=== PATIENT | male | born 1950 | race Caucasian/White ===

== ENCOUNTER → 2017-10-18 14:40 | Outpatient (CLI) | payer MEDICARE, OTHER, SELFPAY ==
[2017-10-18 16:07] LABS: Absolute Lymphocyte Count 1.64 X10^3/ul (0.83-4.51); Absolute Neutrophil Count 6.1 X10^3/uL (2.0-7.7); Basophil# 0.03 X10^3/uL; Basophil% 0.4 % (0-1); Eosinophil# 0.11 X10^3/uL; Eosinophils% 1.3 % (0-5); Hematocrit 44.8 % (40-54); Hemoglobin 15.4 g/dl (13.0-16.5); Lymphocyte # 1.64 X10^3/ul (4.0); Lymphocyte % 19.3 % (19-41); Mean Corp Hgb Conc 34.4 g/gl (32-36); Mean Corpuscular Hgb 28.5 pg (27.0-32.0); Mean Platelet Vol. 10.7 fl (6.2-12.0); Monocyte# 0.63 X10^3/uL; Monocyte% 7.4 % (0-10); Neutrophil # 6.07 X10^3/uL (2.7-7.7); Neutrophil % 71.2 % (47-70); Platelet Count 292 K/mm3 (150-450); RBC Distribution Width CV 13.3 % (11.6-14.6); White Blood Count 8.5 K/mm3 (4.4-11.0)
[2017-10-18 16:23] LABS: POSITIVE COUNT NO; POSITIVE DIFFERENTIAL NO; POSITIVE MORPHOLOGY NO
[2017-10-18 16:28] LABS: Anion Gap 6 (5-15); BUN 12 mg/dL (7-18); BUN/Creat Ratio 14.1 RATIO (10-20); Chloride 102 mmol/L (98-107); Creatinine, Serum 0.85 mg/dL (0.70-1.30); EST Glomerular Filtration Rate 95 mL/min (>60); Est Glom Filt Rate - Afr Amer 115 mL/min (>60); Glucose 86 mg/dL (74-106); Potassium 3.7 mmol/L (3.5-5.1); Sodium Level 139 mmol/L (136-145); Thyroid Stim Hormone (TSH) 0.86 uIU/mL (0.358-3.74)
== END ==
PROVIDERS: Family Provider Family Medicine; PCP Family Medicine; Visit Provider Family Medicine
DX: I10 Essential (primary) hypertension (principal); R55 Syncope and collapse
CPT/HCPCS: 36415; 80048; 84443; 85025

== ENCOUNTER → 2018-06-10 09:46 | Outpatient (CLI) | payer MEDICARE, OTHER, SELFPAY ==
--- NOTE | 2018-06-10 12:11 | PFT ---
INTRODUCTION: The patient is a 68-year-old male that presents for pulmonary function testing secondary to a diagnosis of asthma. Respiratory therapy reports good patient effort. Bronchodilators were used during testing. INTERPRETATION: Forced expiration spirometry demonstrates no evidence of a large airways obstructive ventilatory defect. There was no significant response to aerosolized bronchodilators, based on strict ATS criteria. Spirograms are of good quality and plateau normally. Body plethysmography was performed and reveals a decreased TLC to 5.3 L, 78% of predicted, indicative of a mild restrictive ventilatory defect. The remainder of the lung volumes are symmetrically reduced. Diffusing capacity by single breath CO is within normal limits at 98% of predicted. When compared to previous pulmonary function studies dated May 2017, there has been a 13% improvement in the patient's FEV1. IMPRESSION: These pulmonary function studies demonstrate the presence of an isolated mild restrictive ventilatory impairment.
== END ==
PROVIDERS: Family Provider Family Medicine; PCP Family Medicine; Referring Provider Internal Medicine Critical Care Medicine; Visit Provider Internal Medicine Critical Care Medicine
DX: J45.40 Moderate persistent asthma, uncomplicated (principal)
CPT/HCPCS: 94060; 94726; 94729

== ENCOUNTER → 2018-10-20 09:54 | Outpatient (CLI) | payer MEDICARE, OTHER, SELFPAY ==
[2018-10-20 12:30] LABS: Absolute Neutrophil Count 3.9 X10^3/uL (2.0-7.7); Basophil# 0.03 X10^3/uL; Basophil% 0.5 % (0-1); Eosinophil# 0.16 X10^3/uL; Eosinophils% 2.5 % (0-5); Hematocrit 46.2 % (40-54); Hemoglobin 14.8 g/dl (13.0-16.5); Lymphocyte % 25.4 % (19-41); Mean Corpuscular Hgb 28.4 pg (27.0-32.0); Mean Corpuscular Volume 88.5 fL (80-94); Mean Platelet Vol. 10.5 fl (6.2-12.0); Monocyte# 0.58 X10^3/uL; Monocyte% 9.2 % (0-10); Neutrophil % 62.1 % (47-70); POSITIVE COUNT NO; POSITIVE DIFFERENTIAL NO; POSITIVE MORPHOLOGY NO; Platelet Count 273 K/mm3 (150-450); RBC Distribution Width CV 13.5 % (11.6-14.6); RBC Distribution Width SD 43.5 fl (35.1-43.9); Red Blood Count 5.22 M/mm3 (4.6-6.2); White Blood Count 6.3 K/mm3 (4.4-11.0)
[2018-10-20 13:14] LABS: ALB/GLOB Ratio 1.2 RATIO (0.9-2.4); AST(SGOT) 17 U/L (15-37); Alanine Aminotransfer ALT/SGPT 27 U/L (16-61); Albumin, Serum 3.9 g/dL (3.2-5.0); Alkaline Phosphatase 75 U/L (45-117); Anion Gap 5 (5-15); BUN 14 mg/dL (7-18); BUN/Creat Ratio 16.6 RATIO (10-20); Calcium,Total 8.8 mg/dL (8.5-10.1); Chloride 105 mmol/L (98-107); Cholesterol 164 mg/dL (200); Creatinine, Serum 0.84 mg/dL (0.70-1.30); EST Glomerular Filtration Rate 96 mL/min (>60); Est Glom Filt Rate - Afr Amer 116 mL/min (>60); Globulin 3.3 g/dL (2.2-4.2); Glucose 96 mg/dL (74-106); High Density Lipoprotein 39 mg/dL; Potassium 3.8 mmol/L (3.5-5.1); Protein, Total 7.2 g/dL (6.4-8.2); Sodium Level 138 mmol/L (136-145); Thyroid Stim Hormone (TSH) 1.32 uIU/mL (0.358-3.74); Triglycerides 161 mg/dL; Very Low Density Lipoprotein 32 mg/dL (5-40)
== END ==
PROVIDERS: Family Provider Family Medicine; PCP Family Medicine; Visit Provider Internal Medicine Cardiovascular Disease
DX: I10 Essential (primary) hypertension (principal); R06.09 Other forms of dyspnea; R07.9 Chest pain, unspecified; Z68.35 Body mass index [BMI] 35.0-35.9, adult
CPT/HCPCS: 36415; 80053; 80061; 84443; 85025

== ENCOUNTER → 2019-11-13 10:31 | Outpatient (CLI) | payer MEDICARE, OTHER, SELFPAY ==
[2019-06-08 13:17] VITALS: BMI 32.0
[2019-11-13 12:20] LABS: Absolute Lymphocyte Count 1.08 X10^3/uL (0.83-4.51); Absolute Neutrophil Count 4.1 X10^3/uL (2.0-7.7); Basophil# 0.04 X10^3/uL; Basophil% 0.7 % (0-1); Eosinophil# 0.22 X10^3/uL; Eosinophils% 3.6 % (0-5); Hematocrit 43.3 % (40-54); Hemoglobin 14.2 g/dL (13.0-16.5); Lymphocyte # 1.08 X10^3/ul (4.0); Lymphocyte % 17.9 % (19-41); Mean Corp Hgb Conc 32.8 g/dL (32-36); Mean Corpuscular Hgb 28.6 pg (27.0-32.0); Mean Corpuscular Volume 87.1 fL (80-94); Mean Platelet Vol. 11.2 fl (6.2-12.0); Monocyte# 0.58 X10^3/uL; Monocyte% 9.6 % (0-10); NRBC Flagged by Analyzer 0 % (0-5); Neutrophil % 67.7 % (47-70); Platelet Count 233 K/mm3 (150-450); RBC Distribution Width CV 13.4 % (11.6-14.6); RBC Distribution Width SD 42.3 fl (35.1-43.9); Red Blood Count 4.97 M/mm3 (4.6-6.2); White Blood Count 6.1 K/mm3 (4.4-11.0)
[2019-11-13 12:41] LABS: ALB/GLOB Ratio 1.3 RATIO (0.9-2.4); AST(SGOT) 13 U/L (15-37); Alanine Aminotransfer ALT/SGPT 23 U/L (16-61); Albumin, Serum 3.9 g/dL (3.2-5.0); Alkaline Phosphatase 85 U/L (45-117); Anion Gap 6 (5-15); BUN 14 mg/dL (7-18); BUN/Creat Ratio 16.9 RATIO (10-20); Bilirubin, Direct 0.13 mg/dL (0.00-0.30); Calcium,Total 9.3 mg/dL (8.5-10.1); Chloride 108 mmol/L (98-107); Cholesterol 146 mg/dL (200); Creatinine, Serum 0.83 mg/dL (0.70-1.30); EST Glomerular Filtration Rate 98 mL/min (>60); Est Glom Filt Rate - Afr Amer 119 mL/min (>60); Globulin 2.9 g/dL (2.2-4.2); Glucose 105 mg/dL (74-106); High Density Lipoprotein 47 mg/dL; Potassium 4.3 mmol/L (3.5-5.1); Protein, Total 6.8 g/dL (6.4-8.2); Sodium Level 142 mmol/L (136-145); Thyroid Stim Hormone (TSH) 1.37 uIU/mL (0.358-3.74); Triglycerides 98 mg/dL; Very Low Density Lipoprotein 20 mg/dL (5-40)
== END ==
PROVIDERS: PCP Family Medicine; Visit Provider Internal Medicine Cardiovascular Disease
DX: I10 Essential (primary) hypertension (principal); R60.9 Edema, unspecified; R06.00 Dyspnea, unspecified
CPT/HCPCS: 36415; 80053; 80061; 82248; 84443; 85025

== ENCOUNTER → 2020-09-05 14:26 | Outpatient (CLI) | payer MEDICARE, OTHER, SELFPAY ==
[2020-06-13 15:07] VITALS: BMI 33.5
--- NOTE | 2020-09-05 14:35 | RAD_ITS ---
STUDY: X-RAY CHEST REASON FOR EXAM: Male, 70 years old. left basilar crackles possible pneumonia. TECHNIQUE: PA and lateral views of the chest. COMPARISON: 12/25/2016 FINDINGS: There is hyperinflation of the lungs consistent with chronic obstructive lung disease (COPD). Elevated right hemidiaphragm which is unchanged. Normal size heart. Normal mediastinum and harini. Normal visualized pulmonary arteries. Normal visualized aortic arch and descending thoracic aorta. Normal visualized thoracic spine. Normal visualized ribs, clavicles, and shoulders. There is no demonstrated abnormality of the visualized soft tissue structures of the upper abdomen. RAD/Chest PA and Lateral IMPRESSION: Emphysema without pneumonia or atelectasis. Electronically Signed: Kobi Brock MD at 16:52 EST Tel , Service support ,
== END ==
PROVIDERS: PCP Family Medicine; Referring Provider Family Medicine; Visit Provider Family Medicine
DX: R91.8 Other nonspecific abnormal finding of lung field (principal); R05 Cough
CPT/HCPCS: 71046

== ENCOUNTER → 2020-11-30 09:18 | Outpatient (CLI) | payer MEDICARE, OTHER, SELFPAY ==
[2020-11-10 10:33] VITALS: BMI 33.5
[2020-11-30 10:05] LABS: Absolute Lymphocyte Count 1.64 X10^3/uL (0.83-4.51); Basophil# 0.04 X10^3/uL; Basophil% 0.6 % (0-1); Eosinophil# 0.21 X10^3/uL; Eosinophils% 3.3 % (0-5); Hemoglobin 14.5 g/dL (13.0-16.5); Lymphocyte # 1.64 X10^3/ul (4.0); Lymphocyte % 25.6 % (19-41); Mean Corpuscular Hgb 28.7 pg (27.0-32.0); Mean Corpuscular Volume 87.1 fL (80-94); Monocyte# 0.51 X10^3/uL; NRBC Flagged by Analyzer 0 % (0-5); Neutrophil # 3.98 X10^3/uL (2.7-7.7); Platelet Count 226 K/mm3 (150-450); RBC Distribution Width CV 13.1 % (11.6-14.6); RBC Distribution Width SD 41.4 fl (35.1-43.9); Red Blood Count 5.05 M/mm3 (4.6-6.2); White Blood Count 6.4 K/mm3 (4.4-11.0)
[2020-11-30 10:41] LABS: AST(SGOT) 12 U/L (15-37); Alanine Aminotransfer ALT/SGPT 23 U/L (16-61); Albumin, Serum 3.7 g/dL (3.2-5.0); Alkaline Phosphatase 96 U/L (45-117); Anion Gap 6 (5-15); BUN 14 mg/dL (7-18); BUN/Creat Ratio 16.9 RATIO (10-20); Bilirubin, Direct 0.09 mg/dL (0.00-0.30); Chloride 107 mmol/L (98-107); Cholesterol 141 mg/dL (200); Creatinine, Serum 0.83 mg/dL (0.70-1.30); EST Glomerular Filtration Rate 97 mL/min (>60); Est Glom Filt Rate - Afr Amer 118 mL/min (>60); Globulin 3.3 g/dL (2.2-4.2); Glucose 102 mg/dL (74-106); High Density Lipoprotein 47 mg/dL; Potassium 3.9 mmol/L (3.5-5.1); Sodium Level 140 mmol/L (136-145); Thyroid Stim Hormone (TSH) 1.32 uIU/mL (0.358-3.74); Triglycerides 101 mg/dL; Very Low Density Lipoprotein 20 mg/dL (5-40)
== END ==
PROVIDERS: Nurse Practitioner Family; PCP Family Medicine; Visit Provider Family Medicine
DX: I10 Essential (primary) hypertension (principal); R60.9 Edema, unspecified
CPT/HCPCS: 36415; 80048; 80061; 80076; 84443; 85025

== ENCOUNTER → 2020-12-14 15:47 | Outpatient (CLI) | payer MEDICARE, OTHER, SELFPAY ==
[2020-12-14 14:49] VITALS: BMI 33.5
[2020-12-14 17:42] LABS: BNP,B-Type NATRIURETIC PEPTIDE 102.3 pg/mL (0-100)
[2020-12-14 17:43] LABS: Anion Gap 6 (5-15); BUN 16 mg/dL (7-18); BUN/Creat Ratio 20.5 RATIO (10-20); Calcium,Total 8.9 mg/dL (8.5-10.1); Chloride 105 mmol/L (98-107); Creatinine, Serum 0.78 mg/dL (0.70-1.30); EST Glomerular Filtration Rate 104 mL/min (>60); Est Glom Filt Rate - Afr Amer 126 mL/min (>60); Glucose 94 mg/dL (74-106); Potassium 3.9 mmol/L (3.5-5.1); Sodium Level 140 mmol/L (136-145)
== END ==
PROVIDERS: PCP Family Medicine; Referring Provider Nurse Practitioner Family; Visit Provider Nurse Practitioner Family
DX: R06.00 Dyspnea, unspecified (principal); R60.9 Edema, unspecified
CPT/HCPCS: 36415; 80048; 83880

== ENCOUNTER → 2020-12-29 12:40 | Outpatient (CLI) | payer MEDICARE, OTHER, SELFPAY ==
[2020-12-14 14:49] VITALS: BMI 33.5
--- NOTE | 2020-12-29 12:41 | ECHOCS_ITS ---
Reason For Study: SOB Procedure This was a 2D Doppler, Color Flow transthoracic echocardiogram. The study was technically difficult. Exam performed in department. Left Ventricle Normal LV size. Left ventricular systolic function is normal. The estimated ejection fraction is 55 %. Normal diastology for age. No regional wall motion abnormalities noted. Right Ventricle Normal RV size. Normal systolic function. Atria The left atrium is mildly enlarged. Normal right atrium. Mitral Valve Normal mitral valve. Mild (1+) eccentric mitral valve insufficiency. Tricuspid Valve Normal tricuspid valve. Mild tricuspid valve insufficiency. Pulmonary artery systolic pressure is 35 mmHg. Aortic Valve Trisinus/trileaflet aortic valve. Mild focal aortic valve thickening. Mild (1+) eccentric aortic valve insufficiency. Pulmonic Valve The pulmonic valve is not well visualized. Great Vessels Normal aortic root. The pulmonary artery is normal size. Normal inferior vena cava. Pericardium/Pleural No pericardial effusion. Medication 22 gauge I.V. with prn adaptor inserted into right arm. Diluted definity 2.5ml given slow IV push to enhance endocardial definition. MMode/2D Measurements & Calculations LVIDd: 5.4 cm IVSd: 1.0 cm LVOT diam: 2.4 cm LVIDs: 3.8 cm LVPWd: 1.1 cm RVDd: 3.5 cm FS: 29.1 % LVOT area: 4.5 cm2 Ao root diam: 3.1 cm LAV(MOD-bp): 84.8 ml LA A4 area: 25.2 cm2 LAV(MOD-bp) Indexed: 38.0 ml/m2 LAV(MOD-sp2): 73.1 ml LAV(MOD-sp4): 81.7 ml LA dimension(2D): 4.4 cm RA A4 area: 15.9 cm2 Doppler Measurements & Calculations MV E max campbell: 78.7 cm/sec Lat Peak E' Campbell: 9.2 cm/sec Med Peak E' Campbell: 5.8 cm/sec MV A max campbell: 48.9 cm/sec E/E' lat: 8.5 E/E' med: 13.7 MV E/A: 1.6 Ao V2 max: 190.0 cm/sec LV V1 max: 124.8 cm/sec SV(LVOT): 131.6 ml Ao max P.5 mmHg LV V1 max P.2 mmHg Ao V2 mean: 135.5 cm/sec LV V1 mean P.6 mmHg Ao mean P.2 mmHg LV V1 mean: 89.8 cm/sec Ao V2 VTI: 41.2 cm LV V1 VTI: 29.3 cm GAURAV(I,D): 3.2 cm2 GAURAV(V,D): 3.0 cm2 PA V2 max: 102.9 cm/sec TR max campbell: 280.9 cm/sec TR max P.6 mmHg ECHO/Echo Complete W/ Contrast Interpretation Summary Normal LV size. Left ventricular systolic function is normal. The estimated ejection fraction is 55 %. Mild (1+) eccentric mitral valve insufficiency. Normal diastology for age. The left atrium is mildly enlarged. Ordering Physician: Mohit Telles/Ashwin Langley Referring Physician: Luke Obrien Performed By: Mary Quiñones RDCS
== END ==
PROVIDERS: PCP Family Medicine; Referring Provider Nurse Practitioner Family; Visit Provider Nurse Practitioner Family
DX: R06.02 Shortness of breath (principal); I34.0 Nonrheumatic mitral (valve) insufficiency
CPT/HCPCS: 93225; 93226; 93306; Q9957; A4216; C8929

== ENCOUNTER → 2021-04-25 12:39 | Outpatient (CLI) | payer MEDICARE, OTHER, SELFPAY | PROVIDERS: PCP Family Medicine; Visit Provider Family Medicine | DX: Z20.828 Contact with and (suspected) exposure to other viral communicable diseases (principal) | CPT/HCPCS: 87635; U0005; U0003 ==

== ENCOUNTER 2021-08-31 13:26 | Outpatient (CLI) | payer MEDICARE, OTHER, SELFPAY | END 2021-08-31 23:59 | disposition short-term general hospital (02) | PROVIDERS: PCP Family Medicine; Visit Provider Family Medicine | DX: U07.1 COVID-19 (principal) | CPT/HCPCS: 87635; U0003; U0005 ==

== ENCOUNTER 2021-10-16 06:57 | Outpatient (CLI) | payer MEDICARE, OTHER, SELFPAY ==
--- NOTE | 2021-10-16 17:08 | STRESSREP_ITS ---
Stress Test Report Exercise myocardial perfusion stress test. 71-year-old man with a history of chest pain and dyspnea on exertion. Medications aspirin, albuterol, amlodipine, carvedilol, vitamin. Stress protocol: Resting EKG demonstrates normal sinus rhythm with a rate of 65 bpm premature ventricular complexes are noted resting blood pressure is 132/90 mmHg. The patient exercised according to regular Quang protocol for total duration of 3 minutes. The maximum heart rate was 129 bpm which was 86% of max impact at heart rate the maximum workload was 4.6 metabolic equivalents. At rest there were no ST or T wave changes noted to suggest ischemia and at peak exercise no ST changes were noted to suggest ischemia. Frequent premature ventricular complexes were noted at peak exercise and during recovery. The peak blood pressure was 174/84. Myocardial perfusion protocol. 14.7 mCi of technetium 99m sestamibi was injected at rest. Patient exercised a ccording to regular Quang protocol for 3 minutes and at peak exercise 44.0 mCi of technetium 99m sestamibi was injected stress images were obtained stress and rest images were reconstructed and compared in the short axis vertical long and horizontal long axis. Gated images were also obtained. Perfusion SPECT analysis: Review of the stress images demonstrate normal uptake of tracer noted in all a reas of the myocardium the resting images smooth demonstrate normal uptake of tracer noted in all areas of the myocardium. No areas of reversibility are noted suggest ischemia no previous infarct is noted. Gated SPECT analysis: The gated ejection fraction is 49%. Conclusion: Normal pharmacologic myocardial perfusion stress test at a low workload. The low workload may affect sensitivity for detection of ischemia. Moderate to marked functional impairment.
== END 2021-10-16 23:59 | disposition home or self-care (01) ==
PROVIDERS: PCP Family Medicine; Referring Provider Nurse Practitioner Gerontology; Visit Provider Nurse Practitioner Gerontology
DX: R07.89 Other chest pain (principal)
CPT/HCPCS: 78452; 93017; A9500; A4216

== ENCOUNTER 2021-10-21 08:40 | Outpatient (CLI) | payer MEDICARE, OTHER, SELFPAY ==
[2021-10-21 09:31] LABS: Absolute Lymphocyte Count 1.47 X10^3/uL (0.83-4.51); Absolute Neutrophil Count 4.1 X10^3/uL (2.0-7.7); Basophil# 0.04 X10^3/uL; Basophil% 0.6 % (0-1); Eosinophil# 0.18 X10^3/uL; Eosinophils% 2.8 % (0-5); Hematocrit 44.2 % (40-54); Hemoglobin 14.7 g/dL (13.0-16.5); Lymphocyte # 1.47 X10^3/ul (0.83-4.51); Mean Corp Hgb Conc 33.3 g/dL (32-36); Mean Corpuscular Hgb 28.9 pg (27.0-32.0); Mean Corpuscular Volume 86.8 fL (80-94); Mean Platelet Vol. 10.7 fl (6.2-12.0); Monocyte% 9.4 % (0-10); NRBC Flagged by Analyzer 0 % (0-5); Neutrophil # 4.09 X10^3/uL (2.7-7.7); Neutrophil % 63.9 % (47-70); Platelet Count 213 K/mm3 (150-450); RBC Distribution Width CV 13.2 % (11.6-14.6); RBC Distribution Width SD 41.6 fl (35.1-43.9); Red Blood Count 5.09 M/mm3 (4.6-6.2); White Blood Count 6.4 K/mm3 (4.4-11.0)
--- NOTE | 2021-10-21 09:40 | RAD_ITS ---
STUDY: X-RAY CHEST REASON FOR EXAM: Male, 71 years old. Cardiac Catheterization TECHNIQUE: PA and lateral views of the chest. COMPARISON: September 05, 2020 chest x-ray FINDINGS: There is elevation of the right hemidiaphragm. There is no demonstrated pleural abnormality. There is mild cardiac enlargement. Normal mediastinum and harini. Normal visualized pulmonary arteries. Normal visualized aortic arch and descending thoracic aorta. Normal visualized thoracic spine. Normal visualized ribs, clavicles, and shoulders. There is no demonstrated abnormality of the visualized soft tissue structures of the upper abdomen. RAD/Chest PA and Lateral IMPRESSION: No demonstrated acute cardiopulmonary process. Electronically Signed: Jackelyn Cummins MD at 14:36 EST Reading Location ID and State: [facility] / [place] Tel , Service support ,
[2021-10-21 09:53] LABS: Anion Gap 4 (5-15); BUN 14 mg/dL (7-18); Calcium,Total 8.7 mg/dL (8.5-10.1); Chloride 106 mmol/L (98-107); Creatinine, Serum 0.87 mg/dL (0.70-1.30); EST Glomerular Filtration Rate 91 mL/min (>60); Est Glom Filt Rate - Afr Amer 111 mL/min (>60); Glucose 104 mg/dL (74-106); Potassium 4.3 mmol/L (3.5-5.1); Sodium Level 140 mmol/L (136-145)
[2021-10-21 10:09] LABS: International Normalized Ratio 1.1; Partial Thromboplast Time 28.2 Seconds (24.1-36.2); Prothrombin Time (Protime)PT. 13.9 SECONDS (11.7-14.9)
[2021-10-21 10:14] LABS: AST(SGOT) 16 U/L (15-37); Alanine Aminotransfer ALT/SGPT 26 U/L (16-61); Albumin, Serum 3.7 g/dL (3.2-5.0); Alkaline Phosphatase 82 U/L (45-117); Bilirubin, Direct 0.15 mg/dL (0.00-0.30); Cholesterol 133 mg/dL (200); Globulin 3.2 g/dL (2.2-4.2); High Density Lipoprotein 43 mg/dL; Protein, Total 6.9 g/dL (6.4-8.2); Triglycerides 91 mg/dL; Very Low Density Lipoprotein 18 mg/dL (5-40)
== END 2021-10-21 23:59 | disposition home or self-care (01) ==
LOC: LAB 08:41
PROVIDERS: Nurse Practitioner Family; PCP Family Medicine; Referring Provider Nurse Practitioner Gerontology; Visit Provider Nurse Practitioner Gerontology
DX: R07.89 Other chest pain (principal); E78.00 Pure hypercholesterolemia, unspecified; I10 Essential (primary) hypertension
CPT/HCPCS: 36415; 71046; 80048; 80061; 80076; 85025; 85610; 85730

== ENCOUNTER 2021-10-24 06:17 | Day surgery (SDC) | payer MEDICARE, OTHER, SELFPAY ==
[2021-10-23 08:47] VITALS: BMI 34.4
--- NOTE | 2021-10-23 10:35 | HP.PCM_ITS ---
History and Physical Date of Admission: 10/24/21 History of Present Illness This is a 71-year-old male presents the [facility] today for a left heart catheterization. He has a history of hypertension. He has occasional palpitations, occasional dyspnea on exertion and bilateral lower extremity edema all of which are chronic. He denies any palpitations. He does have SOB, chest heaviness, pressure with exertion. He denies orthopnea, and PND. He does wear a CPAP at night. He does not have bleeding issues; no blood in urine, stool or nosebleeds. He denies any decrease in energy level, myalgias, or claudication. He does state he has an occasional bilateral lower extremity edema. He does wear compression stockings- He states this improves with elevation. He denies sudden weight gain. He denies dizziness, lightheadedness, syncopal or near syncopal episodes, and headaches. On account of chest heaviness, he underwent stress test on 10/08/2021 that was negative for ischemia at a low workload with moderate to marked functional impairment. On account of such results, he will proceed with heart catheterization. 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 Accompanied by: None Is patient in pain?: No Allergies acetaminophen [From Excedrin Tension Headache] Adverse Reaction (Verified 09/18/21 14:08) Vomiting caffeine [From Excedrin Tension Headache] Adverse Reaction (Verified 09/18/21 14:08) Vomiting Medications See EMR [facility] Medical History Abnormal electrocardiogram Abnormal pulmonary function test Asthma, moderate persistent Chest pain, unspecified Daytime somnolence Dizziness and giddiness UMANA (dyspnea on exertion) HTN (hypertension) Malaise and fatigue Moderate persistent allergic asthma THEA (obstructive sleep apnea) Rheumatoid arthritis Snoring Syncope and collapse Surgical History H/O skin graft History of bilateral cataract extraction History of left heart catheterization (12/31/16) Family History Mother CAD (coronary artery disease) CVA (cerebral vascular accident) Social History Smoking Status: Former smoker quit date: 08/19/84 pack-years: 29 second hand exposure: No alcohol intake: never substance use type: does not use ROS Const Const: Negative for fatigue, weakness, fever(s), headache(s), chills, frequent falls, weight gain or weight loss Eyes Eyes: Negative for blind spots, loss of peripheral vision, transient loss of vision, blurry vision, change in vision, double vision, floaters or tunnel vision ENT ENT: Negative for headache(s), dizziness, Nosebleed/epistaxis, balance problems or neck pain Cardio Chest Pain: Yes Frequency: other (occasional) Character: other (pressure or heaviness) Onset: exercise Location: mid sternal Exacerbation: exercise Relieving: rest Palpitations: No Edema: Bilateral (Occasional-wears compression stockings-improves with elevation) and None Muscle aches with walking: None Resp Respiratory: Positive for SOB with activity; Negative for SOB at rest or SOB orthopnea\SOB lying down GI GI: Negative nausea, vomiting, heartburn, bloating, vomiting blood/hematemesis, bright, red blood in stools or black,tarry stools Musc Musc: Negative for muscle aches/ myalgia, muscle weakness, joint pain or balance problems Neuro Neuro: Negative for dizziness, lightheadedness, near syncope, syncope, orthos tatic symptoms, frequent falls, headache(s), weakness, blurry vision or double vision Hunter Hematologic/Lymphatic: Negative for easy bleeding or easy bruising Endo Endo: Negative for fatigue Cardiology Exam Const Appearance: cooperative and no acute distress Orientation: alert and oriented x3 Head Head: normal to inspection Ears: hearing grossly normal bilaterally Nose: external nose normal Face and Sinus: face symmetric Eyes General: appearance normal, both eyes and all related structures Eyelids: eyelids normal Conjunctivae: conjunctivae normal Pupils: PERRL and pupil size EOM: EOM intact bilaterally Neck Neck: normal visual inspection Carotids: Negative bruit Chest Chest inspection: normal inspection of the chest and normal respiratory effort Auscultation: Bilateral: Clear to Auscultation Cardio Palpation: normal PMI Rate: regular rate Rhythm: regular rhythm Heart sounds: S1 normal and S2 normal; Negative rub, gallop or murmur GI GI: normal to inspection and soft; Negative no hepatosplenomegaly Neuro General: patient alert, patient oriented x3 and CN's II-XI intact bilaterally Skin Skin: no rashes or lesions noted Extremities Pulses: Normal: Right Posterior Tibial Pulse, Left Posterior Tibial Pulse, Right Radial Pulse and Left Radial Pulse Lower Extremity Edema: None: Bilateral Psych Psychological: normal affect Supplemental Info Supplemental Information Echocardiogram 12/29/2020: Interpretation Summary Normal LV size. Left ventricular systolic function is normal. The estimated ejection fraction is 55 %. Mild (1+) eccentric mitral valve insufficiency. Normal diastology for age. The left atrium is mildly enlarged. Transthoracic Echocardiogram from 07/24/2016: Interpretation Summary The study was technically difficult. Contrast injection was performed. Left ventricular systolic function is normal. The estimate ejection fraction is 65%. The left atrium is mildly enlarged. Trivial mitral valve insufficiency. Mild tricuspid valve insufficiency. Mild focal aortic valve calcification. Trivial aortic valve insufficiency. Trivial pulmonic valve insufficiency. Right ventricular systolic pressure estimated 34 mmHg. Heart catheterization from 12/31/2016: CONCLUSIONS Normal LV size, wall motion, and systolic function Normal coronary arteries RECOMMENDATIONS 1. ASA indefinitely 2. Discontinue Plavix 3. Continue CPAP 4. PFTs to evaluate for COPD DOMINANCE: Codominant LEFT HEART ASSESSMENT Left ventricular ejection fraction: By LV gram 65% Normal LV wall motion Normal left ventricular systolic function LEFT MAIN: Angiographically normal LEFT ANTERIOR DESCENDING ARTERY: Angiographically normal CIRCUMFLEX ARTERY: Angiographically normal RIGHT CORONARY ARTERY: Angiographically normal Stress test from 10/16/2021: Conclusion: Normal pharmacologic myocardial perfusion stress test at a low workload. The low workload may affect sensitivity for detection of ischemia. Moderate to marked functional impairment. Labs: LDL Cholesterol 74 mg/dL (0-130) HDL Cholesterol 47 mg/dL (40-) Triglycerides 101 mg/dL (-199) VLDL Cholesterol 20 mg/dL (5-40) Diagnostics: Electrocardiogram Echocardiogram Chest X-Ray Pulmonary: Pulmonary Function Test Assessment and Plan Assessment and Plan (1) PVC (premature ventricular contraction): Status: Chronic Plan - Darleen Mitchell NP, [facility]: Patient has a history of premature ventricular contractions. He will continue with his current medical therapy. He will continue to monitor for any concerning symptoms. (2) HTN (hypertension): Status: Chronic Qualifiers: Hypertension type: unspecified Qualified Code(s): I10 - Essential (primary) hypertension Plan - Darleen Mitchell NP, [facility]: Patient has a history of hypertension. His blood pressure is well controlled at this time. He will continue his current medical therapy, along with monitoring his blood pressures at home. He will notify our office of any persistent high or low blood pressure readings. (3) Chest pressure: Status: Acute Orders: Orders: Nuclear Stress Test - T[facility] Today Lynnette - Darleen Mitchell [facility], [facility]: Patient has complaints of chest pressure, chest heaviness and shortness of breath with exertion. His stress test on 10/16/2021 was negative for ischemia, but completed at a low workload and showed moderate to marked functional impairment. On account of stress test result and symptoms, he will proceed with heart catheterization. Based on results, further recommendation be made. (4) Dyspnea on exertion: Status: Acute Plan - Darleen Mitchell [facility], [facility]: Patient has complaints of dyspnea on exertion along with chest heaviness and chest pressure. This will be further assessed with heart catheterization.
--- NOTE | 2021-10-24 08:27 | CL.D_ITS ---
Patient Name: PORTIA BAUER Study Date: 10/24/2021 Performing: Ashwin Langley MD Ht: 70.07 inches 178 cm : 1950 Wt: 240.3 lbs 109 kg Age: 71 Gender: male BSA: 2.26 PROCEDURE(S) PERFORMED [id number])LHC/COR/LV CLINICAL PROFILE AND INDICATIONS Indications: Suspected CAD Heart Failure: None Stress/Imaging Stress/Image Study Performed: No CAD Presentations: Unstable angina. CONCLUSIONS Normal coronary arteries Normal LV size, wall motion,and systolic function RECOMMENDATIONS Medical therapy DESCRIPTION OF PROCEDURE The patient arrived to the procedure lab. The risks and benefits of the procedure as well as a full d escription of our services here and current unavailability of surgical backup were fully explained to the patient and/or their significant other prior to the catheterization. The Timeout was completed, verifying the correct patient and procedure. The patient's procedural site was prepped and draped in the usual fashion. Local anesthetic was given subcutaneously to right radial region with Lidocaine 2% . Using a modified Seldinger technique, arterial access was obtained via the right radial artery, a 6 Fr sheath was inserted. Left Coronary Artery selective angiography was performed in multiple views u sing a 5 Fr. 4.0 Fieldale catheter. Right Coronary Artery selective angiography was then performed in mu ltiple views using a 5 Fr. 4.0 Fieldale catheter. Left Ventriculography was performed in MORALES projection using a 5 Fr. Pigtail catheter. LV to AO pullback pressures were then recorded.The arterial sheath was pulled and a TR Band was applied for hemostasis CORONARY ANGIOGRAPHY DOMINANCE: Right Dominant LEFT HEART ASSESSMENT Left Ventricular Ejection Fraction: by LV Gram 60 % Normal LV wall motion Normal Left Ventricular systolic function Normal Left Ventricular systolic function LEFT MAIN: Angiographically normal LEFT ANTERIOR DESCENDING ARTERY: Angiographically normal CIRCUMFLEX ARTERY: Angiographically normal RIGHT CORONARY ARTERY: Angiographically normal COMPLICATIONS No Complications PROCEDURE MEDICATIONS Fentanyl 50 mcg IV Versed 1 mg IV Oxygen: 2 L/min via nasal cannula Heparin given IA 10/24/2021 08:03:57 Verapamil 2.5mg, Ntg 100mcgs, 3000 units of Heparin given IA 10/24/2021 08:03:57 SUMMARY OF HEMODYNAMIC DATA Time AIR REST ECG 06:57:38 ECG 07:36:31 Art 170/71 (103) 07:50:42 Art 187/88 (121) 07:51:25 AO 146/95 (119) SA 08:06:07 LV 142/16, 27 08:11:45 LV 142/16, 26 08:11:51 LV 146/23, 29 08:12:20 LV 145/23, 35 08:12:26 LVp 152/87, 96 08:12:31 AOp 148/90 (119) 08:12:36 Signed By Ashwin Langley MD On 10/24/2021 08:26:14 Ashwin Langley MD
== END 2021-10-24 23:59 | disposition home or self-care (01) ==
LOC: CLSP 06:18
PROVIDERS: PCP Family Medicine; Referring Provider Internal Medicine Cardiovascular Disease; Visit Provider Internal Medicine Cardiovascular Disease
DX: I49.3 Ventricular premature depolarization (principal); M06.9 Rheumatoid arthritis, unspecified; I20.0 Unstable angina; R06.02 Shortness of breath; I10 Essential (primary) hypertension; Z87.891 Personal history of nicotine dependence; R00.2 Palpitations; R06.00 Dyspnea, unspecified; R60.0 Localized edema; G47.33 Obstructive sleep apnea (adult) (pediatric); Z82.49 Family history of ischemic heart disease and other diseases of the circulatory system
CPT/HCPCS: 93458; 99152; 99153; J7040; Q9967; C1769; C1894

== ENCOUNTER → 2022-12-14 | Outpatient (CLI) | payer MEDICARE, OTHER, SELFPAY ==
--- NOTE | 2022-12-14 07:19 | MRI_ITS ---
INDICATION: HEARING LOSS RIGHT EAR -- ATTN IACS EXAMINATION: MRI - MR Attn IACs and/or Temporal Bones WO/W Contrast TECHNIQUE: Multiplanar and multisequence MR images of the brain were obtained with gadolinium. IV Contrast Dosage and Agent: None. COMPARISON: None. FINDINGS: BRAIN PARENCHYMA: No MRI evidence of hemorrhage. No evidence of acute infarct. No intracranial mass or mass effect. There is preservation of the riggs/white matter interface. Normal sella turcica, pituitary gland, infundibular stalk, optic chiasm and hypothalamus. The internal auditory canals are patent. Posterior fossa structures are unremarkable. CSF SPACES: Appropriate for age. No hydrocephalus. Basal cisterns are patent. VASCULAR SYSTEM: Normal flow voids in the major intracranial circulation. CALVARIUM, SKULL BASE, PARANASAL SINUSES AND MASTOID AIR CELLS: [Cell disease left greater than right. ORBITS: Both globes, extraocular muscles, optic nerves and retrobulbar fat appear unremarkable. 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 Electronically Signed: Jose Lopez MD, KARRIE at 17:42 EDT ,
[2022-12-14 08:10] LABS: CREATININE FINGERSTICK 1.1 mg/dL (0.70-1.30); EGFR FINGERSTICK > 60.0000 mL/min (>60)
== END | disposition home or self-care (01) ==
LOC: MRI 07:08
PROVIDERS: PCP Family Medicine; Referring Provider Family Medicine; Visit Provider Family Medicine
DX: H90.41 Sensorineural hearing loss, unilateral, right ear, with unrestricted hearing on the contralateral side (principal); G52.9 Cranial nerve disorder, unspecified
CPT/HCPCS: 70553; A9575

== ENCOUNTER → 2023-03-27 | Outpatient (CLI) | payer MEDICARE, SELFPAY ==
--- NOTE | 2023-03-27 10:15 | RAD_ITS ---
INDICATION: PRODUCTIVE COUGH X 2 WEEKS/CHEST PAIN EXAMINATION/TECHNIQUE: X-RAY - XR Chest 2 Views COMPARISON: 10/21/2021 FINDINGS: LINES/DEVICES: None. LUNGS: No consolidation. Reticular opacities in the lower lungs unchanged likely scarring. No pneumothorax. MEDIASTINUM: Unremarkable. CARDIAC SILHOUETTE: Mild enlarged. Stable size BONES AND SOFT TISSUES: No acute abnormalities. RAD/Chest PA and Lateral IMPRESSION: No evidence of active intrathoracic disease. Stable cardiomegaly. Consider radiographic follow-up or CT chest if symptoms persist. Electronically Signed: Laverne Smith MD at 0:45 EDT ,
== END | disposition home or self-care (01) ==
LOC: MTRAD 10:11
PROVIDERS: PCP Nurse Practitioner Family; Referring Provider Nurse Practitioner Family; Visit Provider Nurse Practitioner Family
DX: R05.8 Other specified cough (principal); R07.9 Chest pain, unspecified
CPT/HCPCS: 71046

== ENCOUNTER → 2023-04-10 | Outpatient (CLI) | payer MEDICARE, SELFPAY ==
--- NOTE | 2023-04-10 11:10 | RAD_ITS ---
STUDY: X-RAY CHEST REASON FOR EXAM: Male, 72 years old. Cough. TECHNIQUE: Frontal and lateral views of the chest. COMPARISON: March 27, 2023. FINDINGS: Stable cardiomegaly, aortic tortuosity, mild hyperinflation and interstitial prominence, most marked in the bases, unchanged. Thoracic osteopenia with mild spondylosis unchanged. No abnormality of the visualized soft tissue structures of the upper abdomen. RAD/Chest PA and Lateral IMPRESSION: Stable chest with no acute or active cardiopulmonary disease. See discussion above. Electronically Signed: Nakul Ragland MD at 12:28 EDT ,
[2023-04-10 12:10] LABS: Absolute Neutrophil Count 4.5 X10^3/uL (2.0-7.7); Basophil# 0.04 X10^3/uL; Basophil% 0.6 % (0-1); Eosinophil# 0.19 X10^3/uL; Eosinophils% 2.9 % (0-5); Hematocrit 45.3 % (40-54); Hemoglobin 14.9 g/dL (13.0-16.5); Lymphocyte % 21.1 % (19-41); Mean Corp Hgb Conc 32.9 g/dL (32-36); Mean Corpuscular Volume 88.3 fL (80-94); Mean Platelet Vol. 11.4 fl (6.2-12.0); Monocyte# 0.51 X10^3/uL; Monocyte% 7.7 % (0-10); NRBC Flagged by Analyzer 0 % (0-5); Neutrophil # 4.45 X10^3/uL (2.7-7.7); Neutrophil % 67.1 % (47-70); Platelet Count 223 K/mm3 (150-450); RBC Distribution Width CV 13.3 % (11.6-14.6); Red Blood Count 5.13 M/mm3 (4.6-6.2); White Blood Count 6.6 K/mm3 (4.4-11.0)
[2023-04-10 12:30] LABS: ALB/GLOB Ratio 1.2 RATIO (0.9-2.4); AST(SGOT) 13 U/L (15-37); Alanine Aminotransfer ALT/SGPT 25 U/L (16-61); Albumin, Serum 3.7 g/dL (3.2-5.0); Alkaline Phosphatase 86 U/L (45-117); Anion Gap 5 (5-15); BUN 11 mg/dL (7-18); BUN/Creat Ratio 13.9 RATIO (10-20); Calcium,Total 8.9 mg/dL (8.5-10.1); Chloride 108 mmol/L (98-107); Cholesterol 137 mg/dL (200); Creatinine, Serum 0.79 mg/dL (0.70-1.30); EST Glomerular Filtration Rate 102 mL/min (>60); Est Glom Filt Rate - Afr Amer 123 mL/min (>60); Globulin 3.2 g/dL (2.2-4.2); Glucose 99 mg/dL (74-106); High Density Lipoprotein 44 mg/dL; PSA,Total - Annual Screen 0.48 ng/mL (0.00-4.00); Potassium 3.8 mmol/L (3.5-5.1); Protein, Total 6.9 g/dL (6.4-8.2); Sodium Level 142 mmol/L (136-145); Triglycerides 145 mg/dL; Very Low Density Lipoprotein 29 mg/dL (5-40)
== END | disposition home or self-care (01) ==
PROVIDERS: PCP Nurse Practitioner Family; Referring Provider Nurse Practitioner Family; Visit Provider Nurse Practitioner Family
DX: I10 Essential (primary) hypertension (principal); E78.5 Hyperlipidemia, unspecified; R35.81 Nocturnal polyuria; Z12.5 Encounter for screening for malignant neoplasm of prostate; R05.9 Cough, unspecified
CPT/HCPCS: 36415; 71046; 80053; 80061; 84153; 85025; G0103

== ENCOUNTER → 2023-10-11 | Outpatient (CLI) | payer MEDICARE, SELFPAY ==
--- NOTE | 2023-10-11 10:38 | VDLE_ITS ---
Reason For Study: Bilateral leg pain and swelling RIGHT LEFT GSV is normal. GSV is normal. CFV is compressible, spontaneous, phasic, CFV is compressible, spontaneous, phasic, competent and demonstrates normal competent, and demonstrates normal augmentation. augmentation. FV is compressible, spontaneous, phasic, FV is compressible, spontaneous, phasic, competent and demonstrates normal competent and demonstrates normal augmentation. augmentation. POP V is compressible, spontaneous, phasic, POP V is compressible, spontaneous, phasic, competent and demonstrates normal competent and demonstrates normal augmentation. augmentation. T/P Trunk is compressible. T/P Trunk is compressible. PTV is compressible. PTV is compressible. RT PerV is compressible. LT PerV is compressible. Procedure This is a venous duplex using B-mode, color flow and spectral Doppler. Exam performed in department. A preliminary report was called and/or faxed to Dr. Schuler. VL/Venous Duplex US - Chirag Extrem Interpretation Summary Deep veins of the lower extremities are bilaterally patent and compressible seg mentally. There is no evidence of deep vein thrombosis on either side. Valvular competence appears in tact within the proximal deep venous systems bilaterally. The great saphenous veins appear bila terally patent and compressible segmentally. Ordering Physician: Papa Schuler Referring Physician: Peri Coyle Performed By: Brigette Benites RVT
--- OUTSIDE RECORDS SUMMARY | 2023-10-11 10:55 | XMS RPT_ITS | CCD ---
Author Name Unknown Address [address] [place] [address] Organization [facility] Care Team Providers Care Cashier Wrapper Name Role Phone Gilma WATSON, Joyce Forte Unavailable Unavailable Funes LABORATORY CHEMIST, Rachel Marci Unavailable Unavaila ble Funes LABORATORY CHEMIST, Rachel Marci Unavailable Unavaila ble Allergies Allergy Classification Reported Allergen(s) Allergy Type Date of Onset Reaction(s) Facility (3 sources) acetaminophen / aspirin / caffeine Drug Allergy 10-30-2016 nausea [facility] Work Phone: (6 sources) aspirin; Translations: [ASPIRIN] Drug Allergy 10-26-2016 Vomiting [facility] Work Phone: (3 sources) EXCEDRIN MIGRAINE drug allergy 10-30-2016 nausea [facility] Work Phone: Medications Completed/Discontinued Medications Medication Drug Class(es) Dates Sig (Normalized) Sig (Original) amLODIPine 5 mg / benazepril hydrochloride 20 mg oral capsule (3 sources) Dihydropyridine Calcium Channel Kurt, Angiotensin Converting Enzyme Inhibitor Start: 10-27-19 17 take 1 tablet by mouth once daily, then take 5-20 tablets by mouth AMLODIPINE BESY-BENAZEPRIL HCL 5-20 MG CAPS One tablet by mouth daily AMLODIPINE BESY-BENAZEPRIL HCL [id number] Jena Brown RN aspirin 81 mg oral tablet (3 sources) Nonsteroidal Anti-inflammatory Drug Start: 12-26-19 17 take 1 tablet by mouth once daily ASPIRIN EC LOW DOSE 81 MG TBEC One tablet by mouth daily ASPIRIN [id number] Len Saeed MD 100 actuat beclomethasone dipropionate 0.04 mg/actuat metered dose inhaler (2 sources) Corticosteroid Start: 06-14-20 17 QVAR 40 MCG/ACT AERS 2 puffs twice daily BECLOMETHASONE DIPROPIONATE [id number] Na Padilla CNP carvedilol 3.125 mg oral tablet (3 sources) alpha-Adrenergic Kurt, beta-Adrenergic Kurt Start: 12-26-19 17 take 1 tablet by mouth twice daily COREG 3.125 MG TABS One tablet by mouth twice daily CARVEDILOL [id number] Len Saeed MD clopidogrel 75 mg oral tablet (6 sources) P2Y12 Platelet Inhibitor Start: 12-26-19 17 End: 03-05-20 17 take 1 tablet by mouth once daily PLAVIX 75 MG TABS One tablet by mouth daily CLOPIDOGREL BISULFATE [id number] Rachel Funes LPN fexofenadine hydrochloride 180 mg oral tablet (6 sources) Histamine-1 Receptor Antagonist Start: 10-27-19 17 End: 10-31-19 17 take 1 tablet by mouth every twelve hours FABIAN 180 MG TABS One tablet by mouth twice daily FEXOFENADINE HCL Jena Brown RN 30 actuat fluticasone furoate 0.1 mg/actuat dry powder inhaler (5 sources) Corticosteroid Start: 06-10-20 17 End: 06-14-20 17 ARNUITY ELLIPTA 100 MCG/ACT AEPB One puff daily FLUTICASONE FUROATE [id number] Rachel Funes LPN hydroCHLOROthiazide 12.5 mg oral tablet (3 sources) Thiazide Diuretic Start: 10-27-19 17 take 1 tablet by mouth once daily HYDROCHLOROTHIAZIDE 12.5 MG TABS One tablet by mouth daily HYDROCHLOROTHIAZIDE [id number] Jena Brown RN meloxicam 15 mg oral tablet (3 sources) Nonsteroidal Anti-inflammatory Drug Start: 10-27-19 17 take 1 tablet by mouth once daily MOBIC 15 MG TABS One tablet by mouth daily MELOXICAM [id number] Jena Brown RN MULTIPLE VITAMIN (6 sources) Start: 10-27-19 17 take 1 tablet by mouth every twenty-four hours MULTIVITAMINS TABS One tablet by mouth daily MULTIPLE VITAMIN Jena Brown RN Problems Active Problems Problem Classification Problem Date Documented Da te Episodic/Chronic Asthma (3 sources) Moderate persistent asthma; Translations: [Moderate persistent asthma, uncomplicated] Onset: 06-10-2017 06-10-2017 Chronic Essential hypertension (3 sources) Hypertensive disorder; Translations: [Essential (primary) hypertension] Onset: 10-26-2016 10-26-2016 Chronic Unclassified (6 sources) Obstructive sleep apnea of adult; Translations: [Body mass index (BMI) 35.0-35.9, adult] Onset: 10-30-2016 03-05-2017 Chronic Past or Other Problems Problem Classification Problem Date Documented Date Episodic/Chronic Coma, stupor, brain damage (3 sources) Daytime somnolence; Translations: [Somnolence] Onset: 10-30-2016 10-31-2016 Episodic Conditions associated with dizziness or vertigo (3 sources) Dizziness and giddiness; Translations: [Dizziness and giddiness] Onset: 10-30-2016 10-30-2016 Episodic Malaise and fatigue (3 sources) Malaise and fatigue; Translations: [Other fatigue] Onset: 10-30-2016 10-30-2016 Episodic Nonspecific chest pain (3 sources) Chest pain; Translations: [Chest pain, unspecified] Onset: 10-30-2016 10-30-2016 Episodic Other lower respiratory disease (6 sources) Dyspnea on exertion; Translations: [Snoring] Onset: 10-30-2016 10-30-2016 Episodic Syncope (3 sources) Syncope and collapse; Translations: [Syncope and collapse] Onset: 10-26-2016 10-26-2016 Episodic Unclassified (6 sources) Electrocardiogram abnormal; Translations: [Lung function testing abnormal] Onset: 10-30-2016 10-30-2016 Episodic Results Test Name Value Interpretation Reference Range Facil ity Vital Signs Date Time Vital Sign Value Performing Clinician Faci lity 06-10-2017 07:11-0400 BMI (Body Mass Index) 33.72 kg/m2 Rachel Funes LPN [facility] Work Phone: 06-10-2017 07:11-0400 Body Temperature 98.9 [degF] Rachel Funes LPN [facility] Work Phone: 06-10-2017 07:11-0400 BP Diastolic 80 mm[Hg] Rachel Funes LABORATORY CHEMIST [facility] Work Phone: 06-10-2017 07:11-0400 BP Systolic 144 mm[Hg] Rachel Funes LABORATORY CHEMIST [facility] Work Phone: 06-10-2017 07:11-0400 Height 177.8 cm Rachel Funes LABORATORY CHEMIST [facility] Work Phone: 06-10-2017 07:11-0400 Pulse (Heart Rate) 79 /min Rachel Funes LABORATORY CHEMIST [facility] Work Phone: 06-10-2017 07:11-0400 Respiratory Rate 18 /min Rachel Funes LABORATORY CHEMIST [facility] Phone: 06-10-2017 07:11-0400 Weight 106.6 kg Rachel Funes LABORATORY CHEMIST [facility] Phone: Procedures Date Procedure Procedure Detail Performing Clinician Start: 06-10-2017 End: 06-11-2017 Demo&/eval of pt utiliz aersl gen/neb/inhlr/ip Quang Evelyn Thornton Work Phone: Start: 01-23-2017 End: 01-24-2017 Referral to respiratory physician Len Saeed MD Work Phone: Start: 12-25-2016 End: 12-25-2016 *BMP Len Saeed MD Work Phone: Start: 12-25-2016 End: 12-25-2016 *CBC with Differential Len Saeed MD Work Phone: Start: 12-25-2016 End: 12-25-2016 aPTT in Platelet poor plasma by Coagulation assay Len Saeed MD Work Phone: Start: 12-25-2016 End: 12-26-2016 Chest x-ray Len Saeed MD Work Phone: Start: 12-25-2016 End: 12-25-2016 BRANDIE Saeed MD Work Phone: Start: 12-25-2016 End: 12-25-2016 Ecg routine ecg w/least 12 lds w/i&r Len Saeed MD Work Phone: Start: 12-25-2016 End: 12-25-2016 Follow Up Appt 6 months Len Seaed MD Work Phone: Start: 12-25-2016 End: 12-25-2016 INR in Platelet poor plasma by Coagulation assay Len Saeed MD Work Phone: Start: 12-25-2016 End: 01-15-2017 Left Heart Cath Len Saeed MD Work Phone: Start: 12-25-2016 End: 01-15-2017 Pulmonary Function Test - complete Len Saeed MD Work Phone: Start: 10-30-2016 End: 11-01-2016 *Hepatic Function Panel Len Saeed MD Work Phone: Start: 10-30-2016 End: 11-22-2016 Complete sleep workup (PSG,CPAP as indicated) & Follow up Len Saeed MD Work Phone: Start: 10-30-2016 End: 12-20-2016 BRANDIE Saeed MD Work Phone: Start: 10-30-2016 End: 12-20-2016 Ecg routine ecg w/least 12 lds w/i&r Len Saeed MD Work Phone: Start: 10-30-2016 End: 12-20-2016 Follow Up Appt 1 month Len Saeed MD Work Phone: Start: 10-30-2016 End: 11-01-2016 Lipid 1996 panel - Serum or Plasma Len Saeed MD Work Phone: Start: 10-30-2016 End: 11-22-2016 Stress Echocardiogram - Dobutamine Len Saeed MD Work Phone: Start: 10-30-2016 End: 11-01-2016 Thyrotropin [Units/volume] in Serum or Plasma Len Saeed MD Work Phone: Start: 10-30-2016 End: 11-01-2016 Thyroxine (T4) [Mass/volume] in Serum or Plasma Len Saeed MD Work Phone: Start: 10-30-2016 End: 12-20-2016 Xtrnl mobile cv telemetry w/i&report 30 days Len Saeed MD Work Phone: Plan of Treatment Date Care Activity Detail Author Start: 11-01-2017 End: 11-02-2016 *Hepatic Function Panel *Hepatic Function Panel [facility] Phone: Start: 11-01-2017 End: 11-02-2016 Lipid panel [AGGREGATE] *Lipid Profile CC PCP [facility] Phone: Start: 09-09-2017 End: 09-09-2017 Appointment Appointment [facility] Phone: Start: 06-27-2017 End: 06-27-2017 Appointment Appointment [facility] Phone: Start: 06-10-2017 End: 06-10-2017 [facility] Phone: Start: 06-10-2017 End: 06-10-2017 Follow Up Appt 3 months Follow Up Appt 3 months [facility] Phone: Start: 05-19-2017 End: 03-05-2017 Pulmonary Function Test - complete Pulmonary Function Test - complete [facility] Phone: Start: 03-05-2017 End: 03-05-2017 Follow Up Appt 3 months Follow Up Appt 3 months [facility] Phone: Start: 01-23-2017 End: 03-25-2017 Pulmonary Referral Pulmonary Referral Peyman Wolfe DO, [facility], [address], [address], [place], [address] [facility] Phone: Start: 12-25-2016 End: 12-25-2016 *BMP *BMP [facility] Phone: Start: 12-25-2016 End: 12-25-2016 *CBC with Differential *CBC with Differential [facility] Phone: Start: 12-25-2016 End: 12-25-2016 aPTT *PTT-Partial Thromboplastin Time [facility] Phone: Start: 12-25-2016 End: 12-26-2016 Chest x-ray X-Ray, Chest, PA & Lateral [facility] Phone: Start: 12-25-2016 End: 12-25-2016 UMANGN DJN [facility] Phone: Start: 12-25-2016 End: 12-25-2016 Ecg routine ecg w/least 12 lds w/i&r EKG (In office) [facility] Phone: Start: 12-25-2016 End: 12-25-2016 Follow Up Appt 6 months Follow Up Appt 6 months [facility] Phone: Start: 12-25-2016 End: 12-25-2016 INR Coag RelTime (PPP) *PT/INR [facility] Phone: Start: 12-25-2016 End: 12-25-2016 Left Heart Cath Left Heart Cath [facility] Phone: Start: 12-25-2016 End: 12-25-2016 Pulmonary Function Test - complete Pulmonary Function Test - complete [facility] Phone: Start: 10-30-2016 End: 11-01-2016 *Hepatic Function Panel *Hepatic Function Panel [facility] Phone: Start: 10-30-2016 End: 10-30-2016 Complete sleep workup (PSG,CPAP as indicated) & Follow up Complete sleep workup (PSG,CPAP as indicated) & Follow up [facility] Phone: Start: 10-30-2016 End: 12-20-2016 BRANDIE DIEGO [facility] Phone: Start: 10-30-2016 End: 12-20-2016 Ecg routine ecg w/least 12 lds w/i&r EKG (In office) [facility] Phone: Start: 10-30-2016 End: 12-20-2016 Follow Up Appt 1 month Follow Up Appt 1 month [facility] Phone: Start: 10-30-2016 End: 11-01-2016 Lipid panel [AGGREGATE] *Lipid Profile CC PCP [facility] Phone: Start: 10-30-2016 End: 10-30-2016 Stress Echocardiogram - Dobutamine Stress Echocardiogram - Dobutamine [facility] Phone: Start: 10-30-2016 End: 11-01-2016 Thyroid stimulating hormone (TSH) *TSH [facility] Phone: Start: 10-30-2016 End: 11-01-2016 Thyroxine (T4) *T4 (Total) [facility] Phone: Start: 10-30-2016 End: 10-30-2016 Xtrnl mobile cv telemetry w/i&report 30 days 30 Day Holter Monitor [facility] Phone: Patient Education LOW%[email or web address]%[email or web address] [facility] Phone: Additional Source Comments FOR RECORDS PERTAINING TO PATIENTS WHO ARE OR HAVE BEEN ENROLLED IN A CHEMICAL DEPENDENCY/SUBSTANCEABUSE PROGRAM, SOME INFORMATION MAY BE OMITTED. This clinical summary was aggregated from multiple sources. Caution should be exercised in using it in the provision of clinical care. This summary normalizes information from multiple sources, and as a consequence, information in this document may materially change the coding, format and clinical context of patient data. In addition, data may be omitted in some cases. CLINICAL DECISIONS SHOULD BE BASED ON THE PRIMARY CLINICAL RECORDS. [email or web address] provides no warranty or guarantee of the accuracy or completeness of information in this document.
== END | disposition home or self-care (01) ==
LOC: CVS 10:34
PROVIDERS: PCP Nurse Practitioner Family; Referring Provider Podiatrist; Visit Provider Podiatrist
DX: M79.661 Pain in right lower leg (principal); M79.89 Other specified soft tissue disorders
CPT/HCPCS: 93970

== ENCOUNTER 2024-10-20 13:13 | Inpatient (IN) | payer MEDICARE, SELFPAY ==
[2024-10-20] VITALS (14 sets, daily range): BP systolic 113–145; BP diastolic 69–101; PULSE 62–97; RESP 18–31; TEMP 36.9–37.8; O2SAT 90–100; BMI 35.2; BMI 33.2
--- NOTE | 2024-10-20 14:01 | EKG12_ITS ---
Test Reason : CP Blood Pressure : */* mmHG Vent. Rate : 78 BPM Atrial Rate : 78 BPM P-R Int : 176 ms QRS Dur : 78 ms QT Int : 388 ms P-R-T Axes : 65 -27 27 degrees QTcB Int : 442 ms Normal sinus rhythm Minimal voltage criteria for LVH, may be normal variant ( R in aVL ) Nonspecific ST-T wave changes Abnormal ECG Confirmed by Rell Thomas ([id number]), research editor NIKOALS ASCENCIO ([id number]) on 10/22/2024 6:54:24 AM Referred By: BB/ALEX Confirmed By: Rell Thomas
--- NOTE | 2024-10-20 14:02 | EX.ED.DYSGE1 ---
HPI History of Present Illness Chief Complaint: Chest Pain Detail of Chief Complaint: Spasming subxiphoid discomfort and shortness of breath Informant: patient and spouse/S.O. Onset/Context/Timing Onset: Today Context: Sudden Onset Timing: Intermittent Quality: Intermittent spasming like pain xiphoid region Current Severity: Moderate Maximum Severity: Moderate Worsened by: Nothing Relieved by: Nothing Associated Symptoms Associated Symptoms: Patient was unaware that he had a fever. He does endorse brown-colored spu Narrative Narrative: Patient is 74-year-old male. He has history of hypertension, COPD and allergies who presents because of spasming like discomfort fever. Patient's pulse ox was 90% on room air at rest. Patient does endorse rhinorrhea and congestion. He does have history of allergies. This is different. He does endorse brown-colored sputum. He also has dyspnea on exertion. He has chronic swelling of his legs for years. He is scheduled for peripheral arterial studies. He has slept in a chair for some time. He is not on oxygen at home. [facility] Medical History Adult BMI 33.0-33.9 kg/sq m Essential hypertension Chest pressure PVC (premature ventricular contraction) Dyspnea on exertion Asthma Moderate persistent allergic asthma THEA (obstructive sleep apnea) Rheumatoid arthritis Syncope and collapse Dizziness and giddiness UMANA (dyspnea on exertion) Snoring Daytime somnolence Abnormal pulmonary function test Asthma, moderate persistent Home Medications ?Medication ?Instructions ?Recorded ?Last Taken ?Type aspirin 81 mg tablet,delayed 81 mg PO DAILY@0800 12/28/16 10/24/21 History release betamethasone dipropionate 0.05 % 1 applic topical DAILY PRN skin 09/25/22 Unknown History topical cream irritation horse chestnut 300 mg capsule 300 mg PO DAILY 09/25/22 Unknown History khuzepme-dq-dkyam 300 mcg-K 60 1 tab PO DAILY 09/25/22 Unknown History mcg-lycop 600 mcg-lutein 300 mcg tablet (Centrum Silver Ultra Men's) sodium chloride 0.65 % nasal spray 2 spray intranasal Q4H PRN dry 05/09/23 Unknown History aerosol (Flora Saline) nasal passages metoprolol succinate 50 mg 50 mg PO DAILY #90 tabs 10/28/23 Unknown Rx tablet,extended release 24 hr albuterol sulfate 90 mcg/actuation 2 puff inhalation Q4H PRN 11/11/23 Unknown Rx aerosol inhaler (Ventolin HFA) shortness of breath or wheezing #18 grams azelastine 0.05 % eye drops See Rx Instructions ophthalmic 11/11/23 Unknown History (eye) .COMPLEX fluticasone furoate 200 1 inh inhalation QDAY #30 ea 11/11/23 Unknown Rx mcg/actuation blister powder for inhalation (Arnuity Ellipta) amlodipine 5 mg-benazepril 20 mg 1 cap PO DAILY #90 caps 12/17/23 Unknown Rx capsule Allergy/AdvReac Type Severity Reaction Status Date / Time No Known Allergies Allergy Verified 10/20/24 13:28 Family History Mother CAD (coronary artery disease) CVA (cerebral vascular accident) Surgical History History of bilateral cataract extraction H/O skin graft History of left heart catheterization (10/24/21) Social History Smoking Status: Former smoker quit date: 08/19/84 pack-years: 29 second hand exposure: No alcohol intake: never substance use type: does not use caffeine: Yes Type: coffee Number of servings: 2 ROS ROS ED Constitutional Constitutional ED: Reports chills and sweats; Denies fever(s), subjective or weight loss Eyes Eyes: Denies blurry vision, change in vision or diplopia ENT ENT ED: Reports rhinorrhea and sore throat; Denies ear pain Cardiovascular Cardiovascular: Reports chest pain; Denies orthopnea, palpitations, paroxysmal nocturnal dyspnea or racing heartbeat Respiratory/Chest Respiratory/Chest: Reports cough, dyspnea, dyspnea on exertion and sputum; Denies orthopnea or paroxysmal nocturnal dyspnea Gastrointestinal Gastrointestinal: Reports nausea; Denies abdominal pain, constipation, diarrhea, melena or vomiting Genitourinary Genitourinary ED: Denies dysuria, hematuria or urinary frequency Musculoskeletal Musculoskeletal: Denies arthralgias, back pain or myalgias Integumentary Denies abscess, Abrasions or rash Neurologic Neurologic: Reports weakness; Denies headache(s) or paresthesias Endocrine Endocrinology: Denies cold intolerance or heat intolerance Hematologic/Lymphatic Hematologic/Lymphatic: Reports systems reviewed and no addt'l complaints, except as documented Allergic/Immunologic Allergic/Immunologic ED: Denies mouth swelling or tongue swelling EXAM Physical Exam Const Vital Signs: 10/20/24 13:15 10/20/24 13:23 10/20/24 14:14 Temperature 100.0 F H Temperature Source Oral Pulse Rate 78 84 85 Respiratory Rate 24 H 31 H 22 H Respiratory Effort Respiratory Pattern Blood Pressure 117/72 129/70 H Blood Pressure Mean 87 89 Pulse Ox 90 91 99 Oxygen Delivery Method Room Air Room Air Oxygen Flow Rate (L/min) 10/20/24 14:24 10/20/24 14:24 10/20/24 15:00 Temperature Temperature Source Pulse Rate 86 94 Respiratory Rate 20 H 29 H Respiratory Effort Short of Breath Respiratory Pattern Normal Blood Pressure 141/101 H Blood Pressure Mean 114 Pulse Ox 94 Oxygen Delivery Method Nasal Cannula Oxygen Flow Rate (L/min) 2 10/20/24 16:00 10/20/24 16:40 Temperature 98.8 F Temperature Source Pulse Rate 91 94 Respiratory Rate 19 H 24 H Respiratory Effort Respiratory Pattern Blood Pressure 131/74 H 113/82 H Blood Pressure Mean 93 92 Pulse Ox 100 95 Oxygen Delivery Method Nasal Cannula Oxygen Flow Rate (L/min) 2 Positive well nourished and well developed Constitutional Narrative: BMI 35.2. Patient was unaware that he had an elevated temperature. He appears in respiratory distress General Appearance ED: well developed and diaphoretic; Negative for cyanotic or pallor HEENT Reports moist mucous membranes HEENT Narrative: Ears normal. Nares patent. Posterior pharynx is normal. Uvula midline. No deviation tongue or protrusion. Eyes PERRL and EOMs intact bilaterally General Eye ED: Negative for pale conjunctiva or scleral icterus Neck no lymphadenopathy, supple and no JVD Chest Wall inspection of chest normal and palpation of chest normal Resp normal respiratory effort and No clear to auscultation bilaterally Auscultation: rales bilateral lower and wheezes expiratory wheezes, scattered wheezes and throughout Cardio regular rate, regular rhythm, S1 normal heart sound, S2 normal heart sound and no murmurs GI normal to inspection, nondistended, normoactive bowel sounds, non-tender, non-distended and no masses; Negative for hepatosplenomegaly Palpation: soft Back/Spine no CVA tenderness Extremity normal to inspection Extremity Narrative: Venous stasis dermatitis, chronic per . General Extremety ED: Yes edema; Negative for tenderness General Extremity: edema Neuro CN's II-XII intact bilaterally Sensorium / Orientation: alert Psych mental status grossly normal Skin no rashes or lesions noted, no wounds and skin turgor normal General Skin Exam: Negative for jaundice or pallor MDM MDM MDM Narrative Medical decision making narrative: Patient had a cardiac echo October 2021 which revealed an ejection fraction of 60%. Normal LV wall motion. Normal left ventricular systolic function. Normal left ventricular systolic function. He also had a cardiac cath which revealed a normal left main, normal left anterior descending artery, normal circumflex and normal right coronary artery. In my opinion patient's discomfort is noncardiac. Because of his age troponin level was ordered. I am concerned patient has pneumonia clinically and the fact that he is tachypneic febrile and has respiratory symptoms. He was treated with albuterol. Rapid antigen for COVID, influenza and RSV was ordered. Appropriate blood work to assess for endorgan dysfunction. Lab Data Attestation: I reviewed the patient's lab results. Lab results narrative: White count of 17,000 with shift. There is no evidence of endorgan dysfunction. Blood sugar slightly elevated 136 with normal CO2 anion gap. Lactate is normal. BUN to creatinine ratio elevated 23-1. CO2 and anion gap are normal. Glucose slightly elevated 136. Liver enzymes are normal. Lactate is normal. Labs: Laboratory Results - last 24 hr 10/20/24 14:20 WBC 17.5 H RBC 5.12 Hgb 14.7 Hct 44.0 MCV 85.9 MCH 28.7 MCHC 33.4 RDW Std Deviation 42.4 RDW Coeff of Shonna 13.5 Plt Count 230 MPV 11.2 Immature Gran % (Auto) 0.300 Neut % (Auto) 90.0 H Lymph % (Auto) 4.0 L Whitley % (Auto) 5.3 Eos % (Auto) 0.1 Baso % (Auto) 0.3 Absolute Neuts (auto) 15.7 H Absolute Lymphs (auto) 0.70 L Nucleated RBC % 0 Sodium 142 Potassium 4.1 Chloride 108 Carbon Dioxide 21.6 Anion Gap 13 BUN 18 Creatinine 0.78 Estim Creat Clear Calc 101.20 Est GFR (MDRD) Non-Af 94 BUN/Creatinine Ratio 22.8 H Glucose 136 H Lactic Acid 1.6 Calcium 9.1 Total Bilirubin 0.42 AST 24 ALT 20 Alkaline Phosphatase 94 Troponin T High Sens 17 Total Protein 6.9 Albumin 4.1 Globulin 2.8 Albumin/Globulin Ratio 1.5 Radiography Chest X-Ray - ED: 2 View and Read by ED Physician (Chest x-rays independent reviewed interpreted by me as a retrocardiac infiltrate based on the lateral view. There is some fluffiness may represent interstitial pneumonia. Since he has a fever with wheezing and no increased orthopnea or pedal edema.) Diagnostic Testing: Clinical Impression(s) from Imaging Studies Chest X-Ray 10/20/24 15:40 IMPRESSION: Cardiomegaly and CHF. Reading Location: [facility] The radiology interpretation was reviewed. I believe patient has an infiltrate. Since that he is reading no CHF a BMP was obtained. Patient does not have history of CHF. Will treat for pneumonia since his rapid COVID, RSV and influenza are all negative EKG Initial EKG: Attestation: I personally reviewed and interpreted this EKG as follows: Interpretation: Sinus Rhythm (Interpreted by Dr. Kumar at 1320 as a normal sinus rhythm rate of 78. There is evidence of LVH. There is artifact. UT interval is 176 ms. Cures duration 78 ms. QT duration 388 ms. Dulac is normal.) Follow-up EKG: Attestation: I personally reviewed and interpreted this EKG as follows: Interpretation: Sinus Rhythm (Interpreted by me at 1506 as normal sinus rhythm rate of 96. There is evidence of LVH. The UT interval is 178 ms. QRS duration 84 ms. QT duration 356 ms. Dulac is normal. This was obtained because of worsening pain.) Management Discussion w/another healthcare provider: Hospitalist (Spoke with Dr. Wheeler. Because of the radiology read he will get an echo since there is consideration that there may be a cardiac component as well as an infectious component he was a full admit to the PCU.) Discharge Plan Dx/Rx/DC Orders Clinical Impression: Left lower lobe pneumonia, Hypoxia, THEA (obstructive sleep apnea), Leukocytosis, Bronchospasm, acute Disposition Disposition: Acute Care Hospital [facility]
[2024-10-20] MEDS: Ipratropium/Albuterol Sulfate 3 ML AMPUL.NEB INHALATION (14:22)
[2024-10-20] MEDS: Albuterol 2.5 MG/3 ML VIAL.NEB. INHALATION ×3 (14:22)
[2024-10-20 14:43] LABS: Absolute Neutrophil Count 15.7 X10^3/uL (2.0-7.7); Basophil# 0.05 X10^3/uL; Basophil% 0.3 % (0-1); Eosinophil# 0.01 X10^3/uL; Eosinophils% 0.1 % (0-5); Hemoglobin 14.7 g/dL (13.0-16.5); Mean Corp Hgb Conc 33.4 g/dL (32-36); Mean Corpuscular Hgb 28.7 pg (27.0-32.0); Mean Corpuscular Volume 85.9 fL (80-94); Mean Platelet Vol. 11.2 fl (6.2-12.0); Monocyte# 0.93 X10^3/uL; Monocyte% 5.3 % (0-10); NRBC Flagged by Analyzer 0 % (0-5); Neutrophil # 15.74 X10^3/uL (2.7-7.7); Platelet Count 230 K/mm3 (150-450); RBC Distribution Width CV 13.5 % (11.6-14.6); RBC Distribution Width SD 42.4 fl (35.1-43.9); Red Blood Count 5.12 M/mm3 (4.6-6.2); White Blood Count 17.5 K/mm3 (4.4-11.0)
[2024-10-20 15:21] LABS: ALB/GLOB Ratio 1.5 RATIO (0.9-2.4); AST(SGOT) 24 U/L (<=37); Alanine Aminotransfer ALT/SGPT 20 U/L (<=46); Albumin, Serum 4.1 g/dL (3.4-4.8); Alkaline Phosphatase 94 U/L (40-129); Anion Gap 13 (5-15); BUN 18 mg/dL (4-19); BUN/Creat Ratio 22.8 RATIO (10-20); Calcium,Total 9.1 mg/dL (7.6-11.0); Carbon Dioxide 21.6 mmol/L (21.0-32.0); Chloride 108 mmol/L (98-108); Creatinine, Serum 0.78 mg/dL (0.70-1.20); EST Glomerular Filtration Rate 94 (>60); Globulin 2.8 g/dL (2.2-4.2); Glucose 136 mg/dL (70-99); Potassium 4.1 mmol/L (3.3-5.1); Protein, Total 6.9 g/dL (5.9-8.4); Sodium Level 142 mmol/L (133-145); Total Bilirubin 0.42 mg/dL (0.00-1.30)
[2024-10-20 15:22] LABS: Lactic Acid 1.6 mmol/L (0.0-2.0)
--- NOTE | 2024-10-20 15:30 | EKG12_ITS ---
Test Reason : REPEAT Blood Pressure : */* mmHG Vent. Rate : 96 BPM Atrial Rate : 96 BPM P-R Int : 178 ms QRS Dur : 84 ms QT Int : 356 ms P-R-T Axes : 95 -29 56 degrees QTcB Int : 449 ms Normal sinus rhythm Minimal voltage criteria for LVH, may be normal variant ( R in aVL ) Nonspecific ST-T wave changes Abnormal ECG Confirmed by Rell Thomas ([id number]), desk editor NIKOLAS ASCENCIO ([id number]) on 10/22/2024 6:54:43 AM Referred By: Confirmed By: Rell Thomas
--- NOTE | 2024-10-20 15:40 | RAD_ITS ---
PROCEDURE: CHEST PA AND LATERAL REASON FOR EXAM: Chest pain since this morning. TECHNIQUE: Frontal and lateral views of the chest. COMPARISON: Comparison is made with prior study April 10, 2023. FINDINGS: EKG electrodes are seen. Cardiomegaly. Atherosclerotic calcification of the aortic arch. Mild degree of CHF. Atelectasis at the lung bases. Stable elevation of the right hemidiaphragm. RAD/Chest PA and Lateral IMPRESSION: Cardiomegaly and CHF. Reading Location: [facility]
[2024-10-20 16:12] LABS: Troponin T High Sensitivity 17 ng/L (<=22)
[2024-10-20] MEDS: Ceftriaxone 2 GM in 0.9% Normal Saline (50mL MB+) 50 ML IV (16:46)
[2024-10-20] MEDS: Azithromycin 500 MG in 0.9% Normal Saline (250mL Bag) 250 ML 255 MG IV (16:54)
--- NOTE | 2024-10-20 17:04 | PCM.HP.STD ---
HPI - General General Date of Admission: 10/20/24 Date of Service: 10/20/24 Chief Complaint: Worsening shortness of breath with URI symptoms HPI Narrative PORTIA BAUER, is a 74 M who presented to [facility] ED on 10/20/2024 with worsening shortness of breath with URI symptoms. Patient developed URI symptoms over the past few days but had significant worsening shortness of breath this morning. In the ED he was found to be hypoxic to 90% on room air. Does not wear any oxygen at baseline. Chest x-ray showed cardiomegaly with vascular congestion, no obvious pneumonia noted. COVID/flu/RSV negative. WBC count elevated at 17,000 and procalcitonin slightly elevated at 0.46. Low-grade fever to 100.0F. Given concern for community-acquired pneumonia with possible new onset CHF, hospitalist was contacted for admission. I saw the patient at bedside in the ED, significant other was present. Patient was sitting at the edge of the bed and did have mild increased work of breathing noted at rest. Had been given a dose of IV Lasix before I saw him and was started to have good urine output with this. Stated that his breathing felt about the same now as it did earlier this morning with only mild improvement with supplemental oxygen. He did have a cough with some sputum production. He denied any current fevers or chills. Denied any chest pain. Did report lower extremity swelling but noted this was chronic for him. No other acute concerns at this time. [facility] Medical History Adult BMI 33.0-33.9 kg/sq m Essential hypertension Chest pressure PVC (premature ventricular contraction) Dyspnea on exertion Asthma Moderate persistent allergic asthma THEA (obstructive sleep apnea) Rheumatoid arthritis Syncope and collapse Dizziness and giddiness UMANA (dyspnea on exertion) Snoring Daytime somnolence Abnormal pulmonary function test Asthma, moderate persistent Home Medications ?Medication ?Instructions ?Recorded ?Last Taken ?Type aspirin 81 mg tablet,delayed 81 mg PO DAILY@0800 12/28/16 10/24/21 History release betamethasone dipropionate 0.05 % 1 applic topical DAILY PRN skin 09/25/22 Unknown History topical cream irritation horse chestnut 300 mg capsule 300 mg PO DAILY 09/25/22 Unknown History [id number] 300 mcg-K 60 1 tab PO DAILY 09/25/22 Unknown History mcg-lycop 600 mcg-lutein 300 mcg tablet (Centrum Silver Ultra Men's) sodium chloride 0.65 % nasal spray 2 spray intranasal Q4H PRN dry 05/09/23 Unknown History aerosol ([place] Saline) nasal passages metoprolol succinate 50 mg 50 mg PO DAILY #90 tabs 10/28/23 Unknown Rx tablet,extended release 24 hr albuterol sulfate 90 mcg/actuation 2 puff inhalation Q4H PRN 11/11/23 Unknown Rx aerosol inhaler (Ventolin HFA) shortness of breath or wheezing #18 grams azelastine 0.05 % eye drops See Rx Instructions ophthalmic 11/11/23 Unknown History (eye) .COMPLEX fluticasone furoate 200 1 inh inhalation QDAY #30 ea 11/11/23 Unknown Rx mcg/actuation blister powder for inhalation (Arnuity Ellipta) amlodipine 5 mg-benazepril 20 mg 1 cap PO DAILY #90 caps 12/17/23 Unknown Rx capsule Allergy/AdvReac Type Severity Reaction Status Date / Time No Known Allergies Allergy Verified 10/20/24 13:28 Family History Mother CAD (coronary artery disease) CVA (cerebral vascular accident) Surgical History History of bilateral cataract extraction H/O skin graft History of left heart catheterization (10/24/21) Social History Smoking Status: Former smoker quit date: 08/19/84 pack-years: 29 second hand exposure: No alcohol intake: never substance use type: does not use caffeine: Yes Type: coffee Number of servings: 2 ROS Constitutional Constitutional: Reports fatigue; Denies chills, fever(s) or weakness Eyes Eyes: Denies change in vision Cardiovascular Cardiovascular: Reports dyspnea on exertion and edema; Denies chest pain Respiratory/Chest Respiratory/Chest: Reports cough, dyspnea, productive cough and shortness of breath with exertion; Denies shortness of breath at rest or wheezing Gastrointestinal Gastrointestinal: Denies abdominal pain Musculoskeletal Musculoskeletal: Denies arthralgias or myalgias Vital Signs Vital Signs Vital Signs: 10/20/24 13:15 10/20/24 13:23 10/20/24 14:14 Temperature 100.0 F H Temperature Source Oral Pulse Rate 78 84 85 Respiratory Rate 24 H 31 H 22 H Respiratory Effort Respiratory Pattern Blood Pressure 117/72 129/70 H Blood Pressure Mean 87 89 Pulse Ox 90 91 99 Oxygen Delivery Method Room Air Room Air Oxygen Flow Rate (L/min) 10/20/24 14:24 10/20/24 14:24 10/20/24 15:00 Temperature Temperature Source Pulse Rate 86 94 Respiratory Rate 20 H 29 H Respiratory Effort Short of Breath Respiratory Pattern Normal Blood Pressure 141/101 H Blood Pressure Mean 114 Pulse Ox 94 Oxygen Delivery Method Nasal Cannula Oxygen Flow Rate (L/min) 2 10/20/24 16:00 10/20/24 16:40 Temperature 98.8 F Temperature Source Pulse Rate 91 94 Respiratory Rate 19 H 24 H Respiratory Effort Respiratory Pattern Blood Pressure 131/74 H 113/82 H Blood Pressure Mean 93 92 Pulse Ox 100 95 Oxygen Delivery Method Nasal Cannula Oxygen Flow Rate (L/min) 2 Weight Weight: 111.3 kg Body Mass Index (BMI) 35.2 Physical Exam Const alert, oriented x3 and no apparent distress Constitutional Narrative: Elderly male, class I obesity, mildly fatigued appearing, sitting at the edge of the bed with mild increased work of breathing noted on 2 L nasal cannula, otherwise sitting comfortably and conversing normally. General Appearance: cooperative and comfortable HEENT normocephalic, head/scalp atraumatic, hearing grossly normal bilaterally, nasal mucous membranes and turbinates normal and moist oral mucous membranes Eyes PERRL, EOMs intact bilaterally and conjunctivae normal Neck full ROM Chest inspection of chest normal Resp Resp Narrative: Mild increased work of breathing noted on 2 L nasal cannula. Decreased breath sounds in bilateral lung bases noted with mild crackles noted in mid lung zones bilaterally. No wheezing noted. Cardio regular rate, regular rhythm, no murmurs and peripheral pulses 2+ throughout GI normal to inspection, nondistended, normoactive bowel sounds, soft to palpation, non-tender and non-distended Back/Spine normal ROM Extremity full ROM Extremity Narrative: +2-3 lower extremity pitting edema noted. Skin no rashes or lesions noted Neuro moves all extremities and no focal motor deficits Speech: speech normal Motor Exam: strength 5/5 throughout Psych mental status grossly normal Results Lab / Micro Data 10/20/24 14:20 10/20/24 14:20 Labs: Laboratory Results - last 24 hr 10/20/24 14:20: WBC 17.5 H, RBC 5.12, Hgb 14.7, Hct 44.0, MCV 85.9, MCH 28.7, MCHC 33.4, RDW Std Deviation 42.4, RDW Coeff of Shonna 13.5, Plt Count 230, MPV 11.2, Immature Gran % (Auto) 0.300, Neut % (Auto) 90.0 H, Lymph % (Auto) 4.0 L, [place] % (Auto) 5.3, Eos % (Auto) 0.1, Baso % (Auto) 0.3, Absolute Neuts (auto) 15.7 H, Absolute Lymphs (auto) 0.70 L, Nucleated RBC % 0, Sodium 142, Potassium 4.1, Chloride 108, Carbon Dioxide 21.6, Anion Gap 13, BUN 18, Creatinine 0.78, Estim Creat Clear Calc 101.20, Est GFR (MDRD) Non-Af 94, BUN/Creatinine Ratio 22.8 H, Glucose 136 H, Lactic Acid 1.6, Calcium 9.1, Total Bilirubin 0.42, AST 24, ALT 20, Alkaline Phosphatase 94, Troponin T High Sens 17, Total Protein 6.9, Albumin 4.1, Globulin 2.8, Albumin/Globulin Ratio 1.5 Micro: Microbiology 10/20/24 14:20 Mucosa - Nose SARS-CoV-2, Influenza & RSV (PCR) - Final Imaging Radiology Impression Chest X-Ray 10/20/24 15:40 IMPRESSION: Cardiomegaly and CHF. Reading Location: [id number] Assessment & Plan Assessment/Plan (1) Hypoxia: (2) CAP (community acquired pneumonia): PLAN: Plan Patient is a 74-year-old male who presented [facility] ED on 10/20/2024 with worsening shortness of breath with URI symptoms. 1. Acute hypoxia secondary to suspected community-acquired pneumonia with concern for new onset CHF, history of asthma ? Admit under inpatient status to PCU. Chest x-ray showed cardiomegaly with suspected vascular congestion concerning for CHF. However, WBC count elevated at 17 and low-grade fever more consistent with infection. Procalcitonin mildly elevated at 0.46. COVID/flu/RSV negative. Full respiratory PCR panel sent. Sputum culture ordered. Echo ordered. Given 1 dose of IV Lasix in the ED. Will hold on further diuresis until echocardiogram has been completed. Will treat with IV azithromycin and ceftriaxone for now. Will also treat with scheduled DuoNebs for now. Wean supplemental oxygen as able. 2. Hypertension ? Normotensive to mildly hypertensive in the ED. Continue home amlodipine, benazepril and Toprol. 3. Class I obesity with THEA ? BMI 33 on admit. Complicates hospital course, care and prognosis. Continue home CPAP at night. DVT prophylaxis: Lovenox CODE STATUS: Full code, verified Expected disposition: Home, TBD Total clinical time spent by myself addressing the patient's medical issues, reviewing all the data, and collaborating with patient's care team: 55 minutes. Charges/Coding Visit Charges Inpatient E&M: 59130 Init Hosp L2
[2024-10-20 17:15] LABS: Pro- Brain NATRIURETIC PEPTIDE 844 pg/mL (<=900)
[2024-10-20] MEDS: Furosemide 40 MG/4 ML Vial IV (17:29)
[2024-10-20 17:49] LABS: TROPONIN VARIANCE 2 HR 0; Troponin T High Sens 2 HR 17 ng/L (<=22)
[2024-10-20 19:27] LABS: Procalcitonin 0.46 ng/mL (<=0.10)
[2024-10-20 21:16] LABS: TROPONIN VARIANCE 4 HR 3; Troponin T High Sens 4 HR 15 ng/L (<=22)
--- NOTE | 2024-10-20 22:12 | ECHOCS_ITS ---
Reason For Study Reason For Study: CHF Procedure This was a 2D Doppler, Color Flow transthoracic echocardiogram. The study was technically difficult. Exam performed portable in patient room. Left Ventricle Normal LV size. Mild concentric left ventricular hypertrophy. Borderline LV global systolic dysfunction. Estimated LVEF 45 to 50%. Stage I diastolic dysfunction. Right Ventricle Normal right ventricle. Atria The left atrium is severely enlarged. Normal right atrium. Mitral Valve Trivial mitral valve insufficiency. Tricuspid Valve Mild tricuspid valve insufficiency. Right ventricular systolic pressure estimated to be 47 mmHg. Aortic Valve Moderate diffuse aortic valve calcification. Mild aortic valve stenosis. Mean peak gradient 19 mmHg. Mild aortic valve regurgitation. Pulmonic Valve The pulmonic valve is not well visualized. Great Vessels The aortic root is not well visualized. Pericardium/Pleural No pericardial effusion. Medication Diluted definity 2ml given slow IV push to enhance endocardial definition. MMode/2D Measurements & Calculations LVIDd: 5.2 cm IVSd: 1.2 cm LVOT diam: 2.0 cm LVIDs: 3.8 cm LVPWd: 1.1 cm RVDd: 3.7 cm FS: 27.5 % LVOT area: 3.2 cm2 Ao root diam: 3.2 cm LAV(MOD-bp): 59.8 ml LA A4 area: 19.8 cm2 LA dimension: 4.8 cm LAV(MOD-bp) Indexed: 26.9 ml/m2 LAV(MOD-sp2): 64.8 ml LAV(MOD-sp4): 51.4 ml LA dimension(2D): 4.4 cm TAPSE: 2.1 cm RA A4 area: 17.7 cm2 Time Measurements MV dec time: 0.22 sec Doppler Measurements & Calculations MV E max campbell: 79.2 cm/sec Lat Peak E' Campbell: 11.2 cm/sec Med Peak E' Campbell: 8.9 cm/sec MV A max campbell: 41.9 cm/sec E/E' lat: 7.1 E/E' med: 8.9 MV E/A: 1.9 Ao V2 max: 281.7 cm/sec AI max campbell: 391.1 cm/sec LV V1 max: 129.4 cm/sec Ao max P.8 mmHg AI max P.2 mmHg LV V1 max P.7 mmHg Ao V2 mean: 208.9 cm/sec AI dec slope: 278.7 cm/sec2 LV V1 mean P.7 mmHg Ao mean P.1 mmHg AI P1/2t: 411.1 msec LV V1 mean: 89.7 cm/sec Ao V2 VTI: 62.2 cm LV V1 VTI: 28.6 cm AV (velocity ratio): 0.46 GAURAV(I,D): 1.5 cm2 GAURAV(V,D): 1.5 cm2 SV(LVOT): 91.3 ml PA V2 max: 102.6 cm/sec TR max campbell: 282.5 cm/sec TR max P.9 mmHg ECHO/Echo Complete W/ Contrast Interpretation Summary Mild concentric left ventricular hypertrophy. Borderline LV global systolic dysfunction. Estimated LVEF 45 to 50%. Stage I di astolic dysfunction. The left atrium is severely enlarged. Mild tricuspid valve insufficiency. Right ventricular systolic pressure estimated to be 47 mmHg. Mild aortic valve stenosis. Mean peak gradient 19 mmHg. Mild aortic valve regur gitation. The study was technically difficult. Ordering Physician: Ramón Wheeler Referring Physician: MICHAEL MEDINA Performed By: Virgen Monsivais RDCS
[2024-10-21] VITALS (21 sets, daily range): BP systolic 113–137; BP diastolic 59–82; PULSE 69–109; RESP 18–27; TEMP 36.6–36.9; O2SAT 93–97; BMI 33.2
[2024-10-21 04:54] LABS: Hematocrit 40.9 % (40-54); Hemoglobin 13.6 g/dL (13.0-16.5); Mean Corp Hgb Conc 33.3 g/dL (32-36); Mean Corpuscular Hgb 28.2 pg (27.0-32.0); Mean Corpuscular Volume 84.9 fL (80-94); Mean Platelet Vol. 10.9 fl (6.2-12.0); Platelet Count 225 K/mm3 (150-450); RBC Distribution Width CV 13.7 % (11.6-14.6); RBC Distribution Width SD 42.6 fl (35.1-43.9); Red Blood Count 4.82 M/mm3 (4.6-6.2); White Blood Count 18.1 K/mm3 (4.4-11.0)
[2024-10-21 05:21] LABS: Anion Gap 12 (5-15); BUN 19 mg/dL (4-19); BUN/Creat Ratio 23.4 RATIO (10-20); Calcium,Total 9.1 mg/dL (7.6-11.0); Carbon Dioxide 23.5 mmol/L (21.0-32.0); Chloride 103 mmol/L (98-108); Creatinine, Serum 0.82 mg/dL (0.70-1.20); EST Glomerular Filtration Rate 92 (>60); Estimated Creatinine Clearance 95.88 ml/min (50-250); Glucose 153 mg/dL (70-99); Potassium 3.9 mmol/L (3.3-5.1); Sodium Level 139 mmol/L (133-145)
[2024-10-21] MEDS: Ipratropium/Albuterol Sulfate 3 ML AMPUL.NEB INHALATION ×3 (07:28→20:15)
[2024-10-21] MEDS: Metoprolol(XL)Succ 50 MG Tablet PO (08:12)
[2024-10-21] MEDS: Enoxaparin 40 MG/0.4 ML Syringe SC (08:13)
[2024-10-21] MEDS: amLODIPine 5 MG Tablet PO (08:13)
[2024-10-21] MEDS: Lisinopril 20 MG Tablet PO (08:13)
[2024-10-21] MEDS: Aspirin 81 MG TAB.CHEW PO (08:13)
--- NOTE | 2024-10-21 09:39 | PCM.PN.HOSP ---
Reason for Visit Reason for Visit: Diagnoses Pneumonia, unspecified organism (10/20/24) Hypoxemia (10/20/24) Objective Data Objective Data Vital Signs: Vital Signs Temp Pulse Resp BP Pulse Ox O2 Del Method O2 Flow Rate 98.1 F 75 24 H 113/59 L 95 Nasal Cannula 2 10/21/24 07:50 10/21/24 08:12 10/21/24 07:50 10/21/24 07:50 10/21/24 07:50 10/21/24 07:50 10/21/24 07:50 Oxygen Flow Rate (L/min) 2 Oxygen Delivery Method Nasal Cannula Weight: 104.922 kg Body Mass Index (BMI) 33.2 Intake & Output: Intake and Output for Last 24 Hours 10/19/24 10/20/24 10/21/24 23:59 23:59 23:59 Intake Total 305 / 305 Output Total 500 / 500 Balance 305 / 305 -500 / -500 Lab / Micro Data 10/21/24 04:28 10/21/24 04:28 Labs: Laboratory Results - last 24 hr 10/20/24 11:28: Procalcitonin 0.46 H 10/20/24 14:20: WBC 17.5 H, RBC 5.12, Hgb 14.7, Hct 44.0, MCV 85.9, MCH 28.7, MCHC 33.4, RDW Std Deviation 42.4, RDW Coeff of Shonna 13.5, Plt Count 230, MPV 11.2, Immature Gran % (Auto) 0.300, Neut % (Auto) 90.0 H, Lymph % (Auto) 4.0 L, [place] % (Auto) 5.3, Eos % (Auto) 0.1, Baso % (Auto) 0.3, Absolute Neuts (auto) 15.7 H, Absolute Lymphs (auto) 0.70 L, Nucleated RBC % 0, Sodium 142, Potassium 4.1, Chloride 108, Carbon Dioxide 21.6, Anion Gap 13, BUN 18, Creatinine 0.78, Estim Creat Clear Calc 101.20, Est GFR (MDRD) Non-Af 94, BUN/Creatinine Ratio 22.8 H, Glucose 136 H, Lactic Acid 1.6, Calcium 9.1, Total Bilirubin 0.42, AST 24, ALT 20, Alkaline Phosphatase 94, Troponin T High Sens 17, NT pro BNP II 844, Total Protein 6.9, Albumin 4.1, Globulin 2.8, Albumin/Globulin Ratio 1.5 10/20/24 16:37: Troponin T Hi Sens 2 Hr 17, Troponin T Hi Sens 2Hr Delta 0 10/20/24 18:42: Troponin T Hi Sens 4Hr Cancelled 10/20/24 18:42: Troponin T Hi Sens 4Hr 15, Troponin T Hi Sens 4Hr Delta Cancelled 10/20/24 18:42: Troponin T Hi Sens 4Hr Delta 3 10/21/24 04:28: WBC 18.1 H, RBC 4.82, Hgb 13.6, Hct 40.9, MCV 84.9, MCH 28.2, MCHC 33.3, RDW Std Deviation 42.6, RDW Coeff of Shonna 13.7, Plt Count 225, MPV 10.9, Sodium 139, Potassium 3.9, Chloride 103, Carbon Dioxide 23.5, Anion Gap 12, BUN 19, Creatinine 0.82, Estim Creat Clear Calc 95.88, Est GFR (MDRD) Non-Af 92, BUN/Creatinine Ratio 23.4 H, Glucose 153 H, Calcium 9.1 Micro: Microbiology 10/21/24 00:15 Mucosa - Nasopharyngeal Respiratory Panel (PCR) - Preliminary 10/20/24 14:20 Mucosa - Nose SARS-CoV-2, Influenza & RSV (PCR) - Final Radiography Diagnostic Testing: Radiology Impression Chest X-Ray 10/20/24 15:40 IMPRESSION: Cardiomegaly and CHF. Reading Location: [facility] Physical Exam Narrative GENERAL: cooperative HEENT: Atraumatic; normocephalic EYES; Anicteric, Normal Conjunctiva NECK; supple, normal thyroid, RESPIRATORY: Diminished to auscultation CARDIOVASCULAR: Regular S1 S2, GI: soft, normoactive bowel sounds, : No Renal angle tenderness; EXTREMITIES: No edema, no clubbing, MUSCULOSKELETAL: no muscle wasting NEURO: Awake; no lateralizing signs. SKIN: No Rash PSYCH; Flat affect Assessment & Plan Assessment/Plan (1) Hypoxia: (2) CAP (community acquired pneumonia): PLAN: Plan Patient is a 74-year-old gentleman who presented with worsening shortness of breath and upper respiratory tract symptomsPatient was also found to have low-grade fever and assessment of suspected viral pneumonia and congestive heart failure made admitted to regular nursing floor for further management 1. Acute hypoxia ? Secondary to combination of suspected viral pneumonia CHF and asthma. Patient placed on supplemental oxygen requisition sent for COVID flu and RSV all of which have remained negative to date. 2. Acute on chronic congestive heart failure with preserved ejection fraction ? Echo from 12/29/2020 demonstrated EF of 55%. Patient admitted to monitored bed, managed with strict input and output, daily weight, fluid restriction, low-sodium diet as well as diuretic therapy with furosemide. Repeat echo ordered for subsequent eval 3. Suspected viral pneumonia ? With superimposed bacterial pneumonia given patient leukocytosis patient was started on ceftriaxone as well as azithromycin 4. Hypertension ? Blood pressure controlled, home medications continued with dose adjustment as needed 5. Class I obesity with BMI of 33.2 ? Complicating care weight loss advised 6.DVT prophylaxis ? On enoxaparin Time spent in the patient's overall evaluation,decision-making process, review of diagnostic data, adjustment of management, discussion with other providers, nursing nursing and ancillary staff involved in patient's care documentation, 50 Minutes Charges/Coding Visit Charges Inpatient E&M: 27209 Subs Hosp L3
[2024-10-21] MEDS: 0.9% Saline Lock 10 ML Syringe IV ×3 (10:09→17:50)
[2024-10-21] MEDS: 0.9% Normal Saline (100mL Bag) 100 ML IV (10:10)
[2024-10-21] MEDS: Ceftriaxone 1 GM/50 ML BAG IV (10:10)
[2024-10-21] MEDS: Furosemide 20 MG/2 ML VIAL IV ×2 (10:10→17:50)
[2024-10-21] MEDS: Azithromycin 500 MG in 0.9% Normal Saline (250mL Bag) 250 ML 255 MG IV (10:54)
--- NOTE | 2024-10-21 13:36 | CT_ITS ---
PROCEDURE: CTA CHEST WITH CONTRAST REASON FOR EXAM: ACUTE DYSPNEA. TECHNIQUE: Contiguous axial scans of 1.25 mm slice thicknesses. Sagittal and coronal reconstruction images were obtained. One or more dose reduction techniques were used (e.g., automated exposure control, adjustment of mA and/or kv according to patient size, use of iterative reconstruction technique). . IV CONTRAST: Isovue 370. 92 mL. COMPARISON: Chest radiograph dated 10/20/2024. FINDINGS: Lungs and Airways: Mild airspace consolidation and bronchial thickening in the bilateral lower lobes. A 0.7 cm non-calcified spiculated micronodule in the right apex, axial image 191. Pleura: Mild dependent pleural thickening. Heart: Mild cardiac enlargement. Pericardium: No thickening. Coronary arteries: Unremarkable Thoracic Aorta: No thoracic aortic aneurysm or dissection. Pulmonary Vessels: No large central filling defects. Contrast timing was optimized for evaluation of the aorta. Mediastinum: No mediastinal hilar or axillary lymphadenopathy. Thyroid: Unremarkable. Upper Abdomen: Visualized portions of the upper abdominal viscera are unremarkable. Bones: Bone windows are unremarkable. CT/CTA Chest W/WO Contrast IMPRESSION: 1. Mild airspace consolidation and bronchial thickening in the bilateral lower lobes consistent with inflammation. 2. A 0.7 cm non-calcified micronodule in the right apex. Consider six-month f ollow-up study for surveillance. 3. No evidence of pulmonary embolism. 4. Cardiac enlargement. Reading Location: [place] [id number]
[2024-10-21] MEDS: Furosemide 100 MG/10 ML Vial 60 MG IV (14:14)
--- NOTE | 2024-10-21 14:45 | CASEMGMT ---
RN CM ATHLETIC EVENTS SCORER CM?to room for initial transition planning/care coordination assessment. Pt is out of room. Significant other, Tayler, in room. RN EMMANUEL?introduced self and role at [facility]. Care providers, pharmacy, and demographics verified/updated at this time. Strata:?2 PCP: AVERY Coyle Specialists: Dr Schuler-ortho, Na Padilla, [employer]AR[employer] PSYCHOLOGIST-pulm, Dr Langley-cardiology Preferred Pharmacy: [facility] Otherwise, goes to [facility] Insurance:[email or web address] [facility] Prescription Benefit: yes Living Will/HPOA: Tayler does not think pt has done HCPOA LNOK: Son, Sam Cheng. Brother, Fernando Rios. Pt's significant other of 15/16 yrs, Tayler (not legally ) Living Arrangements: Lives w/Tayler in mobile home w/5 steps to enter, w/railing. Pt does okay w/the stairs. Pt is indep w/ADL's and manages his own medications. Pt and Tayler go grocery shopping together and share home mgnt tasks. Pt works part-time @ [employer]. Transportation:?Pt and Tayler both drive. DME: Pt has the following DME: CPAP, BP machine. Pt does not have home O2 and does not have a walker. Pt has been using walker while @ [facility] and Tayler states he may need one @ dc, she is not sure. She states to f/u with pt re: what DME co he wants, should he need home O2 or a walker. Pt does not have a pulse ox. RN EMMANUEL recommended they purchase one. HHC/SNF: Tayler states no hx of either in past 15/16 yrs since they have been together, but she is not sure about prior to that. PT/OT evals pending. Tayler denies having any questions/concerns at this time. CM to f/u with pt when he is available for any dc needs/concerns. PLAN: Home. PT/OT evals pending. Follow for any recommendations. Follow for possible walker or O2. Arley DOMINGUEZ RN, CM
[2024-10-21 15:08] LABS: Allen Test Positive; Base Excess 2 mmol/L (-2 to +2); Bicarbonate 26.7 mmol/L (22-26); Blood Gas Specimen Type ART; Mode Not entered; O2 Delivery Device Cannula; PO2 58 mmHG (75-100); SITE R Radial; SO2 90 % (95-99); Total Carbon Dioxide 28 mmol/L; pCO2 41.4 mmHg (35-45); pH 7.42 (7.35-7.45)
--- NOTE | 2024-10-21 15:38 | NURSING ---
nursing supervisor inspection department Janet updated on pt status
--- NOTE | 2024-10-21 15:40 | NURSING ---
nursing supervisor roller shop Janet Sutherland updated
--- NOTE | 2024-10-21 16:06 | NURSING ---
spoke with Janet WATSON on new order for transfer.
--- NOTE | 2024-10-21 17:37 | NURSING ---
cortext nursing blast furnace supervisor to check on insight for transfer as pt still has transfer order for PCU
[2024-10-22] VITALS (12 sets, daily range): BP systolic 117–135; BP diastolic 61–77; PULSE 69–93; RESP 16–24; TEMP 36.4–36.6; O2SAT 91–98; BMI 32.8
[2024-10-22 06:27] LABS: Absolute Lymphocyte Count 1.66 X10^3/uL (0.83-4.51); Absolute Neutrophil Count 11.6 X10^3/uL (2.0-7.7); Basophil# 0.05 X10^3/uL; Basophil% 0.3 % (0-1); Eosinophil# 0.14 X10^3/uL; Hematocrit 42.2 % (40-54); Hemoglobin 14.1 g/dL (13.0-16.5); Lymphocyte # 1.66 X10^3/ul (0.83-4.51); Lymphocyte % 11.3 % (19-41); Mean Corp Hgb Conc 33.4 g/dL (32-36); Mean Corpuscular Hgb 28.7 pg (27.0-32.0); Mean Corpuscular Volume 85.8 fL (80-94); Mean Platelet Vol. 10.6 fl (6.2-12.0); Monocyte# 1.16 X10^3/uL; Monocyte% 7.9 % (0-10); NRBC Flagged by Analyzer 0 % (0-5); Neutrophil # 11.58 X10^3/uL (2.7-7.7); Platelet Count 238 K/mm3 (150-450); RBC Distribution Width CV 14.3 % (11.6-14.6); RBC Distribution Width SD 45.1 fl (35.1-43.9); Red Blood Count 4.92 M/mm3 (4.6-6.2); White Blood Count 14.7 K/mm3 (4.4-11.0)
[2024-10-22] MEDS: Ipratropium/Albuterol Sulfate 3 ML AMPUL.NEB INHALATION ×4 (07:17→19:49)
[2024-10-22 07:46] LABS: Anion Gap 15 (5-15); BUN 23 mg/dL (4-19); BUN/Creat Ratio 23.6 RATIO (10-20); Calcium,Total 9.2 mg/dL (7.6-11.0); Carbon Dioxide 23.3 mmol/L (21.0-32.0); Chloride 103 mmol/L (98-108); Creatinine, Serum 0.96 mg/dL (0.70-1.20); EST Glomerular Filtration Rate 83 (>60); Estimated Creatinine Clearance 81.55 ml/min (50-250); Glucose 105 mg/dL (70-99); Magnesium 2.3 mg/dL (1.5-2.2); Potassium 3.6 mmol/L (3.3-5.1); Pro- Brain NATRIURETIC PEPTIDE 2045 pg/mL (<=900); Sodium Level 141 mmol/L (133-145)
[2024-10-22 08:35] LABS: Phosphorus 4.3 mg/dL (2.7-4.5)
--- NOTE | 2024-10-22 08:54 | PN.HOSP_ITS ---
Reason for Visit Reason for Visit: Diagnoses Pneumonia, unspecified organism (10/20/24) Hypoxemia (10/20/24) Subjective Subjective Went into respiratory distress was later found to be in A-fib with variable rate. Patient A-fib is new onset. Subsequent evaluation with CTA was ordered results are as below Objective Data Objective Data Vital Signs: Vital Signs Temp Pulse Resp BP Pulse Ox O2 Del Method O2 Flow Rate 98 F 79 20 H 121/62 H 98 Nasal Cannula 3 10/22/24 06:12 10/22/24 07:18 10/22/24 07:18 10/22/24 06:12 10/22/24 07:18 10/22/24 08:51 10/22/24 08:51 Oxygen Flow Rate (L/min) 3 Oxygen Delivery Method Nasal Cannula Weight: 104 kg Body Mass Index (BMI) 32.8 Intake & Output: Intake and Output for Last 24 Hours 10/20/24 10/21/24 10/22/24 23:59 23:59 23:59 Intake Total 305 / 305 317.83 / 317.83 Output Total 800 / 1475 1025 / 1025 Balance 305 / 305 -482.17 / -1157.17 -1025 / -1025 Lab / Micro Data 10/22/24 06:12 10/22/24 06:12 Labs: Laboratory Results - last 24 hr 10/22/24 06:12: WBC 14.7 H, RBC 4.92, Hgb 14.1, Hct 42.2, MCV 85.8, MCH 28.7, MCHC 33.4, RDW Std Deviation 45.1 H, RDW Coeff of Shonna 14.3, Plt Count 238, MPV 10.6, Immature Gran % (Auto) 0.500, Neut % (Auto) 79.0 H, Lymph % (Auto) 11.3 L, Baxter % (Auto) 7.9, Eos % (Auto) 1.0, Baso % (Auto) 0.3, Absolute Neuts (auto) 11.6 H, Absolute Lymphs (auto) 1.66, Nucleated RBC % 0, Sodium 141, Potassium 3.6, Chloride 103, Carbon Dioxide 23.3, Anion Gap 15, BUN 23 H, Creatinine 0.96, Estim Creat Clear Calc 81.55, Est GFR (MDRD) Non-Af 83, BUN/Creatinine Ratio 23.6 H, Glucose 105 H, Calcium 9.2, Phosphorus 4.3, Magnesium 2.3 H, NT pro BNP II 2044 H Micro: Microbiology 10/21/24 00:15 Mucosa - Nasopharyngeal Respiratory Panel (PCR) - Final 10/20/24 14:20 Mucosa - Nose SARS-CoV-2, Influenza & RSV (PCR) - Final ABG Data ABG results: ABG 10/21/24 15:04 Specimen Type ART Sample Site R Radial pH 7.42 Bicarbonate Actual 26.7 H Total CO2 28 Base Excess 2 O2 Saturation 90 L O2 % 2.0 ABG pCO2 41.4 ABG pO2 58 L Riccardo Test Positive O2 Delivery Device Cannula Vent Mode Not entered Radiography Diagnostic Testing: Radiology Impression Echocardiogram 10/20/24 22:12 Interpretation Summary Mild concentric left ventricular hypertrophy. Borderline LV global systolic dysfunction. Estimated LVEF 45 to 50%. Stage I diastolic dysfunction. The left atrium is severely enlarged. Mild tricuspid valve insufficiency. Right ventricular systolic pressure estimated to be 47 mmHg. Mild aortic valve stenosis. Mean peak gradient 19 mmHg. Mild aortic valve regurgitation. The study was technically difficult. Ordering Physician: Ramón Wheeler Referring Physician: MICHAEL MEDINA Performed By: Virgen Monsivais RDCS Chest CTA 10/21/24 13:36 IMPRESSION: 1. Mild airspace consolidation and bronchial thickening in the bilateral lower lobes consistent with inflammation. 2. A 0.7 cm non-calcified micronodule in the right apex. Consider six-month follow-up study for surveillance. 3. No evidence of pulmonary embolism. 4. Cardiac enlargement. Reading Location: [place] [id number] Physical Exam Narrative GENERAL: cooperative but dyspneic at rest HEENT: Atraumatic; normocephalic EYES; Anicteric, Normal Conjunctiva NECK; supple, normal thyroid, RESPIRATORY: Diminished to auscultation CARDIOVASCULAR: Regular S1 S2, GI: soft, normoactive bowel sounds, : No Renal angle tenderness; EXTREMITIES: edema, no clubbing, MUSCULOSKELETAL: no muscle wasting NEURO: Awake; no lateralizing signs. SKIN: No Rash PSYCH; Flat affect Assessment & Plan Assessment/Plan (1) Hypoxia: (2) CAP (community acquired pneumonia): PLAN: Plan Patient is a 74-year-old gentleman who presented with worsening shortness of breath and upper respiratory tract symptomsPatient was also found to have low- grade fever and assessment of suspected viral pneumonia and congestive heart failure made admitted to regular nursing floor for further management 1. Acute hypoxic respiratory failure (developed following hospitalization) ? Secondary to combination of suspected viral pneumonia CHF and asthma. Patient placed on supplemental oxygen requisition sent for COVID flu and RSV all of which have remained negative to date. 10/22/2024; patient went into acute respiratory distress the day prior. Patient was found to be tachypneic with respiratory rates in the 28 using accessory muscles in breathing. Subsequently ordered ABG as well as CT of the chest which was negative for PE however did show Mild airspace consolidation and bronchial thickening in the bilateral lower lobes consistent with inflammation.. Patient remains on antibiotic therapy as well as diuretic therapy and remains in the negative fluid balance of 1 L over the past 24 hours 2. Acute on chronic congestive heart failure with preserved ejection fraction ? Echo from 12/29/2020 demonstrated EF of 55%. Patient admitted to monitored bed, managed with strict input and output, daily weight, fluid restriction, low- sodium diet as well as diuretic therapy with furosemide. Repeat echo ordered for subsequent eval 10/22/2024; repeat echo demonstrated Mild concentric left ventricular hypertrophy. Borderline LV global systolic dysfunction. Estimated LVEF 45 to 50%. Stage I diastolic dysfunction. The left atrium is severely enlarged. Mild tricuspid valve insufficiency. Right ventricular systolic pressure estimated to be 47 mmHg. Mild aortic valve stenosis. Mean peak gradient 19 mmHg. Mild aortic valve regurgitation. The study was technically difficult. Patient remains on diuretic therapy 3. Suspected viral pneumonia ? With superimposed bacterial pneumonia given patient leukocytosis patient was started on ceftriaxone as well as azithromycin 4. Hypertension ? Blood pressure controlled, home medications continued with dose adjustment as needed 5. Class I obesity with BMI of 33.2 ? Complicating care weight loss advised 6. A 0.7 cm non-calcified micronodule in the right apex. Patient informed of the result and the need to follow-up with primary care physician for repeat imaging studies in 6-month 7.transient A-fib ? Patient had brief episodes of A-fib with variable rate. Currently back in sinus rhythm we will continue with continuous telemetry monitoring 8. DVT prophylaxis ? On enoxaparin Time spent in the patient's overall evaluation,decision-making process, review of diagnostic data, adjustment of management, discussion with other providers, nursing nursing and ancillary staff involved in patient's care documentation, 52 Minutes Charges/Coding Visit Charges Inpatient E&M: 61599 [facility] Hosp L3
[2024-10-22] MEDS: Furosemide 40 MG/4 ML Vial IV ×3 (10:13→22:01)
[2024-10-22] MEDS: Aspirin 81 MG TAB.CHEW PO (10:13)
[2024-10-22] MEDS: Lisinopril 20 MG Tablet PO (10:14)
[2024-10-22] MEDS: amLODIPine 5 MG Tablet PO (10:14)
[2024-10-22] MEDS: Enoxaparin 40 MG/0.4 ML Syringe SC (10:14)
[2024-10-22] MEDS: Metoprolol(XL)Succ 50 MG Tablet PO (10:14)
[2024-10-22] MEDS: Azithromycin 500 MG in 0.9% Normal Saline (250mL Bag) 250 ML 255 MG IV (10:15)
[2024-10-22] MEDS: Ceftriaxone 1 GM/50 ML BAG IV (10:16)
[2024-10-22] MEDS: 0.9% Saline Lock 10 ML Syringe IV ×3 (10:19→22:01)
[2024-10-23] VITALS (15 sets, daily range): BP systolic 90–126; BP diastolic 59–77; PULSE 70–118; RESP 16–20; TEMP 36.6–36.8; O2SAT 92–96; BMI 31.6
[2024-10-23 06:19] LABS: Absolute Lymphocyte Count 1.39 X10^3/uL (0.83-4.51); Absolute Neutrophil Count 6.3 X10^3/uL (2.0-7.7); Basophil# 0.05 X10^3/uL; Basophil% 0.6 % (0-1); Eosinophils% 5.6 % (0-5); Hematocrit 43.7 % (40-54); Hemoglobin 14.6 g/dL (13.0-16.5); Lymphocyte # 1.39 X10^3/ul (0.83-4.51); Lymphocyte % 15.6 % (19-41); Mean Corp Hgb Conc 33.4 g/dL (32-36); Mean Corpuscular Hgb 28.3 pg (27.0-32.0); Mean Corpuscular Volume 84.7 fL (80-94); Mean Platelet Vol. 10.6 fl (6.2-12.0); Monocyte# 0.61 X10^3/uL; Monocyte% 6.9 % (0-10); NRBC Flagged by Analyzer 0 % (0-5); Neutrophil # 6.29 X10^3/uL (2.7-7.7); Neutrophil % 70.7 % (47-70); Platelet Count 247 K/mm3 (150-450); RBC Distribution Width CV 13.9 % (11.6-14.6); Red Blood Count 5.16 M/mm3 (4.6-6.2); White Blood Count 8.9 K/mm3 (4.4-11.0)
[2024-10-23] MEDS: 0.9% Saline Lock 10 ML Syringe IV ×2 (06:47→09:53)
[2024-10-23] MEDS: Furosemide 40 MG/4 ML Vial IV ×3 (06:47→20:43)
[2024-10-23 07:18] LABS: Anion Gap 14 (5-15); BUN 20 mg/dL (4-19); BUN/Creat Ratio 22.4 RATIO (10-20); Calcium,Total 9.2 mg/dL (7.6-11.0); Carbon Dioxide 25.9 mmol/L (21.0-32.0); Chloride 100 mmol/L (98-108); EST Glomerular Filtration Rate 90 (>60); Estimated Creatinine Clearance 85.45 ml/min (50-250); Glucose 109 mg/dL (70-99); Potassium 3.6 mmol/L (3.3-5.1); Sodium Level 139 mmol/L (133-145)
--- NOTE | 2024-10-23 08:16 | PN.HOSP_ITS ---
Reason for Visit Reason for Visit: Diagnoses Pneumonia, unspecified organism (10/20/24) Hypoxemia (10/20/24) Subjective Subjective Patient seen has been weaned off oxygen plan is to increase activity with possible discharge in a.m. Objective Data Objective Data Vital Signs: Vital Signs Temp Pulse Resp BP Pulse Ox O2 Del Method O2 Flow Rate 98.3 F 88 20 H 111/59 L 93 Room Air 3 10/23/24 08:14 10/23/24 08:14 10/23/24 08:14 10/23/24 08:14 10/23/24 08:14 10/23/24 08:14 10/22/24 10:14 Oxygen Flow Rate (L/min) 3 Oxygen Delivery Method Room Air Weight: 100.244 kg Body Mass Index (BMI) 31.6 Intake & Output: Intake and Output for Last 24 Hours 10/21/24 10/22/24 10/23/24 23:59 23:59 23:59 Intake Total 317.83 / 317.83 1325 / 1325 Output Total 800 / 1475 3150 / 3650 900 / 900 Balance -482.17 / -1157.17 -1825 / -2325 -900 / -900 Lab / Micro Data 10/23/24 06:10 10/23/24 06:10 Labs: Laboratory Results - last 24 hr 10/22/24 06:12: Phosphorus 4.3 10/23/24 06:10: WBC 8.9, RBC 5.16, Hgb 14.6, Hct 43.7, MCV 84.7, MCH 28.3, MCHC 33.4, RDW Std Deviation 43.0, RDW Coeff of Shonna 13.9, Plt Count 247, MPV 10.6, Immature Gran % (Auto) 0.600, Neut % (Auto) 70.7 H, Lymph % (Auto) 15.6 L, Bandera % (Auto) 6.9, Eos % (Auto) 5.6 H, Baso % (Auto) 0.6, Absolute Neuts (auto) 6.3, Absolute Lymphs (auto) 1.39, Nucleated RBC % 0, Sodium 139, Potassium 3.6, Chloride 100, Carbon Dioxide 25.9, Anion Gap 14, BUN 20 H, Creatinine 0.90, Estim Creat Clear Calc 85.45, Est GFR (MDRD) Non-Af 90, BUN/Creatinine Ratio 22.4 H, Glucose 109 H, Calcium 9.2 Micro: Microbiology 10/21/24 00:15 Mucosa - Nasopharyngeal Respiratory Panel (PCR) - Final 10/20/24 14:20 Mucosa - Nose SARS-CoV-2, Influenza & RSV (PCR) - Final Physical Exam Narrative GENERAL: cooperative but dyspneic at rest HEENT: Atraumatic; normocephalic EYES; Anicteric, Normal Conjunctiva NECK; supple, normal thyroid, RESPIRATORY: Diminished to auscultation CARDIOVASCULAR: Regular S1 S2, GI: soft, normoactive bowel sounds, : No Renal angle tenderness; EXTREMITIES: edema, no clubbing, MUSCULOSKELETAL: no muscle wasting NEURO: Awake; no lateralizing signs. SKIN: No Rash PSYCH; Flat affect Assessment & Plan Assessment/Plan (1) Hypoxia: (2) CAP (community acquired pneumonia): PLAN: Plan Patient is a 74-year-old gentleman who presented with worsening shortness of breath and upper respiratory tract symptomsPatient was also found to have low- grade fever and assessment of suspected viral pneumonia and congestive heart failure made admitted to regular nursing floor for further management 1. Acute hypoxic respiratory failure (developed following hospitalization) ? Secondary to combination of suspected viral pneumonia CHF and asthma. Patient placed on supplemental oxygen requisition sent for COVID flu and RSV all of which have remained negative to date. 10/22/2024; patient went into acute respiratory distress the day prior. Patient was found to be tachypneic with respiratory rates in the 28 using accessory muscles in breathing. Subsequently ordered ABG as well as CT of the chest which was negative for PE however did show Mild airspace consolidation and bronchial thickening in the bilateral lower lobes consistent with inflammation.. Patient remains on antibiotic therapy as well as diuretic therapy and remains in the negative fluid balance of 1 L over the past 24 hours ? 10/23/2024 patient has been weaned off oxygen plan is to continue with pulmonary toileting 2. Acute on chronic congestive heart failure with preserved ejection fraction ? Echo from 12/29/2020 demonstrated EF of 55%. Patient admitted to monitored bed, managed with strict input and output, daily weight, fluid restriction, low- sodium diet as well as diuretic therapy with furosemide. Repeat echo ordered for subsequent eval 10/22/2024; repeat echo demonstrated Mild concentric left ventricular hypertrophy. Borderline LV global systolic dysfunction. Estimated LVEF 45 to 50%. Stage I diastolic dysfunction. The left atrium is severely enlarged. Mild tricuspid valve insufficiency. Right ventricular systolic pressure estimated to be 47 mmHg. Mild aortic valve stenosis. Mean peak gradient 19 mmHg. Mild aortic valve regurgitation. The study was technically difficult. Patient remains on diuretic therapy ? 10/23/2024; patient continues to respond to diuretic therapy in negative fluid balance of 1.7 L over the past 24 hours 3. Suspected viral pneumonia ? With superimposed bacterial pneumonia given patient leukocytosis patient was started on ceftriaxone as well as azithromycin 4. Hypertension ? Blood pressure controlled, home medications continued with dose adjustment as needed 5. Class I obesity with BMI of 33.2 ? Complicating care weight loss advised 6. A 0.7 cm non-calcified micronodule in the right apex. Patient informed of the result and the need to follow-up with primary care physician for repeat imaging studies in 6-month 7. Transient A-fib ? Patient had brief episodes of A-fib with variable rate. Currently back in sinus rhythm we will continue with continuous telemetry monitoring 8. DVT prophylaxis ? On enoxaparin 9. Physical deconditioning ? Requested for PT OT eval and director of social work to assist with discharge planning Time spent in the patient's overall evaluation,decision-making process, review of diagnostic data, adjustment of management, discussion with other providers, nursing nursing and ancillary staff involved in patient's care documentation, 36 minutes Charges/Coding Visit Charges Inpatient E&M: 50916 Subs Hosp L2
[2024-10-23] MEDS: Enoxaparin 40 MG/0.4 ML Syringe SC (08:17)
[2024-10-23] MEDS: Aspirin 81 MG TAB.CHEW PO (08:17)
[2024-10-23] MEDS: Metoprolol(XL)Succ 50 MG Tablet PO ×2 (08:17→09:46)
[2024-10-23] MEDS: amLODIPine 5 MG Tablet PO (08:18)
[2024-10-23] MEDS: Lisinopril 20 MG Tablet PO (08:18)
[2024-10-23] MEDS: Acetaminophen 325 MG Tablet 650 MG PO ×2 (09:46→20:39)
[2024-10-23] MEDS: Ceftriaxone 1 GM/50 ML BAG IV (09:52)
[2024-10-23] MEDS: Azithromycin 500 MG in 0.9% Normal Saline (250mL Bag) 250 ML 255 MG IV (10:33)
[2024-10-23] MEDS: Ipratropium/Albuterol Sulfate 3 ML AMPUL.NEB INHALATION ×3 (10:40→20:22)
[2024-10-23] MEDS: APIXABAN 5 MG TABLET PO (22:05)
[2024-10-24 02:00] VITALS: BP 110/75; PULSE 78; RESP 18; TEMP 36.2; O2SAT 99
[2024-10-24] MEDS: Acetaminophen 325 MG Tablet 650 MG PO (03:53)
[2024-10-24] MEDS: Furosemide 40 MG/4 ML Vial IV (05:50)
[2024-10-24 06:46] LABS: Absolute Lymphocyte Count 1.53 X10^3/uL (0.83-4.51); Absolute Neutrophil Count 5.3 X10^3/uL (2.0-7.7); Basophil# 0.06 X10^3/uL; Basophil% 0.8 % (0-1); Eosinophil# 0.44 X10^3/uL; Eosinophils% 5.5 % (0-5); Hematocrit 45.1 % (40-54); Lymphocyte # 1.53 X10^3/ul (0.83-4.51); Lymphocyte % 19.2 % (19-41); Mean Corp Hgb Conc 33.3 g/dL (32-36); Mean Corpuscular Hgb 28.3 pg (27.0-32.0); Mean Corpuscular Volume 85.1 fL (80-94); Mean Platelet Vol. 10.7 fl (6.2-12.0); Monocyte# 0.62 X10^3/uL; Monocyte% 7.8 % (0-10); NRBC Flagged by Analyzer 0 % (0-5); Neutrophil # 5.28 X10^3/uL (2.7-7.7); Neutrophil % 66.3 % (47-70); Platelet Count 276 K/mm3 (150-450); RBC Distribution Width CV 13.8 % (11.6-14.6); RBC Distribution Width SD 42.7 fl (35.1-43.9)
[2024-10-24 07:12] LABS: Anion Gap 14 (5-15); BUN 30 mg/dL (4-19); BUN/Creat Ratio 28.4 RATIO (10-20); Calcium,Total 9.2 mg/dL (7.6-11.0); Carbon Dioxide 25.8 mmol/L (21.0-32.0); Chloride 100 mmol/L (98-108); Creatinine, Serum 1.06 mg/dL (0.70-1.20); EST Glomerular Filtration Rate 74 (>60); Estimated Creatinine Clearance 72.55 ml/min (50-250); Glucose 107 mg/dL (70-99); Potassium 3.4 mmol/L (3.3-5.1); Sodium Level 140 mmol/L (133-145)
[2024-10-24 07:15] VITALS: PULSE 85; RESP 18
[2024-10-24] MEDS: Ipratropium/Albuterol Sulfate 3 ML AMPUL.NEB INHALATION ×2 (07:18→11:21)
--- NOTE | 2024-10-24 07:42 | PCM.PN.HOSP ---
Reason for Visit Reason for Visit: Diagnoses Pneumonia, unspecified organism (10/20/24) Hypoxemia (10/20/24) Subjective Subjective Patient went back into A-fib patient was subsequently started on systemic anticoagulation with apixaban. Currently on beta-blockers for rate control Objective Data Objective Data Vital Signs: Vital Signs Temp Pulse Resp BP Pulse Ox O2 Del Method O2 Flow Rate 97.2 F L 78 18 110/75 99 Room Air 3 10/24/24 02:00 10/24/24 02:00 10/24/24 02:00 10/24/24 02:00 10/24/24 02:00 10/24/24 02:00 10/22/24 10:14 Oxygen Flow Rate (L/min) 3 Oxygen Delivery Method Room Air Weight: 100.244 kg Body Mass Index (BMI) 31.6 Intake & Output: Intake and Output for Last 24 Hours 10/22/24 10/23/24 10/24/24 23:59 23:59 23:59 Intake Total 1325 / 1325 305 / 505 200 / 200 Output Total 3150 / 3650 1850 / 1850 250 / 250 Balance -1825 / -2325 -1545 / -1345 -50 / -50 Lab / Micro Data 10/24/24 05:49 10/24/24 05:49 Labs: Laboratory Results - last 24 hr 10/24/24 05:49: WBC 8.0, RBC 5.30, Hgb 15.0, Hct 45.1, MCV 85.1, MCH 28.3, MCHC 33.3, RDW Std Deviation 42.7, RDW Coeff of Shonna 13.8, Plt Count 276, MPV 10.7, Immature Gran % (Auto) 0.400, Neut % (Auto) 66.3, Lymph % (Auto) 19.2, Boyd % (Auto) 7.8, Eos % (Auto) 5.5 H, Baso % (Auto) 0.8, Absolute Neuts (auto) 5.3, Absolute Lymphs (auto) 1.53, Nucleated RBC % 0, Sodium 140, Potassium 3.4, Chloride 100, Carbon Dioxide 25.8, Anion Gap 14, BUN 30 H, Creatinine 1.06, Estim Creat Clear Calc 72.55, Est GFR (MDRD) Non-Af 74, BUN/Creatinine Ratio 28.4 H, Glucose 107 H, Calcium 9.2 Micro: Microbiology 10/21/24 00:15 Mucosa - Nasopharyngeal Respiratory Panel (PCR) - Final 10/20/24 14:20 Mucosa - Nose SARS-CoV-2, Influenza & RSV (PCR) - Final Physical Exam Narrative GENERAL: cooperative but dyspneic at rest HEENT: Atraumatic; normocephalic EYES; Anicteric, Normal Conjunctiva NECK; supple, normal thyroid, RESPIRATORY: Diminished to auscultation CARDIOVASCULAR: Regular S1 S2, GI: soft, normoactive bowel sounds, : No Renal angle tenderness; EXTREMITIES: edema, no clubbing, MUSCULOSKELETAL: no muscle wasting NEURO: Awake; no lateralizing signs. SKIN: No Rash PSYCH; Flat affect Assessment & Plan Assessment/Plan (1) Hypoxia: (2) CAP (community acquired pneumonia): PLAN: Plan Patient is a 74-year-old gentleman who presented with worsening shortness of breath and upper respiratory tract symptomsPatient was also found to have low-grade fever and assessment of suspected viral pneumonia and congestive heart failure made admitted to regular nursing floor for further management 1. Acute hypoxic respiratory failure (developed following hospitalization) ? Secondary to combination of suspected viral pneumonia CHF and asthma. Patient placed on supplemental oxygen requisition sent for COVID flu and RSV all of which have remained negative to date. 10/22/2024; patient went into acute respiratory distress the day prior. Patient was found to be tachypneic with respiratory rates in the 28 using accessory muscles in breathing. Subsequently ordered ABG as well as CT of the chest which was negative for PE however did show Mild airspace consolidation and bronchial thickening in the bilateral lower lobes consistent with inflammation.. Patient remains on antibiotic therapy as well as diuretic therapy and remains in the negative fluid balance of 1 L over the past 24 hours ? 10/23/2024 patient has been weaned off oxygen plan is to continue with pulmonary toileting 2. Acute on chronic congestive heart failure with preserved ejection fraction ? Echo from 12/29/2020 demonstrated EF of 55%. Patient admitted to monitored bed, managed with strict input and output, daily weight, fluid restriction, low-sodium diet as well as diuretic therapy with furosemide. Repeat echo ordered for subsequent eval 10/22/2024; repeat echo demonstrated Mild concentric left ventricular hypertrophy. Borderline LV global systolic dysfunction. Estimated LVEF 45 to 50%. Stage I diastolic dysfunction. The left atrium is severely enlarged. Mild tricuspid valve insufficiency. Right ventricular systolic pressure estimated to be 47 mmHg. Mild aortic valve stenosis. Mean peak gradient 19 mmHg. Mild aortic valve regurgitation. The study was technically difficult. Patient remains on diuretic therapy ? 10/23/2024; patient continues to respond to diuretic therapy in negative fluid balance of 1.7 L over the past 24 hours 3. Suspected viral pneumonia ? With superimposed bacterial pneumonia given patient leukocytosis patient was started on ceftriaxone as well as azithromycin 4. Hypertension ? Blood pressure controlled, home medications continued with dose adjustment as needed 5. Class I obesity with BMI of 33.2 ? Complicating care weight loss advised 6. A 0.7 cm non-calcified micronodule in the right apex. Patient informed of the result and the need to follow-up with primary care physician for repeat imaging studies in 6-month 7. Paroxysmal atrial fibrillation ? Patient had brief episodes of A-fib with variable rate. Currently back in sinus rhythm we will continue with continuous telemetry monitoring ? 10/24/2024Patient went back into A-fib patient was subsequently started on systemic anticoagulation with apixaban. Currently on beta-blockers for rate control 8. DVT prophylaxis ? On enoxaparin 9. Physical deconditioning ? Requested for PT OT eval and bilingual social worker to assist with discharge planning Time spent in the patient's overall evaluation,decision-making process, review of diagnostic data, adjustment of management, discussion with other providers, nursing nursing and ancillary staff involved in patient's care documentation, 36 minutes
[2024-10-24 08:00] VITALS: BP 110/76; PULSE 82; RESP 18; TEMP 36.5; O2SAT 93
--- NOTE | 2024-10-24 09:11 | PCM.DC.SUM ---
Providers Date of Admission: 10/20/24 Date of Discharge: 10/24/24 Primary Care Physician: RAKAN Ackerman Reason For Visit: HYPOXIA FROM [facility] Diagnosis Discharge Diagnosis (1) Hypoxia: Status: Acute Code(s): R09.02 - Hypoxemia (2) CAP (community acquired pneumonia): Status: Acute Code(s): J18.9 - Pneumonia, unspecified organism Plan Patient is a 74-year-old gentleman who presented with worsening shortness of breath and upper respiratory tract symptomsPatient was also found to have low-grade fever and assessment of suspected viral pneumonia and congestive heart failure made admitted to regular nursing floor for further management 1. Acute hypoxic respiratory failure (developed following hospitalization) ? Secondary to combination of suspected viral pneumonia CHF and asthma. Patient placed on supplemental oxygen requisition sent for COVID flu and RSV all of which have remained negative to date. 10/22/2024; patient went into acute respiratory distress the day prior. Patient was found to be tachypneic with respiratory rates in the 28 using accessory muscles in breathing. Subsequently ordered ABG as well as CT of the chest which was negative for PE however did show Mild airspace consolidation and bronchial thickening in the bilateral lower lobes consistent with inflammation.. Patient remains on antibiotic therapy as well as diuretic therapy and remains in the negative fluid balance of 1 L over the past 24 hours ? 10/23/2024 patient has been weaned off oxygen plan is to continue with pulmonary toileting 2. Acute on chronic congestive heart failure with preserved ejection fraction ? Echo from 12/29/2020 demonstrated EF of 55%. Patient admitted to monitored bed, managed with strict input and output, daily weight, fluid restriction, low-sodium diet as well as diuretic therapy with furosemide. Repeat echo ordered for subsequent eval 10/22/2024; repeat echo demonstrated Mild concentric left ventricular hypertrophy. Borderline LV global systolic dysfunction. Estimated LVEF 45 to 50%. Stage I diastolic dysfunction. The left atrium is severely enlarged. Mild tricuspid valve insufficiency. Right ventricular systolic pressure estimated to be 47 mmHg. Mild aortic valve stenosis. Mean peak gradient 19 mmHg. Mild aortic valve regurgitation. The study was technically difficult. Patient remains on diuretic therapy ? 10/23/2024; patient continues to respond to diuretic therapy in negative fluid balance of 1.7 L over the past 24 hours 3. Suspected viral pneumonia ? With superimposed bacterial pneumonia given patient leukocytosis patient was started on ceftriaxone as well as azithromycin 4. Hypertension ? Blood pressure controlled, home medications continued with dose adjustment as needed 5. Class I obesity with BMI of 33.2 ? Complicating care weight loss advised 6. A 0.7 cm non-calcified micronodule in the right apex. Patient informed of the result and the need to follow-up with primary care physician for repeat imaging studies in 6-month 7. Paroxysmal atrial fibrillation ? Patient had brief episodes of A-fib with variable rate. Currently back in sinus rhythm we will continue with continuous telemetry monitoring ? 10/24/2024Patient went back into A-fib patient was subsequently started on systemic anticoagulation with apixaban. Currently on beta-blockers for rate control 8. DVT prophylaxis ? On enoxaparin 9. Physical deconditioning ? Requested for PT OT eval and geriatric social work professor to assist with discharge planning Time spent in the patient's overall evaluation,decision-making process, review of diagnostic data, adjustment of management, discussion with other providers, nursing nursing and ancillary staff involved in patient's care documentation, 36 minutes Medications at Discharge Home Medications aspirin 81 mg tablet,delayed release 81 mg PO DAILY@0800 12/28/16 betamethasone dipropionate 0.05 % topical cream 1 applic topical DAILY PRN skin irritation 09/25/22 horse chestnut 300 mg capsule 300 mg PO DAILY 09/25/22 [id number] 300 mcg-K 60 mcg-lycop 600 mcg-lutein 300 mcg tablet (Centrum Silver Ultra Men's) 1 tab PO DAILY 09/25/22 sodium chloride 0.65 % nasal spray aerosol ([place] Saline) 2 spray intranasal Q4H PRN dry nasal passages 05/09/23 albuterol sulfate 90 mcg/actuation aerosol inhaler (Ventolin HFA) 2 puff inhalation Q4H PRN shortness of breath or wheezing #18 grams 11/11/23 azelastine 0.05 % eye drops See Rx Instructions ophthalmic (eye) .COMPLEX 11/11/23 fluticasone furoate 200 mcg/actuation blister powder for inhalation (Arnuity Ellipta) 1 inh inhalation QDAY #30 ea 11/11/23 apixaban 5 mg tablet (Eliquis) 5 mg PO BID 90 days #180 tabs 10/24/24 cefdinir 300 mg capsule 300 mg PO BID #10 caps 10/24/24 diltiazem HCl 120 mg capsule,extended release 24 hr (Cartia XT) 120 mg PO BID 90 days #180 caps 10/24/24 furosemide 40 mg tablet (Lasix) 40 mg PO DAILY #60 tabs 10/24/24 guaifenesin 1,200 mg tablet, extended release 12 hr (Mucus Relief ER) 1,200 mg PO BID #20 tabs 10/24/24 metoprolol succinate 50 mg tablet,extended release 24 hr 50 mg PO DAILY #90 tabs 10/24/24 Physical Exam Narrative GENERAL: cooperative HEENT: Atraumatic; normocephalic EYES; Anicteric, Normal Conjunctiva NECK; supple, normal thyroid, RESPIRATORY: Diminished to auscultation CARDIOVASCULAR: Regular S1 S2, GI: soft, normoactive bowel sounds, : No Renal angle tenderness; EXTREMITIES: edema, no clubbing, MUSCULOSKELETAL: no muscle wasting NEURO: Awake; no lateralizing signs. SKIN: No Rash PSYCH; Flat affect Weight / BMI Weight Weight: 100.244 kg Body Mass Index (BMI) 31.6 ABG / Lab / Microbiology Data 10/24/24 05:49 10/24/24 05:49 Laboratory: Laboratory Results - last 24 hr 10/24/24 05:49: WBC 8.0, RBC 5.30, Hgb 15.0, Hct 45.1, MCV 85.1, MCH 28.3, MCHC 33.3, RDW Std Deviation 42.7, RDW Coeff of Shonna 13.8, Plt Count 276, MPV 10.7, Immature Gran % (Auto) 0.400, Neut % (Auto) 66.3, Lymph % (Auto) 19.2, Gibson % (Auto) 7.8, Eos % (Auto) 5.5 H, Baso % (Auto) 0.8, Absolute Neuts (auto) 5.3, Absolute Lymphs (auto) 1.53, Nucleated RBC % 0, Sodium 140, Potassium 3.4, Chloride 100, Carbon Dioxide 25.8, Anion Gap 14, BUN 30 H, Creatinine 1.06, Estim Creat Clear Calc 72.55, Est GFR (MDRD) Non-Af 74, BUN/Creatinine Ratio 28.4 H, Glucose 107 H, Calcium 9.2 Microbiology: Microbiology 10/21/24 00:15 Mucosa - Nasopharyngeal Respiratory Panel (PCR) - Final 10/20/24 14:20 Mucosa - Nose SARS-CoV-2, Influenza & RSV (PCR) - Final D/C Instructions Discharge Diet: 2000 mg Sodium Diet Discharge Activity: Return to Normal Activity Call your doctor if you observe: Fever of 101 or Higher, Shortness of breath, Fainting spells and Chest pain DC O2, CPAP, BIPAP Needs Home O2 Discharge instructions: No Meaningful Use Info Meaningful Use Meaningful Use Diagnoses (Choose all that apply): CHF CHF NOELLE/ARB ordered at discharge?: No Reason NOELLE/ARB not ordered?: Not indicated Documented LVEF (%): 55 Ischemic Stroke Statin Dosing Therapy Reference: STATIN DOSE THERAPY REFERENCE: * Patients > 75 years receive moderate or high dose statin therapy. * Patients 75 years or YOUNGER should receive HIGH intensity statin dose unless contraindicated. You will be required to document reason for non-treatment if statin daily dose does not meet guidelines. HIGH DOSE STATIN THERAPY DAILY Atorvastatin > than or = to 40 mg Rosuvastatin > than or = to 20 mg Amlodipine + Atorvastatin > than or = to 2.5/40 mg Ezetimibe + Simvastatin 10/80 mg Simvastatin 80mg Discharge Plan Admission Admit Date/Time: 10/20/24 17:14 Attending Provider: Agustin Mcarthur Primary Care Provider: Peri Coyle Consulting Providers: Ramón Wheeler Discharge Orders/Prescriptions Prescriptions: New Eliquis 5 mg Tablet 5 mg PO BID 90 Days Qty: 180 0RF diltiazem HCl [Cartia XT] 120 mg capsule,extended release 24hr 120 mg PO BID 90 Days Qty: 180 0RF cefdinir 300 mg capsule 300 mg PO BID Qty: 10 0RF furosemide [Lasix] 40 mg tablet 40 mg PO DAILY Qty: 60 0RF guaifenesin [Mucus Relief ER] 1,200 mg tablet extended release 12hr 1,200 mg PO BID Qty: 20 0RF Continued horse chestnut 300 mg capsule 300 mg PO DAILY betamethasone dipropionate 0.05 % cream 1 applic topical DAILY PRN (Reason: skin irritation) Centrum Silver Ultra Men's 300-600-300 mcg tablet 1 tab PO DAILY [place] Saline 0.65 % aerosol,spray 2 spray intranasal Q4H PRN (Reason: dry nasal passages) azelastine 0.05 % drops See Rx Instructions ophthalmic (eye) .COMPLEX Rx Instructions: 2 drops 1 eye BID (rotating) into the eye(s); Arnuity Ellipta 200 mcg/actuation blister with device 1 inh inhalation QDAY Qty: 30 6RF Rx Instructions: administer at approximately the same time(s) each day albuterol sulfate [Ventolin HFA] 90 mcg/actuation HFA aerosol inhaler 2 puff inhalation Q4H PRN (Reason: shortness of breath or wheezing) Qty: 18 6RF aspirin 81 MG tablet 81 mg PO DAILY@0800 metoprolol succinate 50 mg tablet extended release 24 hr 50 mg PO DAILY Qty: 90 3RF Discontinued amlodipine-benazepril 5-20 mg capsule 1 cap PO DAILY Qty: 90 3RF Referrals / Follow Up: Peri Coyle WAITER/[employer] [Primary Care Provider] - Within 1 Week Disposition Disposition (needs filled in before D/C Order can be placed): Home, Self Care Charges/Coding Visit Charges Inpatient E&M: 23902 Disch Hosp >30min
[2024-10-24] MEDS: Aspirin 81 MG TAB.CHEW PO (09:18)
[2024-10-24] MEDS: Ceftriaxone 1 GM/50 ML BAG IV (09:28)
[2024-10-24] MEDS: 0.9% Saline Lock 10 ML Syringe IV (09:32)
[2024-10-24 09:36] VITALS: PULSE 60
[2024-10-24] MEDS: amLODIPine 5 MG Tablet PO (09:36)
[2024-10-24] MEDS: Metoprolol(XL)Succ 50 MG Tablet PO (09:36)
[2024-10-24] MEDS: APIXABAN 5 MG TABLET PO (09:36)
[2024-10-24] MEDS: Lisinopril 20 MG Tablet PO (09:37)
[2024-10-24] MEDS: Azithromycin 500 MG in 0.9% Normal Saline (250mL Bag) 250 ML 255 MG IV (10:35)
[2024-10-24 11:21] VITALS: PULSE 86; RESP 18
[2024-10-24 12:40] VITALS: BP 106/60; PULSE 94; RESP 17; TEMP 37; O2SAT 96
== END 2024-10-24 13:02 | disposition home or self-care (01) | DRG 193 ==
LOC: ED 16:50 → MS2 19:14
PROVIDERS: Admitting Provider Hospitalist; Emergency Provider Emergency Medicine; PCP Nurse Practitioner Family; Visit Provider Internal Medicine
DX: J15.9 Unspecified bacterial pneumonia (principal); J96.01 Acute respiratory failure with hypoxia; I50.33 Acute on chronic diastolic (congestive) heart failure; I11.0 Hypertensive heart disease with heart failure; I08.2 Rheumatic disorders of both aortic and tricuspid valves; E66.811 Obesity, class 1; I48.0 Paroxysmal atrial fibrillation; J12.9 Viral pneumonia, unspecified; G47.33 Obstructive sleep apnea (adult) (pediatric); Z68.35 Body mass index [BMI] 35.0-35.9, adult; Z79.51 Long term (current) use of inhaled steroids; Z82.3 Family history of stroke; Z87.891 Personal history of nicotine dependence; R91.1 Solitary pulmonary nodule
CPT/HCPCS: 36415; 36600; 71046; 71275; 80048; 80053; 82803; 83605; 83735; 83880; 84100; 84145; 84484; 85025; 85027; 87070; 87205; 87631; 87633; 93005; 93306; 94640; 94668; 94762; 97110; 97162; 97802; 99252; 99285; Q9957; A4216; C8929; G0463; J0696; J1940

== ENCOUNTER → 2024-10-28 | Outpatient (CLI) | payer MEDICARE, SELFPAY ==
--- NOTE | 2024-10-28 10:58 | VDLE_ITS ---
Reason For Study Reason For Study: PVD RIGHT LEFT CFV is compressible, spontaneous, phasic, competent CFV is compressible, spontaneous, phasic, competent, and demonstrates normal augmentation. and demonstrates normal augmentation. FV is compressible, spontaneous, phasic, competent FV is compressible, spontaneous, phasic, competent and demonstrates normal augmentation. and demonstrates normal augmentation. POP V is compressible, spontaneous, phasic, competent POP V is compressible, spontaneous, phasic, competent and demonstrates normal augmentation. and demonstrates normal augmentation. T/P Trunk is compressible. T/P Trunk is compressible. PTV is compressible. PTV is compressible. RT PerV is compressible. LT PerV is compressible. SFJ is competent and measures 0.86 cm. SFJ is competent and measures 0.88 cm. GSV proximal thigh measures 0.40 x 0.40 cm. GSV proximal thigh measures 0.40 x 0.38 cm. GSV above knee is competent. GSV above knee is competent. GSV at knee measures 0.31 x 0.32 cm. GSV at knee measures 0.39 x 0.35 cm. GSV below knee is INCOMPETENT for greater than 0.5 GSV below knee is INCOMPETENT for greater than 0.5 seconds. seconds. ASV mid calf is INCOMPETENT for greater than 0.5 INCOMPETENT j2ee consultant noted 21 cm above medial seconds and measures 0.20 x 0.21 cm. malleolus. INCOMPETENT j2ee consultant noted 12 cm above medial SSV mid calf is INCOMPETENT for greater than 0.5 malleolus. seconds and measures 0.19 x 0.19 cm. SSV mid calf is INCOMPETENT for greater than 0.5 seconds and measures 0.20 x 0.20 cm. Procedure This is a venous duplex using B-mode, color flow and spectral Doppler. Exam performed in department. Patient was scanned in reverse Trendelenburg position during reflux assessment. VL/Venous Duplex US - Chirag Extrem Interpretation Summary Deep veins of the bilateral lower extremities are patent and compressible segme ntally. There is no evidence of bilateral lower extremity deep vein thrombosis. The bilateral great saphenous veins appea r patent and compressible segmentally. Positive for reflux in the right great saphenous vein below the knee, accessory saphenous vein in the calf, small saphenous vein. Positive for reflux in the left great saphenous vein below the knee, calf perfo rator, and small saphenous vein Ordering Physician: Papa Schuler Referring Physician: Peri Coyle Performed By: Brigette Benites RVT
== END | disposition home or self-care (01) ==
PROVIDERS: PCP Nurse Practitioner Family; Referring Provider Podiatrist; Visit Provider Podiatrist
DX: I87.2 Venous insufficiency (chronic) (peripheral) (principal); M79.661 Pain in right lower leg; M79.662 Pain in left lower leg
CPT/HCPCS: 93970

== ENCOUNTER → 2024-11-23 | Outpatient (CLI) | payer MEDICARE, SELFPAY ==
[2024-11-23 13:15] LABS: Anion Gap 13 (5-15); BUN 13 mg/dL (4-19); Calcium,Total 9.7 mg/dL (7.6-11.0); Carbon Dioxide 27.7 mmol/L (21.0-32.0); Chloride 103 mmol/L (98-108); Creatinine, Serum 0.91 mg/dL (0.70-1.20); EST Glomerular Filtration Rate 89 (>60); Glucose 106 mg/dL (70-99); Potassium 3.6 mmol/L (3.3-5.1); Pro- Brain NATRIURETIC PEPTIDE 389 pg/mL (<=900); Sodium Level 143 mmol/L (133-145)
== END | disposition home or self-care (01) ==
LOC: LAB 11:59
PROVIDERS: PCP Nurse Practitioner Family; Referring Provider Nurse Practitioner Gerontology; Visit Provider Nurse Practitioner Gerontology
DX: I51.9 Heart disease, unspecified (principal); R06.09 Other forms of dyspnea
CPT/HCPCS: 36415; 80048; 83880

== ENCOUNTER → 2024-12-08 | Outpatient (CLI) | payer MEDICARE, SELFPAY | END | disposition home or self-care (01) | PROVIDERS: PCP Nurse Practitioner Family; Referring Provider Nurse Practitioner Family; Visit Provider Nurse Practitioner Family | DX: J45.20 Mild intermittent asthma, uncomplicated (principal) | CPT/HCPCS: 94060; 94726; 94729 ==

== ENCOUNTER → 2024-12-15 | Outpatient (CLI) | payer MEDICARE, SELFPAY ==
--- NOTE | 2024-12-16 08:26 | STRESSREP ---
Stress Test Report Exercise myocardial perfusion stress test. 74-year-old male with a history of chest pain Stress protocol: Resting EKG demonstrates normal sinus rhythm with a rate of 57 bpm resting blood pressure is 142/88 mmHg. The patient exercised according to the regular Quang protocol for a total duration of 3 minutes attaining a maximum heart rate of 157 bpm which was 107% of maximum predicted heart rate; the maximum workload was 4.6 metabolic equivalents. At rest there were no ST or T wave changes noted to suggest ischemia and at peak exercise upsloping ST changes only were noted which did not meet the criteria for ischemia. No clinical angina was noted the test was terminated due to the target heart rate being achieved/fatigue. The peak blood pressure was 184/90 mmHg. Rate-pressure product was 21,300. Myocardial perfusion protocol. 14.3 mCi of technetium 99m sestamibi was injected at rest. The patient exercised according to regular Quang protocol for total duration of 3 minutes and at peak exercise 44.6 mCi of technetium 99m sestamibi was injected stress images were obtained stress and rest images were reconstructed in comparing the short axis vertical long and horizontal long axis. Gated images were also obtained. Perfusion SPECT analysis: Review of the stress images demonstrate normal uptake of tracer noted in all areas of the myocardium. The resting images similarly demonstrate normal uptake of tracer noted in all areas of the myocardium. No areas of reversibility are noted to suggest ischemia no previous infarct was noted. Gated SPECT analysis: The gated ejection fraction is 70%. Conclusion: Normal exercise myocardial perfusion stress test at a low workload Preserved ejection fraction.
== END | disposition home or self-care (01) ==
PROVIDERS: PCP Nurse Practitioner Family; Referring Provider Nurse Practitioner Gerontology; Visit Provider Nurse Practitioner Gerontology
DX: I47.20 Ventricular tachycardia, unspecified (principal); I51.89 Other ill-defined heart diseases
CPT/HCPCS: 78452; 93017; A9500; A4216

== ENCOUNTER → 2025-01-07 | Outpatient (CLI) | payer MEDICARE, SELFPAY | END | disposition home or self-care (01) | LOC: SL 08:48 | PROVIDERS: PCP Nurse Practitioner Family; Referring Provider Nurse Practitioner Family; Visit Provider Nurse Practitioner Family | DX: G47.33 Obstructive sleep apnea (adult) (pediatric) (principal) | CPT/HCPCS: 94762 ==

== ENCOUNTER → 2025-02-09 | Outpatient (CLI) | payer MEDICARE, SELFPAY ==
[2025-02-09 12:52] VITALS: PULSE 101; PULSE 103; PULSE 104; PULSE 106; PULSE 74; PULSE 75; PULSE 91; PULSE 93; O2SAT 90; O2SAT 91; O2SAT 93; O2SAT 94; O2SAT 97
--- NOTE | 2025-02-11 10:09 | PCM.PSN.6M ---
PSN 6 Minute Walk Test 6 Minute Walk Test 6 Minute Walk Test: 6 Minute Walk Test PSN:6-Minute Walk Test Start: 02/09/25 12:52 Freq: Status: Active Protocol: [id number] Document 02/09/25 12:52 JR (Rec: 02/09/25 12:54 JR [id number]) 6 Minute Walk Test Date Performed 02/09/25 Time Performed 12:00 Height 5 ft 10 in Weight: 232 lb Weight in Pounds 232.[address]: REFENER Assistive device None used: Pre-test Oxygen Delivery Room Air Method Pulse Ox (%) 94 Pulse Rate (60-100 74 beats/min) Dyspnea Dl Scale ( 0 0-10) Exertion Dl Scale 6 (6-20) 1st minute Oxygen Delivery Room Air Method Pulse Ox (%) 97 Pulse Rate (60-100 91 beats/min) 2nd minute Oxygen Delivery Room Air Method Pulse Ox (%) 94 Pulse Rate (60-100 93 beats/min) 3rd minute Oxygen Delivery Room Air Method Pulse Ox (%) 93 Pulse Rate (60-100 101 H beats/min) 4th minute Oxygen Delivery Room Air Method Pulse Ox (%) 91 Pulse Rate (60-100 103 H beats/min) 5th minute Oxygen Delivery Room Air Method Pulse Ox (%) 90 Pulse Rate (60-100 104 H beats/min) 6th minute Oxygen Delivery Room Air Method Pulse Ox (%) 90 Pulse Rate (60-100 106 H beats/min) Dyspnea Dl Scale ( 2 0-10) Exertion Dl Scale 13 (6-20) Post-test Oxygen Delivery Room Air Method Pulse Ox (%) 97 Pulse Rate (60-100 75 beats/min) Full Laps Walked 16 Partial Lap, Number 15 of Tiles Walked Total Distance 959 Walked (ft) Interpretation Interpretation: The patient ambulated 959 feet over the course of 6 minutes beginning on room air without assistive devices. Pretesting oxygen saturation was noted to be 94% on room air. With ambulation, the nata oxygen saturation was 90%. There was no significant exertional oxygen desaturation. Recommendations Recommendations: There is no indication for the use of supplemental oxygen at this time.
== END | disposition home or self-care (01) ==
LOC: PSN 11:58
PROVIDERS: PCP Nurse Practitioner Family; Referring Provider Nurse Practitioner Family; Visit Provider Nurse Practitioner Family
DX: J98.4 Other disorders of lung (principal)
CPT/HCPCS: 94618

== ENCOUNTER → 2025-03-31 | Outpatient (CLI) | payer MEDICARE, SELFPAY ==
--- OUTSIDE RECORDS SUMMARY | 2025-03-31 19:01 | XMS RPT_ITS | CCD ---
Author Organization [facility] CliniSyil Care Team Providers Care Psychological Anthropologist Name Role Phone Gilma WATSON, Joyce Forte Unavailable Unavailable Funes CRYSTAL INSPECTOR, Rachel Covarrubias Unavailable Unavaila ble Funes CRYSTAL INSPECTOR, Rachel Marci Unavailable Unavaila ble Leonides FINANCIAL SERVICES OFFICER-C, [place] Primary Care Provider Dr. Cali Alvarado MD Emergency Provider Liam ORELLANA, Dr. Melgar Admit Provider Liam ORELLANA, Dr. Melgar Other Provider Dr. Agustin Mcarthur MD Attending Provider Unavailjimmy Mcarthur MD, Dr. Velez Other Provider Unavailable Josiah WOO, Dr. Sharma Attending Provider Leonides FINANCIAL SERVICES OFFICER-C, Michael Primary Care Provider Dr. Cali Alvarado MD Emergency Provider Liam ORELLANA, Dr. Melgar Admit Provider Dr. Ramón Wheeler DO Other Provider Dr. Agustin Mcarthur MD Attending Provider Unavailjimmy Mcarthur MD, Dr. Velez Other Provider Unavailable Josiah WOO, Dr. Sharma Attending Provider Dr. Zachary Rahman MD Referring Provider Dr. Papa Schuler DPM Attending Provider Dr. Papa Schuler DPM Referring Provider Dr. John Fermin MD Attending Provider [phone] Leonides FINANCIAL SERVICES OFFICER-C, Michael Referring Provider Marshall VARELA-CReyna Attending Provider Stephen FINANCIAL SERVICES OFFICER-C, Darleen Attending Provider Stephen FINANCIAL SERVICES OFFICER-C, Darleen Referring Provider Marshall VARELA-C, Reyna Otero Referring Provider Stephen FINANCIAL SERVICES OFFICER-C, Darleen Other Provider [phone] Shivam WOO, Dr. Christopher Attending Provider Shivam WOO, Dr. Christopher Attending Provider Marshall FINANCIAL SERVICES OFFICER-C, Reyna Otero Other Provider Dr. Peyman Wolfe DO Attending Provider [phone] Leonides FINANCIAL SERVICES OFFICER-C, Michael Primary Care Provider [phone] Ramón Wheeler Unavailable Ramón Wheeler Attending Unavailable Leonides, Michael Primary Care Unavailable Ramón Wheeler Admitting Unavailable Agustin Mcarthur Attending Unavailable Agustin Mcarthur Consulting Unavailable Leonides, Michael Primary Care Unavailable Darleen Mitchell NP Attending Unavailable Darleen Mitchell NP Referring Unavailable Leonides, Michael Primary Care Unavailable Papa Schuler Attending Unavailable Papa Schuler Referring Unavailable Ramón Wheeler Unavailable Leonides, Michael Primary Care Unavailable Ramón Wheeler Admitting Unavailable Agustin Mcarthur Attending Unavailable Leonides, Michael Primary Care Unavailable Reyna Olivares Referring Unavailable Reyna Olivares Attending Unavailable Leonides, Michael Primary Care Unavailable Darleen Mitchell NP Referring Unavailable Darleen Mitchell NP Attending Unavailable Leonides, Michael Primary Care Unavailable Reyna Olivares Attending Unavailable Reyna Olivares Referring Unavailable Leonides, Michael Primary Care Unavailable John Fermin Attending Unavailable Papa Schuler Referring Unavailable Leonides, Michael Primary Care Unavailable JosiahZachary estrada Attending Unavailable Josiah, Zachary Referring Unavailable Leonides, Michael Primary Care Unavailable Darleen Mitchell NP Attending Unavailable Leonides, Michael Primary Care Unavailable Ashwin Langley Attending Unavailable Darleen Mitchell NP Referring Unavailable Leonides, Michael Primary Care Unavailable Zachary Rahman Attending Unavailable Peyman Wolfe Attending Unavailable Leonides, Michael Primary Care Unavailable Reyna Olivares Referring Unavailable Reyna Olivares Consulting Unavailable Peyman Wolfe Attending Unavailable Leonides, Michael Referring Unavailable Leonides, Michael Primary Care Unavailable Stephen VARELA, Darleen Attending Unavailable Leonides, Micheal Referring Unavailable Leonides, Michael Primary Care Unavailable Reyna Olivares Attending Unavailable Leonides, Michael Referring Unavailable Leonides, Michael Primary Care Unavailable Reyna Olivares Attending Unavailable Leonides, Michael Referring Unavailable Leonides, Michael Primary Care Unavailable Stephen VARELA, Darleen Attending Unavailable Leonides, Michael Primary Care Unavailable Reyna Olivares Referring Unavailable Reyna Olivares Attending Unavailable Leonides, Michael Primary Care Unavailable tSephen VARELA, Darleen Attending Unavailable Darleen Mitchell NP Referring Unavailable Leonides, Michael Primary Care Unavailable Ashwin Langley Attending Unavailable Darleen Mitchell NP Referring Unavailable Darleen Mitchell NP Consulting Unavailable Allergies Allergy Classification Reported Allergen(s) Allergy Type Date of Onset Reaction(s) Facility (3 sources) acetaminophen / aspirin / caffeine Drug Allergy 10-30-2016 nausea Pulmonary Medicine [facility] Work Phone: (6 sources) aspirin; Translations: [ASPIRIN] Drug Allergy 10-26-2016 Vomiting Pulmonary Medicine [facility] Work Phone: (3 sources) EXCEDRIN MIGRAINE drug allergy 10-30-2016 nausea Pulmonary Medicine [facility] Work Phone: (2 sources) Acetaminophen Drug Allergy 09-25-2022 [facility] (2 sources) Caffeine Drug Allergy 09-25-2022 [facility] Medications Current Medications Medication Drug Class(es) Dates Sig (Normalized) Sig (Original) [id number] 200 actuat albuterol 0.09 mg/actuat metered dose inhaler (20 sources) beta2-Adrenergic Agonist Start: 11-11-2023 Albuterol Sulfate (Ventolin Hfa) 90 mcg/actuation HFA aerosol inhaler Active 2 NMA INHALATION Q4H as needed for shortness of breath or wheezing 03 02November 11, 2023 12:00am Start: 05-27-2019 End: 09-25-2022 Albuterol Sulfate (Ventolin Hfa) 90 mcg/actuation HFA aerosol inhaler Discontinued 2 NMA INHALATION Q4H as needed for shortness of breath or wheezing 03 02June 09, 2020 4:16pm September 25, 2022 2:44pm Start: 05-27-2019 End: 09-25-2022 take 1 puff(s) by inhalation every four hours Albuterol Sulfate (Ventolin Hfa) 90 mcg/actuation HFA aerosol inhaler Discontinued 2 PUFF INHALATION Q4H June 09, 2020 3:16pm September 25, 2022 1:44pm apixaban 5 mg oral tablet (12 sources) Factor Xa Inhibitor Start: 10-24-2024 End: 11-23-2024 take 1 tablet by mouth twice daily Apixaban (Eliquis) 5 mg tablet Active 5 mg PO TWICE A DAY 180 November 23, 2024 11:22am aspirin 81 mg delayed release oral tablet (12 sources) Nonsteroidal Anti-inflammatory Drug Start: 12-28-2016 take 1 tablet by mouth once daily Aspirin 81 MG tablet Active 81 mg PO DAILY@0800 December 28, 2016 12:00am Start: 12-25-2016 take 1 tablet by rogelio th once daily ASPIRIN EC LOW DOSE 81 MG TBEC One tablet by mouth daily ASPIRIN [id number] Len Saeed MD azelastine hydrochloride 0.5 mg/ml ophthalmic solution (7 sources) Histamine-1 Receptor Antagonist Start: 11-11-2023 Azelastine 0.05 % drops Active 0 OPHTHALMIC .COMPLEX November 11, 2023 12:00am 2 drops 1 eye BID (rotating) into the eye(s); betamethasone 0.5 mg/ml topical cream (9 sources) Corticosteroid Start: 09-25-2022 Betamethasone Dipropionate 0.05 % cream Active 1 NMA TOPICAL DAILY as needed for skin irritation September 25, 2022 1:00am 24 hr dilTIAZem hydrochloride 120 mg extended release oral capsule (12 sources) Calcium Channel Kurt Start: 10-24-2024 End: 11-23-2024 take 1 capsule by mouth twice daily, then take 1 capsule by mouth every twenty-four hours Diltiazem Hcl (Cartia Xt) 120 mg capsule,extended release 24hr Active 120 mg PO TWICE A DAY 180 November 23, 2024 11:23am Fluticasone Furoate (20 sources) Corticosteroid Start: 11-10-2024 take 200 ug by inhalation once daily Fluticasone Furoate (Arnuity Ellipta) 200 mcg/actuation blister with device Active 1 NMA INHALATION daily 3 November 10, 2024 10:18am administer at approximately the same time(s) each day Start: 11-10-2024 take 200 ug by inhal ation once daily Fluticasone Furoate (Arnuity Ellipta) 200 mcg/actuation blister with device Active 1 NMA INHALATION daily November 10, 2024 10:18am administer at approximately the same time(s) each day Start: 11-11-2023 End: 11-10-2024 take 200 ug by inhalation once daily Fluticasone Furoate (Arnuity Ellipta) 200 mcg/actuation blister with device Discontinued 1 NMA INHALATION daily 15 02November 11, 2023 12:00am November 10, 2024 10:19am administer at approximately the same time(s) each day Start: 11-11-2023 End: 11-10-2024 take 200 ug by inhalation once daily Fluticasone Furoate (Arnuity Ellipta) 200 mcg/actuation blister with device Discontinued 1 NMA INHALATION daily November 11, 2023 12:00am November 10, 2024 10:19am administer at approximately the same time(s) each day Start: 11-11-2023 take 200 ug by inhal ation once daily Fluticasone Furoate (Arnuity Ellipta) 200 mcg/actuation blister with device Active 1 NMA INHALATION daily November 11, 2023 12:00am administer at approximately the same time(s) each day Start: 11-11-2023 take 200 ug by inhal ation once daily Fluticasone Furoate (Arnuity Ellipta) 200 mcg/actuation blister with device Active 1 NMA INHALATION daily November 10, 2023 11:00pm administer at approximately the same time(s) each day Start: 05-16-2021 End: 10-14-2023 Fluticasone Propionate (Flov ent Hfa) 220 mcg/actuation HFA aerosol inhaler Discontinued 2 NMA INHALATION TWICE A DAY 07 24June 13, 2022 9:16am October 14, 2023 3:21pm administer with spacer Start: 05-16-2021 End: 10-14-2023 take 1 puff(s) by inhalation twice daily Fluticasone Propionate (Flovent Hfa) 220 mcg/actuation HFA aerosol inhaler Discontinued 2 PUFF INHALATION TWICE A DAY 12 October 26th, 2022 8:16am October 14, 2023 2:21pm administer with spacer Start: 09-02-2017 End: 12-10-2017 take 100 ug by inhalation every twenty-four hours Fluticasone Furoate (Arnuity Ellipta) 100 mcg/actuation blister with device Discontinued 1 NMA INHALATION Q24H September 02, 2017 1:00am December 10, 2017 1:21pm Start: 06-10-2017 End: 06-14-2017 ARNUITY ELLIPTA 100 MCG/ACT AEPB One puff daily FLUTICASONE FUROATE [id number] Rachel Funes LPN furosemide 40 mg oral tablet (13 sources) Loop Diuretic Start: 10-24-2024 End: 02-17-2025 take 1 tablet by mouth once daily Furosemide 40 mg tablet Active 40 mg PO DAILY 90 0 February 17, 2025 10:22am 12 hr guaiFENesin 1200 mg extended release oral tablet (12 sources) Start: 10-24-2024 End: 11-10-2024 take 1 tablet by mouth twice daily, then take 1 tablet by mouth every twelve hours Guaifenesin (Mucinex) 1,200 mg tablet extended release 12hr Active 1200 mg PO TWICE A DAY 60 3 November 10, 2024 12:00am Asthma Mild intermittent asthma, uncomplicated horse chestnut seed 300 mg oral capsule (19 sources) Start: 02-22-2025 take 1 capsule by mouth twice daily Horse [place] 300 mg capsule Active 300 mg PO TWICE A DAY February 22, 2025 11:36am Start: 12-14-2020 End: 09-25-2022 Horse [place] 300 mg capsul e Discontinued mg PO December 14, 2020 12:00am September 25, 2022 2:45pm Start: 12-14-2020 End: 02-22-2025 take 1 capsule by mouth once daily Horse [place] 300 mg capsule Discontinued 300 mg PO DAILY September 25, 2022 2:42pm February 22, 2025 11:37am Start: 12-14-2020 End: 09-25-2022 [place] Discontinued MG PO December 13, 2020 11:00pm September 25, 2022 1:45pm Od-Eum-Rruaj-U7-Rdcvszi-Yvvs in (Centrum Silver Ultra Men's) 300-600-300 mcg tablet (9 sources) Start: 09-25-2022 Gi-Gtb-Nxnor-B0-Nbjgiwu-Mjeb in (Centrum Silver Ultra Men's) 300-600-300 mcg tablet Active 1 {tbl} PO DAILY September 25, 2022 1:00am Start: 09-25-2022 Kb-Jgt-Bsgpi-K 3-Fkejddw-Ocwhxa (Centrum Silver Ultra Men's) 300-600-300 mcg tablet Active 1 {tbl} PO DAILY September 25, 2022 12:00am Start: 09-25-2022 take 300-600 tablets by mouth once daily Qv-Cgo-Xenjs-S6-Arxafht-Qupvmw (Centrum Silver Ultra Men's) 300-600-300 mcg tablet Active 1 TABLET PO DAILY September 25, 2022 12:00am Start: 09-25-2022 take 300-600 tablets by mouth once daily Ss-Xkv-Wxqwn-N8-Zfdnkge-Opyxaj (Centrum Silver Ultra Men's) 300-600-300 mcg tablet Active 1 TABLET PO DAILY September 25, 2022 1:00am sodium chloride 0.111 meq/ml nasal spray (8 sources) Start: 05-09-2023 Sodium Chlorid e ([place] Saline) 0.65 % aerosol,spray Active 2 NMA INTRANASAL Q4H as needed for dry nasal passages May 09, 2023 12:00am Start: 05-09-2023 Sodium Chlorid e ([place] Saline) 0.65 % aerosol,spray Active 2 SPRAY INTRANASAL Q4H May 08, 2023 11:00pm Completed/Discontinued Medications Medication Drug Class(es) Dates Sig (Normalized) Sig (Original) amLODIPine 5 mg / benazepril hydrochloride 20 mg oral capsule (20 sources) Dihydropyridine Calcium Channel Kurt, Angiotensin Converting Enzyme Inhibitor Start: 08-02-2015 End: 10-24-2024 Amlodipine-Benaze pril 5-20 mg capsule Discontinued 1 NMA PO DAILY December 17, 2023 11:51am October 24, 2024 10:13am Start: 08-02-2015 End: 12-23-2022 take 1 capsule by mouth once daily Amlodipine-Benazepril Discontinued 1 CAP PO DAILY December 25, 2021 11:32am December 23, 2022 7:09am 100 actuat beclomethasone dipropionate 0.04 mg/actuat metered dose inhaler (2 sources) Corticosteroid Start: 06-14-2017 QVAR 40 MCG/ACT AERS 2 puffs twice daily BECLOMETHASONE DIPROPIONATE [id number] Na Padilla CNP Budesonide (9 sources) Corticosteroid Start: 09-11-2017 End: 12-10-2017 take 180 ug by inhalation twice daily Budesonide (Pulmicort Flexhaler) 180 mcg/actuation aerosol powdr breath activated Discontinued 2 NMA INHALATION TWICE A DAY 1 September 11, 2017 1:00am December 10, 2017 1:21pm Start: 09-11-2017 End: 12-10-2017 take 180 ug by inhalation twice daily Budesonide (Pulmicort Flexhaler) 180 mcg/actuation aerosol powdr breath activated Discontinued 2 NMA INHALATION TWICE A DAY September 11, 2017 1:00am December 10, 2017 1:21pm Start: 09-11-2017 End: 12-10-2017 take 180 ug by inhalation twice daily Budesonide (Pulmicort Flexhaler) 180 mcg/actuation aerosol powdr breath activated Discontinued 2 NMA INHALATION TWICE A DAY September 11, 2017 12:00am December 10, 2017 12:21pm Start: 09-11-2017 End: 12-10-2017 take 180 ug by inhalation twice daily Budesonide (Pulmicort Flexhaler) 180 mcg/actuation aerosol powdr breath activated Discontinued 2 INH INHALATION TWICE A DAY September 11, 2017 12:00am December 10, 2017 12:21pm Start: 09-11-2017 End: 12-10-2017 take 180 ug by inhalation twice daily Budesonide (Pulmicort Flexhaler) 180 mcg/actuation aerosol powdr breath activated Discontinued 2 INH INHALATION TWICE A DAY September 11, 2017 1:00am December 10, 2017 1:21pm calcium ascorbate 500 mg oral tablet (9 sources) Start: 05-16-2021 End: 09-25-2022 take 1 tablet by mouth once daily Ascorbate Calcium (Vitamin C) 500 mg tablet Discontinued 500 mg PO DAILY May 16, 2021 12:00am September 25, 2022 2:44pm carvedilol 3.125 mg oral tablet (20 sources) alpha-Adrenergic Kurt, beta-Adrenergic Kurt Start: 12-25-2016 End: 10-24-2021 take 1 tablet by mouth twice daily Carvedilol 3.125 mg tablet Discontinued 3.125 mg PO TWICE A DAY 180 December 28, 2020 12:50pm October 24, 2021 9:27am cefdinir 300 mg oral capsule (7 sources) Cephalosporin Antibacterial Start: 10-24-2024 End: 11-10-2024 take 1 capsule by mouth twice daily Cefdinir 300 mg capsule Discontinued 300 mg PO TWICE A DAY 10 October 24, 2024 1:00am November 10, 2024 9:47am cholecalciferol 0.025 mg oral tablet (9 sources) Vitamin D Start: 05-16-2021 End: 09-25-2022 take 1 tablet by mouth once daily Cholecalciferol (Vitamin D3) 25 mcg (1,000 unit) tablet Discontinued 25 ug PO DAILY May 16, 2021 12:00am September 25, 2022 2:44pm clopidogrel 75 mg oral tablet (15 sources) P2Y12 Platelet Inhibitor Start: 12-25-2016 End: 09-02-2017 take 1 tablet by mouth once daily Clopidogrel 75 MG tablet Discontinued 75 mg PO DAILY December 28, 2016 12:00am September 02, 2017 11:36am fexofenadine hydrochloride 180 mg oral tablet (6 sources) Histamine-1 Receptor Antagonist Start: 10-26-2016 End: 10-30-2016 take 1 tablet by mouth every twelve hours FABIAN 180 MG TABS One tablet by mouth twice daily FEXOFENADINE HCL Jena Brown RN 60 actuat fluticasone propionate 0.113 mg/actuat / salmeterol xinafoate 0.014 mg/actuat dry powder inhaler (9 sources) Corticosteroid, beta2-Adrenergic Agonist Start: 09-11-2017 End: 12-10-2017 Fluticasone Propion-Salmeterol (Airduo Respiclick) 113-14 mcg/actuation aerosol powdr breath activated Discontinued 1 NMA INHALATION TWICE A DAY 1 September 11, 2017 1:00am December 10, 2017 1:21pm Start: 09-11-2017 End: 12-10-2017 take 1 puff(s) by inhalation twice daily Fluticasone Propion-Salmeterol (Airduo Respiclick) 113-14 mcg/actuation aerosol powdr breath activated Discontinued 1 PUFF INHALATION TWICE A DAY 1 September 11, 2017 12:00am December 10, 2017 12:21pm Fluticasone Propionate (Flov ent Hfa) 220 mcg/actuation HFA aerosol inhaler (8 sources) Start: 10-14-2023 End: 11-11-2023 Fluticasone Propionate (Flov ent Hfa) 220 mcg/actuation HFA aerosol inhaler Discontinued 2 NMA INHALATION TWICE A DAY 12 October 14, 2023 3:21pm November 11, 2023 10:39am administer with spacer Start: 10-14-2023 End: 11-11-2023 Fluticasone Propionate (Flov ent Hfa) 220 mcg/actuation HFA aerosol inhaler Discontinued 2 NMA INHALATION TWICE A DAY October 14, 2023 3:21pm November 11, 2023 10:39am administer with spacer Start: 10-14-2023 End: 11-11-2023 Fluticasone Propionate (Flov ent Hfa) 220 mcg/actuation HFA aerosol inhaler Discontinued 2 NMA INHALATION TWICE A DAY October 14, 2023 2:21pm November 11, 2023 9:39am administer with spacer Start: 10-14-2023 take 1 puff(s) by in halation twice daily Fluticasone Propionate (Flovent Hfa) 220 mcg/actuation HFA aerosol inhaler Active 2 PUFF INHALATION TWICE A DAY October 14, 2023 2:21pm administer with spacer hydroCHLOROthiazide 25 mg oral tablet (20 sources) Thiazide Diuretic Start: 12-28-2016 End: 05-27-2019 Hydrochlorothiazide 25 mg tablet Discontinued 12.5 mg PO DAILY December 30, 2017 3:29pm May 27, 2019 1:58pm Start: 12-28-2016 End: 05-27-2019 take 12.5 mg by mouth once daily Hydrochlorothiazide Discontinued 12.5 MG PO DAILY December 30, 2017 2:29pm May 27, 2019 12:58pm Start: 10-26-2016 take 1 tablet by once daily HYDROCHLOROTHIAZIDE 12.5 MG TABS One tablet by mouth daily HYDROCHLOROTHIAZIDE [id number] Jena Brown RN meloxicam 15 mg oral tablet (12 sources) Nonsteroidal Anti-inflammatory Drug Start: 08-02-2015 End: 12-10-2017 take 1 tablet by mouth once daily Meloxicam 15 MG tablet Discontinued 15 mg PO DAILY August 02, 2015 1:00am December 10, 2017 1:21pm 24 hr metoprolol succinate 50 mg extended release oral tablet (20 sources) beta-Adrenergic Kurt Start: 10-24-2021 End: 10-24-2024 take 1 tablet by mouth once daily Metoprolol Succinate 50 mg tablet extended release 24 hr Discontinued 50 mg PO DAILY 90 3 October 28, 2023 8:50am October 24, 2024 10:14am 120 actuat mometasone furoate 0.2 mg/actuat metered dose inhaler (9 sources) Corticosteroid Start: 09-11-2017 End: 12-10-2017 Mometasone (Asmanex Hfa) 200 mcg/actuation HFA aerosol inhaler Discontinued 2 NMA INHALATION Q12H 13 September 11, 2017 1:00am December 10, 2017 1:21pm Start: 09-11-2017 End: 12-10-2017 take 1 puff(s) by inhalation every twelve hours Mometasone (Asmanex Hfa) 200 mcg/actuation HFA aerosol inhaler Discontinued 2 PUFF INHALATION Q12H September 11, 2017 12:00am December 10, 2017 12:21pm MULTIPLE VITAMIN (6 sources) Start: 10-26-2016 take 1 tablet by rogelio th every twenty-four hours MULTIVITAMINS TABS One tablet by mouth daily MULTIPLE VITAMIN Jena Brown RN Start: 10-26-2016 End: 10-30-2016 take 1 tablet by mouth every twenty-four hours MULTIVITAMINS TABS One tablet by mouth daily MULTIPLE VITAMIN Len Saeed MD [place] 8-Hzw-Neh-Fish Oil (Fi sh Oil) 60-90-500 mg capsule (9 sources) Start: 05-16-2021 End: 09-25-2022 Tyner 6-Zrp-Kil-Fish Oil (Fi sh Oil) 60-90-500 mg capsule Discontinued 1 NMA PO DAILY May 16, 2021 12:00am September 25, 2022 2:44pm Start: 05-16-2021 End: 09-25-2022 [place]ner 6-Bob-Tvw-Fish Oil (Fi sh Oil) 60-90-500 mg capsule Discontinued 1 NMA PO DAILY May 15, 2021 11:00pm September 25, 2022 1:44pm Start: 05-16-2021 End: 09-25-2022 take 1 capsule by mouth once daily [place]ner 1-Kjm-Mkc-Fish Oil (Fish Oil) 60-90-500 mg capsule Discontinued 1 CAP PO DAILY May 15, 2021 11:00pm September 25, 2022 1:44pm Start: 05-16-2021 End: 09-25-2022 take 1 capsule by mouth once daily Tyner 0-Vqy-Hls-Fish Oil (Fish Oil) 60-90-500 mg capsule Discontinued 1 CAP PO DAILY May 16, 2021 12:00am September 25, 2022 2:44pm Problems Active Problems Problem Classification Problem Date Documented Da te Episodic/Chronic Asthma (20 sources) Moderate persistent asthma; Translations: [Moderate persistent asthma, uncomplicated] Onset: 06-10-2017 06-10-2017 Chronic Cardiac dysrhythmias (20 sources) Multiple premature ventricular complexes; Translations: [Ventricular premature depolarization] Onset: 12-29-2024 09-20-2022 Chronic Diseases of white blood cells (7 sources) Leukocytosis; Translations: [Elevated white blood cell count, unspecified] 10-20-2024 Chronic Essential hypertension (19 sources) Hypertensive disorder; Translations: [Essential hypertension] Onset: 10-26-2016 10-26-2016 Chronic Other and ill-defined heart disease (11 sources) Depression of left ventricular systolic function; Translations: [Heart disease, unspecified] 11-23-2024 Chronic Other and ill-defined heart disease (4 sources) Left ventricular systolic dysfunction; Translations: [Other ill-defined heart diseases] 12-03-2024 Chronic Other and ill-defined heart disease (1 source) Other ill-defined heart diseases; Translations: [Other ill-defined heart diseases] Onset: 01-04-2025 Chronic Other and ill-defined heart disease (1 source) Heart disease, unspecified; Translations: [Heart disease, unspecified] Onset: 12-29-2024 Chronic Other lower respiratory disease (20 sources) Dyspnea on exertion; Translations: [Snoring] Onset: 10-30-2016 10-30-2016 Episodic Other lower respiratory disease (13 sources) Hypoxia; Translations: [Hypoxemia] 10-20-2024 Episodic Other lower respiratory disease (14 sources) Solitary nodule of lung; Translations: [Solitary pulmonary nodule] 11-10-2024 Episodic Comment on above: 7 mm right apex nonc alcified nodule on CTA from 10/21/2024 Other lower respiratory disease (8 sources) Restrictive lung disease; Translations: [Other disorders of lung] 12-23-2024 Episodic Other lower respiratory disease (2 sources) Other disorders of lung; Translations: [Other disorders of lung] Onset: 03-01-2025 Episodic Other lower respiratory disease (1 source) Other forms of dyspnea; Translations: [Other forms of dyspnea] Onset: 12-29-2024 Episodic Other nutritional; endocrine; and metabolic disorders (9 sources) Body mass index 30+ - obesity; Translations: [Body mass index (BMI) 33.0-33.9, adult] 09-20-2022 Chronic Other upper respiratory disease (7 sources) Acute bronchospasm; Translations: [Acute bronchospasm] 10-20-2024 Episodic Residual codes; unclassified (20 sources) Obstructive sleep apnea syndrome; Translations: [Obstructive sleep apnea (adult) (pediatric)] 02-12-2022 Chronic Comment on above: BiPAP 17/13 with res idual AHI of 1.1 BiPAP 17/13 Residual codes; unclassified (1 source) Obstructive sleep apnea (adult) (pediatric); Translations: [Obstructive sleep apnea (adult) (pediatric)] Onset: 01-14-2025 Chronic Unclassified (6 sources) Obstructive sleep apnea of adult; Translations: [Body mass index (BMI) 35.0-35.9, adult] Onset: 10-30-2016 03-05-2017 Chronic Unclassified (2 sources) Ventricular tachycardia, unspecified; Translations: [Ventricular tachycardia, unspecified] Onset: 01-04-2025 Past or Other Problems Problem Classification Problem Date Documented Date Episodic/Chronic Coma, stupor, brain damage (3 sources) Daytime somnolence; Translations: [Somnolence] Onset: 10-30-2016 10-31-2016 Episodic Conditions associated with dizziness or vertigo (3 sources) Dizziness and giddiness; Translations: [Dizziness and giddiness] Onset: 10-30-2016 10-30-2016 Episodic Malaise and fatigue (3 sources) Malaise and fatigue; Translations: [Other fatigue] Onset: 10-30-2016 10-30-2016 Episodic Nonspecific chest pain (13 sources) Chest pain; Translations: [Chest discomfort] Onset: 10-30-2016 10-30-2016 Episodic Other diseases of veins and lymphatics (1 source) Venous insufficiency (chronic) (peripheral); Translations: [Venous insufficiency (chronic) (peripheral)] Onset: 11-06-2024 Episodic Other lower respiratory disease (1 source) Solitary pulmonary nodule; Translations: [Solitary pulmonary nodule] Onset: 11-10-2024 Episodic Other lower respiratory disease (1 source) Hypoxemia; Translations: [Hypoxemia] Onset: 10-24-2024 Episodic Pneumonia (except that caused by tuberculosis or sexually transmitted disease) (20 sources) Community acquired pneumonia; Translations: [Pneumonia, unspecified organism] Onset: 10-24-2024 10-21-2024 Episodic Syncope (3 sources) Syncope and collapse; Translations: [Syncope and collapse] Onset: 10-26-2016 10-26-2016 Episodic Unclassified (6 sources) Electrocardiogram abnormal; Translations: [Lung function testing abnormal] Onset: 10-30-2016 10-30-2016 Episodic Results Test Name Value Interpretation Reference Range Facility Cardiology Visit Reporton Cardiology Visit Report [facility] [address] [place] [address] OFFICE VISIT Date of Service: 02/22/25 MR#: [id number] Acct: [id number] Name: PORTIA BAUER Rep #: [id number] : 1950 Provider: RAKAN whitfield Age/Sex: 74/M Location: [facility] Status: Signed HPI HPI History of Present Illness Details: This is a 74-year-old male who presents to the office today for a cardiovascular outpatient follow- up. He has a history of hypertension. He underwent a stress test in September 2021 which was normal but the low workload was affecting sensitivity for detection of ischemia. He subsequently underwent cardiac catheterization which demonstrated normal coronary arteries, normal left ventricular size and function. Patient presented to the emergency room on 10/20/2024 with complaints of chest pain, and shortness of breath. During his ER exam, he was noted to have a pulse ox of 90%, rhinorrhea and congestion. He was also coughing up brown-colored sputum. His chest x-ray demonstrated mild degree of CHF. Patient was admitted for pneumonia, and CHF. He underwent an echocardiogram on 10/20/2024 which demonstrated mild concentric left ventricular hypertrophy with an estimated LV ejection fraction of 45 to 50%, and stage I diastolic dysfunction. His left atrium is severely enlarged, and mild aortic valve stenosis was noted on his echocardiogram. During his hospitalization, he did have episodes of atrial fibrillation, and self converted. He was discharged on Eliquis and diltiazem. From a cardiac standpoint, the patient is doing well. He does acknowledge occasional palpitations with exertion. He denies any chest pain, pressure or heaviness. He denies SOB, Orthopnea, and PND. He does not have bleeding issues; no blood in urine, stool, or nosebleeds. He denies any decrease in energy level, myalgias, or claudication. He does not have edema, or sudden weight gain. He does wear compression stockings. He denies lightheadedness, dizziness, syncopal or near syncopal episodes, and headaches. Intake Vital Signs 11/23/24 07:53 02/09/25 12:52 02/22/25 11:19 Height 5 ft 10 in 5 ft 10 in 5 ft 10 in Weight: 234 lb BMI 33.5 BP 137/70 H Blood Pressure Location Rt brachial Position Sitting Respiration 18 Pulse 66 Pulse Source Monitor Intake Visit Reasons: 3 M FU Automotive Paint Technician Required: No Accompanied by: Self Is patient in pain?: No Allergies No Known Allergies Allergy (Verified 02/22/25 11:27) Medications ???Medication ???Instructions ???Recorded ???Confirmed ???Type aspirin 81 mg tablet,delayed 81 mg PO DAILY@0800 12/28/1602/22 History release betamethasone dipropionate 0.05 % 1 applic topical DAILY PRN skin 0 09/25/22 02/22/25 History topical cream irritation lhejtkew-ty-qkdul 300 mcg-K 60 1 tab PO DAILY 09/25/22 02/22/25 H istory mcg-lycop 600 mcg-lutein 300 mcg tablet (Centrum Silver Ultra Men's) sodium chloride 0.65 % nasal spray 2 spray intranasal Q4H PRN dry 0 05/09/23 02/22/25 History aerosol (Winchester Saline) nasal passages albuterol sulfate 90 mcg/actuation 2 puff inhalation Q4H PRN 02/22/25 Rx aerosol inhaler (Ventolin HFA) shortness of breath or wheezing #18 grams azelastine 0.05 % eye drops See Rx Instructions ophthalmic 02/22/25 History (eye) .COMPLEX metoprolol succinate 50 mg 50 mg PO DAILY #90 tabs 10/24/24 0 02/22/25 Rx tablet,extended release 24 hr fluticasone furoate 200 1 inh inhalation QDAY #3 ea 02/22/25 Rx mcg/actuation blister powder for inhalation (Arnuity Ellipta) guaifenesin 1,200 mg tablet, 1,200 mg PO BID #60 tabs 11/10/24 02/22/25 Rx extended release 12 hr (Mucinex) apixaban 5 mg tablet (Eliquis) 5 mg PO BID #180 tabs 11/23/2403/12 Rx diltiazem HCl 120 mg 120 mg PO BID #180 caps 11/23/24 0 02/22/25 Rx capsule,extended release 24 hr (Cartia XT) furosemide 40 mg tablet 40 mg PO DAILY #90 TABLETS 5 02/22/25 Rx horse chestnut 300 mg capsule 300 mg PO BID 02/22/25 02/22/25 Hi story Have you fallen in the past year?: No PFSH Medical History (Reviewed 02/22/25 @ 11:36 by Darleen Mitchell FINANCIAL SERVICES OFFICER, FINANCIAL SERVICES OFFICER-C) Pneumonia Afib Adult BMI 33.0-33.9 kg/sq m Essential hypertension Chest pressure PVC (premature ventricular contraction) Dyspnea on exertion Asthma Moderate persistent allergic asthma THEA (obstructive sleep apnea) Rheumatoid arthritis Syncope and collapse Dizziness and giddiness UMANA (dyspnea on exertion) Snoring Daytime somnolence Abnormal pulmonary function test Asthma, moderate persistent Surgical History (Reviewed 02/22/25 @ 11:36 by Darleen Mitchell FINANCIAL SERVICES OFFICER, FINANCIAL SERVICES OFFICER-C) History of bilateral cataract extraction H/O skin graft History of left heart catheterization (10/24/21) (more content not included)... Normal [facility] 6 Minute Walk Teston 025 6 Minute Walk Test y [facility] Pulmonary Services/Neurology [address] [place] [address] MR#: [id number] Acct: [id number] Name: PORTIA BAUER Rep #: [id number] : 1950 74 From: Peyman Wolfe DO Referring Dr: Reyna Olivares FINANCIAL SERVICES OFFICER-C Status: REG CLI Location: PSN Date: Sex: M C PSN 6 Minute Walk Test 6 Minute Walk Test 6 Minute Walk Test: 6 Minute Walk Test PSN:6-Minute Walk Test Start: 02/09/25 12:52 Freq: Status: Active Protocol: [id number] Document 02/09/25 12:52 JR (Rec: 02/09/25 12:54 JR [id number]) 6 Minute Walk Test Date Performed 02/09/25 Time Performed 12:00 Height 5 ft 10 in Weight: 232 lb Weight in Pounds 232.[address]: ESAU Assistive device None used: Pre-test Oxygen Delivery Room Air Method Pulse Ox (%) 94 Pulse Rate (60-100 74 beats/min) Dyspnea Dl Scale ( 0 0-10) Exertion Dl Scale 6 (6-20) 1st minute Oxygen Delivery Room Air Method Pulse Ox (%) 97 Pulse Rate (60-100 91 beats/min) 2nd minute Oxygen Delivery Room Air Method Pulse Ox (%) 94 Pulse Rate (60-100 93 beats/min) 3rd minute Oxygen Delivery Room Air Method Pulse Ox (%) 93 Pulse Rate (60-100 101 H beats/min) 4th minute Oxygen Delivery Room Air Method Pulse Ox (%) 91 Pulse Rate (60-100 103 H beats/min) 5th minute Oxygen Delivery Room Air Method Pulse Ox (%) 90 Pulse Rate (60-100 104 H beats/min) 6th minute Oxygen Delivery Room Air Method Pulse Ox (%) 90 Pulse Rate (60-100 106 H beats/min) Dyspnea Dl Scale ( 2 0-10) Exertion Dl Scale 13 (6-20) Post-test Oxygen Delivery Room Air Method Pulse Ox (%) 97 Pulse Rate (60-100 75 beats/min) Full Laps Walked 16 Partial Lap, Number 15 of Tiles Walked Total Distance 959 Walked (ft) Interpretation Interpretation: The patient ambulated 959 feet over the course of 6 minutes beginning on room air without assistive devices. Pretesting oxygen saturation was noted to be 94% on room air. With ambulation, the nata oxygen saturation was 90%. There was no significant exertional oxygen desaturation. Recommendations Recommendations: There is no indication for the use of supplemental oxygen at this time. 02/11/25 1009 Date Peyman Wolfe DO CC: Date Dictated: 02/11/25 1009 Date Transcribed: 02/11/25 100 [employer] Salesperson: Dr. Peyman Wolfe DO Signed Normal [facility] Pulmonary Visit Reporton Pulmonary Visit Report [facility] Pulmonary Medicine of [address] [place] [address] OFFICE VISIT Date of Service: 12/23/24 MR#: [id number] Acct: [id number] Name: PORTIA BAUER Rep #: [id number] : 1950 Provider: Reyna Olivares NP Age/Sex: 74/M Location: [facility] Status: Signed Assessment and Plan Assessment and Plan (1) Restrictive airway disease: Status: Acute Plan: The PFT when compared to the study from 2018 does show progression from mild restrictive disease to now moderate restrictive disease. This could be due to the airspace consolidation that was identified on CT imaging from previous illness versus left ventricular systolic dysfunction. The CTA showed a persistent right hemidiaphragm elevation that had been present in previous imaging dating back to 2017 which could be contributing to some restriction on the PFT. But etiology is unclear as to why there has been progression of restriction. I have recommended repeating PFT in March, in the meantime obtaining a 6-minute walk test, and then follow up after CT imaging and PFT. (2) Asthma: Status: Chronic Qualifiers: Asthma complication type: uncomplicated Asthma persistence: persistent Asthma severity: mild Qualified Code(s): J45.30 - Mild persistent asthma, uncomplicated Plan: Asthma is stable today. No signs of exacerbation of asthma today.??? No change in maintenance medications, continue with use of Arnuity. Use albuterol on an as-needed basis. Contact the office with any signs of new or worsening symptoms.??? (3) THEA (obstructive sleep apnea): Status: Chronic Comment: BiPAP Plan: Stable. THEA is controlled with current settings. He is using and benefiting from Pap therapy. Continue on BiPAP at current settings. I have recommended a nocturnal oximetry to be obtained at this time due to his cardiovascular disease. Continue to encourage weight loss through increasing exercise regimen-this was discussed today with the patient. Contact the office for any new or worsening symptoms in the meantime. (4) Solitary pulmonary nodule: Status: Acute Comment: 7 mm right apex noncalcified nodule on CTA from 10/21/2024 Plan: Repeat CT chest without contrast to follow the nodule in 6 months as recommended, previously ordered. Follow-up after imaging. Orders: Orders Simple Pulmonary Exercise Test 01/21/25 J98.4 - Other disorders of lung PFT Complete - DLCO, Spirometry b/a bronchodilators, lung volumes 03/31/25 J98.4 - Other disorders of lung OutPt Pulse Ox/Cont Overnight Today G47.33 - Obstructive sleep apnea (adult) (pediatric) Plan Details Follow Up: April 2025 (LMR) HPI HPI Comments Details: Patient is a 74-year-old male who presents to the office today for follow-up of his asthma and obstructive sleep apnea. He is ambulatory and currently on room air. If you recall, he had been hospitalized for community-acquired pneumonia from October 20 through October 24, 2024. He did develop acute hypoxic respiratory failure secondary to viral pneumonia CHF and asthma. He tested negative for COVID, flu, RSV. He did undergo a CT of his chest which was negative for PE but showed mild airspace consolidation and bronchial thickening in the bilateral lower lobes consistent with inflammation on October 21, 2024. A 7 mm nodule was identified that was noncalcified in the right lung apex. He also underwent a echocardiogram which showed estimated left ventricular ejection fraction at 45 to 50%, stage I diastolic dysfunction, right ventricular systolic pressure was estimated to be 47 mmHg. He was suspected to have viral pneumonia with superimposed bacterial pneumonia and was prescribed ceftriaxone as well as azithromycin. He was sent home with a pulmonary toilet regimen. He has not had recent respiratory illness since last follow-up that has required antibiotics or oral prednisone. Lasix has been weaned to once daily. Today he denies chest pain chest tightness and shortness of breath. He denies wheezing and cough. He denies fever, chills, body aches. He has been compliant with use of Arnuity. He reports rinsing his mouth out after each use. He denies any medication side effects such as sore throat or thrush. He has not needed to use an albuterol rescue inhaler. He is on Mucinex. He denies any morning headaches and dry mouth. He feels rested upon awakening. He does nap on occasion without the machine. He is using a fullface style mask. He is not struggling with the air pressure. The patient indicates that this is an improvement from when he was first diagnosed and treated with PAP therapy. He is a former smoker, he quit 30 years, he started in his teen years. Smoked at the most a few cigarettes a day. Documentation reviewed with patient today includes: PFT from December 08, 2024 shows moderate restrictive ventilat (more content not included)... Normal [facility] Cardiovascular stress test r eportOrdered By: Ashwin Langley on 12-16-2024 Study report [facility] Cardiovascular Services [address] [place] [address] MR#: [id number] Acct: [id number] Name: PORTIA BAUER Rep #: [id number] : 1950 74 From: Ashwin Langley MD Primary Care: Michael Medina NP-Dannie Status: REG CLI Referring Dr: Darleen Mitchell NP FINANCIAL SERVICES OFFICER-C Sex: M C Stress Test Report Exercise myocardial perfusion stress test. 74-year-old male with a history of chest pain Stress protocol: Resting EKG demonstrates normal sinus rhythm with a rate of 57 bpm resting bloodpressure is 142/88 mmHg. The patient exercised according to the regular Quang protocol for a total duration of 3 minutes attaining a maximum heart rate of 157bpm which was 107% of maximum predicted heart rate; the maximum workload was 4.6metabolic equivalents. At rest there were no ST or T wave changes noted to suggest ischemia and at peak exercise upsloping ST changes only were noted whichdid not meet the criteria for ischemia. No clinical angina was noted the test was terminated due to the target heart rate being achieved/fatigue. The peak blood pressure was 184/90 mmHg. Rate-pressure product was 21,300. Myocardial perfusion protocol. 14.3 mCi of technetium 99m sestamibi was injected at rest. The patient exercised according to regular Quang protocol for total duration of 3 minutes and at peak exercise 44.6 mCi of technetium 99m sestamibi was injected stress images were obtained stress and rest images were reconstructed in comparing the short axis vertical long and horizontal long axis. Gated images were also obtained. Perfusion SPECT analysis: Review of the stress images demonstrate normal uptake of tracer noted in all areas of the myocardium. The resting images similarly demonstrate normal uptakeof tracer noted in all areas of the myocardium. No areas of reversibility are noted to suggest ischemia no previous infarct was noted. Gated SPECT analysis: The gated ejection fraction is 70%. Conclusion: Normal exercise myocardial perfusion stress test at a low workload Preserved ejection fraction. 12/16/24827 Date _ Ashwin Langley MD CC: RAKAN Mitchell; RAKAN Medina ~ Date Dictated: 12/16/24825 Date Transcribed: 12/16/24825 [employer] Salesperson: [place] Signed [facility] Work Phone: Stress Reporton 12-16-2024 Stress Report [facility] Cardiovascular Services [address] [place] [address] MR#: [id number] Acct: [id number] Name: PORTIA BAUER Rep #: [id number] : 1950 74 From: Ashwni Langley MD Primary Care: RAKAN Ackerman Status: R EG CLI Referring Dr: Darleen Mitchell NP Sex: M C Stress Test Report Exercise myocardial perfusion stress test. 74-year-old male with a history of chest pain Stress protocol: Resting EKG demonstrates normal sinus rhythm with a rate of 57 bpm resting blood pressure is 142/88 mmHg. The patient exercised according to the regular Quang protocol for a total duration of 3 minutes attaining a maximum heart rate of 157 bpm which was 107% of maximum predicted heart rate; the maximum workload was 4.6 metabolic equivalents. At rest there were no ST or T wave changes noted to suggest ischemia and at peak exercise upsloping ST changes only were noted which did not meet the criteria for ischemia. No clinical angina was noted the test was terminated due to the target heart rate being achieved/fatigue. The peak blood pressure was 184/90 mmHg. Rate-pressure product was 21,300. Myocardial perfusion protocol. 14.3 mCi of technetium 99m sestamibi was injected at rest. The patient exercised according to regular Quang protocol for total duration of 3 minutes and at peak exercise 44.6 mCi of technetium 99m sestamibi was injected stress images were obtained stress and rest images were reconstructed in comparing the short axis vertical long and horizontal long axis. Gated images were also obtained. Perfusion SPECT analysis: Review of the stress images demonstrate normal uptake of tracer noted in all areas of the myocardium. The resting images similarly demonstrate normal uptake of tracer noted in all areas of the myocardium. No areas of reversibility are noted to suggest ischemia no previous infarct was noted. Gated SPECT analysis: The gated ejection fraction is 70%. Conclusion: Normal exercise myocardial perfusion stress test at a low workload Preserved ejection fraction. 12/16/24827 Date Ashwin Langley MD CC: RAKAN Mitchell; RAKAN Medina Date Dictated: 12/16/24825 Date Transcribed: 12/16/24825 [employer] Salesperson: [place] Signed Normal [facility] Anion gap in Serum or Plasma Ordered By: Darleen Mitchell on 11-23-2024 Anion gap [Moles/Vol] 13 mmol/L 12-31 [facility] BUN/creatinine ratioOrdered By: Darleen Mitchell on 11-23-2024 Urea nitrogen/Creatinine [Mass ratio] 14.0 mg/mg 06-07 [facility] Basic Metabolic Profile (BMP )on 11-23-2024 BUN/CRE 14.0 RATIO Normal 06-07 [facility] Comment on above: Performed By: #### L 500.9206, L503.7505 #### [facility] Laboratory [address] [place], [address] GAP 13 Normal 5-15 [facility] Comment on above: Performed By: #### L 500.2500, L5.7505 #### [facility] Laboratory [address] [place], [address] Carbon dioxide, total [Moles /volume] in Central venous bloodOrdered By: Darleen Mitchell on 11-23-2024 CO2 [Moles/Vol] 27.7 mmol/L Normal 21.0-32.0 [facility] Comment on above: Performed By: #### L 500.2500, L57505 #### [facility] Laboratory [address] [place], [address] Cardiology Visit Reporton Cardiology Visit Report [facility] [address] [place], [place] [address] OFFICE VISIT Date of Service: 11/23/24 MR#: [id number] Acct: [id number] Name: PORTIA BAUER Rep #: [id number] : 1950 Provider: RAKAN whitfield Age/Sex: 74/M Location: [facility] Status: Signed HPI HPI History of Present Illness Details: This is a 74-year-old male who presents to the office today for a cardiovascular outpatient follow- up. Patient was last seen in our office September 2022. He has a history of hypertension. He underwent a stress test in September 2021 which was normal but the low workload was affecting sensitivity for detection of ischemia. He subsequently underwent cardiac catheterization which demonstrated normal coronary arteries, normal left ventricular size and function. Patient presented to the emergency room on 10/20/2024 with complaints of chest pain, and shortness of breath. During his ER exam, he was noted to have a pulse ox of 90%, rhinorrhea and congestion. He was also coughing up brown-colored sputum. His chest x-ray demonstrated mild degree of CHF. Patient was admitted for pneumonia, and CHF. He underwent an echocardiogram on 10/20/2024 which demonstrated mild concentric left ventricular hypertrophy with an estimated LV ejection fraction of 45 to 50%, and stage I diastolic dysfunction. His left atrium is severely enlarged, and mild aortic valve stenosis was noted on his echocardiogram. During his hospitalization, he did have episodes of atrial fibrillation, and self converted. He was discharged on Eliquis and diltiazem. From a cardiac standpoint, the patient is doing well. He does acknowledge occasional palpitations with exertion. He denies any chest pain, pressure or heaviness. He does acknowledge SOB with exertion-he states this is nothing new or worsening. He denies Orthopnea, and PND. He does not have bleeding issues; no blood in urine, stool, or nosebleeds. He denies any decrease in energy level, myalgias, or claudication. He does acknowledge bilateral lower extremity edema. He does sudden weight gain. He denies lightheadedness, dizziness, syncopal or near syncopal episodes, and headaches. Intake Vital Signs 10/21/24 12:47 11/23/24 07:53 Height 5 ft 10 in 5 ft 10 in Weight: 231 lb BMI 33.1 BP 127/86 H Blood Pressure Location Lt brachial Position Sitting Respiration 18 Pulse 82 Pulse Source Monitor Pulse Oximetry (%) 95 Intake Visit Reasons: S/P [facility] 10/24 Automotive Paint Technician Required: No Is patient in pain?: No Allergies No Known Allergies Allergy (Verified 11/23/24 11:07) Medications ???Medication ???Instructions ???Recorded ???Confirmed ???Type aspirin 81 mg tablet,delayed 81 mg PO DAILY@0800 12/28/1611/23 History release betamethasone dipropionate 0.05 % 1 applic topical DAILY PRN skin 0 09/25/22 11/23/24 History topical cream irritation horse chestnut 300 mg capsule 300 mg PO DAILY 09/25/22 11/23/24 History pgbwgjbl-te-kckfj 300 mcg-K 60 1 tab PO DAILY 09/25/22 11/23/24 H istory mcg-lycop 600 mcg-lutein 300 mcg tablet (Centrum Silver Ultra Men's) sodium chloride 0.65 % nasal spray 2 spray intranasal Q4H PRN dry 0 05/09/23 11/23/24 History aerosol (Winchester Saline) nasal passages albuterol sulfate 90 mcg/actuation 2 puff inhalation Q4H PRN 03/25/ 24 04/07/25 Rx aerosol inhaler (Ventolin HFA) shortness of breath or wheezing #18 grams azelastine 0.05 % eye drops See Rx Instructions ophthalmic 11/23/24 History (eye) .COMPLEX metoprolol succinate 50 mg 50 mg PO DAILY #90 tabs 10/24/24 0 11/23/24 Rx tablet,extended release 24 hr fluticasone furoate 200 1 inh inhalation QDAY #3 ea 11/23/24 Rx mcg/actuation blister powder for inhalation (Arnuity Ellipta) guaifenesin 1,200 mg tablet, 1,200 mg PO BID #60 tabs 11/10/24 11/23/24 Rx extended release 12 hr (Mucinex) apixaban 5 mg tablet (Eliquis) 5 mg PO BID #180 tabs 11/23/2403/12 Rx diltiazem HCl 120 mg 120 mg PO BID #180 caps 11/23/24 0 11/23/24 Rx capsule,extended release 24 hr (Cartia XT) furosemide 40 mg tablet (Lasix) 40 mg PO DAILY #90 tabs 11/23/24 0 11/23/24 Rx Ejection fraction %: 55 Have you fallen in the past year?: No PFSH Medical History (Updated 11/23/24 @ 12:51 by Darleen Mitchell FINANCIAL SERVICES OFFICER, FINANCIAL SERVICES OFFICER-C) Pneumonia Afib Adult BMI 33.0-33.9 kg/sq m Essential hypertension Chest pressure PVC (premature ventricular contraction) Dyspnea on exertion Asthma Moderate persistent allergic asthma THEA (obstructive sleep apnea) Rheumatoid arthritis Syncope and collapse Dizziness and giddiness UMANA (dyspnea on exertion) Snoring Daytime somnolence Abnormal pulmonary function test Asthma, moderate persistent Surgical History ... Normal [facility] Chloride assayOrdered By: Bobo Mitchell on 11-23-2024 Chloride [Moles/Vol] 103 mmol/L Normal 98-108 [facility] Comment on above: Performed By: #### L 500.2500, L503.7505 #### [facility] Laboratory [facility] [place], [address] GFR/1.73 sq M.predicted kwan g non-blacks MDRD (S/P/Bld) [Vol rate/Area]Ordered By: Darleen Mitchell on 11-23-2024 Estimated GFR (MDRD) Non-Af Amer 89 >60 [facility] [facility] Comment on above: mL/min/1.73m2 CKD-EP I Creatinine Equation (2020) Glomerular filtration rate ( GFR) estimation/1.73 sq m using serum, plasma, or whole bOrdered By: Darleen Mitchell on 11-23-2024 GFR/1.73 sq M.predicted among non-blacks MDRD (S/P/Bld) [Vol rate/Area] 89 mL/min/{1.73_m2} Normal >60 [facility] Comment on above: mL/min/1.73m2 CKD-EP I Creatinine Equation (2020) Result Comment: mL/m in/1.73m2 CKD-EPI Creatinine Equation (2020) Performed By: #### L 500.2500, L503.7505 #### [facility] [address] [place], [place], [id number] Natriuretic peptide.B prohor chrissie N-Terminal [Mass/volume] in Serum or PlasmaOrdered By: Darleen Mitchell on 11-23-2024 Natriuretic peptide B (Bld) [Mass/Vol] 389 pg/mL Normal <=900 [facility] Comment on above: Heart Failure Unlike ly: < 300 pg/mLHeart Failure Likely< 50 Years: > 450 pg/mL50-75 Years: > 900 pg/mL>75 Years: > 1800 pg/mL Result Comment: Hear t Failure Unlikely: < 300 pg/mL Heart Failure Likely < 50 Years: > 450 pg/mL 50-75 Years: > 900 pg/mL >75 Years: > 1800 pg/mL Performed By: #### L 500.2500, L503.7505 #### [facility] [address] [place], [place], [id number] Natriuretic peptide.B prohormone N-Terminal [Mass/Vol] 389 pg/mL <900 [facility] Comment on above: Heart Failure Unlike ly: < 300 pg/mLHeart Failure Likely< 50 Years: > 450 pg/mL50-75 Years: > 900 pg/mL>75 Years: > 1800 pg/mL Potassium measurement (mass/ volume)Ordered By: Darleen Mitchell on 11-23-2024 Potassium [Moles/Vol] 3.6 mmol/L Normal 3.3-5.1 [facility] Comment on above: Performed By: #### L 500.2500, L503.7505 #### [facility] [address] [place], [address] Potassium (Unsp spec) [Mass/Vol] 3.6 mmol/L 3.3-5.1 [facility] Serum creatinine measurement (mass/volume)Ordered By: Darleen Mitchell on 11-23-2024 Creatinine [Mass/Vol] 0.91 mg/dL Normal 0.70-1.20 [facility] Comment on above: Performed By: #### L 500.2500, L503.7505 #### [facility] [address] [place], [address] Serum glucose measurement (m ass/volume)Ordered By: Darleen Mitchell on 11-23-2024 Glucose [Mass/Vol] 106 mg/dL High 70-99 [facility] Comment on above: Performed By: #### L 500.2500, L503.7505 #### [facility] [address] [place], [address] Serum or plasma calcium thuy urement (mass/volume)Ordered By: Darleen Mitchell on 11-23-2024 Calcium [Mass/Vol] 9.7 mg/dL Normal 7.6-11.0 [facility] Comment on above: Performed By: #### L 500.2500, L503.7505 #### [facility] [address] [place], [address] Serum or plasma urea nitroge n measurement (mass/volume)Ordered By: Darleen Mitchell on 11-23-2024 Urea nitrogen [Mass/Vol] 13 mg/dL Normal 4-19 [facility] Comment on above: Performed By: #### L 500.2500, L503.7505 #### [facility] [address] [place], [address] Sodium levelOrdered By: Dana Mitchell on 11-23-2024 Sodium [Moles/Vol] 143 mmol/L Normal 133-145 [facility] Comment on above: Performed By: #### L 500.2500, L503.9286 #### [facility] [address] [place], [place], [address] Pulmonary Visit Reporton Pulmonary Visit Report [facility] [place] [address] [place] [address] OFFICE VISIT Date of Service: 11/10/24 MR#: [id number] Acct: [id number] Name: PORTIA BAUER Rep #: [id number] : 1950 Provider: Reyna Olivares NP Age/Sex: 74/M Location: [facility] Status: Signed Assessment and Plan Assessment and Plan (1) Asthma: Status: Chronic Qualifiers: Asthma complication type: uncomplicated Asthma persistence: persistent Asthma severity: mild Qualified Code(s): J45.30 - Mild persistent asthma, uncomplicated Plan: Due to recent hospitalization I have recommended that the PFT be repeated at this time. The patient did not require supplemental oxygen upon discharge so I will not repeat a 6-minute walk test at this time. If he does have a reduced gas transfer on PFT then I will consider a 6-minute walk test at that time. I have also refilled his ICS inhaler and have asked him to continue with compliant use of therapy. I have recommended that he continue with a pulmonary toilet regimen including PEP therapy and incentive spirometry. I have also asked him to continue with use of Mucinex. (2) THEA (obstructive sleep apnea): Status: Chronic Comment: BiPAP Plan: Stable. THEA is controlled with current settings. I recommend that he continue with his current set up and will reassess on follow-up. If ESS continues to be elevated, further workup may be needed. He is using and benefiting from Pap therapy. No indication for titration study at this time. Continue to encourage weight loss. Contact the office for any new or worsening symptoms in the meantime. (3) Solitary pulmonary nodule: Status: Acute Comment: 7 mm right apex noncalcified nodule on CTA from 10/21/2024 Plan: Repeat CT chest without contrast to follow the nodule in 6 months as recommended, ordered accordingly. The patient has normal vital signs today and is symptomatically improved so I will not plan for chest xray at this time as I do believe that the pneumonia is now resolved. Patient verbalizes understanding. Orders: Orders Chest without Contrast 6 Months R91.1 - Solitary pulmonary nodule PFT Complete - DLCO, Spirometry b/a bronchodilators, lung volumes Today J45.20 - Mild intermittent asthma, uncomplicated Medications: New guaifenesin ER (Mucinex) 1,200 mg PO BID 60 tabs 3RF J45.20 - Mild intermittent asthma, uncomplicated Refilled fluticasone furoate 200 mcg/actuation (Arnuity Ellipta) administer at approximately the same time(s) each day 1 inh inhalation QDAY 3 ea 3RF Plan The CTA showed a persistent right hemidiaphragm elevation that had been present in previous imaging. Plan Details Follow Up: 6-8 weeks (LMR) HPI HPI Comments Details: Patient is a 74-year-old male who presents to the office today for follow-up of his asthma and obstructive sleep apnea. He is ambulatory and currently on room air. He has been hospitalized for community-acquired pneumonia from October 20 through October 24, 2024. He did develop acute hypoxic respiratory failure secondary to viral pneumonia CHF and asthma. He tested negative for COVID, flu, RSV. He did undergo a CT of his chest which was negative for PE but showed mild airspace consolidation and bronchial thickening in the bilateral lower lobes consistent with inflammation on October 21, 2024. A 7 mm nodule was identified that was noncalcified in the right lung apex. He also underwent a echocardiogram which showed estimated left ventricular ejection fraction at 45 to 50%, stage I diastolic dysfunction, right ventricular systolic pressure was estimated to be 47 mmHg. He was suspected to have viral pneumonia with superimposed bacterial pneumonia and was prescribed ceftriaxone as well as azithromycin. He was sent home with a pulmonary toilet regimen. He indicates that he has run out of Mucinex. He feels that he has returned to base line now. He reports a little wheeze, cough that is producing light-colored sputum. He denies chest pain and chest tightness. He does have shortness of breath on exertion or walking fast. He denies fever, chills, body aches. He has been compliant with use of Arnuity. He reports rinsing his mouth out after each use. He denies any medication side effects such as sore throat or thrush. He has not needed to use an albuterol rescue inhaler. He denies any morning headaches and dry mouth. He is not requiring naps. He naps on occasion without the machine. He is using a fullface style mask and reports that his machine will run out of water at night and he will have to refill it once. He is not struggling with the air pressure. ESS is 16. The patient indicates that this is an improvement from when he was first diagnosed and treated with PAP therapy. He is a former smoker, he quit 30 years, he started in his teen years. Smoked at the (more content not included)... Normal [facility] Venous Duplex US - Chirag [facility] 10-28-2024 Venous Duplex US - Chirag Extrem [facility] [address] [place] [address] Venous Duplex US - Chirag Extrem 10/28/24 1100 MR#: [id number] Acct: [id number] Name: PORTIA BAUER Rep #: [id number] : 1950 74 From: John Fermin MD Attending Dr: Dr. Papa Schuler DPM Status: REG CLI Ordering Dr: Papa Schuler DPM Date: 10/28/24 Location: [facility] Sex: M C Admitted: Reason For Study Reason For Study: PVD RIGHT LEFT CFV is compressible, spontaneous, phasic, competent CFV is compressible, spontaneous, phasic, competent, and demonstrates normal augmentation. and demonstrates normal augmentation. FV is compressible, spontaneous, phasic, competent FV is compressible, spontaneous, phasic, competent and demonstrates normal augmentation. and demonstrates normal augmentation. POP V is compressible, spontaneous, phasic, competent POP V is compressible, spontaneous, phasic, competent and demonstrates normal augmentation. and demonstrates normal augmentation. T/P Trunk is compressible. T/P Trunk is compressible. PTV is compressible. PTV is compressible. RT PerV is compressible. LT PerV is compressible. SFJ is competent and measures 0.86 cm. SFJ is competent and measures 0.88 cm. GSV proximal thigh measures 0.40 x 0.40 cm. GSV proximal thigh measures 0.40 x 0.38 cm. GSV above knee is competent. GSV above knee is competent. GSV at knee measures 0.31 x 0.32 cm. GSV at knee measures 0.39 x 0.35 cm. GSV below knee is INCOMPETENT for greater than 0.5 GSV below knee is INCOMPETENT for greater than 0.5 seconds. seconds. ASV mid calf is INCOMPETENT for greater than 0.5 INCOMPETENT pipe maker noted 21 cm above medial seconds and measures 0.20 x 0.21 cm. malleolus. INCOMPETENT pipe maker noted 12 cm above medial SSV mid calf is INCOMPETENT for greater than 0.5 malleolus. seconds and measures 0.19 x 0.19 cm. SSV mid calf is INCOMPETENT for greater than 0.5 seconds and measures 0.20 x 0.20 cm. Procedure This is a venous duplex using B-mode, color flow and spectral Doppler. Exam performed in department. Patient was scanned in reverse Trendelenburg position during reflux assessment. VL/Venous Duplex US - Chirag Extrem Interpretation Summary Deep veins of the bilateral lower extremities are patent and compressible segmentally. There is no evidence of bilateral lower extremity deep vein thrombosis. The bilateral great saphenous veins appear patent and compressible segmentally. Positive for reflux in the right great saphenous vein below the knee, accessory saphenous vein in the calf, small saphenous vein. Positive for reflux in the left great saphenous vein below the knee, calf pipe maker, and small saphenous vein __ Ordering Physician: Papa Schuler Referring Physician: Michael Medina Performed By: Brigette Benites RVT 03/12/1545 John Fermin MD CC: DPM Dr. Papa Schuler; FINANCIAL SERVICES OFFICER-C Michael Leonides Date Dictated: 10/28/24 1100 Date Transcribed: 10/28/241545 [employer] Salesperson: Signed Normal [facility] Venous duplex ultrasound rep ortOrdered By: John Fermin on 10-28-2024 US Vein [facility] [address] [place] [address] Venous Duplex US - Chirag Extrem 10/28/24 1100 MR#: [id number] Acct: [id number] Name: PORTIA BAUER Rep #:[id number] : 1950 74 From: John Ayala Attending Dr: Dr. Papa Schuler, DPM Status: REG CLI Ordering Dr: Papa Schuler DPM Date: 10/28/24 Location: [facility] Sex: M C Admitted: Reason For Study Reason For Study: PVD RIGHT LEFT CFV is compressible, spontaneous, phasic, competent CFV is compressible, spontaneous, phasic, competent, and demonstrates normal augmentation. and demonstrates normal augmentation. FV is compressible, spontaneous, phasic, competent FV is compressible, spontaneous, phasic, competent and demonstrates normal augmentation. and demonstrates normal augmentation. POP V is compressible, spontaneous, phasic, competent POP V is compressible, spontaneous, phasic, competent and demonstrates normal augmentation. and demonstrates normal augmentation. T/P Trunk is compressible. T/P Trunk is compressible. PTV is compressible. PTV is compressible. RT PerV is compressible. LT PerV is compressible. SFJ is competent and measures 0.86 cm. SFJ is competent and measures 0.88 cm. GSV proximal thigh measures 0.40 x 0.40 cm. GSV proximal thigh measures 0.40 x 0.38 cm. GSV above knee is competent. GSV above kneeis competent. GSV at knee measures 0.31 x 0.32 cm. GSV at knee measures 0.39 x 0.35 cm. GSV below knee is INCOMPETENT for greater than 0.5 GSV below kneeis INCOMPETENT for greater than 0.5 seconds. seconds. ASV mid calf is INCOMPETENT for greater than 0.5 INCOMPETENT pipe maker noted 21 cm above medial seconds and measures 0.20 x 0.21 cm. malleolus. INCOMPETENT pipe maker noted 12 cm above medial SSV mid calf is INCOMPETENT for greater than 0.5 malleolus. seconds and measures 0.19 x 0.19 cm. SSV mid calf is INCOMPETENT for greater than 0.5 seconds and measures 0.20 x 0.20 cm. Procedure This is a venous duplex using B-mode, color flow and spectral Doppler. Exam performed in department. Patient was scanned in reverse Trendelenburg position during reflux assessment. VL/Venous Duplex US - Chirag Extrem Interpretation Summary Deep veins of the bilateral lower extremities are patent and compressible segmentally. There is no evidence of bilateral lower extremity deep vein thrombosis. The bilateral great saphenous veins appearpatent and compressible segmentally. Positive for reflux in the right great saphenous vein below the knee, accessory saphenous vein in the calf, small saphenous vein. Positive for reflux in the left great saphenous vein below the knee, calf pipe maker, and small saphenous vein __ Ordering Physician: Papa Schuler Referring Physician: Michael Medina Performed By: Brigette Benites RVT 10/28/24 1546 Date _ John Fermin MD CC: DPBranden Schuler; FINANCIAL SERVICES OFFICER-C Michael Medina ~ Date Dictated: 10/28/24 1100 Date Transcribed: 10/28/24 154 [employer] Salesperson: Signed [facility] Work Phone: Respiratory Cultureon 2024 RESPC List Antibiotics Last 48 Hours? rocephin, zithromax Mixed normal respiratory madan. No Streptococcus pneumoniae, beta-hemolytic Streptococcus or Staphylococcus aureus isolated. Normal [facility] Comment on above: Performed By: #### L 500.2500, L503.8454 #### [facility] [address] [place], [address] Absolute lymphocyte countOrd ered By: Agustin Mcarthur on 10-24-2024 Lymphocytes Auto (Unsp spec) [#/Vol] 1.53 10*3/uL 0.83-4.51 [facility] Absolute neutrophil countOrd ered By: Agustin Mcarthur on 10-24-2024 Neutrophils (Bld) [#/Vol] 5.3 10*3/uL 2.0-7.7 [facility] Anion gap in Serum or Plasma Ordered By: Agustin Mcarthur on 10-24-2024 Anion gap [Moles/Vol] 14 mmol/L 5-15 [facility] Automated lymphocyte count a s percentage of total leukocytesOrdered By: Agustin Mcarthur on 10-24-2024 Lymphocytes/100 WBC Auto (Unsp spec) 19.2 % 19-41 [facility] BUN/creatinine ratioOrdered By: Agustin Mcarthur on 10-24-2024 Urea nitrogen/Creatinine [Mass ratio] 28.4 mg/mg High 10-20 [facility] Basic Metabolic Profile (BMP )on 10-24-2024 BUN/CRE 28.4 RATIO High [facility]20 [facility] Comment on above: Performed By: #### L 500.2500, L503.4517 #### [facility] [address] [place], [address] Calcium [Mass/Vol] 9.2 mg/dL Normal 7.6-11.0 [facility] Comment on above: Performed By: #### L 500.2500, L503.7505 #### [facility] [address] [place], [address] Chloride [Moles/Vol] 100 mmol/L Normal 98-108 [facility] Comment on above: Performed By: #### L 500.2500, L503.7505 #### [facility] [address] [place], [address] CO2 [Moles/Vol] 25.8 mmol/L Normal 21.0-32.0 [facility] Comment on above: Performed By: #### L 500.2500, L503.7505 #### [facility] [address] [place], [address] Creatinine [Mass/Vol] 1.06 mg/dL Normal 0.70-1.20 [facility] Comment on above: Performed By: #### L 500.2500, L503.7505 #### [facility] [address] [place], [address] ECRCL 72.55 ml/min Normal 50-250 [facility] Comment on above: Performed By: #### L 500.2500, L503.7505 #### [facility] [address] [place], [address] GAP 14 Normal 5-15 [facility] Comment on above: Performed By: #### L 500.2500, L503.7505 #### [facility] [address] [place], [address] GFR/1.73 sq M.predicted among non-blacks MDRD (S/P/Bld) [Vol rate/Area] 74 mL/min/{1.73_m2} Normal >60 [facility] Comment on above: Result Comment: mL/m in/1.73m2 CKD-EPI Creatinine Equation (2020) Performed By: #### L 500.2500, L503.7505 #### [facility] [address] [place], [address] Glucose [Mass/Vol] 107 mg/dL High 70-99 [facility] Comment on above: Performed By: #### L 500.2500, L503.7505 #### [facility] [address] [place], [address] Potassium [Moles/Vol] 3.4 mmol/L Normal 3.3-5.1 [facility] Comment on above: Performed By: #### L 500.2500, L503.7505 #### [facility] [address] [place], [address] Sodium [Moles/Vol] 140 mmol/L Normal 133-145 [facility] Comment on above: Performed By: #### L 500.2500, L503.7505 #### [facility] [address] [place], [address] Urea nitrogen [Mass/Vol] 30 mg/dL High 4-19 [facility] Comment on above: Performed By: #### L 500.2500, L503.7505 #### [facility] [address] [place], [address] Basophil percentageOrdered B y: Agustin Mcarthur on 10-24-2024 Basophils/100 WBC (Bld) 0.8 % 0-1 [facility] CBC W/Diff, Automatedon -0 Absolute Lymph 1.53 X10 3/uL Normal 0.83-4.51 [facility] Comment on above: Performed By: #### L 500.2500, L503.7505 #### [facility] [address] [place], [address] Absolute Neut 5.3 X10 3/uL Normal 2.0-7.7 [facility] Comment on above: Performed By: #### L 500.2500, L503.7505 #### [facility] [address] [place], [address] Basophils/100 WBC (Bld) 0.8 % Normal 0-1 [facility] Comment on above: Performed By: #### L 500.2500, L503.7505 #### [facility] [address] [place], [address] Eosinophils/100 WBC (Bld) 5.5 % High 0-5 [facility] Comment on above: Performed By: #### L 500.2500, L503.7505 #### [facility] [address] [place], [address] Erythrocyte distribution width (RBC) [Ratio] 13.8 % Normal 11.6-14.6 [facility] Comment on above: Performed By: #### L 500.2500, L5.7505 #### [facility] [address] [place], [address] Hematocrit (Bld) [Volume fraction] 45.1 % Normal 40-54 [facility] Comment on above: Performed By: #### L 500.2500, L5.7505 #### [facility] [address] [place], [address] Hemoglobin (Bld) [Mass/Vol] 15.0 g/dL Normal 13.0-16.5 [facility] Comment on above: Performed By: #### L 500.2500, L5.7505 #### [facility] [address] [place], [address] IG% 0.400 Normal 0.0-0.9 [facility] Comment on above: Result Comment: IG% - Immature Granulocytes (promyelocytes, myelocytes and metamyelocytes) > 1% indicates that a LEFT SHIFT is Present. Performed By: #### L 500.2500, L503.7505 #### [facility] [address] [place], [address] Lymphocytes/100 WBC (Bld) 19.2 % Normal 19-41 [facility] Comment on above: Performed By: #### L 500.2500, L5.7505 #### [facility] [address] [place], [address] MCH (RBC) [Entitic mass] 28.3 pg Normal 27.0-32.0 [facility] Comment on above: Performed By: #### L 500.2500, L503.7505 #### [facility] [address] [place], [address] MCHC (RBC) [Mass/Vol] 33.3 g/dL Normal 32-36 [facility] Comment on above: Performed By: #### L 500.2500, L503.7505 #### [facility] [address] [place], [address] MCV (RBC) [Entitic vol] 85.1 fL Normal 80-94 [facility] Comment on above: Performed By: #### L 500.2500, L503.7505 #### [facility] [address] [place], [address] Monocytes/100 WBC (Bld) 7.8 % Normal 0-10 [facility] Comment on above: Performed By: #### L 500.2500, L503.7505 #### [facility] [address] [place], [address] Neutrophils/100 WBC (Bld) 66.3 % Normal 47-70 [facility] Comment on above: Performed By: #### L 500.2500, L503.7505 #### [facility] [address] [place], [address] Nucleated RBC (Bld) [#/Vol] 0 10*3/uL Normal 0-5 [facility] Comment on above: Performed By: #### L 500.2500, L503.7505 #### [facility] [address] [place], [address] Platelet mean volume (Bld) [Entitic vol] 10.7 fL Normal 6.2-12.0 [facility] Comment on above: Performed By: #### L 500.2500, L503.7505 #### [facility] [address] [place], [address] Platelets (Bld) [#/Vol] 276 10*3/uL Normal 150-450 [facility] Comment on above: Performed By: #### L 500.2500, L503.7505 #### [facility] [address] [place], [address] RBC (Bld) [#/Vol] 5.30 10*6/uL Normal 4.6-6.2 [facility] Comment on above: Performed By: #### L 500.2500, L503.7505 #### [facility] [address] [place], [address] RDW SD 42.7 fl Normal 35.1-43.9 [facility] Comment on above: Performed By: #### L 500.2500, L503.7505 #### [facility] [address] [place], [address] WBC (Bld) [#/Vol] 8.0 10*3/uL Normal 4.4-11.0 [facility] [place] Comment on above: Performed By: #### L 500.2500, L503.7505 #### [facility] [address] [place], [address] Carbon dioxide, total [Moles /volume] in Central venous bloodOrdered By: Agustin Mcarthur on 10-24-2024 CO2 [Moles/Vol] 25.8 mmol/L 21.0-32.0 [facility] Chloride assayOrdered By: Fadi Mcarthur on 10-24-2024 Chloride [Moles/Vol] 100 mmol/L 98-108 [facility] Eosinophil percentageOrdered By: Agustin Mcarthur on 10-24-2024 Eosinophils/100 WBC (Bld) 5.5 % High 0-5 [facility] Erythrocyte distribution wid th ratioOrdered By: Agustin Mcarthur on 10-24-2024 Erythrocyte distribution width (RBC) [Ratio] 13.8 % 11.6-14.6 [facility] Erythrocyte distribution wid th standard deviationOrdered By: Agustin Mcarthur on 10-24-2024 Erythrocyte distribution width (RBC) [Entitic vol] 42.7 fL 35.1-43.9 [facility] Erythrocyte distribution width (RBC) [Ratio] 42.7 fl 35.1-43.9 [facility] Estimation of creatinine janette aranceOrdered By: Agustin Mcarthur on 10-24-2024 Estimated Creatinine Clearance Calc 72.55 ml/min 50-250 [facility] GFR/1.73 sq M.predicted kwan g non-blacks MDRD (S/P/Bld) [Vol rate/Area]Ordered By: Agustin Mcarthur on 10-24-2024 Estimated GFR (MDRD) Non-Af Amer 74 >60 [facility] Comment on above: mL/min/1.73m2 CKD-EP I Creatinine Equation (2020) Glomerular filtration rate ( GFR) estimation/1.73 sq m using serum, plasma, or whole bOrdered By: Agustin Mcarthur on 10-24-2024 GFR/1.73 sq M.predicted among non-blacks MDRD (S/P/Bld) [Vol rate/Area] 74 mL/min/{1.73_m2} >60 [facility] Comment on above: mL/min/1.73m2 CKD-EP I Creatinine Equation (2020) Gram Stainon 10-24-2024 GS List Antibiotics Last 48 Hours? rocephin, zithromax Acceptable Specimen? Yes (<25 Epithelial cells per/lpf) Gram Stain 2+ Epithelial cells 2+ Gram positive cocci Rare White Blood Cells Specimen is mostly saliva and as such may not represent an accurate assesment of the patients' pulmonary/respirato ry condition. Normal [facility] Comment on above: Performed By: #### L 500.5245, L503.7505 #### [facility] [address] [place], [address] Gram stainOrdered By: Paola Velázquez on 10-24-2024 Microscopic observation Gram stain Nom (Unsp spec) [facility] Hematocrit Auto (Bld) [Volum e fraction]Ordered By: Agustin Mcarthur on 10-24-2024 Hematocrit (Bld) [Volume fraction] 45.1 % 40-54 [facility] Hemoglobin measurementOrdere d By: Agustin Mcarthur on 10-24-2024 Hemoglobin (Bld) [Mass/Vol] 15.0 g/dL 13.0-16.5 [facility] Immature granulocytes/100 WB C Auto (Bld)Ordered By: Agustin Mcarthur on 10-24-2024 Immature granulocytes/100 WBC (Bld) 0.400 % 0.0-0.9 [facility] Comment on above: IG% - Immature Granu locytes (promyelocytes, myelocytes and metamyelocytes) > 1% indicates that a LEFT SHIFT is Present. Lymphocytes Auto (Unsp spec) [#/Vol]Ordered By: Agustin Mcarthur on 10-24-2024 Lymphocytes (Bld) [#/Vol] 1.53 10*3/uL 0.83-4.51 [facility] Lymphocytes/100 WBC Auto (Un sp spec)Ordered By: Agustin Mcarthur on 10-24-2024 Lymphocytes/100 WBC (Bld) 19.2 % 19-41 [facility] MCV (mean corpuscular volume ) determinationOrdered By: Agustin Mcarthur on 10-24-2024 MCV (RBC) [Entitic vol] 85.1 fL 80-94 [facility] Mean corpuscular hemoglobin (MCH) determinationOrdered By: Agustin Mcarthur on 10-24-2024 MCH (RBC) [Entitic mass] 28.3 pg 27.0-32.0 [facility] Mean corpuscular hemoglobin concentration (MCHC) determinationOrdered By: Agustin Mcarthur on 10-24-2024 MCHC (RBC) [Mass/Vol] 33.3 g/dL 32-36 [facility] Mean platelet volume determi nationOrdered By: Agustin Mcarthur on 10-24-2024 Platelet mean volume (Bld) [Entitic vol] 10.7 fL 6.2-12.0 [facility] Microbial respiratory cultur eOrdered By: Ramón Wheeler on 10-24-2024 Microorganism identified Cx Nom (Unsp spec) or Staphylococcus aureus isolated. [facility] Microorganism identified Cx Nom (Unsp spec)Ordered By: Ramón Wheeler on 10-24-2024 Respiratory Culture or Staphylococcus aureus isolated. [facility] Monocyte percentageOrdered B y: Agustin Mcarthur on 10-24-2024 Monocytes/100 WBC (Bld) 7.8 % 0-10 [facility] Neutrophil percentageOrdered By: Agustin Mcarthur on 10-24-2024 Neutrophils/100 WBC (Bld) 66.3 % 47-70 [facility] Nucleated red blood cell per centageOrdered By: Agustin Mcarthur on 10-24-2024 Nucleated RBC/100 WBC (Bld) [Ratio] 0 % 0-5 [facility] Platelet countOrdered By: Fadi Mcarthur on 10-24-2024 Platelets (Bld) [#/Vol] 276 10*3/uL 150-450 [facility] Potassium (Unsp spec) [Mass/ Vol]Ordered By: Agustin Mcarthur on 10-24-2024 Potassium [Moles/Vol] 3.4 mmol/L 3.3-5.1 [facility] Potassium measurement (mass/ volume)Ordered By: Agustin Mcarthur on 10-24-2024 Potassium (Unsp spec) [Mass/Vol] 3.4 mmol/L 3.3-5.1 [facility] RBC Auto (Bld) [#/Vol]Ordere d By: Agustin Mcarthur on 10-24-2024 RBC (Bld) [#/Vol] 5.30 10*6/uL 4.6-6.2 [facility] Serum creatinine measurement (mass/volume)Ordered By: Agustin Mcarthur on 10-24-2024 Creatinine [Mass/Vol] 1.06 mg/dL 0.70-1.20 [facility] Serum glucose measurement (m ass/volume)Ordered By: Agustin Mcarthur on 10-24-2024 Glucose [Mass/Vol] 107 mg/dL High 70-99 [facility] [place] Serum or plasma calcium thuy urement (mass/volume)Ordered By: Agustin Mcarthur on 10-24-2024 Calcium [Mass/Vol] 9.2 mg/dL 7.6-11.0 [facility] [place] Serum or plasma urea nitroge n measurement (mass/volume)Ordered By: Agustin Mcarthur on 10-24-2024 Urea nitrogen [Mass/Vol] 30 mg/dL High 4-19 [facility] Sodium levelOrdered By: Toby Mcarthur on 10-24-2024 Sodium [Moles/Vol] 140 mmol/L 133-145 [facility] [place] White blood cell (WBC) count Ordered By: Agustin Mcarthur on 10-24-2024 WBC (Bld) [#/Vol] 8.0 10*3/uL 4.4-11.0 [facility] [place] Basic Metabolic Profile (BMP )on 10-23-2024 BUN/CRE 22.4 RATIO High 10-20 [facility] Comment on above: Performed By: #### L 500.2500, L100.0100 #### [facility] [address] [place], [address] Calcium [Mass/Vol] 9.2 mg/dL Normal 7.6-11.0 [facility] [place] Comment on above: Performed By: #### L 500.2500, L100.0100 #### [facility] [address] [place], [address] Chloride [Moles/Vol] 100 mmol/L Normal 98-108 [facility] Comment on above: Performed By: #### L 500.2500, L100.0100 #### [facility] [address] [place], [address] CO2 [Moles/Vol] 25.9 mmol/L Normal 21.0-32.0 [facility] Comment on above: Performed By: #### L 500.2500, L100.0100 #### [facility] [address] [place], [address] Creatinine [Mass/Vol] 0.90 mg/dL Normal 0.70-1.20 [facility] Comment on above: Performed By: #### L 500.2500, L100.0100 #### [facility] [address] [place], [address] ECRCL 85.45 ml/min Normal 50-250 [facility] Comment on above: Performed By: #### L 500.2500, L100.0100 #### [facility] [address] [place], [address] GAP 14 Normal 5-15 [facility] Comment on above: Performed By: #### L 500.2500, L100.0100 #### [facility] [address] [place], [address] GFR/1.73 sq M.predicted among non-blacks MDRD (S/P/Bld) [Vol rate/Area] 90 mL/min/{1.73_m2} Normal >60 [facility] Comment on above: Result Comment: mL/m in/1.73m2 CKD-EPI Creatinine Equation (2020) Performed By: #### L 500.2500, L100.0100 #### [facility] [address] [place], [address] Glucose [Mass/Vol] 109 mg/dL High 70-99 [facility] [place] Comment on above: Performed By: #### L 500.2500, L100.0100 #### [facility] [address] [place], [address] Potassium [Moles/Vol] 3.6 mmol/L Normal 3.3-5.1 [facility] Comment on above: Performed By: #### L 500.2500, L100.0100 #### [facility] [address] [place], [address] Sodium [Moles/Vol] 139 mmol/L Normal 133-145 [facility] [place] Comment on above: Performed By: #### L 500.2500, L100.0100 #### [facility] [address] [place], [address] Urea nitrogen [Mass/Vol] 20 mg/dL High 4-19 [facility] Comment on above: Performed By: #### L 500.2500, L100.0100 #### [facility] [address] [place], [address] CBC W/Diff, Automatedon 03-0 -2024 Absolute Lymph 1.39 X10 3/uL Normal 0.83-4.51 [facility] Comment on above: Performed By: #### L 500.2500, L100.0100 #### [facility] [address] [place], [address] Absolute Neut 6.3 X10 3/uL Normal 2.0-7.7 [facility] Comment on above: Performed By: #### L 500.2500, L100.0100 #### [facility] [address] [place], [address] Basophils/100 WBC (Bld) 0.6 % Normal 0-1 [facility] Comment on above: Performed By: #### L 500.2500, L100.0100 #### [facility] [address] [place], [address] Eosinophils/100 WBC (Bld) 5.6 % High 0-5 [facility] Comment on above: Performed By: #### L 500.2500, L100.0100 #### [facility] [address] [place], [address] Erythrocyte distribution width (RBC) [Ratio] 13.9 % Normal 11.6-14.6 [facility] Comment on above: Performed By: #### L 500.2500, L100.0100 #### [facility] [address] [place], [address] Hematocrit (Bld) [Volume fraction] 43.7 % Normal 40-54 [facility] Comment on above: Performed By: #### L 500.2500, L100.0100 #### [facility] [address] [place], [address] Hemoglobin (Bld) [Mass/Vol] 14.6 g/dL Normal 13.0-16.5 [facility] Comment on above: Performed By: #### L 500.2500, L100.0100 #### [facility] [address] [place], [address] IG% 0.600 Normal 0.0-0.9 [facility] Comment on above: Result Comment: IG% - Immature Granulocytes (promyelocytes, myelocytes and metamyelocytes) > 1% indicates that a LEFT SHIFT is Present. Performed By: #### L 500.2500, L100.0100 #### [facility] [address] [place], [address] Lymphocytes/100 WBC (Bld) 15.6 % Low 19-41 [facility] Comment on above: Performed By: #### L 500.2500, L100.0100 #### [facility] [address] [place], [address] MCH (RBC) [Entitic mass] 28.3 pg Normal 27.0-32.0 [facility] Comment on above: Performed By: #### L 500.2500, L100.0100 #### [facility] [address] [place], [address] MCHC (RBC) [Mass/Vol] 33.4 g/dL Normal 32-36 [facility] Comment on above: Performed By: #### L 500.2500, L100.0100 #### [facility] [address] [place], [address] MCV (RBC) [Entitic vol] 84.7 fL Normal 80-94 [facility] Comment on above: Performed By: #### L 500.2500, L100.0100 #### [facility] [address] [place], [address] Monocytes/100 WBC (Bld) 6.9 % Normal 0-10 [facility] Comment on above: Performed By: #### L 500.2500, L100.0100 #### [facility] [address] [place], [address] Neutrophils/100 WBC (Bld) 70.7 % High 47-70 [facility] Comment on above: Performed By: #### L 500.2500, L100.0100 #### [facility] [address] [place], [address] Nucleated RBC (Bld) [#/Vol] 0 10*3/uL Normal 0-5 [facility] Comment on above: Performed By: #### L 500.2500, L100.0100 #### [facility] [address] [place], [address] Platelet mean volume (Bld) [Entitic vol] 10.6 fL Normal 6.2-12.0 [facility] Comment on above: Performed By: #### L 500.2500, L100.0100 #### [facility] [address] [place], [address] Platelets (Bld) [#/Vol] 247 10*3/uL Normal 150-450 [facility] Comment on above: Performed By: #### L 500.2500, L100.0100 #### [facility] [address] [place], [address] RBC (Bld) [#/Vol] 5.16 10*6/uL Normal 4.6-6.2 [facility] Comment on above: Performed By: #### L 500.2500, L100.0100 #### [facility] [address] [place], [address] RDW SD 43.0 fl Normal 35.1-43.9 [facility] Comment on above: Performed By: #### L 500.2500, L100.0100 #### [facility] [address] [place], [address] WBC (Bld) [#/Vol] 8.9 10*3/uL Normal 4.4-11.0 [facility] [place] Comment on above: Performed By: #### L 500.2500, L100.0100 #### [facility] [address] [place], [address] Basic Metabolic Profile (BMP )on 10-22-2024 BUN/CRE 23.6 RATIO High 10-20 [facility] Comment on above: Performed By: #### L 501.5200, L500.2500, L503.7505 #### [facility] [address] [place], [address] Calcium [Mass/Vol] 9.2 mg/dL Normal 7.6-11.0 [facility] Comment on above: Performed By: #### L 501.5200, L500.2500, L503.7505 #### [facility] [address] [place], [address] Chloride [Moles/Vol] 103 mmol/L Normal 98-108 [facility] Comment on above: Performed By: #### L 501.5200, L500.2500, L503.7505 #### [facility] [address] [place], [address] CO2 [Moles/Vol] 23.3 mmol/L Normal 21.0-32.0 [facility] Comment on above: Performed By: #### L 501.5200, L500.2500, L503.7505 #### [facility] [address] [place], [address] Creatinine [Mass/Vol] 0.96 mg/dL Normal 0.70-1.20 [facility] Comment on above: Performed By: #### L 501.5200, L500.2500, L503.7505 #### [facility] [address] [place], [address] ECRCL 81.55 ml/min Normal 50-250 [facility] Comment on above: Performed By: #### L 501.5200, L500.2500, L503.7505 #### [facility] [address] [place], [address] GAP 15 Normal 5-15 [facility] Comment on above: Performed By: #### L 501.5200, L500.2500, L503.7505 #### [facility] [address] [place], [address] GFR/1.73 sq M.predicted among non-blacks MDRD (S/P/Bld) [Vol rate/Area] 83 mL/min/{1.73_m2} Normal >60 [facility] Comment on above: Result Comment: mL/m in/1.73m2 CKD-EPI Creatinine Equation (2020) Performed By: #### L 501.5200, L500.2500, L503.7505 #### [facility] [address] [place], [address] Glucose [Mass/Vol] 105 mg/dL High 70-99 [facility] Comment on above: Performed By: #### L 501.5200, L500.2500, L503.7505 #### [facility] [address] [place], [address] Potassium [Moles/Vol] 3.6 mmol/L Normal 3.3-5.1 [facility] Comment on above: Performed By: #### L 501.5200, L500.2500, L503.7505 #### [facility] [address] [place], [address] Sodium [Moles/Vol] 141 mmol/L Normal 133-145 [facility] Comment on above: Performed By: #### L 501.5200, L500.2500, L503.7505 #### [facility] [address] [place], [address] Urea nitrogen [Mass/Vol] 23 mg/dL High 4-19 [facility] Comment on above: Performed By: #### L 501.5200, L500.2500, L503.7505 #### [facility] [address] [place], [address] CBC W/Diff, Automatedon 03-0 6-2025 Absolute Lymph 1.66 X10 3/uL Normal 0.83-4.51 [facility] Comment on above: Performed By: #### L 100.0100, L501.2300 #### [facility] [address] [place], [address] Absolute Neut 11.6 X10 3/uL High 2.0-7.7 [facility] Comment on above: Performed By: #### L 100.0100, L501.2300 #### [facility] [address] [place], [address] Basophils/100 WBC (Bld) 0.3 % Normal 0-1 [facility] Comment on above: Performed By: #### L 100.0100, L501.2300 #### [facility] [address] [place], [address] Eosinophils/100 WBC (Bld) 1.0 % Normal 0-5 [facility] Comment on above: Performed By: #### L 100.0100, L501.2300 #### [facility] [address] [place], [address] Erythrocyte distribution width (RBC) [Ratio] 14.3 % Normal 11.6-14.6 [facility] Comment on above: Performed By: #### L 100.0100, L501.2300 #### [facility] [address] [place], [address] Hematocrit (Bld) [Volume fraction] 42.2 % Normal 40-54 [facility] Comment on above: Performed By: #### L 100.0100, L501.2300 #### [facility] [address] [place], [address] Hemoglobin (Bld) [Mass/Vol] 14.1 g/dL Normal 13.0-16.5 [facility] Comment on above: Performed By: #### L 100.0100, L501.2300 #### [facility] [address] [place], [address] IG% 0.500 Normal 0.0-0.9 [facility] Comment on above: Result Comment: IG% - Immature Granulocytes (promyelocytes, myelocytes and metamyelocytes) > 1% indicates that a LEFT SHIFT is Present. Performed By: #### L 100.0100, L501.2300 #### [facility] [address] [place], [address] Lymphocytes/100 WBC (Bld) 11.3 % Low 19-41 [facility] Comment on above: Performed By: #### L 100.0100, L501.2300 #### [facility] [address] [place], [address] MCH (RBC) [Entitic mass] 28.7 pg Normal 27.0-32.0 [facility] Comment on above: Performed By: #### L 100.0100, L501.2300 #### [facility] [address] [place], [address] MCHC (RBC) [Mass/Vol] 33.4 g/dL Normal 32-36 [facility] Comment on above: Performed By: #### L 100.0100, L501.2300 #### [facility] [address] [place], [address] MCV (RBC) [Entitic vol] 85.8 fL Normal 80-94 [facility] Comment on above: Performed By: #### L 100.0100, L501.2300 #### [facility] [address] [place], [address] Monocytes/100 WBC (Bld) 7.9 % Normal 0-10 [facility] Comment on above: Performed By: #### L 100.0100, L501.2300 #### [facility] [address] [place], [address] Neutrophils/100 WBC (Bld) 79.0 % High 47-70 [facility] Comment on above: Performed By: #### L 100.0100, L501.2300 #### [facility] [address] [place], [address] Nucleated RBC (Bld) [#/Vol] 0 10*3/uL Normal 0-5 [facility] Comment on above: Performed By: #### L 100.0100, L501.2300 #### [facility] [address] [place], [address] Platelet mean volume (Bld) [Entitic vol] 10.6 fL Normal 6.2-12.0 [facility] Comment on above: Performed By: #### L 100.0100, L501.2300 #### [facility] [address] [place], [address] Platelets (Bld) [#/Vol] 238 10*3/uL Normal 150-450 [facility] Comment on above: Performed By: #### L 100.0100, L501.2300 #### [facility] [address] [place], [address] RBC (Bld) [#/Vol] 4.92 10*6/uL Normal 4.6-6.2 [facility] Comment on above: Performed By: #### L 100.0100, L501.2300 #### [facility] [address] [place], [address] RDW SD 45.1 fl High 35.1-43.9 [facility] Comment on above: Performed By: #### L 100.0100, L501.2300 #### [facility] [address] [place], [address] WBC (Bld) [#/Vol] 14.7 10*3/uL High 4.4-11.0 [facility] Comment on above: Performed By: #### L 100.0100, L501.2300 #### [facility] [address] [place], [address] Electrocardiogram reportOrde red By: Rell Thomas on 10-22-2024 EKG study [facility] [address] [place] [address] 12 Lead EKG 10/20/24 1317 MR#: [id number] Acct: [id number] Name: PORTIA BAUER Rep #:[id number] : 1950 74 From: Rell herrera MD Attending Dr: Dr. Agustin Mcarthur MD Status: ADM IN Ordering Dr: Cali Alvarado MD Date: 10/20 Location: [facility] [place] Sex: M C Admitted: 10/20/24 Test Reason : CP Blood Pressure : */* mmHG Vent. Rate : 78 BPM Atrial Rate : 78 BPM P-R Int : 176 ms QRS Dur : 78 ms QT Int : 388 ms P-R-T Axes : 65 -27 27 degrees QTcB Int : 442 ms Normal sinus rhythm Minimal voltage criteria for LVH, may be normal variant ( R in aVL ) Nonspecific ST-T wave changes Abnormal ECG Confirmed by Rell Thomas ([id number]), editor producer NIKOLAS ASCENCIO ([id number]) on 10/22/2024 6:54:24 AM Referred By: ALEX/ALEX Confirmed By: Rell Thomas 10/22/24 0654 Date _ Rell Thomas MD CC: FINANCIAL SERVICES OFFICER-Dannie Medina; Dr. Agustin Mcarthur MD; Dr. Cali Alvarado MD ~ Signed [facility] Other Phone: EKG study [facility] Cardiovascular Services [address] [place] [address] 12 Lead EKG 10/20/24 1504 MR#: [id number] Acct: [id number] Name: PORTIA BAUER Rep #:[id number] : 1950 74 From: Rell herrera MD Attending Dr: Dr. Agustin Mcarthur MD Status: ADM IN Ordering Dr: Cali Alvarado MD Date: 10/20 Location: [facility] [place] Sex: M C Admitted: 10/20/24 Test Reason : REPEAT Blood Pressure : */* mmHG Vent. Rate : 96 BPM Atrial Rate : 96 BPM P-R Int : 178 ms QRS Dur : 84 ms QT Int : 356 ms P-R-T Axes : 95 -29 56 degrees QTcB Int : 449 ms Normal sinus rhythm Minimal voltage criteria for LVH, may be normal variant ( R in aVL ) Nonspecific ST-T wave changes Abnormal ECG Confirmed by Rell Thomas ([id number]), editor producer NIKOLAS ASCENCIO ([id number]) on 10/22/2024 6:54:43 AM Referred By: Confirmed By: Rell Thomas 10/22/24 0654 Date _ Rell Thomas MD CC: FINANCIAL SERVICES OFFICER-C Michael Medina; Dr. Agustin Mcarthur MD; Dr. Cali Alvarado MD ~ Signed [facility] Other Phone: [phone] 10-22-2024 Natriuretic peptide B (Bld) [Mass/Vol] 2045 pg/mL High <=900 [facility] Comment on above: Result Comment: Hear t Failure Unlikely: < 300 pg/mL Heart Failure Likely < 50 Years: > 450 pg/mL 50-75 Years: > 900 pg/mL >75 Years: > 1800 pg/mL Performed By: #### L 501.5200, L500.2500, L579.6985 #### [facility] Laboratory [address] [place], [place], [id number] Laboratory - Chemistry and C hemistry - challengeOrdered By: gAustin Mcarthur on 10-22-2024 Natriuretic peptide B (Bld) [Mass/Vol] 2045 pg/mL High <900 [facility] Comment on above: Heart Failure Unlike ly: < 300 pg/mLHeart Failure Likely< 50 Years: > 450 pg/mL50-75 Years: > 900 pg/mL>75 Years: > 1800 pg/mL Magnesiumon 10-22-2024 Magnesium [Mass/Vol] 2.3 mg/dL High 1.5-2.2 [facility] Comment on above: Performed By: #### L 501.5200, L500.2500, L503.7505 #### [facility] Laboratory [address] [place], [place], [id number] Magnesium (Unsp spec) [Mass/ Vol]Ordered By: Agustin Mcarthur on 10-22-2024 Magnesium [Mass/Vol] 2.3 mg/dL High 1.5-2.2 [facility] Magnesium measurement (mass/ volume)Ordered By: Agustin Mcarthur on 10-22-2024 Magnesium (Unsp spec) [Mass/Vol] 2.3 mg/dL High 1.5-2.2 [facility] Phosphoruson 10-22-2024 Phosphate [Mass/Vol] 4.3 mg/dL Normal 2.7-4.5 [facility] Comment on above: Performed By: #### L 499.0043 #### [facility] Laboratory [address] [place], [place], [id number] Serum phosphorus measurement Ordered By: Agustin Mcarthur on 10-22-2024 Phosphorus Level 4.3 mg/dL 2.7-4.5 [facility] Arterial patency Wrist arter y --pre arterial punctureOrdered By: Agustin Mcarthur on 10-21-2024 Noah Test Positive [facility] Assessment of wrist artery p atency prior to arterial punctureOrdered By: Agustin Mcarthur on 10-21-2024 Arterial patency Wrist artery --pre arterial puncture Positive [facility] Base excess Calc (BldV) [Mol es/Vol]Ordered By: Agustin Mcarthur on 10-21-2024 Blood Gas Base Excess 2 mmol/L -2-2 [facility] Basic Metabolic Profile (BMP )on 10-21-2024 BUN/CRE 23.4 RATIO High 10-20 [facility] Comment on above: Performed By: #### L 500.2500, L503.7505 #### [facility] Laboratory [address] [place], [address] Calcium [Mass/Vol] 9.1 mg/dL Normal 7.6-11.0 [facility] Comment on above: Performed By: #### L 500.2500, L503.7505 #### [facility] Laboratory [address] [place], [address] Chloride [Moles/Vol] 103 mmol/L Normal 98-108 [facility] Comment on above: Performed By: #### L 500.2500, L503.7505 #### [facility] Laboratory [address] [place], [address] CO2 [Moles/Vol] 23.5 mmol/L Normal 21.0-32.0 [facility] Comment on above: Performed By: #### L 500.2500, L503.7505 #### [facility] Laboratory [address] [place], [address] Creatinine [Mass/Vol] 0.82 mg/dL Normal 0.70-1.20 [facility] Comment on above: Performed By: #### L 500.2500, L503.7505 #### [facility] Laboratory [address] [place], [address] ECRCL 95.88 ml/min Normal 50-250 [facility] Comment on above: Performed By: #### L 500.2500, L503.7505 #### [facility] Laboratory [address] [place], [address] GAP 12 Normal 5-15 [facility] Comment on above: Performed By: #### L 500.2500, L503.7505 #### [facility] Laboratory [address] [place], [address] GFR/1.73 sq M.predicted among non-blacks MDRD (S/P/Bld) [Vol rate/Area] 92 mL/min/{1.73_m2} Normal >60 [facility] Comment on above: Result Comment: mL/m in/1.73m2 CKD-EPI Creatinine Equation (2020) Performed By: #### L 500.2500, L503.7505 #### [facility] Laboratory [address] [place], [address] Glucose [Mass/Vol] 153 mg/dL High 70-99 [facility] Comment on above: Performed By: #### L 500.2500, L503.7505 #### [facility] Laboratory [address] [place], [address] Potassium [Moles/Vol] 3.9 mmol/L Normal 3.3-5.1 [facility] Comment on above: Performed By: #### L 500.2500, L503.7505 #### [facility] Laboratory [address] [place], [address] Sodium [Moles/Vol] 139 mmol/L Normal 133-145 [facility] Comment on above: Performed By: #### L 500.2500, L503.7505 #### [facility] Laboratory [address] [place], [address] Urea nitrogen [Mass/Vol] 19 mg/dL Normal 4-19 [facility] Comment on above: Performed By: #### L 500.2500, L503.7505 #### [facility] Laboratory [address] [place], [address] Blood Gases by [facility] 025 NOAH TEST Positive Normal [facility] Comment on above: Performed By: #### L 9000.0800 #### [facility] Laboratory [address] [place], [address] Base excess Calc (Bld) [Moles/Vol] 2 mmol/L Normal -2 to +2 [facility] Comment on above: Performed By: #### L 0.0800 #### [facility] Laboratory [address] [place], [address] Blood Gas Type ART Normal [facility] Comment on above: Performed By: #### L 8999.08 #### [facility] Laboratory [address] [place], [address] CO2 [Moles/Vol] 28 mmol/L Normal [facility] Comment on above: Performed By: #### L 0.08 #### [facility] Laboratory [address] [place], [address] FI02 2.0 Normal [facility] Comment on above: Performed By: #### L 8999.08 #### [facility] Laboratory [address] [place], [address] HCO3 (Bld) [Moles/Vol] 26.7 mmol/L High 22-26 [facility] Comment on above: Performed By: #### L 8999.0800 #### [facility] Laboratory [address] [place], [address] Mode Not entered Normal [facility] Comment on above: Performed By: #### L 0.0800 #### [facility] Laboratory [address] [place], [address] O2 Delivery Dev Cannula Normal [facility] Comment on above: Performed By: #### L 8999.0800 #### [facility] Laboratory [address] [place], [address] pCO2 41.4 mmHg Normal 35-45 [facility] Comment on above: Performed By: #### L 0.0800 #### [facility] Laboratory [address] [place], [address] pH (Bld) 7.42 [pH] Normal 7.35-7.45 [facility] Comment on above: Performed By: #### L 9000.0800 #### [facility] Laboratory [address] [place], [address] PO2 58 mmHG Low 75-100 [facility] Comment on above: Performed By: #### L 9000.0800 #### [facility] Laboratory [address] [place], [address] SITE R Radial Normal [facility] Comment on above: Performed By: #### L 9000.0800 #### [facility] Laboratory [address] [place], [address] SO2 90 Low 95-99 [facility] Comment on above: Performed By: #### L 9000.0800 #### [facility] Laboratory [address] [place], [address] Blood base excess determinat ionOrdered By: Agustin Mcarthur on 10-21-2024 Base excess Calc (BldV) [Moles/Vol] 2 mmol/L -2-2 [facility] Blood bicarbonate measuremen tOrdered By: Agustin Mcarthur on 10-21-2024 Blood Gas Bicarbonate Actual 26.7 mmol/L High [facility] HCO3 (Bld) [Moles/Vol] 26.7 mmol/L High - [facility] CBC-Complete Blood Cnt No Di ffon 10-21-2024 Erythrocyte distribution width (RBC) [Ratio] 13.7 % Normal 11.6-14.6 [facility] Comment on above: Performed By: #### L 500.2500, L503.7505 #### [facility] Laboratory [address] [place], [address] Hematocrit (Bld) [Volume fraction] 40.9 % Normal 40-54 [facility] Comment on above: Performed By: #### L 500.2500, L503.7505 #### [facility] Laboratory [address] [place], [address] Hemoglobin (Bld) [Mass/Vol] 13.6 g/dL Normal 13.0-16.5 [facility] Comment on above: Performed By: #### L 500.2500, L503.7505 #### [facility] Laboratory [address] [place], [address] MCH (RBC) [Entitic mass] 28.2 pg Normal 27.0-32.0 [facility] Comment on above: Performed By: #### L 500.2500, L503.7505 #### [facility] Laboratory [address] [place], [address] MCHC (RBC) [Mass/Vol] 33.3 g/dL Normal 32-36 [facility] Comment on above: Performed By: #### L 500.2500, L503.7505 #### [facility] Laboratory [address] [place], [address] MCV (RBC) [Entitic vol] 84.9 fL Normal 80-94 [facility] Comment on above: Performed By: #### L 500.2500, L503.7505 #### [facility] Laboratory [address] [place], [address] Platelet mean volume (Bld) [Entitic vol] 10.9 fL Normal 6.2-12.0 [facility] Comment on above: Performed By: #### L 500.2500, L503.7505 #### [facility] Laboratory [address] [place], [address] Platelets (Bld) [#/Vol] 225 10*3/uL Normal 150-450 [facility] Comment on above: Performed By: #### L 500.2500, L503.7505 #### [facility] Laboratory [address] [place], [address] RBC (Bld) [#/Vol] 4.82 10*6/uL Normal 4.6-6.2 [facility] Comment on above: Performed By: #### L 500.2500, L503.7505 #### [facility] Laboratory [address] [place], [address] RDW SD 42.6 fl Normal 35.1-43.9 [facility] Comment on above: Performed By: #### L 500.2500, L503.7505 #### [facility] Laboratory [address] [place], [address] WBC (Bld) [#/Vol] 18.1 10*3/uL High 4.4-11.0 [facility] Comment on above: Performed By: #### L 500.2500, L503.7505 #### [facility] Laboratory [address] [place], [address] CTA Chest W/WO Contraston CTA Chest W/WO Contrast [facility] Imaging Services [address] [place] [address] CTA Chest W/WO Contrast MR#: [id number] Acct: [id number] Name: PORTIA BAUER Rep #: [id number] : 1950 M 74 From: John Calderon MD PCP: RAKAN Ackerman Status: DIS IN Study: CTA Chest W/WO Contrast Date of Exam: 10/21/24 Exam# [id number] Ordering Dr: Agustin Mcarthur MD ADDENDUM by Dr. John Calderon MD on 12/14/24 at 1218 TECHNIQUE: Three (3)-dimensional coronal and sagittal post processing imaging was also performed. Reading Location: [place] 12/14/24 1219 Date cc: FINANCIAL SERVICES OFFICER-C Michael Medina; Dr. Agustin Mcarthur MD * Signed PROCEDURE: CTA CHEST WITH CONTRAST REASON FOR EXAM: ACUTE DYSPNEA. TECHNIQUE: Contiguous axial scans of 1.25 mm slice thicknesses. Sagittal and coronal reconstruction images were obtained. One or more dose reduction techniques were used (e.g., automated exposure control, adjustment of mA and/or kv according to patient size, use of iterative reconstruction technique). . IV CONTRAST: Isovue 370. 92 mL. COMPARISON: Chest radiograph dated 10/20/2024. FINDINGS: Lungs and Airways: Mild airspace consolidation and bronchial thickening in the bilateral lower lobes. A 0.7 cm non-calcified spiculated micronodule in the right apex, axial image 191. Pleura: Mild dependent pleural thickening. Heart: Mild cardiac enlargement. Pericardium: No thickening. Coronary arteries: Unremarkable Thoracic Aorta: No thoracic aortic aneurysm or dissection. Pulmonary Vessels: No large central filling defects. Contrast timing was optimized for evaluation of the aorta. Mediastinum: No mediastinal hilar or axillary lymphadenopathy. Thyroid: Unremarkable. Upper Abdomen: Visualized portions of the upper abdominal viscera are unremarkable. Bones: Bone windows are unremarkable. CT/CTA Chest W/WO Contrast IMPRESSION: 1. Mild airspace consolidation and bronchial thickening in the bilateral lower lobes consistent with inflammation. 2. A 0.7 cm non-calcified micronodule in the right apex. Consider six-month follow-up study for surveillance. 3. No evidence of pulmonary embolism. 4. Cardiac enlargement. Reading Location: [place] [address] CC: RAKAN Medina; Dr. Agustin Mcarthur MD [employer] Salesperson: Signed Normal [facility] Determination of fraction of inspired oxygenOrdered By: Agustin Mcarthur on 10-21-2024 Blood Gas Oxygen Percent 2.0 [facility] Echocardiogram study reportO rdered By: Zachary Rahman on 10-21-2024 Study report [facility] Cardiovascular Services [address] [place] [address] Echo Complete W/ Contrast 10/21/24 1151 MR#: [id number] Acct: [id number] Name: JUANCARLOSPORTIA Rep #:[id number] : 1950 74 From: Zachary Rahman MD Attending Dr: Dr. Agustin Mcarthur MD Status: ADM IN Ordering Dr: Ramón Wheeler te: 10/20/24 Location: [facility]2 Sex: M C Admitted: 10/20/24 Reason For Study Reason For Study: CHF Procedure This was a 2D Doppler, Color Flow transthoracic echocardiogram. The study was technically difficult. Exam performed portable in patient room. Left Ventricle Normal LV size. Mild concentric left ventricular hypertrophy. Borderline LV global systolic dysfunction. Estimated LVEF 45 to 50%. Stage I diastolic dysfunction. Right Ventricle Normal right ventricle. Atria The left atrium is severely enlarged. Normal right atrium. Mitral Valve Trivial mitral valve insufficiency. Tricuspid Valve Mild tricuspid valve insufficiency. Right ventricular systolic pressure estimated to be 47 mmHg. Aortic Valve Moderate diffuse aortic valve calcification. Mild aortic valve stenosis. Mean peak gradient 19 mmHg. Mild aortic valve regurgitation. Pulmonic Valve The pulmonic valve is not well visualized. Great Vessels The aortic root is not well visualized. Pericardium/Pleural No pericardial effusion. Medication Diluted definity 2ml given slow IV push to enhance endocardial definition. MMode/2D Measurements & Calculations LVIDd: 5.2 cm IVSd: 1.2 cm LVOT diam: 2.0 cm LVIDs: 3.8 cm LVPWd: 1.1 cm RVDd: 3.7 cm FS: 27.5 % LVOT area: 3.2 cm2 ____ Ao root diam: 3.2 cm LAV(MOD-bp): 59.8 ml LA A4 area: 19.8 cm2 LA dimension: 4.8 cm LAV(MOD-bp) Indexed: 26.9 ml/m2 LAV(MOD-sp2): 64.8 ml LAV(MOD-sp4): 51.4 ml ____ LA dimension(2D): 4.4 cm TAPSE: 2.1 cm RA A4 area: 17.7 cm2 Time Measurements MV dec time: 0.22 sec Doppler Measurements & Calculations MV E max tracey: 79.2 cm/sec Lat Peak E' Tracey: 11.2 cm/sec Med Peak E' Tracey: 8.9 cm/sec MV A max tracey: 41.9 cm/sec E/E' lat: 7.1 E/E' med: 8.9 MV E/A: 1.9 ____ Ao V2 max: 281.7 cm/sec AI max tracey: 391.1 cm/sec LV V1 max: 129.4 cm/sec Ao max P.8 mmHg AI max P.2 mmHg LV V1 max P.7 mmHg Ao V2 mean: 208.9 cm/sec AI dec slope: 278.7 cm/sec2 LV V1 mean P.7 mmHg Ao mean P.1 mmHg AI P1/2t: 411.1 msec LV V1 mean: 89.7 cm/sec Ao V2 VTI: 62.2 cm LV V1 VTI: 28.6 cm AV (velocity ratio): 0.46 GAURAV(I,D): 1.5 cm2 GAURAV(V,D): 1.5 cm2 __ SV(LVOT): 91.3 ml PA V2 max: 102.6 cm/sec TR max tracey: 282.5 cm/sec TR max P.9 mmHg ECHO/Echo Complete W/ Contrast Interpretation Summary Mild concentric left ventricular hypertrophy. Borderline LV global systolic dysfunction. Estimated LVEF 45 to 50%. Stage I diastolic dysfunction. The left atrium is severely enlarged. Mild tricuspid valve insufficiency. Right ventricular systolic pressure estimated to be 47 mmHg. Mild aortic valve stenosis. Mean peak gradient 19 mmHg. Mild aortic valve regurgitation. The study was technically difficult. __ Ordering Physician: Ramón Wheeler Referring Physician: MICHAEL MEDINA Performed By: Virgen Monsivais RDCS 10/21/24 1422 Date _ Zachary Rahman MD CC: FINANCIAL SERVICES OFFICER-C Michael Medina; Dr. Ramón Wheeler, DO; Dr. Agustin Mcarthur MD ~ Date Dictated: 10/21/24 1151 Date Transcribed: 10/21/24 142 [employer] Salesperson: Signed [facility] Work Phone: Measurement, pHOrdered By: Jamie Mcarthur on 10-21-2024 pH (Unsp spec) 7.42 [pH] 7.35-7.45 [facility] No Panel InformationOrdered By: Agustin Mcarthur on 10-21-2024 Blood Gas Sample Site R Radial [facility] Blood Gas Specimen Type ART [facility] Blood Gas Vent Mode Not entered [facility] Oxygen Delivery Device Cannula [facility] Oxygen saturation measuremen tOrdered By: Agustin Mcarthur on 10-21-2024 Blood Gas Oxygen Saturation 90 % Low 95-99 [facility] Partial pressure of carbon d ioxide measurementOrdered By: Agustin Mcarthur on 10-21-2024 Arterial Blood Partial Pressure CO2 41.4 mmHg 35-45 [facility] Partial pressure of oxygen m easurementOrdered By: Agustin Mcarthur on 10-21-2024 Arterial Blood Partial Pressure O2 58 mmHG Low 75-100 [facility] RESPIRATORY PANEL MOLECULARo n 10-21-2024 RP PANEL ADENOVIRUS Not Detected INFLUENZA A Not Detected INFLUENZA A (SUBTYPE H1) Not Detected INFLUENZA A (SUBTYPE H3) Not Detected INFLUENZA B Not Detected HUMAN METAPHNEUMO Not Detected PARAINFLUENZA 1 Not Detected PARAINFLUENZA 2 Not Detected PARAINFLUENZA 3 Not Detected PARAINFLUENZA 4 Not Detected RHINOVIRUS Not Detected RSV A Not Detected RSV B Not Detected Normal [facility] Comment on above: Performed By: #### L 500.7883, L503.7505 #### [facility] Laboratory [address] [place], [place], [id number] Respiratory pathogens DNA an d RNA panel ROSSANA+probe (Resp)Ordered By: Ramón Wheeler on 10-21-2024 Respiratory Panel (PCR) [facility] Total carbon dioxide measure mentOrdered By: Agustin Mcarthur on 10-21-2024 Blood Gas Total CO2 28 mmol/L [facility] CO2 [Moles/Vol] 28 mmol/L [facility] pH (Unsp spec)Ordered By: Fadi Mcarthur on 10-21-2024 Blood Gas pH 7.42 7.35-7.45 [facility] 12 Lead EKGon 10-20-2024 12 Lead EKG [facility] Cardiovascular Services [address] [place] [address] 12 Lead EKG 10/20/24 1504 MR#: [id number] Acct: [id number] Name: PORTIA BAUER Rep #: [id number] : 1950 74 From: Rell Thomas MD Attending Dr: Dr. Agustin Mcarthur MD Status: ADM IN Ordering Dr: Cali Alvarado MD Date: 10/20/24 Location: [facility]2 Sex: M C Admitted: 10/20/24 Test Reason : REPEAT Blood Pressure : */* mmHG Vent. Rate : 96 BPM Atrial Rate : 96 BPM P-R Int : 178 ms QRS Dur : 84 ms QT Int : 356 ms P-R-T Axes : 95 -29 56 degrees QTcB Int : 449 ms Normal sinus rhythm Minimal voltage criteria for LVH, may be normal variant ( R in aVL ) Nonspecific ST-T wave changes Abnormal ECG Confirmed by Rell Thomas ([id number]), editor producer NIKOLAS ASCENCIO ([id number]) on 10/22/2024 6:54:43 AM Referred By: Confirmed By: Rell Thomas 10/22/24 0654 Date Rell Thomas MD CC: FINANCIAL SERVICES OFFICER-C Michael Medina; Dr. Agustin Mcarthur MD; Dr. Cali Alvarado MD Signed Normal [facility] 12 Lead EKG [facility] Cardiovascular Services [address] [place] [address] 12 Lead EKG 10/20/24 1317 MR#: [id number] Acct: [id number] Name: PORTIA BAUER Rep #: [id number] : 1950 74 From: Rell Thomas MD Attending Dr: Dr. Agustin Mcarthur MD Status: ADM IN Ordering Dr: Cali Alvarado MD Date: 10/20/24 Location: [facility] [place] Sex: M C Admitted: 10/20/24 Test Reason : CP Blood Pressure : */* mmHG Vent. Rate : 78 BPM Atrial Rate : 78 BPM P-R Int : 176 ms QRS Dur : 78 ms QT Int : 388 ms P-R-T Axes : 65 -27 27 degrees QTcB Int : 442 ms Normal sinus rhythm Minimal voltage criteria for LVH, may be normal variant ( R in aVL ) Nonspecific ST-T wave changes Abnormal ECG Confirmed by Rell Thomas ([id number]), editor producer NIKOLAS ASCENCIO ([id number]) on 10/22/2024 6:54:24 AM Referred By: BB/ALEX Confirmed By: Rell Thomas 10/22/24 0654 Date Rell Thomas MD CC: RAKAN Medina; Dr. Agustin Mcarthur MD; Dr. Cali Alvarado MD Signed Normal [facility] Bilirubin, totalOrdered By: Cali Alvarado on 10-20-2024 Bilirubin [Mass/Vol] 0.42 mg/dL 0.00-1.30 [facility] CBC W/Diff, Automatedon Absolute Lymph 0.70 X10 3/uL Low 0.83-4.51 [facility] Comment on above: Performed By: #### L 499.0043 #### [facility] Laboratory [address] [place], [address] Absolute Neut 15.7 X10 3/uL High 2.0-7.7 [facility] Comment on above: Performed By: #### L 499.0043 #### [facility] Laboratory [address] [place], [address] Basophils/100 WBC (Bld) 0.3 % Normal 0-1 [facility] Comment on above: Performed By: #### L 499.0043 #### [facility] Laboratory [address] [place], [address] Eosinophils/100 WBC (Bld) 0.1 % Normal 0-5 [facility] Comment on above: Performed By: #### L 499.0043 #### [facility] Laboratory [address] [place], [address] Erythrocyte distribution width (RBC) [Ratio] 13.5 % Normal 11.6-14.6 [facility] Comment on above: Performed By: #### L 499.0043 #### [facility] [address] [place], [address] Hematocrit (Bld) [Volume fraction] 44.0 % Normal 40-54 [facility] Comment on above: Performed By: #### L 499.0043 #### [facility] [address] [place], [address] Hemoglobin (Bld) [Mass/Vol] 14.7 g/dL Normal 13.0-16.5 [facility] Comment on above: Performed By: #### L 499.0043 #### [facility] [address] [place], [address] IG% 0.300 Normal 0.0-0.9 [facility] Comment on above: Result Comment: IG% - Immature Granulocytes (promyelocytes, myelocytes and metamyelocytes) > 1% indicates that a LEFT SHIFT is Present. Performed By: #### L 499.0043 #### [facility] [address] [place], [address] Lymphocytes/100 WBC (Bld) 4.0 % Low 19-41 [facility] Comment on above: Performed By: #### L [id number] #### [facility] [address] [place], [address] MCH (RBC) [Entitic mass] 28.7 pg Normal 27.0-32.0 [facility] Comment on above: Performed By: #### L [id number] #### [facility] [address] [place], [address] MCHC (RBC) [Mass/Vol] 33.4 g/dL Normal 32-36 [facility] Comment on above: Performed By: #### L [id number] #### [facility] [address] [place], [address] MCV (RBC) [Entitic vol] 85.9 fL Normal 80-94 [facility] Comment on above: Performed By: #### L [id number] #### [facility] [address] [place], [address] Monocytes/100 WBC (Bld) 5.3 % Normal 0-10 [facility] Comment on above: Performed By: #### L [id number] #### [facility] [address] [place], [address] Neutrophils/100 WBC (Bld) 90.0 % High 47-70 [facility] Comment on above: Performed By: #### L 499.0043 #### [facility] [address] [place], [address] Nucleated RBC (Bld) [#/Vol] 0 10*3/uL Normal 0-5 [facility] Comment on above: Performed By: #### L 499.0043 #### [facility] [address] [place], [address] Platelet mean volume (Bld) [Entitic vol] 11.2 fL Normal 6.2-12.0 [facility] Comment on above: Performed By: #### L 499.0043 #### [facility] [address] [place], [address] Platelets (Bld) [#/Vol] 230 10*3/uL Normal 150-450 [facility] Comment on above: Performed By: #### L 499.0043 #### [facility] [address] [place], [address] RBC (Bld) [#/Vol] 5.12 10*6/uL Normal 4.6-6.2 [facility] Comment on above: Performed By: #### L 499.0043 #### [facility] [address] [place], [address] RDW SD 42.4 fl Normal 35.1-43.9 [facility] Comment on above: Performed By: #### L [id number] #### [facility] [address] [place], [address] WBC (Bld) [#/Vol] 17.5 10*3/uL High 4.4-11.0 [facility] Comment on above: Performed By: #### L 499.0043 #### [facility] [address] [place], [place], [id number] Chest PA and Lateralon 10-20 Chest PA and Lateral [facility] Imaging Services [address] [place], [place] [address] Chest PA and Lateral MR#: [id number] Acct: [id number] Name: PORTIA BAUER Rep #: [id number] : 1950 M 74 From: Juan galdamez MD PCP: RAKAN Ackerman Status: [facility] ER Study: Chest PA and Lateral Date of Exam: 10/20/24 Exam# [id number] Ordering Dr: Cali Alvarado MD PROCEDURE: CHEST PA AND LATERAL REASON FOR EXAM: Chest pain since this morning. TECHNIQUE: Frontal and lateral views of the chest. COMPARISON: Comparison is made with prior study April 10, 2023. FINDINGS: EKG electrodes are seen. Cardiomegaly. Atherosclerotic calcification of the aortic arch. Mild degree of CHF. Atelectasis at the lung bases. Stable elevation of the right hemidiaphragm. RAD/Chest PA and Lateral IMPRESSION: Cardiomegaly and CHF. Reading Location: [id number] CC: FINANCIAL SERVICES OFFICER-C Michael Medina; Dr. Cali Alvarado MD [employer] Salesperson: Signed Normal [facility] Comprehensive Metabolic Prof ilon 10-20-2024 Albumin [Mass/Vol] 4.1 g/dL Normal 3.4-4.8 [facility] Comment on above: Performed By: #### L 499.0043 #### [facility] [address] [place], [place], [id number] Albumin/Globulin [Mass ratio] 1.5 {ratio} Normal 0.9-2.4 [facility] Comment on above: Performed By: #### L 499.0043 #### [facility] [address] [place], [address] ALK PHOS 94 U/L Normal 40-129 [facility] Comment on above: Performed By: #### L 499.0043 #### [facility] [address] [place], [address] ALT [Catalytic activity/Vol] 20 U/L Normal <=46 [facility] Comment on above: Performed By: #### L 499.0043 #### [facility] [address] [place], [address] AST [Catalytic activity/Vol] 24 U/L Normal <=37 [facility] Comment on above: Performed By: #### L 499.0043 #### [facility] [address] [place], [address] Bilirubin [Mass/Vol] 0.42 mg/dL Normal 0.00-1.30 [facility] Comment on above: Performed By: #### L 499.0043 #### [facility] [address] [place], [address] BUN/CRE 22.8 RATIO High 10-20 [facility] Comment on above: Performed By: #### L 499.0043 #### [facility] [address] [place], [address] Calcium [Mass/Vol] 9.1 mg/dL Normal 7.6-11.0 [facility] Comment on above: Performed By: #### L [id number] #### [facility] [address] [place], [address] Chloride [Moles/Vol] 108 mmol/L Normal 98-108 [facility] Comment on above: Performed By: #### L 499.0043 #### [facility] [address] [place], [address] CO2 [Moles/Vol] 21.6 mmol/L Normal 21.0-32.0 [facility] Comment on above: Performed By: #### L [id number] #### [facility] [address] [place], [address] Creatinine [Mass/Vol] 0.78 mg/dL Normal 0.70-1.20 [facility] Comment on above: Performed By: #### L 499.0043 #### [facility] [address] [place], [address] ECRCL 101.20 ml/min Normal 50-250 [facility] Comment on above: Performed By: #### L 499.0043 #### [facility] [address] [place], [address] GAP 13 Normal 5-15 [facility] Comment on above: Performed By: #### L 499.0043 #### [facility] [address] [place], [address] GFR/1.73 sq M.predicted among non-blacks MDRD (S/P/Bld) [Vol rate/Area] 94 mL/min/{1.73_m2} Normal >60 [facility] Comment on above: Result Comment: mL/m in/1.73m2 CKD-EPI Creatinine Equation (2020) Performed By: #### L 499.0043 #### [facility] [address] [place], [address] Globulin (S) [Mass/Vol] 2.8 g/dL Normal 2.2-4.2 [facility] Comment on above: Performed By: #### L 499.0043 #### [facility] [address] [place], [address] Glucose [Mass/Vol] 136 mg/dL High 70-99 [facility] Comment on above: Performed By: #### L 499.0043 #### [facility] [address] [place], [address] Potassium [Moles/Vol] 4.1 mmol/L Normal 3.3-5.1 [facility] Comment on above: Performed By: #### L 499.0043 #### [facility] [address] [place], [address] Sodium [Moles/Vol] 142 mmol/L Normal 133-145 [facility] Comment on above: Performed By: #### L 499.0043 #### [facility] [address] [place], [address] T PROT 6.9 g/dL Normal 5.9-8.4 [facility] Comment on above: Performed By: #### L [id number] #### [facility] [address] [place], [address] Urea nitrogen [Mass/Vol] 18 mg/dL Normal 4-19 [facility] Comment on above: Performed By: #### L 499.0043 #### [facility] [address] [place], [place], [address] Echo Complete W/ Contraston 10-20-2024 Echo Complete W/ Contrast [facility] Cardiovascular Services [address] [place] [address] Echo Complete W/ Contrast 10/21/24 1151 MR#: [id number] Acct: [id number] Name: PORTIA BAUER Columba Rep #: [id number] : 1950 74 From: Zachary Rahman MD Attending Dr: Dr. Agustin Mcarthur MD Status: ADM IN Ordering Dr: Ramón Wheeler DO Date: 10/20/24 Location: MS2 Sex: M C Admitted: 10/20/24 Reason For Study Reason For Study: CHF Procedure This was a 2D Doppler, Color Flow transthoracic echocardiogram. The study was technically difficult. Exam performed portable in patient room. Left Ventricle Normal LV size. Mild concentric left ventricular hypertrophy. Borderline LV global systolic dysfunction. Estimated LVEF 45 to 50%. Stage I diastolic dysfunction. Right Ventricle Normal right ventricle. Atria The left atrium is severely enlarged. Normal right atrium. Mitral Valve Trivial mitral valve insufficiency. Tricuspid Valve Mild tricuspid valve insufficiency. Right ventricular systolic pressure estimated to be 47 mmHg. Aortic Valve Moderate diffuse aortic valve calcification. Mild aortic valve stenosis. Mean peak gradient 19 mmHg. Mild aortic valve regurgitation. Pulmonic Valve The pulmonic valve is not well visualized. Great Vessels The aortic root is not well visualized. Pericardium/Pleural No pericardial effusion. Medication Diluted definity 2ml given slow IV push to enhance endocardial definition. MMode/2D Measurements Calculations LVIDd: 5.2 cm IVSd: 1.2 cm LVOT diam: 2.0 cm LVIDs: 3.8 cm LVPWd: 1.1 cm RVDd: 3.7 cm FS: 27.5 % LVOT area: 3.2 cm2 __ Ao root diam: 3.2 cm LAV(MOD-bp): 59.8 ml LA A4 area: 19.8 cm2 LA dimension: 4.8 cm LAV(MOD-bp) Indexed: 26.9 ml/m2 LAV(MOD-sp2): 64.8 ml LAV(MOD-sp4): 51.4 ml __ LA dimension(2D): 4.4 cm TAPSE: 2.1 cm RA A4 area: 17.7 cm2 Time Measurements MV dec time: 0.22 sec Doppler Measurements Calculations MV E max tracey: 79.2 cm/sec Lat Peak E' Tracey: 11.2 cm/sec Med Peak E' Tracey: 8.9 cm/sec MV A max tracey: 41.9 cm/sec E/E' lat: 7.1 E/E' med: 8.9 MV E/A: 1.9 __ Ao V2 max: 281.7 cm/sec AI max tracey: 391.1 cm/sec LV V1 max: 129.4 cm/sec Ao max P.8 mmHg AI max P.2 mmHg LV V1 max P.7 mmHg Ao V2 mean: 208.9 cm/sec AI dec slope: 278.7 cm/sec2 LV V1 mean P.7 mmHg Ao mean P.1 mmHg AI P1/2t: 411.1 msec LV V1 mean: 89.7 cm/sec Ao V2 VTI: 62.2 cm LV V1 VTI: 28.6 cm AV (velocity ratio): 0.46 GAURAV(I,D): 1.5 cm2 GAURAV(V,D): 1.5 cm2 __ SV(LVOT): 91.3 ml PA V2 max: 102.6 cm/sec TR max tracey: 282.5 cm/sec TR max P.9 mmHg ECHO/Echo Complete W/ Contrast Interpretation Summary Mild concentric left ventricular hypertrophy. Borderline LV global systolic dysfunction. Estimated LVEF 45 to 50%. Stage I diastolic dysfunction. The left atrium is severely enlarged. Mild tricuspid valve insufficiency. Right ventricular systolic pressure estimated to be 47 mmHg. Mild aortic valve stenosis. Mean peak gradient 19 mmHg. Mild aortic valve regurgitation. The study was technically difficult. __ Ordering Physician: Ramón Wheeler Referring Physician: MICHAEL MEDINA Performed By: Virgen Monsivais RDCS 10/21/24 1422 Date Zachary Rahman MD CC: FINANCIAL SERVICES OFFICER-C Michael Medina; Dr. Ramón Wheeler DO; Dr. Agustin Mcarthur MD Date Dictated: 10/21/24 1151 Date Transcribed: 10/21/24 1422 [employer] Salesperson: Signed Normal [facility] Emergency Department Summary on 10-20-2024 Emergency Department Summary [facility] Medical Records Department [address] [place] [address] Emergency Department Summary 10/20/24 MR#: [id number] Acct: [id number] Name: PORTIA BAUER Rep #: [id number] : 1950 74 From: Cali Alvarado MD PCP: RAKAN Ackerman Status:REG ER Location: ED HPI History of Present Illness Chief Complaint: Chest Pain Detail of Chief Complaint: Spasming subxiphoid discomfort and shortness of breath Informant: patient and spouse/S.O. Onset/Context/Ankit g Onset: Today Context: Sudden Onset Timing: Intermittent Quality: Intermittent spasming like pain xiphoid region Current Severity: Moderate Maximum Severity: Moderate Worsened by: Nothing Relieved by: Nothing Associated Symptoms Associated Symptoms: Patient was unaware that he had a fever. He does endorse brown-colored spu Narrative Narrative: Patient is 74-year-old male. He has history of hypertension, COPD and allergies who presents because of spasming like discomfort fever. Patient's pulse ox was 90% on room air at rest. Patient does endorse rhinorrhea and congestion. He does have history of allergies. This is different. He does endorse brown-colored sputum. He also has dyspnea on exertion. He has chronic swelling of his legs for years. He is scheduled for peripheral arterial studies. He has slept in a chair for some time. He is not on oxygen at home. [facility] Medical History Adult BMI 33.0-33.9 kg/sq m Essential hypertension Chest pressure PVC (premature ventricular contraction) Dyspnea on exertion Asthma Moderate persistent allergic asthma THEA (obstructive sleep apnea) Rheumatoid arthritis Syncope and collapse Dizziness and giddiness UMANA (dyspnea on exertion) Snoring Daytime somnolence Abnormal pulmonary function test Asthma, moderate persistent Home Medications ???Medication ???Instructions ???Recorded ???Last Taken ???Type aspirin 81 mg tablet,delayed 81 mg PO DAILY@0800 12/28/1610/24 History release betamethasone dipropionate 0.05 % 1 applic topical DAILY PRN skin 0 09/25/22 Unknown History topical cream irritation horse chestnut 300 mg capsule 300 mg PO DAILY 09/25/22 Unknown H istory [id number]-[id number] 300 mcg-K 60 1 tab PO DAILY 09/25/22 Unknown Hi story mcg-lycop 600 mcg-lutein 300 mcg tablet (Centrum Silver Ultra Men's) sodium chloride 0.65 % nasal spray 2 spray intranasal Q4H PRN dry 0 05/09/23 Unknown History aerosol ([place] Saline) nasal passages metoprolol succinate 50 mg 50 mg PO DAILY #90 tabs 10/28/23 U nknown Rx tablet,extended release 24 hr albuterol sulfate 90 mcg/actuation 2 puff inhalation Q4H PRN Unknown Rx aerosol inhaler (Ventolin HFA) shortness of breath or wheezing #18 grams azelastine 0.05 % eye drops See Rx Instructions ophthalmic Unknown History (eye) .COMPLEX fluticasone furoate 200 1 inh inhalation QDAY #30 ea 11/10 Unknown Rx mcg/actuation blister powder for inhalation (Arnuity Ellipta) amlodipine 5 mg-benazepril 20 mg 1 cap PO DAILY #90 caps 12/17/23 U nknown Rx capsule Allergy/AdvReac Type Severity Reaction Status Date / Time No Known Allergies Allergy Verified 10/20/24 13:28 Family History Mother CAD (coronary artery disease) CVA (cerebral vascular accident) Surgical History History of bilateral cataract extraction H/O skin graft History of left heart catheterization (10/24/21) Social History Smoking Status: Former smoker quit date: 08/19/84 pack-years: 29 second hand exposure: No alcohol intake: never substance use type: does not use caffeine: Yes Type: coffee Number of servings: 2 ROS ROS ED Constitutional Constitutional ED: Reports chills and sweats; Denies fever(s), subjective or weight loss Eyes Eyes: Denies blurry vision, change in vision or diplopia ENT ENT ED: Reports rhinorrhea and sore throat; Denies ear pain Cardiovascular Cardiovascular: Reports chest pain; Denies orthopnea, palpitations, paroxysmal nocturnal dyspnea or racing heartbeat Respiratory/Chest Respiratory/Chest: Reports cough, dyspnea, dyspnea on exertion and sputum; Denies orthopnea or paroxysmal nocturnal dyspnea Gastrointestinal Gastrointestinal: Reports nausea; Denies abdominal pain, constipation, diarrhea, melena or vomiting Genitourinary Genitourinary ED: Denies dysuria, hematuria or urinary frequency Musculoskeletal Musculoskeletal: Denies arthralgias, back pain or myalgias Integumentary Denies abscess, Abrasions or rash Neurologic Neurologic: Reports weakness; Denies headache(s) or paresthesias Endocrine Endocrinology: Denies col (more content not included)... Normal [facility] H AND P Exam - Hospitaliston 10-20-2024 H&P Exam - Hospitalist [facility] Medical Records Department [address] [place] [address] H P Exam - Hospitalist 10/20/24 1701 MR#: [id number] Acct: [id number] Name: PORTIA BAUER Rep #: [id number] : 1950 74 From: Ramón Wheeler DO PCP: Michael Medina NP-Dannie Status:ADM IN Location: MS2 [id number] HPI - General General Date of Admission: 10/20/24 Date of Service: 10/20/24 Chief Complaint: Worsening shortness of breath with URI symptoms HPI Narrative PORTIA BAUER, is a 74 M who presented to [facility] ED on 10/20/2024 with worsening shortness of breath with URI symptoms. Patient developed URI symptoms over the past few days but had significant worsening shortness of breath this morning. In the ED he was found to be hypoxic to 90% on room air. Does not wear any oxygen at baseline. Chest x-ray showed cardiomegaly with vascular congestion, no obvious pneumonia noted. COVID/flu/RSV negative. WBC count elevated at 17,000 and procalcitonin slightly elevated at 0.46. Low-grade fever to 100.0F. Given concern for community-acquired pneumonia with possible new onset CHF, hospitalist was contacted for admission. I saw the patient at bedside in the ED, significant other was present. Patient was sitting at the edge of the bed and did have mild increased work of breathing noted at rest. Had been given a dose of IV Lasix before I saw him and was started to have good urine output with this. Stated that his breathing felt about the same now as it did earlier this morning with only mild improvement with supplemental oxygen. He did have a cough with some sputum production. He denied any current fevers or chills. Denied any chest pain. Did report lower extremity swelling but noted this was chronic for him. No other acute concerns at this time. [facility] Medical History Adult BMI 33.0-33.9 kg/sq m Essential hypertension Chest pressure PVC (premature ventricular contraction) Dyspnea on exertion Asthma Moderate persistent allergic asthma THEA (obstructive sleep apnea) Rheumatoid arthritis Syncope and collapse Dizziness and giddiness UMANA (dyspnea on exertion) Snoring Daytime somnolence Abnormal pulmonary function test Asthma, moderate persistent Home Medications ???Medication ???Instructions ???Recorded ???Last Taken ???Type aspirin 81 mg tablet,delayed 81 mg PO DAILY@0800 12/28/1610/24 History release betamethasone dipropionate 0.05 % 1 applic topical DAILY PRN skin 0 09/25/22 Unknown History topical cream irritation horse chestnut 300 mg capsule 300 mg PO DAILY 09/25/22 Unknown H istory okptzuwu-bd-suywp 300 mcg-K 60 1 tab PO DAILY 09/25/22 Unknown Hi story mcg-lycop 600 mcg-lutein 300 mcg tablet (Centrum Silver Ultra Men's) sodium chloride 0.65 % nasal spray 2 spray intranasal Q4H PRN dry 0 05/09/23 Unknown History aerosol (Winchester Saline) nasal passages metoprolol succinate 50 mg 50 mg PO DAILY #90 tabs 10/28/23 U nknown Rx tablet,extended release 24 hr albuterol sulfate 90 mcg/actuation 2 puff inhalation Q4H PRN Unknown Rx aerosol inhaler (Ventolin HFA) shortness of breath or wheezing #18 grams azelastine 0.05 % eye drops See Rx Instructions ophthalmic Unknown History (eye) .COMPLEX fluticasone furoate 200 1 inh inhalation QDAY #30 ea 11/10 Unknown Rx mcg/actuation blister powder for inhalation (Arnuity Ellipta) amlodipine 5 mg-benazepril 20 mg 1 cap PO DAILY #90 caps 12/17/23 U nknown Rx capsule Allergy/AdvReac Type Severity Reaction Status Date / Time No Known Allergies Allergy Verified 10/20/24 13:28 Family History Mother CAD (coronary artery disease) CVA (cerebral vascular accident) Surgical History History of bilateral cataract extraction H/O skin graft History of left heart catheterization (10/24/21) Social History Smoking Status: Former smoker quit date: 08/19/84 pack-years: 29 second hand exposure: No alcohol intake: never substance use type: does not use caffeine: Yes Type: coffee Number of servings: 2 ROS Constitutional Constitutional: Reports fatigue; Denies chills, fever(s) or weakness Eyes Eyes: Denies change in vision Cardiovascular Cardiovascular: Reports dyspnea on exertion and edema; Denies chest pain Respiratory/Chest Respiratory/Chest: Reports cough, dyspnea, productive cough and shortness of breath with exertion; Denies shortness of breath at rest or wheezing Gastrointestinal Gastrointestinal: Denies abdominal pain Musculoskeletal Musculoskeletal: Denies arthralgias or myalgias Vital Signs Vital Signs Vital Signs: 10/20/ (more content not included)... Normal [facility] Influenza virus A and B and SARS-CoV-2 (COVID-19) and Respiratory syncytial virus RNAOrdered By: Cali Alvarado on 10-20-2024 SARS-CoV-2 (COVID-19) RNA ROSSANA+probe Ql (Unsp spec) [facility] SARS-CoV-2 (COVID-19) RNA ROSSANA+probe Ql (Unsp spec) [facility] L499.0042on 10-20-2024 Trop T Delta 0 Normal [facility] Comment on above: Result Comment: If c linical suspicion for ACS is high, suggest getting a third troponin. Otherwise, stress test or CTCA. Performed By: #### L 499.0043 #### [facility] [address] [place], [address] Trop T High Sen 17 ng/L Normal <=22 [facility] Comment on above: Performed By: #### L 499.0043 #### [facility] [address] [place], [address] L499.0043on 10-20-2024 Trop T Delta 3 Normal [facility] Comment on above: Result Comment: Down stream testing and, if negative, consider other etiologies for elevated troponin. Performed By: #### L 499.0043 #### [facility] [address] [place], [address] Trop T High Sen 15 ng/L Normal <=22 [facility] Comment on above: Performed By: #### L 499.0043 #### [facility] [address] [place], [address] Trop T Delta Normal [facility] Comment on above: Result Comment: ASHLEE CISNEROS. HAVING TROUBLE RUNNING ON ANALYZER Performed By: #### L 499.0043 #### [facility] [address] [place], [address] Trop T High Sen Normal <=22 [facility] Comment on above: Result Comment: ASHLEE AMELIA. HAVING TROUBLE RUNNING ON ANALYZER Performed By: #### L 499.0043 #### [facility] [address] [place], [address] [id number] 10-20-2024 Trop T High Sen 17 ng/L Normal <=22 [facility] Comment on above: Performed By: #### L 499.0043 #### [facility] [address] [place], [address] [id number] 10-20-2024 Natriuretic peptide B (Bld) [Mass/Vol] 844 pg/mL Normal <=900 [facility] Comment on above: Result Comment: Hear t Failure Unlikely: < 300 pg/mL Heart Failure Likely < 50 Years: > 450 pg/mL 50-75 Years: > 900 pg/mL >75 Years: > 1800 pg/mL Performed By: #### L 500.2500, L100.0100 #### [facility] [address] [place], [address] L509.7001on 10-20-2024 Procalcitonin 0.46 ng/mL High <=0.10 [facility] Comment on above: Result Comment: Inte rpretation: <0.10-0.25 ng/mL: Antibiotic therapy discouraged. Bacterial infection unlikely. 0.25-0.50 ng/mL: Antibiotic therapy encouraged. Bacterial infection possible. >0.50 ng/mL: Antibiotic therapy strongly encouraged. Suggestive of presence of bacterial infection. PCT should always be interpreted in the clinical context of the patient. Therefore, clinicians should use the PCT results in conjunction with other laboratory findings and clinical signs of the patient. Performed By: #### L 500.2500, L100.0100 #### [facility] [address] [place], [place], [address] Laboratory - Chemistry and C hemistry - challengeOrdered By: Cali Alvarado on 10-20-2024 AST [Catalytic activity/Vol] 24 U/L <38 [facility] Lactic Acidon 10-20-2024 Lactate [Moles/Vol] 1.6 mmol/L Normal 0.0-2.0 [facility] Comment on above: Order Comment: Y Performed By: #### L 499.0043 #### [facility] [address] [place], [place], [address] Lactic acid measurementOrder ed By: Cali Alvarado on 10-20-2024 Lactate [Moles/Vol] 1.6 mmol/L 0.0-2.0 [facility] M100.678on 10-20-2024 M100.678 SARS-CoV-2 (COVID 19) Negative INFLUENZA A Negative INFLUENZA B Negative RSV PCR Negative Normal [facility] Comment on above: Performed By: #### L 499.0043 #### [facility] [address] [place], [place], [address] No Panel InformationOrdered By: Cali Alvarado on 10-20-2024 Troponin T Hi Sensitivity 4Hr Delta 3 [facility] Comment on above: Downstream testing a nd, if negative, consider other etiologies for elevated troponin. Troponin T Hi Sensitivity 2Hr Delta 0 [facility] Comment on above: If clinical suspicio n for ACS is high, suggest getting a third troponin. Otherwise, stress test or CTCA. Troponin T High Sensitivity 17 ng/L <22 [facility] No Panel InformationOrdered By: Ramón Wheeler on 10-20-2024 Procalcitonin 0.46 ng/mL High <0.11 [facility] Comment on above: Interpretation:<0.10 -0.25 ng/mL: Antibiotic therapy discouraged. Bacterial infection unlikely.0.25-0.50 ng/mL: Antibiotic therapy encouraged. Bacterial infection possible.>0.50 ng/mL: Antibiotic therapy strongly encouraged. Suggestive of presence of bacterial infection.PCT should always be interpreted in the clinical context of the patient. Therefore, clinicians should use the PCT results in conjunction with other laboratory findings and clinical signs of the patient. Respiratory pathogens DNA an d RNA panel ROSSANA+probe (Resp)Ordered By: Ramón Wheeler on 10-20-2024 Respiratory Panel (PCR) [facility] Respiratory pathogens detect ion panel by molecular detection methodOrdered By: Ramón Wheeler on 10-20-2024 Respiratory pathogens DNA and RNA panel ROSSANA+probe (Resp) [facility] Serum globulin measurementOr dered By: Cali Alvarado on 10-20-2024 Globulin (S) [Mass/Vol] 2.8 g/dL 2.2-4.2 [facility] Serum or plasma alanine waddell otransferase (ALT) measurementOrdered By: Cali Alvarado on 10-20-2024 ALT [Catalytic activity/Vol] 20 U/L <47 [facility] Serum or plasma albumin thuy urement (mass/volume)Ordered By: Cali Alvarado on 10-20-2024 Albumin [Mass/Vol] 4.1 g/dL 3.4-4.8 [facility] Serum or plasma albumin/glob ulin mass ratioOrdered By: Cali Alvarado on 10-20-2024 Albumin/Globulin [Mass ratio] 1.5 {ratio} 0.9-2.4 [facility] Serum or plasma alkaline amanda sphatase measurementOrdered By: Cali Alvarado on 10-20-2024 ALP [Catalytic activity/Vol] 94 U/L 40-129 [facility] Total proteinOrdered By: Cali Alvarado on 10-20-2024 Protein [Mass/Vol] 6.9 g/dL 5.9-8.4 [facility] Troponin T.cardiac High sens itivity method [Mass/Vol]Ordered By: Cali Alvarado on 10-20-2024 Troponin T High Sensitivity 4 Hour 15 ng/L <22 [facility] Troponin T High Sensitivity 2 Hour 17 ng/L <22 [facility] Troponin T.cardiac [Mass/vol ume] in Serum or Plasma by High sensitivity methodOrdered By: Cali Alvarado on 10-20-2024 Troponin T.cardiac High sensitivity method [Mass/Vol] 15 ng/L <22 [facility] Troponin T.cardiac High sensitivity method [Mass/Vol] 17 ng/L <22 [facility] Basophil percentageOrdered B y: Jose Thomas on 12-14-2022 Creatinine [Mass/Vol] 1.1 mg/dL 0.70-1.30 [facility] No Panel InformationOrdered By: Jose Thomas on 12-14-2022 Bedside Estimated GFR (eGFR) > 60.0000 mL/min >60 [facility] Clinical Lists Update: Prelo pollution control engineer 06-21-2017 Left ventricular Ejection fraction 65 % Invalid Interpretation Code [facility] [employer] Work Phone: Office Visit: OSAon 06-10-20 17 Documentation of current medications (procedure) Done Invalid Interpretation Code [facility] Phone: Fall risk assessment No Invalid Interpretation Code [facility] Phone: Tobacco smoking status NHIS Never Invalid Interpretation Code [facility] Phone: Tobacco use [facility] Former smoker Invalid Interpretation Code [facility] Phone: Lab Report: Basic Metabolic Profile (BMP)on 12-25-2016 Anion gap 8 mmol/L Invalid Interpretation Code 5-15 [facility] Phone: BUN/Creatinine Ratio 15.6 RATIO Invalid Interpretation Code 10-20 [facility] Phone: Calcium 9.2 mg/dL Invalid Interpretation Code 8.5-10.1 [facility] Phone: Chloride 106 mmol/L Invalid Interpretation Code 98-107 [facility] Phone: CO2 29.0 mmol/L Invalid Interpretation Code 21.0-32.0 [facility] Phone: Creatinine 0.83 mg/dL Invalid Interpretation Code 0.70-1.30 [facility] Phone: eGFR (non-black) 98 mL/min/{1.73_m2} Invalid Interpretation Code >60 [facility] Phone: eGFR (non-black) 119 mL/min/{1.73_m2} Invalid Interpretation Code >60 [facility] Phone: Glucose mass conc 99 mg/dL Invalid Interpretation Code 70-110 [facility] Work Phone: Potassium molar conc 4.2 mmol/L Invalid Interpretation Code 3.5-5.1 [facility] Work Phone: Sodium 143 mmol/L Invalid Interpretation Code 136-145 [facility] Work Phone: Urea nitrogen 13 mg/dL Invalid Interpretation Code 7-18 [facility] Work Phone: Lab Report: CBC W/Diff, Auto matedon 12-25-2016 Absolute Neut 5.5 X10 3/UL Invalid Interpretation Code 2.0-7.7 [facility] Phone: [phone] Basophils/100 WBC Auto (Bld) 0.3 % Invalid Interpretation Code 0-1 [facility] Phone: [phone] Eosinophils/100 leukocytes 2.2 % Invalid Interpretation Code 0-5 [facility] Work Phone: [phone] Erythrocyte distribution width Auto Ratio (RBC) 13.6 % Invalid Interpretation Code 11.6-14.6 [facility] Work Phone: [phone] Erythrocytes (RBC) 4.92 10*6/uL Invalid Interpretation Code 4.6-6.2 [facility] Phone: Hematocrit (HCT) 42.5 % Invalid Interpretation Code 40-54 [facility] Work Phone: [phone] Hemoglobin mass conc (Bld) 14.1 g/dL Invalid Interpretation Code 13.0-16.5 [facility] Work Phone: [phone] Immature granulocytes/100 WBC (Bld) 0.500 % Invalid Interpretation Code 0.0-0.9 [facility] Work Phone: [phone] Lymphocytes 1.40 X10 3/UL Invalid Interpretation Code 0.83-4.51 [facility] Phone: [phone] Lymphocytes/100 leukocytes 18.2 % Low 19-41 [facility] Work Phone: [phone] MCH 28.7 pg Invalid Interpretation Code 27.0-32.0 [facility] Work Phone: [phone] MCHC mass conc (RBC) 33.2 G/GL Invalid Interpretation Code 32-36 [facility] Work Phone: MCV 86.4 fL Invalid Interpretation Code 80-94 [facility] Phone: [phone] Monocytes/100 leukocytes 7.3 % Invalid Interpretation Code 0-10 [facility] Work Phone: [phone] Neutrophils/100 WBC Auto (Bld) 71.5 % High 47-70 [facility] Phone: Platelets 248 10*3/mm3 Invalid Interpretation Code 150-450 [facility] Phone: PMV by Belle 9.8 fL Invalid Interpretation Code 6.2-12.0 [facility] Phone: RDW SD 42.7 fL Invalid Interpretation Code 35.1-43.9 [facility] Phone: WBC (Leukocytes) 7.7 10*3/uL Invalid Interpretation Code 4.4-11.0 [facility] Phone: Lab Report: Partial Thrombop last Timeon 12-25-2016 aPTT 28.6 s Invalid Interpretation Code 24.1-36.2 [facility] Phone: Lab Report: Prothrombin Time w/INRon 12-25-2016 INR Coag RelTime (PPP) 1.0 {INR} Invalid Interpretation Code [facility] Phone: [phone] Prothrombin time (PT) Coag time (PPP) 12.8 s Invalid Interpretation Code 11.7-14.9 [facility] Phone: [phone] Replaced Document: Ha Lopez CG Observationson 12-25-2016 EKG QRS axis -17 deg Invalid Interpretation Code [facility] Phone: [phone] Interpretation Sinus Rhythm - Nonspecific T-abnormality. ABNORMAL Invalid Interpretation Code [facility] Work Phone: [phone] P [place] 52 deg Invalid Interpretation Code [facility] Work Phone: [phone] MS Interval 150 ms Invalid Interpretation Code [facility] Work Phone: [phone] Pulse (Heart Rate) 74 /min Invalid Interpretation Code [facility] Work Phone: [phone] QRS Duration 96 ms Invalid Interpretation Code [facility] Work Phone: [phone] QT Interval new path ms Invalid Interpretation Code [facility] Work Phone: [phone] QTc Albrecht 390 ms Invalid Interpretation Code [facility] Work Phone: [phone] T [place] 90 deg Invalid Interpretation Code [facility] Work Phone: [phone] Chart Maintenanceon 12-25-19 17 Left ventricular Ejection fraction 65 % Invalid Interpretation Code [facility] Work Phone: [phone] Lab Report: Lipid Profileon 11-01-2016 Cholesterol 210 mg/dL High 200 [facility] Work Phone: [phone] HDL Cholesterol 44 mg/dL Invalid Interpretation Code [facility] Work Phone: [phone] LDL Cholesterol 109 mg/dL Invalid Interpretation Code 0-130 [facility] Work Phone: [phone] Triglyceride 285 mg/dL High [facility] Work Phone: [phone] very low density lipoproteins 57 mg/dL High 5-40 [facility] Work Phone: [phone] Lab Report: Liver Profileon 11-01-2016 Alanine aminotransferase (ALT) 38 U/L Invalid Interpretation Code 12-78 [facility] Work Phone: [phone] Albumin 4.0 g/dL Invalid Interpretation Code 3.4-5.0 [facility] Work Phone: [phone] Alkaline phosphatase (ALP) 73 U/L Invalid Interpretation Code 45-117 [facility] Work Phone: [phone] Aspartate aminotransferase (AST) 17 U/L Invalid Interpretation Code 15-37 [facility] Work Phone: Bilirubin (direct) 0.06 mg/dL Invalid Interpretation Code 0.00-0.30 [facility] Work Phone: Bilirubin (total) 0.40 mg/dL Invalid Interpretation Code 0.20-1.00 [facility] Work Phone: Globulin 3.6 g/dL High 2.3-3.5 [facility] Work Phone: Protein 7.6 g/dL Invalid Interpretation Code 6.4-8.2 [facility] Work Phone: Lab Report: T4 Total, Thyrox inon 11-01-2016 Thyroxine (T4) 11.3 ug/dL Invalid Interpretation Code 4.5-12.1 [facility] Work Phone: Lab Report: Thyroid Stim Hor chrissie (TSH)on 11-01-2016 Thyroid stimulating hormone (TSH) 1.59 u[iU]/mL Invalid Interpretation Code 0.358-3.74 [facility] Work Phone: Clinical Lists Update: Prelo pollution control engineer 10-01-2016 Magnesium 2.0 mg/dL Invalid Interpretation Code [facility] [employer] Phone: Vital Signs Date Time Vital Sign Value Performing Clinician Summer mejia 02-22-2025 11:19-0400 Body height 177.8 cm Michael Medina FINANCIAL SERVICES OFFICER-C Work Phone: [facility] 02-22-2025 11:19-0400 Body mass index (BMI) [Ratio] 33.5 kg/m2 Michael Medina FINANCIAL SERVICES OFFICER-C Work Phone: [facility] 02-22-2025 11:19-0400 Body weight 106.14 kg Michael Medina FINANCIAL SERVICES OFFICER-C Work Phone: [facility] 02-22-2025 11:19-0400 Diastolic blood pressure 70 mm[Hg] Michael Medina FINANCIAL SERVICES OFFICER-C Work Phone: [facility] 02-22-2025 11:19-0400 Heart rate 66 /min Michael Leonides FINANCIAL SERVICES OFFICER-C Work Phone: [facility] 02-22-2025 11:19-0400 Respiratory rate 18 /min Michael Leonides FINANCIAL SERVICES OFFICER-C Work Phone: [facility] 02-22-2025 11:19-0400 Systolic blood pressure 137 mm[Hg] Michael Leonides FINANCIAL SERVICES OFFICER-C Work Phone: [facility] 02-09-2025 12:52-0400 Body height 177.8 cm Michaeleric Medina FINANCIAL SERVICES OFFICER-C Work Phone: [facility] 02-09-2025 12:52-0400 Body weight 105.23 kg Michaeleric Medina FINANCIAL SERVICES OFFICER-C Work Phone: [facility] 02-09-2025 12:52-0400 Heart rate 74 /min Michael Leonides FINANCIAL SERVICES OFFICER-C Work Phone: [facility] 02-09-2025 12:52-0400 SaO2% (BldA) [Mass fraction] 94 % Michaeleric Medina FINANCIAL SERVICES OFFICER-C Work Phone: [facility] 12-23-2024 05:10-0400 Body mass index (BMI) [Ratio] 33 kg/m2 Michael Leonides FINANCIAL SERVICES OFFICER-C Work Phone: [facility] 12-23-2024 05:10-0400 Body temperature 97.3 [degF] Michael Estradagar FINANCIAL SERVICES OFFICER-C Work Phone: [facility] 12-23-2024 05:10-0400 Body weight 104.32 kg Michael Medina FINANCIAL SERVICES OFFICER-C Work Phone: [facility] 12-23-2024 05:10-0400 Diastolic blood pressure 59 mm[Hg] Michael Leonides FINANCIAL SERVICES OFFICER-C Work Phone: [facility] 12-23-2024 05:10-0400 Heart rate 62 /min Michael Leonides FINANCIAL SERVICES OFFICER-C Work Phone: [facility] 12-23-2024 05:10-0400 Respiratory rate 20 /min Michael Leonides FINANCIAL SERVICES OFFICER-C Work Phone: [facility] 12-23-2024 05:10-0400 SaO2% (BldA) [Mass fraction] 95 % Michael Leonides FINANCIAL SERVICES OFFICER-C Work Phone: [facility] 12-23-2024 05:10-0400 Systolic blood pressure 115 mm[Hg] Michael Leonides FINANCIAL SERVICES OFFICER-C Work Phone: [facility] 11-23-2024 07:53-0400 Body mass index (BMI) [Ratio] 33.1 kg/m2 Michael Leonides FINANCIAL SERVICES OFFICER-C Work Phone: [facility] 11-23-2024 07:53-0400 Body weight 104.77 kg Michael Leonides FINANCIAL SERVICES OFFICER-C Work Phone: [facility] 11-23-2024 07:53-0400 Diastolic blood pressure 86 mm[Hg] Michael Leonides FINANCIAL SERVICES OFFICER-C Work Phone: [facility] 11-23-2024 07:53-0400 Heart rate 82 /min Michael Leonides FINANCIAL SERVICES OFFICER-C Work Phone: [facility] 11-23-2024 07:53-0400 Respiratory rate 18 /min Michael Leonides FINANCIAL SERVICES OFFICER-C Work Phone: [facility] 11-23-2024 07:53-0400 SaO2% (BldA) [Mass fraction] 95 % Michael Leonides FINANCIAL SERVICES OFFICER-C Work Phone: [facility] 11-23-2024 07:53-0400 Systolic blood pressure 127 mm[Hg] Michael Leonides FINANCIAL SERVICES OFFICER-C Work Phone: [facility] 11-10-2024 07:53-0400 Body mass index (BMI) [Ratio] 32.5 kg/m2 Michael Leonides FINANCIAL SERVICES OFFICER-C Work Phone: [facility] 11-10-2024 07:53-0400 Body temperature 97.4 [degF] Michael Leonides FINANCIAL SERVICES OFFICER-C Work Phone: [facility] 11-10-2024 07:53-0400 Body weight 102.96 kg Michael Leonides FINANCIAL SERVICES OFFICER-C Work Phone: [facility] 11-10-2024 07:53-0400 Diastolic blood pressure 78 mm[Hg] Michael Leonides FINANCIAL SERVICES OFFICER-C Work Phone: [facility] 11-10-2024 07:53-0400 Heart rate 67 /min Michael Leonides FINANCIAL SERVICES OFFICER-C Work Phone: [facility] 11-10-2024 07:53-0400 Respiratory rate 20 /min Michael Leonides FINANCIAL SERVICES OFFICER-C Work Phone: [facility] 11-10-2024 07:53-0400 SaO2% (BldA) [Mass fraction] 95 % Michael Leonides FINANCIAL SERVICES OFFICER-C Work Phone: [facility] 11-10-2024 07:53-0400 Systolic blood pressure 126 mm[Hg] Michael Leonides FINANCIAL SERVICES OFFICER-C Work Phone: [facility] 10-24-2024 12:40-0500 Body temperature 98.6 [degF] Michael Leonides FINANCIAL SERVICES OFFICER-C Work Phone: [facility] 10-24-2024 12:40-0500 Diastolic blood pressure 60 mm[Hg] Michael Leonides FINANCIAL SERVICES OFFICER-C Work Phone: [facility] 10-24-2024 12:40-0500 Heart rate 94 /min Michael Leonides FINANCIAL SERVICES OFFICER-C Work Phone: [facility] 10-24-2024 12:40-0500 Respiratory rate 17 /min Michael Leonides FINANCIAL SERVICES OFFICER-C Work Phone: [facility] 10-24-2024 12:40-0500 SaO2% (BldA) [Mass fraction] 96 % Michael Leonides FINANCIAL SERVICES OFFICER-C Work Phone: [facility] 10-24-2024 12:40-0500 Systolic blood pressure 106 mm[Hg] Michael Medina FINANCIAL SERVICES OFFICER-C Work Phone: [facility] 10-23-2024 06:46-0500 Body mass index (BMI) [Ratio] 31.6 kg/m2 Michael Medina FINANCIAL SERVICES OFFICER-C Work Phone: [facility] 10-23-2024 06:46-0500 Body weight 100.24 kg Michael Medina FINANCIAL SERVICES OFFICER-C Work Phone: [facility] 10-22-2024 10:14-0500 Inhaled oxygen flow rate 3 L/min Michael Medina FINANCIAL SERVICES OFFICER-C Work Phone: [facility] 10-21-2024 12:47-0500 Body height 177.8 cm Michael Medina FINANCIAL SERVICES OFFICER-C Work Phone: [facility] 06-10-2017 07:11-0400 BMI (Body Mass Index) 33.72 kg/m2 Rachel Funes LPN [facility] Work Phone: 06-10-2017 07:11-0400 Body Temperature 98.9 [degF] Rachelmariluz Funes CRYSTAL INSPECTOR [facility] Work Phone: 06-10-2017 07:11-0400 BP Diastolic 80 mm[Hg] Rachel Shantel CRYSTAL INSPECTOR [facility] Work Phone: 06-10-2017 07:11-0400 BP Systolic 144 mm[Hg] Rachelmariluz Funes CRYSTAL INSPECTOR [facility] Work Phone: 06-10-2017 07:11-0400 Height 177.8 cm Rachel Funes CRYSTAL INSPECTOR [facility] Work Phone: 06-10-2017 07:11-0400 Pulse (Heart Rate) 79 /min Rachel Funes LPN [facility] Work Phone: 06-10-2017 07:11-0400 Respiratory Rate 18 /min Rachel Funes CRYSTAL INSPECTOR [facility] [place] Work Phone: 06-10-2017 07:11-0400 Weight 106.6 kg Rachel Funes LPN [facility] Work Phone: Encounters Encounter Date Encounter Type Care Provider Facility Start: 02-22-2025 End: 02-22-2025 Patient encounter procedure Darleen Mitchell FINANCIAL SERVICES OFFICER-C -[facility] Work Phone: Start: 02-22-2025 End: 02-22-2025 ambulatory Michael Leonides FINANCIAL SERVICES OFFICER-C Work Phone: -[facility] Start: 02-11-2025 [facility] Facility:[facility] Start: 02-11-2025 Non-patient / Non-visit Dr. Peyman bolton DO -[facility] Start: 02-09-2025 End: 02-09-2025 ambulatory [facility] FINANCIAL SERVICES OFFICER-C Work Phone: -Pulmonary Services/Neurology Start: 02-09-2025 End: 02-09-2025 Patient encounter procedure AVERY Olivares -Pulmonary Services/Neurology Work Phone: Start: 02-09-2025 End: 02-09-2025 ambulatory [facility] Facility:[facility] Start: 01-07-2025 End: 01-07-2025 ambulatory [facility] FINANCIAL SERVICES OFFICER-C Work Phone: [facility] Work Phone: Start: 01-07-2025 End: 01-07-2025 Patient encounter procedure AVERY Olivares -[facility] Work Phone: Start: 01-07-2025 End: 01-07-2025 [facility] Facility:[facility] Start: 12-23-2024 End: 12-23-2024 Patient encounter procedure AVERY Olivares -[facility] Work Phone: Start: 12-23-2024 End: 12-23-2024 ambulatory [facility] Facility:[facility] Start: 12-18-2024 Non-patient / Non-visit Darleen nelson FINANCIAL SERVICES OFFICER-C -[facility] Work Phone: Start: 12-18-2024 ambulatory [facility] Start: 12-16-2024 [facility] Start: 12-16-2024 Non-patient / Non-visit Dr. Christopher Of jyotsna WOO -[facility] Start: 12-15-2024 End: 12-15-2024 [facility] [facility] FINANCIAL SERVICES OFFICER-C Work Phone: [facility] Work Phone: Start: 12-15-2024 End: 12-15-2024 Patient encounter procedure Darleen Mitchell FINANCIAL SERVICES OFFICER-C -Cardiovascular Services Work Phone: Start: 12-15-2024 End: 12-15-2024 [facility] Facility:[facility] Start: 12-08-2024 End: 12-08-2024 Patient encounter procedure AVERY Olivares -Pulmonary Services/Neurology Work Phone: Start: 12-08-2024 End: 12-08-2024 [facility] Facility:[facility] Start: 11-27-2024 Non-patient / Non-visit Dr. Christopher Of jyotsna WOO -[facility] Work Phone: Start: 11-27-2024 [facility] Facility:[facility] Start: 11-27-2024 Registered Referred Darleen Mitchell FINANCIAL SERVICES OFFICER -C -Cardiovascular Services Work Phone: Start: 11-23-2024 End: 11-23-2024 [facility] FINANCIAL SERVICES OFFICER-C Work Phone: [facility] Work Phone: Start: 11-23-2024 End: 11-23-2024 Patient encounter procedure Darleen Mitchell NP-C -Laboratory Work Phone: Start: 11-23-2024 End: 11-23-2024 Patient encounter procedure Darleen Mitchell NP-C -[facility] Work Phone: Start: 11-23-2024 End: 11-23-2024 [facility] Facility:[facility] Start: 11-23-2024 End: 11-23-2024 ambulatory [facility] Facility:[facility] Start: 11-10-2024 End: 11-10-2024 Patient encounter procedure FINANCIAL SERVICES OFFICER Reyna Olivares -[place] [facility] Work Phone: Start: 11-10-2024 End: 11-10-2024 ambulatory [facility] Facility:[facility] Start: 10-28-2024 Non-patient / Non-visit Dr. John ojeda MD -[facility] Start: 10-28-2024 End: 10-28-2024 [facility] FINANCIAL SERVICES OFFICER-C Work Phone: [facility] Work Phone: Start: 10-28-2024 End: 10-28-[address] Papa Schuler DP -Cardiovascular Services Work Phone: Start: 10-28-2024 End: 10-28-2024 [facility] Facility:[facility] Start: 10-24-2024 Non-patient / Non-visit Dr. Agustin souza MD -[facility] Work Phone: Start: 10-23-2024 End: 10-23-2024 [facility] Facility:[facility] Start: 10-23-2024 End: 10-23-2024 Non-patient / Non-visit Dr. Agustin Mcarthur [facility] Work Phone: Start: 10-22-2024 Non-patient / Non-visit Dr. Agustin souza MD -[facility] Work Phone: Start: 10-21-2024 ambulatory [facility] Facility:[facility] Start: 10-21-2024 Non-patient / Non-visit Dr. Zachary heart MD -[facility] Start: 10-21-2024 Non-patient / Non-visit Dr. Agustin souza MD -[facility] Work Phone: Start: 10-20-2024 ambulatory Ramón Mosteller Fac ility:[facility] Start: 10-20-2024 End: 10-24-2024 Evaluation and management of inpatient Dr. Agustin Mcarthur MD -Medical Surgical 2 Work Phone: Start: 10-11-2023 End: 10-11-2023 ambulatory [facility] Work Phone: Start: 10-11-2023 End: 10-11-2023 Patient encounter procedure [facility]-Cardiovascula r Services Work Phone: Start: 03-27-2023 End: 03-27-2023 ambulatory [facility] Work Phone: Start: 03-27-2023 End: 03-27-2023 Patient encounter procedure [facility]-Radiology, [place] Work Phone: Start: 12-14-2022 End: 12-14-2022 Patient encounter procedure [facility]-MRI - [facility] Work Phone: Procedures Date Procedure Procedure Detail Performing Clinician Start: 12-15-2024 Radionuclide imaging of perfusion of myocardium under exercise stress Michael Medina FINANCIAL SERVICES OFFICER-C Work Phone: Start: 10-24-2024 Gram stain microscopy R achel Leonides FINANCIAL SERVICES OFFICER-C Work Phone: Start: 10-24-2024 Respiratory microbia l culture Michael Leonides FINANCIAL SERVICES OFFICER-C Work Phone: Start: 10-24-2024 Estimated creatinine clearance Michael Leonides FINANCIAL SERVICES OFFICER-C Work Phone: Start: 10-22-2024 Serum inorganic phos phate measurement Michael Leonides FINANCIAL SERVICES OFFICER-C Work Phone: Start: 10-21-2024 Carbon dioxide measu rement, partial pressure Michael Leonides FINANCIAL SERVICES OFFICER-C Work Phone: Start: 10-21-2024 Gases blood o2 satur ation only direct thuy Michael Leonides FINANCIAL SERVICES OFFICER-C Work Phone: Start: 10-21-2024 Measurement of parti al pressure of oxygen in blood Michael Leonieds FINANCIAL SERVICES OFFICER-C Work Phone: Start: 10-21-2024 Oxygen measurement Vickie Medina FINANCIAL SERVICES OFFICER-C Work Phone: Start: 10-21-2024 Nucleic acid assay Vickie Medina FINANCIAL SERVICES OFFICERJeffersonC Work Phone: Start: 10-21-2024 CT angiography of ch est with contrast Michael Medina FINANCIAL SERVICES OFFICER-C Work Phone: Start: 10-20-2024 X-ray of chest, PA a nd lateral views Michael Medina FINANCIAL SERVICES OFFICER-C Work Phone: Start: 10-20-2024 SARS-CoV-2, Influenz a & RSV (PCR) Michael Medina FINANCIAL SERVICES OFFICER-C Work Phone: Start: 03-27-2023 Plain chest X-ray Start: 12-14-2022 MRI of brain with contrast Start: 06-10-2017 End: 06-11-2017 Demo&/eval of pt utiliz aersl gen/neb/inhlr/ip Quang Evelyn Norberto Work Phone: Start: 01-23-2017 End: 01-24-2017 Referral [...] MD Work Phone: Start: 12-25-2016 End: 12-25-2016 DJN Len Saeed MD Work Phone: Start: 12-25-2016 End: 12-25-2016 Ecg routine ecg w/least 12 lds w/i&r Len Saeed MD Work Phone: Start: 12-25-2016 End: 12-25-2016 Follow Up Appt 6 months Len Saeed MD Work Phone: Start: 12-25-2016 [...] MD Work Phone: Start: 10-30-2016 End: 12-20-2016 DJN Len Saeed MD Work Phone: Start: 10-30-2016 [...] Treatment Date Care Activity Detail Author Start: 03-31-2025 Measurement of respiratory function [facility] Start: 01-21-2025 Walking distance 6 minutes [facility] Start: 12-08-2024 Measurement of respiratory function [facility] Start: 10-24-2024 Microscopic observation [Identifier] in Unspecified specimen by Gram stain [facility] Start: 10-24-2024 Respiratory Culture Respiratory Culture [facility] Start: 10-24-2024 Patient discharge [facility] Start: 10-21-2024 [facility] Start: 10-21-2024 [facility] Start: 10-21-2024 Elevation of affected extremity [facility] Start: 10-21-2024 Notification of physician [facility] Start: 10-21-2024 Patient education [facility] Start: 10-21-2024 Referral to occupational therapist [facility] Start: 10-21-2024 Referral to service [facility] Start: 10-20-2024 End: 10-21-2024 [facility] Start: 10-20-2024 Ambulation without limitation [facility] Start: 10-20-2024 Assessment of risk of venous thromboembolism [facility] Start: 10-20-2024 Inhalation therapy procedure [facility] Start: 10-20-2024 Insertion of catheter into peripheral vein [facility] Start: 10-20-2024 Measuring intake and output [facility] Start: 10-20-2024 Oxygen therapy [facility] Start: 10-20-2024 Providing care according to standard [facility] Start: 10-20-2024 Referral to service [facility] Start: 10-20-2024 Following clinical pathway protocol [facility] Start: 10-20-2024 Admission procedure [facility] Start: 10-20-2024 Patient referral to dietitian [facility] Start: 11-01-2017 End: 11-02-2016 *Hepatic Function Panel *Hepatic Function Panel [facility]monary [facility] Work Phone: Start: 11-01-2017 End: 11-02-2016 Lipid panel [AGGREGATE] *Lipid Profile CC PCP [facility] Work Phone: Start: 09-09-2017 End: 09-09-2017 Appointment Appointment [facility] Work Phone: Start: 06-27-2017 End: 06-27-2017 Appointment Appointment [facility] Work Phone: Start: 06-10-2017 End: 06-10-2017 [facility] Work Phone: Start: 06-10-2017 End: 06-10-2017 Follow Up Appt 3 months Follow Up Appt 3 months [facility] Work Phone: Start: 05-19-2017 End: 03-05-2017 Pulmonary Function Test - complete Pulmonary Function Test - complete [facility] Work Phone: Start: 03-05-2017 End: 03-05-2017 Follow Up Appt 3 months Follow Up Appt 3 months [facility] Work Phone: Start: 01-23-2017 End: 03-25-2017 Pulmonary Referral Pulmonary Referral Peyman Wolfe DO, [facility] [place], [address] [place] [address], [address], [place], [address] [facility] Work Phone: Start: 12-25-2016 End: 12-25-2016 *BMP *BMP [facility] Work Phone: Start: 12-25-2016 End: 12-25-2016 *CBC with Differential *CBC with Differential [facility] Work Phone: Start: 12-25-2016 End: 12-25-2016 aPTT *PTT-Partial Thromboplastin Time [facility] Work Phone: Start: 12-25-2016 End: 12-26-2016 Chest x-ray X-Ray, Chest, PA & Lateral [facility] Work Phone: Start: 12-25-2016 End: 12-25-2016 BRANDIE DIEGO [facility] Phone: Start: 12-25-2016 End: 12-25-2016 Ecg routine ecg w/least 12 lds w/i&r EKG (In office) [facility] Phone: Start: 12-25-2016 End: 12-25-2016 Follow Up Appt 6 months Follow Up Appt 6 months [facility] Phone: Start: 12-25-2016 End: 12-25-2016 INR Coag RelTime (PPP) *PT/INR [facility] Phone: Start: 12-25-2016 End: 12-25-2016 Left Heart Cath Left Heart Cath [facility] Phone: Start: 12-25-2016 End: 12-25-2016 Pulmonary Function Test - complete Pulmonary Function Test - complete [facility] Phone: Start: 10-30-2016 End: 11-01-2016 *Hepatic Function Panel *Hepatic Function Panel [facility] Phone: Start: 10-30-2016 End: 10-30-2016 Complete sleep workup (PSG,CPAP as indicated) & Follow up Complete sleep workup (PSG,CPAP as indicated) & Follow up [facility] Phone: Start: 10-30-2016 End: 12-20-2016 BRANDIE DIEGO [facility] Phone: Start: 10-30-2016 End: 12-20-2016 Ecg routine ecg w/least 12 lds w/i&r EKG (In office) [facility] Phone: Start: 10-30-2016 End: 12-20-2016 Follow Up Appt 1 month Follow Up Appt 1 month [facility] Phone: Start: 10-30-2016 End: 11-01-2016 Lipid panel [AGGREGATE] *Lipid Profile CC PCP [facility] Phone: Start: 10-30-2016 End: 10-30-2016 Stress Echocardiogram - Dobutamine Stress Echocardiogram - Dobutamine [facility] Phone: Start: 10-30-2016 End: 11-01-2016 Thyroid stimulating hormone (TSH) *TSH [facility] Phone: Start: 10-30-2016 End: 11-01-2016 Thyroxine (T4) *T4 (Total) [facility] Phone: Start: 10-30-2016 End: 10-30-2016 Xtrnl mobile cv telemetry w/i&report 30 days 30 Day Holter Monitor [facility] Phone: Bacteria identified in Sputum by Respiratory culture [facility] Cardiac event recording [facility] Continuous pulse oximetry [facility] CT Chest WO contrast [facility] Patient Education LOW%20FAT%20DIET [facility] Phone: Patient referral [facility] Work Phone: Payers Date Payer Category Payer Self-pay [id number] 2023 Medicare [id number] 2015 Unknown [employer] [place] [id number] 2015 Medicare MEDICARE PART A B [id number] Medicare [employer] MEDICARE PPO [id number] Private Health Insurance AET[employer] SR SUPPLEM ENT INS [id number] Private Health Insurance [id number] Unknown [id number] 2.16.840.1.406952.3.579.2. 462 Unknown [id number] 2.16.840.1.299255.3.579.2. 462 Unknown [id number] 2.16.840.1.129345.3.579.2. 462 Unknown [id number] 2.16.840.1.327416.3.579.2. 462 Unknown [id number] 2.16.840.1.659987.3.579.2. 462 Unknown [id number] 2.16.840.1.420700.3.579.2. 462 Unknown [id number] 2.16.840.1.599934.3.579.2. 462 Unknown [id number] 2.16.840.1.492314.3.579.2. 462 Unknown [id number] 2.16.840.1.676580.3.579.2. 462 Unknown [id number] 2.16.840.1.512853.3.579.2. 462 Unknown [id number] 2.16.840.1.659726.3.579.2. 462 Unknown [id number] 2.16.840.1.877361.3.579.2. 462 Unknown [id number] 2.16.840.1.672858.3.579.2. 462 Unknown [id number] 2.16.840.1.549081.3.579.2. 462 Unknown [id number] 2.16.840.1.284237.3.579.2. 462 Unknown [id number] 2.16.840.1.593276.3.579.2. 462 Unknown [id number] 2.16.840.1.827796.3.579.2. 462 Unknown [id number] 2.16.840.1.687529.3.579.2. 462 Unknown [id number] 2.16.840.1.026654.3.579.2. 462 Unknown [id number] 2.16.840.1.264461.3.579.2. 462 Unknown [id number] 2.16.840.1.855668.3.579.2. 462 Unknown [id number] 2.16.840.1.796028.3.579.2. 462 Unknown [id number] 2.16.840.1.386630.3.579.2. 462 Unknown [id number] 2.16.840.1.404819.3.579.2. 462 Unknown [id number] 2.16.840.1.078583.3.579.2. 462 Social History Date Type Detail Facility Start: 09-25-2022 End: 05-09-2023 Tobacco smoking status [facility] Unknown if ever smoked [facility] Start: 1950 Sex Assigned At Male [facility] Start: 10-20-2024 End: 10-20-2024 Tobacco smoking status ALIS Ex-smoker (finding) [facility] Start: 10-24-2024 End: 11-27-2024 Sex Male (finding) [facility] Goals Date Patient Goal Desired Activity /State Functional Status Date Assessment Result Facility 10-24-2024 Functional status Ambulates;Chair [facility] Work Phone: Mental Status Date Assessment Result Facility 10-24-2024 Cognitive function Voice/Name [facility] Work Phone: Clinical Notes 10-20-2024 to 02-11-2025 Note Date & Type Note Facility 02-11-2025 Procedure note [facility] 11-10-2024 Evaluation note Diagnosis Onset Date Resolution Solitary pulmonary nodule acute November 10, 2024 9:34am Asthma chronic November 10 9:34am THEA (obstructive sleep apnea) chronic November 10, 2024 9:34am Afib acute November 23 10:54am Decreased left ventricular systolic function acute November 23, 2024 10:54am UMANA (dyspnea on exertion) acute November 23, 2024 10:54am Essential hypertension chronic Ap 2024 10:54am THEA (obstructive sleep apnea) chronic November 23, 2024 10:54am Restrictive airway disease acute December 23, 2024 9: 25am Solitary pulmonary nodule acute December 23, 2024 9: 25am Asthma chronic December 23, 2024 9:25am THEA (obstructive sleep apnea) chronic December 23, 2024 9: 25am Afib acute February 22, 2025 11:15am Decreased left ventricular systolic function acute February 22, 2025 11:15am UMANA (dyspnea on exertion) acute February 22, 2025 11:15am Essential hypertension chronic 2024 11:15am THEA (obstructive sleep apnea) chronic February 22, 2025 11:15am [facility] Work Phone: 1(109) 607-873203-08-2025 Discharge summary Author Agustin Mcarthur [facility] Note Date/Time October 24, 2024 9:16 am [facility] Medical Records Department [address] [place] [address] Discharge Summary 10/24/24 0911 MR#: [id number] Acct: [id number] Name: JUANCARLOSPORTIA Rep #:[id number] From: Agustin Mcarthur MD PCP: RAKAN Ackerman Status:ADM IN Location: [place] [address] Providers Date of Admission: 10/20/24 Date of Discharge: 10/24/24 Primary Care Physician: RAKAN Ackerman Reason For Visit: HYPOXIA FROM [facility] P Diagnosis Discharge Diagnosis (1) Hypoxia: Status: Acute Code(s): R09.02 - Hypoxemia (2) CAP (community acquired pneumonia): Status: Acute Code(s): J18.9 - Pneumonia, unspecified organism Plan Patient is a 74-year-old gentleman who presented with worsening shortness of breath and upper respiratory tract symptomsPatient was also found to have low-grade fever and assessment of suspected viral pneumonia and congestive heart failure made admitted to regular nursing floor for further management 1. Acute hypoxic respiratory failure (developed following hospitalization) ? Secondary to combination of suspected viral pneumonia CHF and asthma. Patientplaced on supplemental oxygen requisition sent for COVID flu and RSV all of which have remained negative to date. 10/22/2024; patient went into acute respiratory distress the day prior. Patient was found to be tachypneic with respiratory rates in the 28 using accessory muscles in breathing. Subsequently ordered ABG as well as CT of the chest whichwas negative for PE however did show Mild airspace consolidation and bronchial thickening in the bilateral lower lobes consistent with inflammation.. Patient remains on antibiotic therapy as well as diuretic therapy and remains in the negative fluid balance of 1 L over the past 24 hours ? 10/23/2024 patient has been weaned off oxygen plan is to continue with pulmonarytoileting 2. Acute on chronic congestive heart failure with preserved ejection fraction ? Echo from 12/29/2020 demonstrated EF of 55%. Patient admitted to monitored bed, managed with strict input and output, daily weight, fluid restriction, low- sodium diet as well as diuretic therapy with furosemide. Repeat echo ordered for subsequent eval 10/22/2024; repeat echo demonstrated Mild concentric left ventricular hypertrophy.Borderline LV global systolic dysfunction. Estimated LVEF 45 to 50%. Stage I diastolic dysfunction. The left atrium is severely enlarged. Mild tricuspid valve insufficiency. Right ventricular systolic pressure estimated to be 47 mmHg. Mild aortic valve stenosis. Mean peak gradient 19 mmHg. Mild aortic valve regurgitation. The study was technically difficult. Patient remains on diuretic therapy ? 10/23/2024; patient continues to respond to diuretic therapy in negative fluid balance of 1.7 L over the past 24 hours 3. Suspected viral pneumonia ? With superimposed bacterial pneumonia given patient leukocytosis patient was started on ceftriaxone as well as azithromycin 4. Hypertension ? Blood pressure controlled, home medications continued with dose adjustment as needed 5. Class I obesity with BMI of 33.2 ? Complicating care weight loss advised 6. A 0.7 cm non-calcified micronodule in the right apex. Patient informed of the result and the need to follow-up with primary care physician for repeat imaging studies in 6-month 7. Paroxysmal atrial fibrillation ? Patient had brief episodes of A-fib with variable rate. Currently back in sinus rhythm we will continue with continuous telemetry monitoring ? 10/24/2024Patient went back into A-fib patient was subsequently started on systemic anticoagulation with apixaban. Currently on beta-blockers for rate control 8. DVT prophylaxis ? On enoxaparin 9. Physical deconditioning ? Requested for PT OT eval and social media marketing manager to assist with discharge planning Time spent in the patient's overall evaluation,decision-making process, review of diagnostic data, adjustment of management, discussion with other providers, nursing nursing and ancillary staff involved in patient's care documentation, 36minutes Medications at Discharge Home Medications aspirin 81 mg tablet,delayed release 81 mg PO DAILY@0800 12/28/16 betamethasone dipropionate 0.05 % topical cream 1 applic topical DAILY PRN skin irritation 09/25/22 horse chestnut 300 mg capsule 300 mg PO DAILY 09/25/22 roygbfjw-rl-rjlcf 300 mcg-K 60 mcg-lycop 600 mcg-lutein 300 mcg tablet (Centrum Silver Ultra Men's) 1 tab PO DAILY 09/25/22 sodium chloride 0.65 % nasal spray aerosol ([place] Saline) 2 spray intranasal Q4H PRN dry nasal passages 05/09/23 albuterol sulfate 90 mcg/actuation aerosol inhaler (Ventolin HFA) 2 puff inhalation Q4H PRN shortness of breath or wheezing #18 grams 11/11/23 azelastine 0.05 % eye drops See Rx Instructions ophthalmic (eye) .COMPLEX 11/11/23 fluticasone furoate 200 mcg/actuation blister powder for inhalation (Arnuity Ellipta) 1 inh inhalation QDAY #30 ea 11/11/23 apixaban 5 mg tablet (Eliquis) 5 mg PO BID 90 days #180 tabs 10/24/24 cefdinir 300 mg capsule 300 mg PO BID #10 caps 10/24/24 diltiazem HCl 120 mg capsule,extended release 24 hr (Cartia XT) 120 mg PO BID 90days #180 caps 10/24/24 furosemide 40 mg tablet (Lasix) 40 mg PO DAILY #60 tabs 10/24/24 guaifenesin 1,200 mg tablet, extended release 12 hr (Mucus Relief ER) 1,200 mg PO BID #20 tabs 10/24/24 metoprolol succinate 50 mg tablet,extended release 24 hr 50 mg PO DAILY #90 tabs10/24/24 Physical Exam Narrative GENERAL: cooperative HEENT: Atraumatic; normocephalic EYES; Anicteric, Normal Conjunctiva NECK; supple, normal thyroid, RESPIRATORY: Diminished to auscultation CARDIOVASCULAR: Regular S1 S2, GI: soft, normoactive bowel sounds, : No Renal angle tenderness; EXTREMITIES: edema, no clubbing, MUSCULOSKELETAL: no muscle wasting NEURO: Awake; no lateralizing signs. SKIN: No Rash PSYCH; Flat affect Weight / BMI Weight Weight: 100.244 kg Body Mass Index (BMI) 31.6 ABG / Lab / Microbiology Data 10/24/24 05:49 10/24/24 05:49 Laboratory: Laboratory Results - last 24 hr 10/24/24 05:49: WBC 8.0, RBC 5.30, Hgb 15.0, Hct 45.1, MCV 85.1, MCH 28.3, MCHC 33.3, RDW Std Deviation 42.7, RDW Coeff of Shonna 13.8, Plt Count 276, MPV 10.7, Immature Gran % (Auto) 0.400, Neut % (Auto) 66.3, Lymph % (Auto) 19.2, Elliott % (Auto) 7.8, Eos % (Auto) 5.5 H, Baso % (Auto) 0.8, Absolute Neuts (auto) 5.3, Absolute Lymphs (auto) 1.53, Nucleated RBC % 0, Sodium 140, Potassium 3.4, Chloride 100, Carbon Dioxide 25.8, Anion Gap 14, BUN 30 H, Creatinine 1.06, Estim Creat Clear Calc 72.55, Est GFR (MDRD) Non-Af 74, BUN/Creatinine Ratio 28.4 H, Glucose 107 H, Calcium 9.2 Microbiology: Microbiology 10/21/24 00:15 Mucosa - Nasopharyngeal Respiratory Panel (PCR) - Final 10/20/24 14:20 Mucosa - Nose SARS-CoV-2, Influenza & RSV (PCR) - Final D/C Instructions Discharge Diet: 2000 mg Sodium Diet Discharge Activity: Return to Normal Activity Call your doctor if you observe: Fever of 101 or Higher, Shortness of breath, Fainting spells and Chest pain DC O2, CPAP, BIPAP Needs Home O2 Discharge instructions: No Meaningful Use Info Meaningful Use Meaningful Use Diagnoses (Choose all that apply): CHF CHF NOELLE/ARB ordered at discharge?: No Reason NOELLE/ARB not ordered?: Not indicated Documented LVEF (%): 55 Ischemic Stroke Statin Dosing Therapy Reference: STATIN DOSE THERAPY REFERENCE: * Patients > 75 years receive moderate or high dose statin therapy. * Patients 75 years or YOUNGER should receive HIGH intensity statin dose unless contraindicated. You will be required to document reason for non-treatment if statin daily dose does not meet guidelines. HIGH DOSE STATIN THERAPY DAILY Atorvastatin > than or = to 40 mg Rosuvastatin > than or = to 20 mg Amlodipine + Atorvastatin > than or = to 2.5/40 mg Ezetimibe + Simvastatin 10/80 mg Simvastatin 80mg Discharge Plan Admission Admit Date/Time: 10/20/24 17:14 Attending Provider: Agustin Mcarthur Primary Care Provider: Michael Medina Consulting Providers: Ramón Wheeler Discharge Orders/Prescriptions Prescriptions: New Eliquis 5 mg Tablet 5 mg PO BID 90 Days Qty: 180 0RF diltiazem HCl [Cartia XT] 120 mg capsule,extended release 24hr 120 mg PO BID 90 Days Qty: 180 0RF cefdinir 300 mg capsule 300 mg PO BID Qty: 10 0RF furosemide [Lasix] 40 mg tablet 40 mg PO DAILY Qty: 60 0RF guaifenesin [Mucus Relief ER] 1,200 mg tablet extended release 12hr 1,200 mg PO BID Qty: 20 0RF Continued horse chestnut 300 mg capsule 300 mg PO DAILY betamethasone dipropionate 0.05 % cream 1 applic topical DAILY PRN (Reason: skin irritation) Centrum Silver Ultra Men's 300-600-300 mcg tablet 1 tab PO DAILY Winchester Saline 0.65 % aerosol,spray 2 spray intranasal Q4H PRN (Reason: dry nasal passages) azelastine 0.05 % drops See Rx Instructions ophthalmic (eye) .COMPLEX Rx Instructions: 2 drops 1 eye BID (rotating) into the eye(s); Arnuity Ellipta 200 mcg/actuation blister with device 1 inh inhalation QDAY Qty: 30 6RF Rx Instructions: administer at approximately the same time(s) each day albuterol sulfate [Ventolin HFA] 90 mcg/actuation HFA aerosol inhaler 2 puff inhalation Q4H PRN (Reason: shortness of breath or wheezing) Qty: 18 6RF aspirin 81 MG tablet 81 mg PO DAILY@0800 metoprolol succinate 50 mg tablet extended release 24 hr 50 mg PO DAILY Qty: 90 3RF Discontinued amlodipine-benazepril 5-20 mg capsule 1 cap PO DAILY Qty: 90 3RF Referrals / Follow Up: Michael Medina NP-C [Primary Care Provider] - Within 1 Week Disposition Disposition (needs filled in before D/C Order can be placed): Home, Self Care Charges/Coding Visit Charges Inpatient E&M: 66424 Disch Hosp >30min 10/24/24 0916 <Electronically signed by Agustin Mcarthur MD> Cosigner Signature (if applicable): CC: FINANCIAL SERVICES OFFICER-C Michael Medina; Dr. Agustin Mcarthur MD~ Signed [facility] Work Phone: 1(323) 908-734703-08-2025 Progress note Author Agustin Mcarthur [facility] Note Date/Time October 24, 2024 9:10 am [facility] Medical Records Department [address] [place] [address] Progress Note - Hospitalist 10/24/24741 MR#: [id number] Acct: [id number] Name: PORTIA BAUER Rep #:[id number] : 1950 74 From: Agustin Mcarthur MD PCP: RAKAN Ackerman Status:ADM IN Location: [place] [address] Reason for Visit Reason for Visit: Diagnoses Pneumonia, unspecified organism (10/20/24) Hypoxemia (10/20/24) Subjective Subjective Patient went back into A-fib patient was subsequently started on systemic anticoagulation with apixaban. Currently on beta-blockers for rate control Objective Data Objective Data Vital Signs: Vital Signs Temp Pulse Resp BP Pulse Ox O2 Del Method O2 Flow Rate 97.2 F L 78 18 110/75 99 Room Air 3 10/24/24 02:00 10/24/24 02:00 10/24/24 02:00 10/24/24 02:00 10/24/24 02:00 10/24/24 02:00 10/22/24 10:14 Oxygen Flow Rate (L/min) 3 Oxygen Delivery Method Room Air Weight: 100.244 kg Body Mass Index (BMI) 31.6 Intake & Output: Intake and Output for Last 24 Hours 10/22/24 10/23/24 10/24/24 23:59 23:59 23:59 Intake Total 1325 / 1325 305 / 505 200 / 200 Output Total 3150 / 3650 1850 / 1850 250 / 250 Balance -1825 / -2325 -1545 / -1345 -50 / -50 Lab / Micro Data 10/24/24 05:49 10/24/24 05:49 Labs: Laboratory Results - last 24 hr 10/24/24 05:49: WBC 8.0, RBC 5.30, Hgb 15.0, Hct 45.1, MCV 85.1, MCH 28.3, MCHC 33.3, RDW Std Deviation 42.7, RDW Coeff of Shonna 13.8, Plt Count 276, MPV 10.7, Immature Gran % (Auto) 0.400, Neut % (Auto) 66.3, Lymph % (Auto) 19.2, Elliott % (Auto) 7.8, Eos % (Auto) 5.5 H, Baso % (Auto) 0.8, Absolute Neuts (auto) 5.3, Absolute Lymphs (auto) 1.53, Nucleated RBC % 0, Sodium 140, Potassium 3.4, Chloride 100, Carbon Dioxide 25.8, Anion Gap 14, BUN 30 H, Creatinine 1.06, Estim Creat Clear Calc 72.55, Est GFR (MDRD) Non-Af 74, BUN/Creatinine Ratio 28.4 H, Glucose 107 H, Calcium 9.2 Micro: Microbiology 10/21/24 00:15 Mucosa - Nasopharyngeal Respiratory Panel (PCR) - Final 10/20/24 14:20 Mucosa - Nose SARS-CoV-2, Influenza & RSV (PCR) - Final Physical Exam Narrative GENERAL: cooperative but dyspneic at rest HEENT: Atraumatic; normocephalic EYES; Anicteric, Normal Conjunctiva NECK; supple, normal thyroid, RESPIRATORY: Diminished to auscultation CARDIOVASCULAR: Regular S1 S2, GI: soft, normoactive bowel sounds, : No Renal angle tenderness; EXTREMITIES: edema, no clubbing, MUSCULOSKELETAL: no muscle wasting NEURO: Awake; no lateralizing signs. SKIN: No Rash PSYCH; Flat affect Assessment & Plan Assessment/Plan (1) Hypoxia: (2) CAP (community acquired pneumonia): PLAN: Plan Patient is a 74-year-old gentleman who presented with worsening shortness of breath and upper respiratory tract symptomsPatient was also found to have low-grade fever and assessment of suspected viral pneumonia and congestive heart failure made admitted to regular nursing floor for further management 1. Acute hypoxic respiratory failure (developed following hospitalization) ? Secondary to combination of suspected viral pneumonia CHF and asthma. Patientplaced on supplemental oxygen requisition sent for COVID flu and RSV all of which have remained negative to date. 10/22/2024; patient went into acute respiratory distress the day prior. Patient was found to be tachypneic with respiratory rates in the 28 using accessory muscles in breathing. Subsequently ordered ABG as well as CT of the chest whichwas negative for PE however did show Mild airspace consolidation and bronchial thickening in the bilateral lower lobes consistent with inflammation.. Patient remains on antibiotic therapy as well as diuretic therapy and remains in the negative fluid balance of 1 L over the past 24 hours ? 10/23/2024 patient has been weaned off oxygen plan is to continue with pulmonarytoileting 2. Acute on chronic congestive heart failure with preserved ejection fraction ? Echo from 12/29/2020 demonstrated EF of 55%. Patient admitted to monitored bed, managed with strict input and output, daily weight, fluid restriction, low- sodium diet as well as diuretic therapy with furosemide. Repeat echo ordered for subsequent eval 10/22/2024; repeat echo demonstrated Mild concentric left ventricular hypertrophy.Borderline LV global systolic dysfunction. Estimated LVEF 45 to 50%. Stage I diastolic dysfunction. The left atrium is severely enlarged. Mild tricuspid valve insufficiency. Right ventricular systolic pressure estimated to be 47 mmHg. Mild aortic valve stenosis. Mean peak gradient 19 mmHg. Mild aortic valve regurgitation. The study was technically difficult. Patient remains on diuretic therapy ? 10/23/2024; patient continues to respond to diuretic therapy in negative fluid balance of 1.7 L over the past 24 hours 3. Suspected viral pneumonia ? With superimposed bacterial pneumonia given patient leukocytosis patient was started on ceftriaxone as well as azithromycin 4. Hypertension ? Blood pressure controlled, home medications continued with dose adjustment as needed 5. Class I obesity with BMI of 33.2 ? Complicating care weight loss advised 6. A 0.7 cm non-calcified micronodule in the right apex. Patient informed of the result and the need to follow-up with primary care physician for repeat imaging studies in 6-month 7. Paroxysmal atrial fibrillation ? Patient had brief episodes of A-fib with variable rate. Currently back in sinus rhythm we will continue with continuous telemetry monitoring ? 10/24/2024Patient went back into A-fib patient was subsequently started on systemic anticoagulation with apixaban. Currently on beta-blockers for rate control 8. DVT prophylaxis ? On enoxaparin 9. Physical deconditioning ? Requested for PT OT eval and social media marketing manager to assist with discharge planning Time spent in the patient's overall evaluation,decision-making process, review of diagnostic data, adjustment of management, discussion with other providers, nursing nursing and ancillary staff involved in patient's care documentation, 36minutes 10/24/24 0910 <Electronically signed by Agustin Mcarthur MD> Cosigner Signature (if applicable): CC: ~ Signed [facility] Work Phone: 1(201) 376-608003-08-2025 Discharge summary [facility] Medical Records Department [address] [place] [address] Discharge Summary 10/24/24 0911 MR#: [id number] Acct: [id number] Name: PORTIA BAUER Rep #:[id number] : 1950 74 From: Agustin Mcarthur MD PCP: RAKAN Ackerman Status:ADM IN Location: [place] [address] Providers Date of Admission: 10/20/24 Date of Discharge: 10/24/24 Primary Care Physician: RAKAN Ackerman Reason For Visit: [facility] Diagnosis Discharge Diagnosis (1) Hypoxia: Status: Acute Code(s): R09.02 - Hypoxemia (2) CAP (community acquired pneumonia): Status: Acute Code(s): J18.9 - Pneumonia, unspecified organism Plan Patient is a 74-year-old gentleman who presented with worsening shortness of breath and upper respiratory tract symptomsPatient was also found to have low- grade fever and assessment of suspected viral pneumonia and congestive heart failure made admitted to regular nursing floor for further management 1. Acute hypoxic respiratory failure (developed following hospitalization) ? Secondary to combination of suspected viral pneumonia CHF and asthma. Patientplaced on supplemental oxygen requisition sent for COVID flu and RSV all of which have remained negative to date. 10/22/2024; patient went into acute respiratory distress the day prior. Patient was found to be tachypneic with respiratory rates in the 28 using accessory muscles in breathing. Subsequently ordered ABG as well as CT of the chest whichwas negative for PE however did show Mild airspace consolidation and bronchial thickening in the bilateral lower lobes consistent with inflammation.. Patient remains on antibiotic therapy as well as diuretic therapy and remains in the negative fluid balance of 1 L over the past 24 hours ? 10/23/2024 patient has been weaned off oxygen plan is to continue with pulmonarytoileting 2. Acute on chronic congestive heart failure with preserved ejection fraction ? Echo from 12/29/2020 demonstrated EF of 55%. Patient admitted to monitored bed, managed with strict input and output, daily weight, fluid restriction, low- sodium diet as well as diuretic therapy with furosemide. Repeat echo ordered for subsequent eval 10/22/2024; repeat echo demonstrated Mild concentric left ventricular hypertrophy.Borderline LV global systolic dysfunction. Estimated LVEF 45 to 50%. Stage I diastolic dysfunction. The left atrium is severely enlarged. Mild tricuspid valve insufficiency. Right ventricular systolic pressure estimatedto be 47 mmHg. Mild aortic valve stenosis. Mean peak gradient 19 mmHg. Mild aortic valve regurgitation. The study was technically difficult. Patient remains on diuretic therapy ? 10/23/2024; patient continues to respond to diuretic therapy in negative fluid balance of 1.7 L over the past 24 hours 3. Suspected viral pneumonia ? With superimposed bacterial pneumonia given patient leukocytosis patient was started on ceftriaxone as well as azithromycin 4. Hypertension ? Blood pressure controlled, home medications continued with dose adjustment as needed 5. Class I obesity with BMI of 33.2 ? Complicating care weight loss advised 6. A 0.7 cm non-calcified micronodule in the right apex. Patient informed of the result and the need to follow-up with primary care physician for repeat imaging studies in 6-month 7. Paroxysmal atrial fibrillation ? Patient had brief episodes of A-fib with variable rate. Currently back in sinus rhythm we will continue with continuous telemetry monitoring ? 10/24/2024Patient went back into A-fib patient was subsequently started on systemic anticoagulationwith apixaban. Currently on beta-blockers for rate control 8. DVT prophylaxis ? On enoxaparin 9. Physical deconditioning ? Requested for PT OT eval and social media marketing manager to assist with discharge planning Time spent in the patient's overall evaluation,decision-making process, review of diagnostic data, adjustment of management, discussion with other providers, nursing nursing and ancillary staff involved in patient's care documentation, 36minutes Medications at Discharge Home Medications aspirin 81 mg tablet,delayed release 81 mg PO DAILY@0800 12/28/16 betamethasone dipropionate 0.05 % topical cream 1 applic topical DAILY PRN skin irritation 02/07/23 horse chestnut 300 mg capsule 300 mg PO DAILY 09/25/22 [id number] 300 mcg-K 60 mcg-lycop 600 mcg-lutein 300 mcg tablet (Centrum Silver Ultra Men's)1 tab PO DAILY 09/25/22 sodium chloride 0.65 % nasal spray aerosol (Winchester Saline) 2 spray intranasal Q4H PRN dry nasal passages 05/09/23 albuterol sulfate 90 mcg/actuation aerosol inhaler (Ventolin HFA) 2 puff inhalation Q4H PRN shortness of breath or wheezing #18 grams 11/11/23 azelastine 0.05 % eye drops See Rx Instructions ophthalmic (eye) .COMPLEX 11/11/23 fluticasone furoate 200 mcg/actuation blister powder for inhalation (Arnuity Ellipta) 1 inh inhalation QDAY #30 ea 11/11/23 apixaban 5 mg tablet (Eliquis) 5 mg PO BID 90 days #180 tabs 10/24/24 cefdinir 300 mg capsule 300 mg PO BID #10 caps 10/24/24 diltiazem HCl 120 mg capsule,extended release 24 hr (Cartia XT) 120 mg PO BID 90days #180 caps 10/24/24 furosemide 40 mg tablet (Lasix) 40 mg PO DAILY #60 tabs 10/24/24 guaifenesin 1,200 mg tablet, extended release 12 hr (Mucus Relief ER) 1,200 mg PO BID #20 tabs 10/24/24 metoprolol succinate 50 mg tablet,extended release 24 hr 50 mg PO DAILY #90 tabs10/24/24 Physical Exam Narrative GENERAL: cooperative HEENT: Atraumatic; normocephalic EYES; Anicteric, Normal Conjunctiva NECK; supple, normal thyroid, RESPIRATORY: Diminished to auscultation CARDIOVASCULAR: Regular S1 S2, GI: soft, normoactive bowel sounds, : No Renal angle tenderness; EXTREMITIES: edema, no clubbing, MUSCULOSKELETAL: no muscle wasting NEURO: Awake; no lateralizing signs. SKIN: No Rash PSYCH; Flat affect Weight / BMI Weight Weight: 100.244 kg Body Mass Index (BMI) 31.6 ABG / Lab / Microbiology Data 10/24/24 05:49 10/24/24 05:49 Laboratory: Laboratory Results - last 24 hr 10/24/24 05:49: WBC 8.0, RBC 5.30, Hgb 15.0, Hct 45.1, MCV 85.1, MCH 28.3, MCHC 33.3, RDW Std Deviation 42.7, RDW Coeff of Shonna 13.8, Plt Count 276, MPV 10.7, Immature Gran % (Auto) 0.400, Neut % (Auto) 66.3, Lymph % (Auto) 19.2, Elliott % (Auto) 7.8, Eos % (Auto) 5.5 H, Baso % (Auto) 0.8, Absolute Neuts (auto) 5.3, Absolute Lymphs (auto) 1.53, Nucleated RBC % 0, Sodium 140, Potassium 3.4, Chloride 100, Carbon Dioxide 25.8, Anion Gap 14, BUN 30 H, Creatinine 1.06, Estim Creat Clear Calc 72.55, Est GFR (MDRD) Non-Af 74, BUN/Creatinine Ratio 28.4 H, Glucose 107 H, Calcium 9.2 Microbiology: Microbiology 10/21/24 00:15 Mucosa - Nasopharyngeal Respiratory Panel (PCR) - Final 10/20/24 14:20 Mucosa - Nose SARS-CoV-2, Influenza & RSV (PCR) - Final D/C Instructions Discharge Diet: 2000 mg Sodium Diet Discharge Activity: Return to Normal Activity Call your doctor if you observe: Fever of 101 or Higher, Shortness of breath, Fainting spells and Chest pain DC O2, CPAP, BIPAP Needs Home O2 Discharge instructions: No Meaningful Use Info Meaningful Use Meaningful Use Diagnoses (Choose all that apply): CHF CHF NOELLE/ARB ordered at discharge?: No Reason NOELLE/ARB not ordered?: Not indicated Documented LVEF (%): 55 Ischemic Stroke Statin Dosing Therapy Reference: STATIN DOSE THERAPY REFERENCE: * Patients > 75 years receive moderate or high dose statin therapy. * Patients 75 years or YOUNGER should receive HIGH intensity statin dose unless contraindicated. You will be required to document reason for non-treatment if statin daily dose does not meet guidelines. HIGH DOSE STATIN THERAPY DAILY Atorvastatin > than or = to 40 mg Rosuvastatin > than or = to 20 mg Amlodipine + Atorvastatin > than or = to 2.5/40 mg Ezetimibe + Simvastatin 10/80 mg Simvastatin 80mg Discharge Plan Admission Admit Date/Time: 10/20/24 17:14 Attending Provider: Agustin Mcarthur Primary Care Provider: Michael Medina Consulting Providers: Ramón Wheeler Discharge Orders/Prescriptions Prescriptions: New Eliquis 5 mg Tablet 5 mg PO BID 90 Days Qty: 180 0RF diltiazem HCl [Cartia XT] 120 mg capsule,extended release 24hr 120 mg PO BID 90 Days Qty: 180 0RF cefdinir 300 mg capsule 300 mg PO BID Qty: 10 0RF furosemide [Lasix] 40 mg tablet 40 mg PO DAILY Qty: 60 0RF guaifenesin [Mucus Relief ER] 1,200 mg tablet extended release 12hr 1,200 mg PO BID Qty: 20 0RF Continued horse chestnut 300 mg capsule 300 mg PO DAILY betamethasone dipropionate 0.05 % cream 1 applic topical DAILY PRN (Reason: skin irritation) Centrum Silver Ultra Men's 300-600-300 mcg tablet 1 tab PO DAILY Winchester Saline 0.65 % aerosol,spray 2 spray intranasal Q4H PRN (Reason: dry nasal passages) azelastine 0.05 % drops See Rx Instructions ophthalmic (eye) .COMPLEX Rx Instructions: 2 drops 1 eye BID (rotating) into the eye(s); Arnuity Ellipta 200 mcg/actuation blister with device 1 inh inhalation QDAY Qty: 30 6RF Rx Instructions: administer at approximately the same time(s) each day albuterol sulfate [Ventolin HFA] 90 mcg/actuation HFA aerosol inhaler 2 puff inhalation Q4H PRN (Reason: shortness of breath or wheezing) Qty: 18 6RF aspirin 81 MG tablet 81 mg PO DAILY@0800 metoprolol succinate 50 mg tablet extended release 24 hr 50 mg PO DAILY Qty: 90 3RF Discontinued amlodipine-benazepril 5-20 mg capsule 1 cap PO DAILY Qty: 90 3RF Referrals / Follow Up: Michael Medina, HONGC [Primary Care Provider] - Within 1 Week Disposition Disposition (needs filled in before D/C Order can be placed): Home, Self Care Charges/Coding Visit Charges Inpatient E&M: 09206 Disch Hosp >30min 10/24/24 0916 Cosigner Signature (if applicable): CC: RAKAN Medina; Dr. Agustin Mcarthur MD~ Signed [facility]03-08-2025 [facility] Medical Records Department [address] [place] [address] Discharge Summary 10/24/24 0911 MR#: [id number] Acct: [id number] Name: PORTIA BAUER Rep #: [id number] : 1950 74 From: Agustin Mcarthur MD PCP: RAKAN Ackerman Status:ADM IN Location: [place] [address] Providers Date of Admission: 10/20/24 Date of Discharge: 10/24/24 Primary Care Physician: RAKAN Ackerman Reason For Visit: [facility] Diagnosis Discharge Diagnosis (1) Hypoxia: Status: Acute Code(s): R09.02 - Hypoxemia (2) CAP (community acquired pneumonia): Status: Acute Code(s): J18.9 - Pneumonia, unspecified organism Plan Patient is a 74-year-old gentleman who presented with worsening shortness of breath and upper respiratory tract symptomsPatient was also found to have low-grade fever and assessment of suspected viral pneumonia and congestive heart failure made admitted to regular nursing floor for further management 1. Acute hypoxic respiratory failure (developed following hospitalization) ??? Secondary to combination of suspected viral pneumonia CHF and asthma. Patient placed on supplemental oxygen requisition sent for COVID flu and RSV all of which have remained negative to date. 10/22/2024; patient went into acute respiratory distress the day prior. Patient was found to be tachypneic with respiratory rates in the 28 using accessory muscles in breathing. Subsequently ordered ABG as well as CT of the chest which was negative for PE however did show Mild airspace consolidation and bronchial thickening in the bilateral lower lobes consistent with inflammation.. Patient remains on antibiotic therapy as well as diuretic therapy and remains in the negative fluid balance of 1 L over the past 24 hours ??? 10/23/2024 patient has been weaned off oxygen plan is to continue with pulmonary toileting 2. Acute on chronic congestive heart failure with preserved ejection fraction ??? Echo from 12/29/2020 demonstrated EF of 55%. Patient admitted to monitored bed, managed with strict input and output, daily weight, fluid restriction, low-sodium diet as well as diuretic therapy with furosemide. Repeat echo ordered for subsequent eval 10/22/2024; repeat echo demonstrated Mild concentric left ventricular hypertrophy. Borderline LV global systolic dysfunction. Estimated LVEF 45 to 50%. Stage I diastolic dysfunction. The left atrium is severely enlarged. Mild tricuspid valve insufficiency. Right ventricular systolic pressure estimated to be 47 mmHg. Mild aortic valve stenosis. Mean peak gradient 19 mmHg. Mild aortic valve regurgitation. The study was technically difficult. Patient remains on diuretic therapy ??? 10/23/2024; patient continues to respond to diuretic therapy in negative fluid balance of 1.7 L over the past 24 hours 3. Suspected viral pneumonia ??? With superimposed bacterial pneumonia given patient leukocytosis patient was started on ceftriaxone as well as azithromycin 4. Hypertension ??? Blood pressure controlled, home medications continued with dose adjustment as needed 5. Class I obesity with BMI of 33.2 ??? Complicating care weight loss advised 6. A 0.7 cm non-calcified micronodule in the right apex. Patient informed of the result and the need to follow-up with primary care physician for repeat imaging studies in 6-month 7. Paroxysmal atrial fibrillation ??? Patient had brief episodes of A-fib with variable rate. Currently back in sinus rhythm we will continue with continuous telemetry monitoring ??? 10/24/2024Patient went back into A-fib patient was subsequently started on systemic anticoagulation with apixaban. Currently on beta-blockers for rate control 8. DVT prophylaxis ??? On enoxaparin 9. Physical deconditioning ??? Requested for PT OT eval and social media marketing manager to assist with discharge planning Time spent in the patient's overall evaluation,decision-making process, review of diagnostic data, adjustment of management, discussion with other providers, nursing nursing and ancillary staff involved in patient's care documentation, 36 minutes Medications at Discharge Home Medications aspirin 81 mg tablet,delayed release 81 mg PO DAILY@0800 12/28/16 betamethasone dipropionate 0.05 % topical cream 1 applic topical DAILY PRN skin irritation 09/25/22 horse chestnut 300 mg capsule 300 mg PO DAILY 09/25/22 [id number]-[id number] 300 mcg-K 60 mcg-lycop 600 mcg-lutein 300 mcg tablet (Centrum Silver Ultra Men's) 1 tab PO DAILY 09/25/22 sodium chloride 0.65 % nasal spray aerosol (Winchester Saline) 2 spray intranasal Q4H PRN dry nasal passages 05/09/23 albuterol sulfate 90 mcg/actuation aerosol inhaler (Ventolin HFA) 2 puff inhalation Q4H PRN shortness of breath or wheezing #18 grams 11/11/23 azelastine 0.05 % eye drops See Rx Instructions ophthalmic (eye) .COMPLEX 11/11/23 fluticasone furoate 200 mcg/ac (more content not included)...[facility]03-08-2025 Progress note [facility] Medical Records Department [address] [place] [address] Progress Note - Hospitalist 10/24/24 0742 MR#: [id number] Acct: [id number] Name: PORTIA BAUER Rep #:[id number] : 1950 74 From: Agustin Mcarthur MD PCP: Michael Medina FINANCIAL SERVICES OFFICER-C Status:ADM IN Location: [facility] [place] [id number] Reason for Visit Reason for Visit: Diagnoses Pneumonia, unspecified organism (10/20/24) Hypoxemia (10/20/24) Subjective Subjective Patient went back into A-fib patient was subsequently started on systemic anticoagulation with apixaban. Currently on beta-blockers for rate control Objective Data Objective Data Vital Signs: Vital Signs Temp Pulse Resp BP Pulse Ox O2 Del Method O2 Flow Rate 97.2 F L 78 18 110/75 99 Room Air 3 10/24/24 02:00 10/24/24 02:00 10/24/24 02:00 10/24/24 02:00 10/24/24 02:00 10/24/24 02:00 10/22/24 10:14 Oxygen Flow Rate (L/min) 3 Oxygen Delivery Method Room Air Weight: 100.244 kg Body Mass Index (BMI) 31.6 Intake & Output: Intake and Output for Last 24 Hours 10/22/24 10/23/24 10/24/24 23:59 23:59 23:59 Intake Total 1325 / 1325 305 / 505 200 / 200 Output Total 3150 / 3650 1850 / 1850 250 / 250 Balance -1825 / -2325 -1545 / -1345 -50 / -50 Lab / Micro Data 10/24/24 05:49 10/24/24 05:49 Labs: Laboratory Results - last 24 hr 10/24/24 05:49: WBC 8.0, RBC 5.30, Hgb 15.0, Hct 45.1, MCV 85.1, MCH 28.3, MCHC 33.3, RDW Std Deviation 42.7, RDW Coeff of Shonna 13.8, Plt Count 276, MPV 10.7, Immature Gran % (Auto) 0.400, Neut % (Auto) 66.3, Lymph % (Auto) 19.2, Elliott % (Auto) 7.8, Eos % (Auto) 5.5 H, Baso % (Auto) 0.8, Absolute Neuts (auto) 5.3, Absolute Lymphs (auto) 1.53, Nucleated RBC % 0, Sodium 140, Potassium 3.4, Chloride 100, Carbon Dioxide 25.8, Anion Gap 14, BUN 30 H, Creatinine 1.06, Estim Creat Clear Calc 72.55, Est GFR (MDRD) Non-Af 74, BUN/Creatinine Ratio 28.4 H, Glucose 107 H, Calcium 9.2 Micro: Microbiology 10/21/24 00:15 Mucosa - Nasopharyngeal Respiratory Panel (PCR) - Final 10/20/24 14:20 Mucosa - Nose SARS-CoV-2, Influenza & RSV (PCR) - Final Physical Exam Narrative GENERAL: cooperative but dyspneic at rest HEENT: Atraumatic; normocephalic EYES; Anicteric, Normal Conjunctiva NECK; supple, normal thyroid, RESPIRATORY: Diminished to auscultation CARDIOVASCULAR: Regular S1 S2, GI: soft, normoactive bowel sounds, : No Renal angle tenderness; EXTREMITIES: edema, no clubbing, MUSCULOSKELETAL: no muscle wasting NEURO: Awake; no lateralizing signs. SKIN: No Rash PSYCH; Flat affect Assessment & Plan Assessment/Plan (1) Hypoxia: (2) CAP (community acquired pneumonia): PLAN: Plan Patient is a 74-year-old gentleman who presented with worsening shortness of breath and upper respiratory tract symptomsPatient was also found to have low- grade fever and assessment of suspected viral pneumonia and congestive heart failure made admitted to regular nursing floor for further management 1. Acute hypoxic respiratory failure (developed following hospitalization) ? Secondary to combination of suspected viral pneumonia CHF and asthma. Patientplaced on supplemental oxygen requisition sent for COVID flu and RSV all of which have remained negative to date. 10/22/2024; patient went into acute respiratory distress the day prior. Patient was found to be tachypneic with respiratory rates in the 28 using accessory muscles in breathing. Subsequently ordered ABG as well as CT of the chest whichwas negative for PE however did show Mild airspace consolidation and bronchial thickening in the bilateral lower lobes consistent with inflammation.. Patient remains on antibiotic therapy as well as diuretic therapy and remains in the negative fluid balance of 1 L over the past 24 hours ? 10/23/2024 patient has been weaned off oxygen plan is to continue with pulmonarytoileting 2. Acute on chronic congestive heart failure with preserved ejection fraction ? Echo from 12/29/2020 demonstrated EF of 55%. Patient admitted to monitored bed, managed with strict input and output, daily weight, fluid restriction, low- sodium diet as well as diuretic therapy with furosemide. Repeat echo ordered for subsequent eval 10/22/2024; repeat echo demonstrated Mild concentric left ventricular hypertrophy.Borderline LV global systolic dysfunction. Estimated LVEF 45 to 50%. Stage I diastolic dysfunction. The left atrium is severely enlarged. Mild tricuspid valve insufficiency. Right ventricular systolic pressure estimatedto be 47 mmHg. Mild aortic valve stenosis. Mean peak gradient 19 mmHg. Mild aortic valve regurgitation. The study was technically difficult. Patient remains on diuretic therapy ? 10/23/2024; patient continues to respond to diuretic therapy in negative fluid balance of 1.7 L over the past 24 hours 3. Suspected viral pneumonia ? With superimposed bacterial pneumonia given patient leukocytosis patient was started on ceftriaxone as well as azithromycin 4. Hypertension ? Blood pressure controlled, home medications continued with dose adjustment as needed 5. Class I obesity with BMI of 33.2 ? Complicating care weight loss advised 6. A 0.7 cm non-calcified micronodule in the right apex. Patient informed of the result and the need to follow-up with primary care physician for repeat imaging studies in 6-month 7. Paroxysmal atrial fibrillation ? Patient had brief episodes of A-fib with variable rate. Currently back in sinus rhythm we will continue with continuous telemetry monitoring ? 10/24/2024Patient went back into A-fib patient was subsequently started on systemic anticoagulationwith apixaban. Currently on beta-blockers for rate control 8. DVT prophylaxis ? On enoxaparin 9. Physical deconditioning ? Requested for PT OT eval and social media marketing manager to assist with discharge planning Time spent in the patient's overall evaluation,decision-making process, review of diagnostic data, adjustment of management, discussion with other providers, nursing nursing and ancillary staff involved in patient's care documentation, 36minutes 10/24/24 0910 Cosigner Signature (if applicable): CC: ~ Signed [facility]03-07-2025 Progress note Author Agustin Mcarthur [facility] Note Date/Time October 23, 2024 8:18 am [facility] Medical Records Department [address] [place] [address] Progress Note - Hospitalist 10/23/24815 MR#: [id number] Acct: [id number] Name: PORTIA BAUER Rep #:[id number] : 1950 74 From: Augstin Mcarthur MD PCP: Michael Medina FINANCIAL SERVICES OFFICER-C Status:ADM IN Location: [facility] [place] [id number] Reason for Visit Reason for Visit: Diagnoses Pneumonia, unspecified organism (10/20/24) Hypoxemia (10/20/24) Subjective Subjective Patient seen has been weaned off oxygen plan is to increase activity with possible discharge in a.m. Objective Data Objective Data Vital Signs: Vital Signs Temp Pulse Resp BP Pulse Ox O2 Del Method O2 Flow Rate 98.3 F 88 20 H 111/59 L 93 Room Air 3 10/23/24 08:14 10/23/24 08:14 10/23/24 08:14 10/23/24 08:14 10/23/24 08:14 10/23/24 08:14 10/22/24 10:14 Oxygen Flow Rate (L/min) 3 Oxygen Delivery Method Room Air Weight: 100.244 kg Body Mass Index (BMI) 31.6 Intake & Output: Intake and Output for Last 24 Hours 10/21/24 10/22/24 10/23/24 23:59 23:59 23:59 Intake Total 317.83 / 317.83 1325 / 1325 Output Total 800 / 1475 3150 / 3650 900 / 900 Balance -482.17 / -1157.17 -1825 / -2325 -900 / -900 Lab / Micro Data 10/23/24 06:10 10/23/24 06:10 Labs: Laboratory Results - last 24 hr 10/22/24 06:12: Phosphorus 4.3 10/23/24 06:10: WBC 8.9, RBC 5.16, Hgb 14.6, Hct 43.7, MCV 84.7, MCH 28.3, MCHC 33.4, RDW Std Deviation 43.0, RDW Coeff of Shonna 13.9, Plt Count 247, MPV 10.6, Immature Gran % (Auto) 0.600, Neut % (Auto) 70.7 H, Lymph % (Auto) 15.6 L, Elliott % (Auto) 6.9, Eos % (Auto) 5.6 H, Baso % (Auto) 0.6, Absolute Neuts (auto) 6.3, Absolute Lymphs (auto) 1.39, Nucleated RBC % 0, Sodium 139, Potassium 3.6, Chloride 100, Carbon Dioxide 25.9, Anion Gap 14, BUN 20 H, Creatinine 0.90, Estim Creat Clear Calc 85.45, Est GFR (MDRD) Non-Af 90, BUN/Creatinine Ratio 22.4 H, Glucose 109 H, Calcium 9.2 Micro: Microbiology 10/21/24 00:15 Mucosa - Nasopharyngeal Respiratory Panel (PCR) - Final 10/20/24 14:20 Mucosa - Nose SARS-CoV-2, Influenza & RSV (PCR) - Final Physical Exam Narrative GENERAL: cooperative but dyspneic at rest HEENT: Atraumatic; normocephalic EYES; Anicteric, Normal Conjunctiva NECK; supple, normal thyroid, RESPIRATORY: Diminished to auscultation CARDIOVASCULAR: Regular S1 S2, GI: soft, normoactive bowel sounds, : No Renal angle tenderness; EXTREMITIES: edema, no clubbing, MUSCULOSKELETAL: no muscle wasting NEURO: Awake; no lateralizing signs. SKIN: No Rash PSYCH; Flat affect Assessment & Plan Assessment/Plan (1) Hypoxia: (2) CAP (community acquired pneumonia): PLAN: Plan Patient is a 74-year-old gentleman who presented with worsening shortness of breath and upper respiratory tract symptomsPatient was also found to have low-grade fever and assessment of suspected viral pneumonia and congestive heart failure made admitted to regular nursing floor for further management 1. Acute hypoxic respiratory failure (developed following hospitalization) ? Secondary to combination of suspected viral pneumonia CHF and asthma. Patientplaced on supplemental oxygen requisition sent for COVID flu and RSV all of which have remained negative to date. 10/22/2024; patient went into acute respiratory distress the day prior. Patient was found to be tachypneic with respiratory rates in the 28 using accessory muscles in breathing. Subsequently ordered ABG as well as CT of the chest whichwas negative for PE however did show Mild airspace consolidation and bronchial thickening in the bilateral lower lobes consistent with inflammation.. Patient remains on antibiotic therapy as well as diuretic therapy and remains in the negative fluid balance of 1 L over the past 24 hours ? 10/23/2024 patient has been weaned off oxygen plan is to continue with pulmonarytoileting 2. Acute on chronic congestive heart failure with preserved ejection fraction ? Echo from 12/29/2020 demonstrated EF of 55%. Patient admitted to monitored bed, managed with strict input and output, daily weight, fluid restriction, low- sodium diet as well as diuretic therapy with furosemide. Repeat echo ordered for subsequent eval 10/22/2024; repeat echo demonstrated Mild concentric left ventricular hypertrophy.Borderline LV global systolic dysfunction. Estimated LVEF 45 to 50%. Stage I diastolic dysfunction. The left atrium is severely enlarged. Mild tricuspid valve insufficiency. Right ventricular systolic pressure estimated to be 47 mmHg. Mild aortic valve stenosis. Mean peak gradient 19 mmHg. Mild aortic valve regurgitation. The study was technically difficult. Patient remains on diuretic therapy ? 10/23/2024; patient continues to respond to diuretic therapy in negative fluid balance of 1.7 L over the past 24 hours 3. Suspected viral pneumonia ? With superimposed bacterial pneumonia given patient leukocytosis patient was started on ceftriaxone as well as azithromycin 4. Hypertension ? Blood pressure controlled, home medications continued with dose adjustment as needed 5. Class I obesity with BMI of 33.2 ? Complicating care weight loss advised 6. A 0.7 cm non-calcified micronodule in the right apex. Patient informed of the result and the need to follow-up with primary care physician for repeat imaging studies in 6-month 7. Transient A-fib ? Patient had brief episodes of A-fib with variable rate. Currently back in sinus rhythm we will continue with continuous telemetry monitoring 8. DVT prophylaxis ? On enoxaparin 9. Physical deconditioning ? Requested for PT OT eval and social media marketing manager to assist with discharge planning Time spent in the patient's overall evaluation,decision-making process, review of diagnostic data, adjustment of management, discussion with other providers, nursing nursing and ancillary staff involved in patient's care documentation, 36minutes Charges/Coding Visit Charges Inpatient E&M: 08442 Subs Hosp L2 10/23/24 0818 <Electronically signed by Agustin Mcarthur MD> Cosigner Signature (if applicable): CC: ~ Signed [facility] Work Phone: [phone]) 829-373803-07-2025 Progress note [facility] Medical Records Department [address] [place] [address] Progress Note - Hospitalist 10/23/24 0816 MR#: [id number] Acct: [id number] Name: PORTIA BAUER Rep #:[id number] : 1950 74 From: Agustin Mcarthur MD PCP: Michael Medina, FINANCIAL SERVICES OFFICER-C Status:ADM IN Location: [place] [address] Reason for Visit Reason for Visit: Diagnoses Pneumonia, unspecified organism (10/20/24) Hypoxemia (10/20/24) Subjective Subjective Patient seen has been weaned off oxygen plan is to increase activity with possible discharge in a.m. Objective Data Objective Data Vital Signs: Vital Signs Temp Pulse Resp BP Pulse Ox O2 Del Method O2 Flow Rate 98.3 F 88 20 H 111/59 L 93 Room Air 3 10/23/24 08:14 10/23/24 08:14 10/23/24 08:14 10/23/24 08:14 10/23/24 08:14 10/23/24 08:14 10/22/24 10:14 Oxygen Flow Rate (L/min) 3 Oxygen Delivery Method Room Air Weight: 100.244 kg Body Mass Index (BMI) 31.6 Intake & Output: Intake and Output for Last 24 Hours 10/21/24 10/22/24 10/23/24 23:59 23:59 23:59 Intake Total 317.83 / 317.83 1325 / 1325 Output Total 800 / 1475 3150 / 3650 900 / 900 Balance -482.17 / -1157.17 -1825 / -2325 -900 / -900 Lab / Micro Data 10/23/24 06:10 10/23/24 06:10 Labs: Laboratory Results - last 24 hr 10/22/24 06:12: Phosphorus 4.3 10/23/24 06:10: WBC 8.9, RBC 5.16, Hgb 14.6, Hct 43.7, MCV 84.7, MCH 28.3, MCHC 33.4, RDW Std Deviation 43.0, RDW Coeff of Shonna 13.9, Plt Count 247, MPV 10.6, Immature Gran % (Auto) 0.600, Neut % (Auto) 70.7 H, Lymph % (Auto) 15.6 L, Elliott % (Auto) 6.9, Eos % (Auto) 5.6 H, Baso % (Auto) 0.6, AbsoluteNeuts (auto) 6.3, Absolute Lymphs (auto) 1.39, Nucleated RBC % 0, Sodium 139, Potassium 3.6, Chloride 100, Carbon Dioxide 25.9, Anion Gap 14, BUN 20 H, Creatinine 0.90, Estim Creat Clear Calc 85.45, Est GFR (MDRD) Non-Af 90, BUN/Creatinine Ratio 22.4 H, Glucose 109 H, Calcium 9.2 Micro: Microbiology 10/21/24 00:15 Mucosa - Nasopharyngeal Respiratory Panel (PCR) - Final 10/20/24 14:20 Mucosa - Nose SARS-CoV-2, Influenza & RSV (PCR) - Final Physical Exam Narrative GENERAL: cooperative but dyspneic at rest HEENT: Atraumatic; normocephalic EYES; Anicteric, Normal Conjunctiva NECK; supple, normal thyroid, RESPIRATORY: Diminished to auscultation CARDIOVASCULAR: Regular S1 S2, GI: soft, normoactive bowel sounds, : No Renal angle tenderness; EXTREMITIES: edema, no clubbing, MUSCULOSKELETAL: no muscle wasting NEURO: Awake; no lateralizing signs. SKIN: No Rash PSYCH; Flat affect Assessment & Plan Assessment/Plan (1) Hypoxia: (2) CAP (community acquired pneumonia): PLAN: Plan Patient is a 74-year-old gentleman who presented with worsening shortness of breath and upper respiratory tract symptomsPatient was also found to have low- grade fever and assessment of suspected viral pneumonia and congestive heart failure made admitted to regular nursing floor for further management 1. Acute hypoxic respiratory failure (developed following hospitalization) ? Secondary to combination of suspected viral pneumonia CHF and asthma. Patientplaced on supplemental oxygen requisition sent for COVID flu and RSV all of which have remained negative to date. 10/22/2024; patient went into acute respiratory distress the day prior. Patient was found to be tachypneic with respiratory rates in the 28 using accessory muscles in breathing. Subsequently ordered ABG as well as CT of the chest whichwas negative for PE however did show Mild airspace consolidation and bronchial thickening in the bilateral lower lobes consistent with inflammation.. Patient remains on antibiotic therapy as well as diuretic therapy and remains in the negative fluid balance of 1 L over the past 24 hours ? 10/23/2024 patient has been weaned off oxygen plan is to continue with pulmonarytoileting 2. Acute on chronic congestive heart failure with preserved ejection fraction ? Echo from 12/29/2020 demonstrated EF of 55%. Patient admitted to monitored bed, managed with strict input and output, daily weight, fluid restriction, low- sodium diet as well as diuretic therapy with furosemide. Repeat echo ordered for subsequent eval 10/22/2024; repeat echo demonstrated Mild concentric left ventricular hypertrophy.Borderline LV global systolic dysfunction. Estimated LVEF 45 to 50%. Stage I diastolic dysfunction. The left atrium is severely enlarged. Mild tricuspid valve insufficiency. Right ventricular systolic pressure estimatedto be 47 mmHg. Mild aortic valve stenosis. Mean peak gradient 19 mmHg. Mild aortic valve regurgitation. The study was technically difficult. Patient remains on diuretic therapy ? 10/23/2024; patient continues to respond to diuretic therapy in negative fluid balance of 1.7 L over the past 24 hours 3. Suspected viral pneumonia ? With superimposed bacterial pneumonia given patient leukocytosis patient was started on ceftriaxone as well as azithromycin 4. Hypertension ? Blood pressure controlled, home medications continued with dose adjustment as needed 5. Class I obesity with BMI of 33.2 ? Complicating care weight loss advised 6. A 0.7 cm non-calcified micronodule in the right apex. Patient informed of the result and the need to follow-up with primary care physician for repeat imaging studies in 6-month 7. Transient A-fib ? Patient had brief episodes of A-fib with variable rate. Currently back in sinus rhythm we will continue with continuous telemetry monitoring 8. DVT prophylaxis ? On enoxaparin 9. Physical deconditioning ? Requested for PT OT eval and social media marketing manager to assist with discharge planning Time spent in the patient's overall evaluation,decision-making process, review of diagnostic data, adjustment of management, discussion with other providers, nursing nursing and ancillary staff involved in patient's care documentation, 36minutes Charges/Coding Visit Charges Inpatient E&M: 97736 Subs Hosp L2 10/23/24 0818 Cosigner Signature (if applicable): CC: ~ Signed [facility]03-06-2025 Progress note Author Agustin Mcarthur [facility] Note Date/Time October 22, 2024 9:04 am [facility] Medical Records Department [address] [place] [address] Progress Note - Hospitalist 10/22/24 0854 MR#: [id number] Acct: [id number] Name: PORTIA BAUER Rep #:[id number] : 1950 74 From: Agustin Mcarthur MD PCP: Michael Medina, FINANCIAL SERVICES OFFICER-C Status:ADM IN Location: [place] [address] Reason for Visit Reason for Visit: Diagnoses Pneumonia, unspecified organism (10/20/24) Hypoxemia (10/20/24) Subjective Subjective Went into respiratory distress was later found to be in A-fib with variable rate. Patient A-fib is new onset. Subsequent evaluation with CTA was ordered results are as below Objective Data Objective Data Vital Signs: Vital Signs Temp Pulse Resp BP Pulse Ox O2 Del Method O2 Flow Rate 98 F 79 20 H 121/62 H 98 Nasal Cannula 3 10/22/24 06:12 10/22/24 07:18 10/22/24 07:18 10/22/24 06:12 10/22/24 07:18 10/22/24 08:51 10/22/24 08:51 Oxygen Flow Rate (L/min) 3 Oxygen Delivery Method Nasal Cannula Weight: 104 kg Body Mass Index (BMI) 32.8 Intake & Output: Intake and Output for Last 24 Hours 10/20/24 10/21/24 10/22/24 23:59 23:59 23:59 Intake Total 305 / 305 317.83 / 317.83 Output Total 800 / 1475 1025 / 1025 Balance 305 / 305 -482.17 / -1157.17 -1025 / -1025 Lab / Micro Data 10/22/24 06:12 10/22/24 06:12 Labs: Laboratory Results - last 24 hr 10/22/24 06:12: WBC 14.7 H, RBC 4.92, Hgb 14.1, Hct 42.2, MCV 85.8, MCH 28.7, MCHC 33.4, RDW Std Deviation 45.1 H, RDW Coeff of Shonna 14.3, Plt Count 238, MPV 10.6, Immature Gran % (Auto) 0.500, Neut % (Auto) 79.0 H, Lymph % (Auto) 11.3 L,Elliott % (Auto) 7.9, Eos % (Auto) 1.0, Baso % (Auto) 0.3, Absolute Neuts (auto) 11.6 H, Absolute Lymphs (auto) 1.66, Nucleated RBC % 0, Sodium 141, Potassium 3.6, Chloride 103, Carbon Dioxide 23.3, Anion Gap 15, BUN 23 H, Creatinine 0.96,Estim Creat Clear Calc 81.55, Est GFR (MDRD) Non-Af 83, BUN/Creatinine Ratio 23.6 H, Glucose 105 H, Calcium 9.2, Phosphorus 4.3, Magnesium 2.3 H, NT pro BNP II 2044 H Micro: Microbiology 10/21/24 00:15 Mucosa - Nasopharyngeal Respiratory Panel (PCR) - Final 10/20/24 14:20 Mucosa - Nose SARS-CoV-2, Influenza & RSV (PCR) - Final ABG Data ABG results: ABG 10/21/24 15:04 Specimen Type ART Sample Site R Radial pH 7.42 Bicarbonate Actual 26.7 H Total CO2 28 Base Excess 2 O2 Saturation 90 L O2 % 2.0 ABG pCO2 41.4 ABG pO2 58 L Noah Test Positive O2 Delivery Device Cannula Vent Mode Not entered Radiography Diagnostic Testing: Radiology Impression Echocardiogram 10/20/24 22:12 Interpretation Summary Mild concentric left ventricular hypertrophy. Borderline LV global systolic dysfunction. Estimated LVEF 45 to 50%. Stage I diastolic dysfunction. The left atrium is severely enlarged. Mild tricuspid valve insufficiency. Right ventricular systolic pressure estimated to be 47 mmHg. Mild aortic valve stenosis. Mean peak gradient 19 mmHg. Mild aortic valve regurgitation. The study was technically difficult. Ordering Physician: Ramón Wheeler Referring Physician: MICHAEL MEDINA Performed By: Virgen Monsivais RDCS Chest CTA 10/21/24 13:36 IMPRESSION: 1. Mild airspace consolidation and bronchial thickening in the bilateral lower lobes consistent with inflammation. 2. A 0.7 cm non-calcified micronodule in the right apex. Consider six-month follow-up study for surveillance. 3. No evidence of pulmonary embolism. 4. Cardiac enlargement. Reading Location: [place] [address] Physical Exam Narrative GENERAL: cooperative but dyspneic at rest HEENT: Atraumatic; normocephalic EYES; Anicteric, Normal Conjunctiva NECK; supple, normal thyroid, RESPIRATORY: Diminished to auscultation CARDIOVASCULAR: Regular S1 S2, GI: soft, normoactive bowel sounds, : No Renal angle tenderness; EXTREMITIES: edema, no clubbing, MUSCULOSKELETAL: no muscle wasting NEURO: Awake; no lateralizing signs. SKIN: No Rash PSYCH; Flat affect Assessment & Plan Assessment/Plan (1) Hypoxia: (2) CAP (community acquired pneumonia): PLAN: Plan Patient is a 74-year-old gentleman who presented with worsening shortness of breath and upper respiratory tract symptomsPatient was also found to have low-grade fever and assessment of suspected viral pneumonia and congestive heart failure made admitted to regular nursing floor for further management 1. Acute hypoxic respiratory failure (developed following hospitalization) ? Secondary to combination of suspected viral pneumonia CHF and asthma. Patientplaced on supplemental oxygen requisition sent for COVID flu and RSV all of which have remained negative to date. 10/22/2024; patient went into acute respiratory distress the day prior. Patient was found to be tachypneic with respiratory rates in the 28 using accessory muscles in breathing. Subsequently ordered ABG as well as CT of the chest whichwas negative for PE however did show Mild airspace consolidation and bronchial thickening in the bilateral lower lobes consistent with inflammation.. Patient remains on antibiotic therapy as well as diuretic therapy and remains in the negative fluid balance of 1 L over the past 24 hours 2. Acute on chronic congestive heart failure with preserved ejection fraction ? Echo from 12/29/2020 demonstrated EF of 55%. Patient admitted to monitored bed, managed with strict input and output, daily weight, fluid restriction, low- sodium diet as well as diuretic therapy with furosemide. Repeat echo ordered for subsequent eval 10/22/2024; repeat echo demonstrated Mild concentric left ventricular hypertrophy.Borderline LV global systolic dysfunction. Estimated LVEF 45 to 50%. Stage I diastolic dysfunction. The left atrium is severely enlarged. Mild tricuspid valve insufficiency. Right ventricular systolic pressure estimated to be 47 mmHg. Mild aortic valve stenosis. Mean peak gradient 19 mmHg. Mild aortic valve regurgitation. The study was technically difficult. Patient remains on diuretic therapy 3. Suspected viral pneumonia ? With superimposed bacterial pneumonia given patient leukocytosis patient was started on ceftriaxone as well as azithromycin 4. Hypertension ? Blood pressure controlled, home medications continued with dose adjustment as needed 5. Class I obesity with BMI of 33.2 ? Complicating care weight loss advised 6. A 0.7 cm non-calcified micronodule in the right apex. Patient informed of the result and the need to follow-up with primary care physician for repeat imaging studies in 6-month 7.transient A-fib ? Patient had brief episodes of A-fib with variable rate. Currently back in sinus rhythm we will continue with continuous telemetry monitoring 8. DVT prophylaxis ? On enoxaparin Time spent in the patient's overall evaluation,decision-making process, review of diagnostic data, adjustment of management, discussion with other providers, nursing nursing and ancillary staff involved in patient's care documentation, 52 Minutes Charges/Coding Visit Charges Inpatient E&M: 33766 Subs Hosp L3 10/22/24 0904 <Electronically signed by Agustin Mcarthur MD> Cosigner Signature (if applicable): CC: ~ Signed [facility] Work Phone: [phone] 752-247003-06-2025 Progress note [facility] Medical Records Department [address] [place] [address] Progress Note - Hospitalist 10/22/24 0854 MR#: [id number] Acct: [id number] Name: PORTIA BAUER Rep #:[id number] : 1950 74 From: Agustin Mcarthur MD PCP: RAKAN Ackerman Status:ADM IN Location: [place] [address]-1 Reason for Visit Reason for Visit: Diagnoses Pneumonia, unspecified organism (10/20/24) Hypoxemia (10/20/24) Subjective Subjective Went into respiratory distress was later found to be in A-fib with variable rate. Patient A-fib is new onset. Subsequent evaluation with CTA was ordered results are as below Objective Data Objective Data Vital Signs: Vital Signs Temp Pulse Resp BP Pulse Ox O2 Del Method O2 Flow Rate 98 F 79 20 H 121/62 H 98 Nasal Cannula 3 10/22/24 06:12 10/22/24 07:18 10/22/24 07:18 10/22/24 06:12 10/22/24 07:18 10/22/24 08:51 10/22/24 08:51 Oxygen Flow Rate (L/min) 3 Oxygen Delivery Method Nasal Cannula Weight: 104 kg Body Mass Index (BMI) 32.8 Intake & Output: Intake and Output for Last 24 Hours 10/20/24 10/21/24 10/22/24 23:59 23:59 23:59 Intake Total 305 / 305 317.83 / 317.83 Output Total 800 / 1475 1025 / 1025 Balance 305 / 305 -482.17 / -1157.17 -1025 / -1025 Lab / Micro Data 10/22/24 06:12 10/22/24 06:12 Labs: Laboratory Results - last 24 hr 10/22/24 06:12: WBC 14.7 H, RBC 4.92, Hgb 14.1, Hct 42.2, MCV 85.8, MCH 28.7, MCHC 33.4, RDW Std Deviation 45.1 H, RDW Coeff of Shonna 14.3, Plt Count 238, MPV 10.6, Immature Gran % (Auto) 0.500, Neut %(Auto) 79.0 H, Lymph % (Auto) 11.3 L,Elliott % (Auto) 7.9, Eos % (Auto) 1.0, Baso % (Auto) 0.3, Absolute Neuts (auto) 11.6 H, Absolute Lymphs (auto) 1.66, Nucleated RBC % 0, Sodium 141, Potassium 3.6, Chloride 103, Carbon Dioxide 23.3, Anion Gap 15, BUN 23 H, Creatinine 0.96,Estim Creat Clear Calc 81.55, Est GFR (MDRD) Non-Af 83, BUN/Creatinine Ratio 23.6 H, Glucose 105 H, Calcium 9.2, Phosphorus 4.3, Magnesium 2.3 H, NT pro BNP II 2044 H Micro: Microbiology 10/21/24 00:15 Mucosa - Nasopharyngeal Respiratory Panel (PCR) - Final 10/20/24 14:20 Mucosa - Nose SARS-CoV-2, Influenza & RSV (PCR) - Final ABG Data ABG results: ABG 10/21/24 15:04 Specimen Type ART Sample Site R Radial pH 7.42 Bicarbonate Actual 26.7 H Total CO2 28 Base Excess 2 O2 Saturation 90 L O2 % 2.0 ABG pCO2 41.4 ABG pO2 58 L Noah Test Positive O2 Delivery Device Cannula Vent Mode Not entered Radiography Diagnostic Testing: Radiology Impression Echocardiogram 10/20/24 22:12 Interpretation Summary Mild concentric left ventricular hypertrophy. Borderline LV global systolic dysfunction. Estimated LVEF 45 to 50%. Stage I diastolic dysfunction. The left atrium is severely enlarged. Mild tricuspid valve insufficiency. Right ventricular systolic pressure estimated to be 47 mmHg. Mild aortic valve stenosis. Mean peak gradient 19 mmHg. Mild aortic valve regurgitation. The study was technically difficult. Ordering Physician: Ramón Wheeler Referring Physician: MICHAEL MEDINA Performed By: Virgen Monsivais RDCS Chest CTA 10/21/24 13:36 IMPRESSION: 1. Mild airspace consolidation and bronchial thickening in the bilateral lower lobes consistent with inflammation. 2. A 0.7 cm non-calcified micronodule in the right apex. Consider six-month follow-up study for surveillance. 3. No evidence of pulmonary embolism. 4. Cardiac enlargement. Reading Location: [place] [address] Physical Exam Narrative GENERAL: cooperative but dyspneic at rest HEENT: Atraumatic; normocephalic EYES; Anicteric, Normal Conjunctiva NECK; supple, normal thyroid, RESPIRATORY: Diminished to auscultation CARDIOVASCULAR: Regular S1 S2, GI: soft, normoactive bowel sounds, : No Renal angle tenderness; EXTREMITIES: edema, no clubbing, MUSCULOSKELETAL: no muscle wasting NEURO: Awake; no lateralizing signs. SKIN: No Rash PSYCH; Flat affect Assessment & Plan Assessment/Plan (1) Hypoxia: (2) CAP (community acquired pneumonia): PLAN: Plan Patient is a 74-year-old gentleman who presented with worsening shortness of breath and upper respiratory tract symptomsPatient was also found to have low- grade fever and assessment of suspected viral pneumonia and congestive heart failure made admitted to regular nursing floor for further management 1. Acute hypoxic respiratory failure (developed following hospitalization) ? Secondary to combination of suspected viral pneumonia CHF and asthma. Patientplaced on supplemental oxygen requisition sent for COVID flu and RSV all of which have remained negative to date. 10/22/2024; patient went into acute respiratory distress the day prior. Patient was found to be tachypneic with respiratory rates in the 28 using accessory muscles in breathing. Subsequently ordered ABG as well as CT of the chest whichwas negative for PE however did show Mild airspace consolidation and bronchial thickening in the bilateral lower lobes consistent with inflammation.. Patient remains on antibiotic therapy as well as diuretic therapy and remains in the negative fluid balance of 1 L over the past 24 hours 2. Acute on chronic congestive heart failure with preserved ejection fraction ? Echo from 12/29/2020 demonstrated EF of 55%. Patient admitted to monitored bed, managed with strict input and output, daily weight, fluid restriction, low- sodium diet as well as diuretic therapy with furosemide. Repeat echo ordered for subsequent eval 10/22/2024; repeat echo demonstrated Mild concentric left ventricular hypertrophy.Borderline LV global systolic dysfunction. Estimated LVEF 45 to 50%. Stage I diastolic dysfunction. The left atrium is severely enlarged. Mild tricuspid valve insufficiency. Right ventricular systolic pressure estimatedto be 47 mmHg. Mild aortic valve stenosis. Mean peak gradient 19 mmHg. Mild aortic valve regurgitation. The study was technically difficult. Patient remains on diuretic therapy 3. Suspected viral pneumonia ? With superimposed bacterial pneumonia given patient leukocytosis patient was started on ceftriaxone as well as azithromycin 4. Hypertension ? Blood pressure controlled, home medications continued with dose adjustment as needed 5. Class I obesity with BMI of 33.2 ? Complicating care weight loss advised 6. A 0.7 cm non-calcified micronodule in the right apex. Patient informed of the result and the need to follow-up with primary care physician for repeat imaging studies in 6-month 7.transient A-fib ? Patient had brief episodes of A-fib with variable rate. Currently back in sinus rhythm we will continue with continuous telemetry monitoring 8. DVT prophylaxis ? On enoxaparin Time spent in the patient's overall evaluation,decision-making process, review of diagnostic data, adjustment of management, discussion with other providers, nursing nursing and ancillary staff involved in patient's care documentation, 52 Minutes Charges/Coding Visit Charges Inpatient E&M: 51480 Subs Hosp L3 10/22/24 0904 Cosigner Signature (if applicable): CC: ~ Signed [facility]03-05-2025 Radiology Diagnostic study note [facility] Imaging Services [address] [place] [address] CTA Chest W/WO Contrast MR#: [id number] Acct: [id number] Name: PORTIA BAUER Rep #: [id number] : 1950 M 74 From: Adriane Calderon MD PCP: RAKAN Ackerman Status: ADM IN Study:CTA Chest W/WO Contrast Date of Exam: 10/21/24 Exam# [id number] Ordering Dr: Jamie Mcarthur MD PROCEDURE: CTA CHEST WITH CONTRAST REASON FOR EXAM: ACUTE DYSPNEA. TECHNIQUE: Contiguous axial scans of 1.25 mm slice thicknesses. Sagittal and coronal reconstruction images were obtained. One or more dose reduction techniques were used (e.g., automated exposure control, adjustment of mAand/or kv according to patient size, use of iterative reconstruction technique). . IV CONTRAST: Isovue 370. 92 mL. COMPARISON: Chest radiograph dated 10/20/2024. FINDINGS: Lungs and Airways: Mild airspace consolidation and bronchial thickening in the bilateral lower lobes. A 0.7 cm non-calcified spiculated micronodule in the right apex, axial image 191. Pleura: Mild dependent pleural thickening. Heart: Mild cardiac enlargement. Pericardium: No thickening. Coronary arteries: Unremarkable Thoracic Aorta: No thoracic aortic aneurysm or dissection. Pulmonary Vessels: No large central filling defects. Contrast timing was optimized for evaluation of the aorta. Mediastinum: No mediastinal hilar or axillary lymphadenopathy. Thyroid: Unremarkable. Upper Abdomen: Visualized portions of the upper abdominal viscera are unremarkable. Bones: Bone windows are unremarkable. CT/CTA Chest W/WO Contrast IMPRESSION: 1. Mild airspace consolidation and bronchial thickening in the bilateral lower lobes consistent with inflammation. 2. A 0.7 cm non-calcified micronodule in the right apex. Consider six-month follow-up study for surveillance. 3. No evidence of pulmonary embolism. 4. Cardiac enlargement. Reading Location: [place] [address] CC: FINANCIAL SERVICES OFFICER-C Michael Medina; Dr. Agustin Mcarthur MD ~ [employer] Salesperson: Signed [facility]03-05-2025 Progress note Author Agustin Mcarthur [facility] Note Date/Time October 21, 2024 11:2 4am [facility] Medical Records Department [address] [place] [address] Progress Note - Hospitalist 10/21/24 0939 MR#: [id number] Acct: [id number] Name: PORTIA BAUER Rep #:[id number] : 1950 74 From: Agustin Mcarthur MD PCP: Michael Medina NP-C Status:ADM IN Location: [facility] [place] [id number] Reason for Visit Reason for Visit: Diagnoses Pneumonia, unspecified organism (10/20/24) Hypoxemia (10/20/24) Objective Data Objective Data Vital Signs: Vital Signs Temp Pulse Resp BP Pulse Ox O2 Del Method O2 Flow Rate 98.1 F 75 24 H 113/59 L 95 Nasal Cannula 2 10/21/24 07:50 10/21/24 08:12 10/21/24 07:50 10/21/24 07:50 10/21/24 07:50 10/21/24 07:50 10/21/24 07:50 Oxygen Flow Rate (L/min) 2 Oxygen Delivery Method Nasal Cannula Weight: 104.922 kg Body Mass Index (BMI) 33.2 Intake & Output: Intake and Output for Last 24 Hours 10/19/24 10/20/24 10/21/24 23:59 23:59 23:59 Intake Total 305 / 305 Output Total 500 / 500 Balance 305 / 305 -500 / -500 Lab / Micro Data 10/21/24 04:28 10/21/24 04:28 Labs: Laboratory Results - last 24 hr 10/20/24 11:28: Procalcitonin 0.46 H 10/20/24 14:20: WBC 17.5 H, RBC 5.12, Hgb 14.7, Hct 44.0, MCV 85.9, MCH 28.7, MCHC 33.4, RDW Std Deviation 42.4, RDW Coeff of Shonna 13.5, Plt Count 230, MPV 11.2, Immature Gran % (Auto) 0.300, Neut % (Auto) 90.0 H, Lymph % (Auto) 4.0 L, Elliott % (Auto) 5.3, Eos % (Auto) 0.1, Baso % (Auto) 0.3, Absolute Neuts (auto) 15.7 H, Absolute Lymphs (auto) 0.70 L, Nucleated RBC % 0, Sodium 142, Potassium 4.1, Chloride 108, Carbon Dioxide 21.6, Anion Gap 13, BUN 18, Creatinine 0.78, Estim Creat Clear Calc 101.20, Est GFR (MDRD) Non-Af 94, BUN/Creatinine Ratio 22.8 H, Glucose 136 H, Lactic Acid 1.6, Calcium 9.1, Total Bilirubin 0.42, AST 24, ALT 20, Alkaline Phosphatase 94, Troponin T High Sens 17, NT pro BNP II 844,Total Protein 6.9, Albumin 4.1, Globulin 2.8, Albumin/Globulin Ratio 1.5 10/20/24 16:37: Troponin T Hi Sens 2 Hr 17, Troponin T Hi Sens 2Hr Delta 0 10/20/24 18:42: Troponin T Hi Sens 4Hr Cancelled 10/20/24 18:42: Troponin T Hi Sens 4Hr 15, Troponin T Hi Sens 4Hr Delta Cancelled 10/20/24 18:42: Troponin T Hi Sens 4Hr Delta 3 10/21/24 04:28: WBC 18.1 H, RBC 4.82, Hgb 13.6, Hct 40.9, MCV 84.9, MCH 28.2, MCHC 33.3, RDW Std Deviation 42.6, RDW Coeff of Shonna 13.7, Plt Count 225, MPV 10.9, Sodium 139, Potassium 3.9, Chloride 103, Carbon Dioxide 23.5, Anion Gap 12, BUN 19, Creatinine 0.82, Estim Creat Clear Calc 95.88, Est GFR (MDRD) Non-Af92, BUN/Creatinine Ratio 23.4 H, Glucose 153 H, Calcium 9.1 Micro: Microbiology 10/21/24 00:15 Mucosa - Nasopharyngeal Respiratory Panel (PCR) - Preliminary 10/20/24 14:20 Mucosa - Nose SARS-CoV-2, Influenza & RSV (PCR) - Final Radiography Diagnostic Testing: Radiology Impression Chest X-Ray 10/20/24 15:40 IMPRESSION: Cardiomegaly and CHF. Reading Location: [facility] Physical Exam Narrative GENERAL: cooperative HEENT: Atraumatic; normocephalic EYES; Anicteric, Normal Conjunctiva NECK; supple, normal thyroid, RESPIRATORY: Diminished to auscultation CARDIOVASCULAR: Regular S1 S2, GI: soft, normoactive bowel sounds, : No Renal angle tenderness; EXTREMITIES: No edema, no clubbing, MUSCULOSKELETAL: no muscle wasting NEURO: Awake; no lateralizing signs. SKIN: No Rash PSYCH; Flat affect Assessment & Plan Assessment/Plan (1) Hypoxia: (2) CAP (community acquired pneumonia): PLAN: Plan Patient is a 74-year-old gentleman who presented with worsening shortness of breath and upper respiratory tract symptomsPatient was also found to have low-grade fever and assessment of suspected viral pneumonia and congestive heart failure made admitted to regular nursing floor for further management 1. Acute hypoxia ? Secondary to combination of suspected viral pneumonia CHF and asthma. Patientplaced on supplemental oxygen requisition sent for COVID flu and RSV all of which have remained negative to date. 2. Acute on chronic congestive heart failure with preserved ejection fraction ? Echo from 12/29/2020 demonstrated EF of 55%. Patient admitted to monitored bed, managed with strict input and output, daily weight, fluid restriction, low- sodium diet as well as diuretic therapy with furosemide. Repeat echo ordered for subsequent eval 3. Suspected viral pneumonia ? With superimposed bacterial pneumonia given patient leukocytosis patient was started on ceftriaxone as well as azithromycin 4. Hypertension ? Blood pressure controlled, home medications continued with dose adjustment as needed 5. Class I obesity with BMI of 33.2 ? Complicating care weight loss advised 6.DVT prophylaxis ? On enoxaparin Time spent in the patient's overall evaluation,decision-making process, review of diagnostic data, adjustment of management, discussion with other providers, nursing nursing and ancillary staff involved in patient's care documentation, 50 Minutes Charges/Coding Visit Charges Inpatient E&M: 00529 Subs Hosp L3 10/21/24 1124 <Electronically signed by Agustin Mcarthur MD> Cosigner Signature (if applicable): CC: ~ Signed [facility] Work Phone: [phone]) [phone] Progress note [facility] Medical Records Department [address] [place] [address] Progress Note - Hospitalist 10/21/24 0939 MR#: [id number] Acct: [id number] Name: PORTIA BAUER Rep #:[id number] : 1950 74 From: Agustin Mcarthur MD PCP: Michael Medina FINANCIAL SERVICES OFFICER-Dannie Status:ADM IN Location: [place] [address] Reason for Visit Reason for Visit: Diagnoses Pneumonia, unspecified organism (10/20/24) Hypoxemia (10/20/24) Objective Data Objective Data Vital Signs: Vital Signs Temp Pulse Resp BP Pulse Ox O2 Del Method O2 Flow Rate 98.1 F 75 24 H 113/59 L 95 Nasal Cannula 2 10/21/24 07:50 10/21/24 08:12 10/21/24 07:50 10/21/24 07:50 10/21/24 07:50 10/21/24 07:50 10/21/24 07:50 Oxygen Flow Rate (L/min) 2 Oxygen Delivery Method Nasal Cannula Weight: 104.922 kg Body Mass Index (BMI) 33.2 Intake & Output: Intake and Output for Last 24 Hours 10/19/24 10/20/24 10/21/24 23:59 23:59 23:59 Intake Total 305 / 305 Output Total 500 / 500 Balance 305 / 305 -500 / -500 Lab / Micro Data 10/21/24 04:28 10/21/24 04:28 Labs: Laboratory Results - last 24 hr 10/20/24 11:28: Procalcitonin 0.46 H 10/20/24 14:20: WBC 17.5 H, RBC 5.12, Hgb 14.7, Hct 44.0, MCV 85.9, MCH 28.7, MCHC 33.4, RDW Std Deviation 42.4, RDW Coeff of Shonna 13.5, Plt Count 230, MPV 11.2, Immature Gran % (Auto) 0.300, Neut % (Auto) 90.0 H, Lymph % (Auto) 4.0 L, Elliott % (Auto) 5.3, Eos % (Auto) 0.1, Baso % (Auto) 0.3, AbsoluteNeuts (auto) 15.7 H, Absolute Lymphs (auto) 0.70 L, Nucleated RBC % 0, Sodium 142, Potassium 4.1, Chloride 108, Carbon Dioxide 21.6, Anion Gap 13, BUN 18, Creatinine 0.78, Estim Creat Clear Calc 101.20, Est GFR (MDRD) Non-Af 94, BUN/Creatinine Ratio 22.8 H, Glucose 136 H, Lactic Acid 1.6, Calcium 9.1, Total Bilirubin 0.42, AST 24, ALT 20, Alkaline Phosphatase 94, Troponin T High Sens 17, NT pro BNP II 844,Total Protein 6.9, Albumin 4.1, Globulin 2.8, Albumin/Globulin Ratio 1.5 10/20/24 16:37: Troponin T Hi Sens 2 Hr 17, Troponin T Hi Sens 2Hr Delta 0 10/20/24 18:42: Troponin T Hi Sens 4Hr Cancelled 10/20/24 18:42: Troponin T Hi Sens 4Hr 15, Troponin T Hi Sens 4Hr Delta Cancelled 10/20/24 18:42: Troponin T Hi Sens 4Hr Delta 3 10/21/24 04:28: WBC 18.1 H, RBC 4.82, Hgb 13.6, Hct 40.9, MCV 84.9, MCH 28.2, MCHC 33.3, RDW Std Deviation 42.6, RDW Coeff of Shonna 13.7, Plt Count 225, MPV 10.9, Sodium 139, Potassium 3.9, Chloride 103, Carbon Dioxide 23.5, Anion Gap 12, BUN 19, Creatinine 0.82, Estim Creat Clear Calc 95.88, Est GFR(MDRD) Non- Af92, BUN/Creatinine Ratio 23.4 H, Glucose 153 H, Calcium 9.1 Micro: Microbiology 10/21/24 00:15 Mucosa - Nasopharyngeal Respiratory Panel (PCR) - Preliminary 10/20/24 14:20 Mucosa - Nose SARS-CoV-2, Influenza & RSV (PCR) - Final Radiography Diagnostic Testing: Radiology Impression Chest X-Ray 10/20/24 15:40 IMPRESSION: Cardiomegaly and CHF. Reading Location: [facility] Physical Exam Narrative GENERAL: cooperative HEENT: Atraumatic; normocephalic EYES; Anicteric, Normal Conjunctiva NECK; supple, normal thyroid, RESPIRATORY: Diminished to auscultation CARDIOVASCULAR: Regular S1 S2, GI: soft, normoactive bowel sounds, : No Renal angle tenderness; EXTREMITIES: No edema, no clubbing, MUSCULOSKELETAL: no muscle wasting NEURO: Awake; no lateralizing signs. SKIN: No Rash PSYCH; Flat affect Assessment & Plan Assessment/Plan (1) Hypoxia: (2) CAP (community acquired pneumonia): PLAN: Plan Patient is a 74-year-old gentleman who presented with worsening shortness of breath and upper respiratory tract symptomsPatient was also found to have low- grade fever and assessment of suspected viral pneumonia and congestive heart failure made admitted to regular nursing floor for further management 1. Acute hypoxia ? Secondary to combination of suspected viral pneumonia CHF and asthma. Patientplaced on supplemental oxygen requisition sent for COVID flu and RSV all of which have remained negative to date. 2. Acute on chronic congestive heart failure with preserved ejection fraction ? Echo from 12/29/2020 demonstrated EF of 55%. Patient admitted to monitored bed, managed with strict input and output, daily weight, fluid restriction, low- sodium diet as well as diuretic therapy with furosemide. Repeat echo ordered for subsequent eval 3. Suspected viral pneumonia ? With superimposed bacterial pneumonia given patient leukocytosis patient was started on ceftriaxone as well as azithromycin 4. Hypertension ? Blood pressure controlled, home medications continued with dose adjustment as needed 5. Class I obesity with BMI of 33.2 ? Complicating care weight loss advised 6.DVT prophylaxis ? On enoxaparin Time spent in the patient's overall evaluation,decision-making process, review of diagnostic data, adjustment of management, discussion with other providers, nursing nursing and ancillary staff involved in patient's care documentation, 50 Minutes Charges/Coding Visit Charges Inpatient E&M: 48236 [facility] Hosp L3 10/21/24 1124 Cosigner Signature (if applicable): CC: ~ Signed [facility]03-05-2025 History and physical note Author Ramón Wheeler [facility] Note Date/Time October 21, 2024 12:0 1am [facility] Medical Records Department [address] [place] [address] H&P Exam - Hospitalist 10/20/24 1704 MR#: [id number] Acct: [id number] Name: PORTIA BAUER Rep #:[id number] : 1950 74 From: Ramón jacobo DO PCP: Michael Leonides, FINANCIAL SERVICES OFFICER-C Status:ADM IN Location: MS2 [id number] HPI - General General Date of Admission: 10/20/24 Date of Service: 10/20/24 Chief Complaint: Worsening shortness of breath with URI symptoms HPI Narrative PORTIA BAUER, is a 74 M who presented to [facility] ED on 10/20/2024 with worsening shortness of breath with URI symptoms. Patient developed URI symptoms over the past few days but had significant worsening shortness of breath this morning. In the ED he was found to be hypoxic to 90% on room air. Does not wear any oxygen at baseline. Chest x-ray showed cardiomegaly with vascular congestion, no obvious pneumonia noted. COVID/flu/RSV negative. WBC count elevated at 17,000 and procalcitonin slightlyelevated at 0.46. Low-grade fever to 100.0F. Given concern for community-acquired pneumonia with possible new onset CHF, hospitalist was contacted for admission. I saw the patient at bedside in the ED, significant other was present. Patient was sitting at the edge of the bed and did have mild increasedwork of breathing noted at rest. Had been given a dose of IV Lasix before I sawhim and was started to have good urine output with this. Stated that his breathing felt about the same now as it did earlier this morning with only mild improvement with supplemental oxygen. He did have a cough with some sputum production. He denied any current fevers or chills. Denied any chest pain. Did report lower extremity swelling but noted this was chronic for him. No other acute concerns at this time. [facility] Medical History Adult BMI 33.0-33.9 kg/sq m Essential hypertension Chest pressure PVC (premature ventricular contraction) Dyspnea on exertion Asthma Moderate persistent allergic asthma THEA (obstructive sleep apnea) Rheumatoid arthritis Syncope and collapse Dizziness and giddiness UMANA (dyspnea on exertion) Snoring Daytime somnolence Abnormal pulmonary function test Asthma, moderate persistent Home Medications ?Medication ?Instructions ?Recorded ?Last Taken ?Type aspirin 81 mg tablet,delayed 81 mg PO DAILY@0800 12/2810/24/21 History release betamethasone dipropionate 0.05 % 1 applic topical CARLOS LY PRN skin 09/25/22 Unknown History topical cream irritation horse chestnut 300 mg capsule 300 mg PO DAILY 09/25/22 Unknown History ovrntrrf-[id number] 300 mcg-K 60 1 tab PO DAILY 09/25/22 Unknown History mcg-lycop 600 mcg-lutein 300 mcg tablet (Centrum Silver Ultra Men's) sodium chloride 0.65 % nasal spray 2 spray intranasal Q4H PRN dry 05/09/23 Unknown History aerosol ([place]ster Saline) nasal passages metoprolol succinate 50 mg 50 mg PO DAILY #90 tabs 07/12 Unknown Rx tablet,extended release 24 hr albuterol sulfate 90 mcg/actuation 2 puff inhalation Q 4H PRN 11/11/23 Unknown Rx aerosol inhaler (Ventolin HFA) shortness of breath or wheezing #18 grams azelastine 0.05 % eye drops See Rx Instructions ophtha lmic 11/11/23 Unknown History (eye) .COMPLEX fluticasone furoate 200 1 inh inhalation QDAY #30 ea 11/11/23 Unknown Rx mcg/actuation blister powder for inhalation (Arnuity Ellipta) amlodipine 5 mg-benazepril 20 mg 1 cap PO DAILY #90 ca ps 12/17/23 Unknown Rx capsule Allergy/AdvReac Type Severity Reaction Status Date / Time No Known Allergies Allergy Verified 10/20/24 13:28 Family History Mother CAD (coronary artery disease) CVA (cerebral vascular accident) Surgical History History of bilateral cataract extraction H/O skin graft History of left heart catheterization (10/24/21) Social History Smoking Status: Former smoker quit date: 08/19/84 pack-years: 29 second hand exposure: No alcohol intake: never substance use type: does not use caffeine: Yes Type: coffee Number of servings: 2 ROS Constitutional Constitutional: Reports fatigue; Denies chills, fever(s) or weakness Eyes Eyes: Denies change in vision Cardiovascular Cardiovascular: Reports dyspnea on exertion and edema; Denies chest pain Respiratory/Chest Respiratory/Chest: Reports cough, dyspnea, productive cough and shortness of breath with exertion; Denies shortness of breath at rest or wheezing Gastrointestinal Gastrointestinal: Denies abdominal pain Musculoskeletal Musculoskeletal: Denies arthralgias or myalgias Vital Signs Vital Signs Vital Signs: 10/20/24 13:15 10/20/24 13:23 10/20/24 14:14 Temperature 100.0 F H Temperature Source Oral Pulse Rate 78 84 85 Respiratory Rate 24 H 31 H 22 H Respiratory Effort Respiratory Pattern Blood Pressure 117/72 129/70 H Blood Pressure Mean 87 89 Pulse Ox 90 91 99 Oxygen Delivery Method Room Air Room Air Oxygen Flow Rate (L/min) 10/20/24 14:24 10/20/24 14:24 10/20/24 15:00 Temperature Temperature Source Pulse Rate 86 94 Respiratory Rate 20 H 29 H Respiratory Effort Short of Breath Respiratory Pattern Normal Blood Pressure 141/101 H Blood Pressure Mean 114 Pulse Ox 94 Oxygen Delivery Method Nasal Cannula Oxygen Flow Rate (L/min) 2 10/20/24 16:00 10/20/24 16:40 Temperature 98.8 F Temperature Source Pulse Rate 91 94 Respiratory Rate 19 H 24 H Respiratory Effort Respiratory Pattern Blood Pressure 131/74 H 113/82 H Blood Pressure Mean 93 92 Pulse Ox 100 95 Oxygen Delivery Method Nasal Cannula Oxygen Flow Rate (L/min) 2 Weight Weight: 111.3 kg Body Mass Index (BMI) 35.2 Physical Exam Const alert, oriented x3 and no apparent distress Constitutional Narrative: Elderly male, class I obesity, mildly fatigued appearing, sitting at the edge ofthe bed with mild increased work of breathing noted on 2 L nasal cannula, otherwise sitting comfortably and conversing normally. General Appearance: cooperative and comfortable HEENT normocephalic, head/scalp atraumatic, hearing grossly normal bilaterally, nasal mucous membranes and turbinates normal and moist oral mucous membranes Eyes PERRL, EOMs intact bilaterally and conjunctivae normal Neck full ROM Chest inspection of chest normal Resp Resp Narrative: Mild increased work of breathing noted on 2 L nasal cannula. Decreased breath sounds in bilateral lung bases noted with mild crackles noted in mid lung zones bilaterally. No wheezing noted. Cardio regular rate, regular rhythm, no murmurs and peripheral pulses 2+ throughout GI normal to inspection, nondistended, normoactive bowel sounds, soft to palpation,non-tender and non-distended Back/Spine normal ROM Extremity full ROM Extremity Narrative: +2-3 lower extremity pitting edema noted. Skin no rashes or lesions noted Neuro moves all extremities and no focal motor deficits Speech: speech normal Motor Exam: strength 5/5 throughout Psych mental status grossly normal Results Lab / Micro Data 10/20/24 14:20 10/20/24 14:20 Labs: Laboratory Results - last 24 hr 10/20/24 14:20: WBC 17.5 H, RBC 5.12, Hgb 14.7, Hct 44.0, MCV 85.9, MCH 28.7, MCHC 33.4, RDW Std Deviation 42.4, RDW Coeff of Shonna 13.5, Plt Count 230, MPV 11.2, Immature Gran % (Auto) 0.300, Neut % (Auto) 90.0 H, Lymph % (Auto) 4.0 L, Elliott % (Auto) 5.3, Eos % (Auto) 0.1, Baso % (Auto) 0.3, Absolute Neuts (auto) 15.7 H, Absolute Lymphs (auto) 0.70 L, Nucleated RBC % 0, Sodium 142, Potassium 4.1, Chloride 108, Carbon Dioxide 21.6, Anion Gap 13, BUN 18, Creatinine 0.78, Estim Creat Clear Calc 101.20, Est GFR (MDRD) Non-Af 94, BUN/Creatinine Ratio 22.8 H, Glucose 136 H, Lactic Acid 1.6, Calcium 9.1, Total Bilirubin 0.42, AST 24, ALT 20, Alkaline Phosphatase 94, Troponin T High Sens 17, Total Protein 6.9,Albumin 4.1, Globulin 2.8, Albumin/Globulin Ratio 1.5 Micro: Microbiology 10/20/24 14:20 Mucosa - Nose SARS-CoV-2, Influenza & RSV (PCR) - Final Imaging Radiology Impression Chest X-Ray 10/20/24 15:40 IMPRESSION: Cardiomegaly and CHF. Reading Location: [id number] Assessment & Plan Assessment/Plan (1) Hypoxia: (2) CAP (community acquired pneumonia): PLAN: Plan Patient is a 74-year-old male who presented [facility] ED on 10/20/2024 with worsening shortness of breath with URI symptoms. 1. Acute hypoxia secondary to suspected community-acquired pneumonia with concern for new onset CHF, history of asthma ? Admit under inpatient status to PCU. Chest x-ray showed cardiomegaly with suspected vascular congestion concerning for CHF. However, WBC count elevated at 17 and low-grade fever more consistent with infection. Procalcitonin mildly elevated at 0.46. COVID/flu/RSV negative. Full respiratory PCR panel sent. Sputum culture ordered. Echo ordered. Given 1 dose of IV Lasix in the ED. Will hold on further diuresis until echocardiogram has been completed. Will treat with IV azithromycin and ceftriaxone for now. Will also treat with scheduled DuoNebs for now. Wean supplemental oxygen as able. 2. Hypertension ? Normotensive to mildly hypertensive in the ED. Continue home amlodipine, benazepril and Toprol. 3. Class I obesity with THEA ? BMI 33 on admit. Complicates hospital course, care and prognosis. Continue home CPAP at night. DVT prophylaxis: Lovenox CODE STATUS: Full code, verified Expected disposition: Home, TBD Total clinical time spent by myself addressing the patient's medical issues, reviewing all the data, and collaborating with patient's care team: 55 minutes. Charges/Coding Visit Charges Inpatient E&M: 54255 Init Hosp L2 10/21/24 0001 <Electronically signed by Ramón Wheeler DO> Cosigner Signature (if applicable): CC: AVERY-C Michael Medina; Dr. Ramón Wheeler DO~ Signed [facility] Work Phone: 1(285) 984-510303-05-2025 History and physical note [facility] Medical Records Department [address] [place] [address] H&P Exam - Hospitalist 10/20/24 1704 MR#: [id number] Acct: [id number] Name: PORTIA BAUER Rep #:[id number] : 1950 74 From: Ramón jacobo DO PCP: RAKAN Ackerman Status:ADM IN Location: [facility] [place] HE763-8 HPI - General General Date of Admission: 10/20/24 Date of Service: 10/20/24 Chief Complaint: Worsening shortness of breath with URI symptoms HPI Narrative PORTIA BAUER, is a 74 M who presented to [facility] ED on 10/20/2024 with worsening shortness of breath with URI symptoms. Patient developed URI symptoms over the past few days but had significant worsening shortness of breath this morning. In the ED he was found to be hypoxic to 90% on room air. Does not wear any oxygen at baseline. Chest x-ray showed cardiomegaly with vascular congestion, no obvious pneumonia noted. COVID/flu/RSV negative. WBC count elevated at 17,000 and procalcitonin slightlyelevated at 0.46. Low-grade fever to 100.0F. Given concern for community-acquired pneumonia with possible new onset CHF, hospitalist was contacted for admission. I saw the patient at [facility] in the ED, significant other was present. Patient was sitting at the edge of the bed and did have mild increasedwork of breathing noted at rest. Had been given a dose of IV Lasix before I sawhim and was started to have good urine output with this. Stated that his breathing felt about the samenow as it did earlier this morning with only mild improvement with supplemental oxygen. He did havea cough with some sputum production. He denied any current fevers or chills. Denied any chest pain.Did report lower extremity swelling but noted this was chronic for him. No other acute concerns at this time. [facility] Medical History Adult BMI 33.0-33.9 kg/sq m Essential hypertension Chest pressure PVC (premature ventricular contraction) Dyspnea on exertion Asthma Moderate persistent allergic asthma THEA (obstructive sleep apnea) Rheumatoid arthritis Syncope and collapse Dizziness and giddiness UMANA (dyspnea on exertion) Snoring Daytime somnolence Abnormal pulmonary function test Asthma, moderate persistent Home Medications ?Medication ?Instructions ?Recorded ?Last Taken ?Type aspirin 81 mg tablet,delayed 81 mg PO DAILY@0800 12/2810/24/21 History release betamethasone dipropionate 0.05 % 1 applic topical CARLOS LY PRN skin 09/25/22 Unknown History topical cream irritation horse chestnut 300 mg capsule 300 mg PO DAILY 09/25/22 Unknown History [id number] 300 mcg-K 60 1 tab PO DAILY 09/25/22 Unknown History mcg-lycop 600 mcg-lutein 300 mcg tablet (Centrum Silver Ultra Men's) sodium chloride 0.65 % nasal spray 2 spray intranasal Q4H PRN dry 05/09/23 Unknown History aerosol (Winchester Saline) nasal passages metoprolol succinate 50 mg 50 mg PO DAILY #90 tabs 07/12 Unknown Rx tablet,extended release 24 hr albuterol sulfate 90 mcg/actuation 2 puff inhalation Q 4H PRN 11/11/23 Unknown Rx aerosol inhaler (Ventolin HFA) shortness of breath or wheezing #18 grams azelastine 0.05 % eye drops See Rx Instructions ophtha lmic 11/11/23 Unknown History (eye) .COMPLEX fluticasone furoate 200 1 inh inhalation QDAY #30 ea 11/11/23 Unknown Rx mcg/actuation blister powder for inhalation (Arnuity Ellipta) amlodipine 5 mg-benazepril 20 mg 1 cap PO DAILY #90 ca ps 12/17/23 Unknown Rx capsule Allergy/AdvReac Type Severity Reaction Status Date / Time No Known Allergies Allergy Verified 10/20/24 13:28 Family History Mother CAD (coronary artery disease) CVA (cerebral vascular accident) Surgical History History of bilateral cataract extraction H/O skin graft History of left heart catheterization (10/24/21) Social History Smoking Status: Former smoker quit date: 08/19/84 pack-years: 29 second hand exposure: No alcohol intake: never substance use type: does not use caffeine: Yes Type: coffee Number of servings: 2 ROS Constitutional Constitutional: Reports fatigue; Denies chills, fever(s) or weakness Eyes Eyes: Denies change in vision Cardiovascular Cardiovascular: Reports dyspnea on exertion and edema; Denies chest pain Respiratory/Chest Respiratory/Chest: Reports cough, dyspnea, productive cough and shortness of breath with exertion; Denies shortness of breath at rest or wheezing Gastrointestinal Gastrointestinal: Denies abdominal pain Musculoskeletal Musculoskeletal: Denies arthralgias or myalgias Vital Signs Vital Signs Vital Signs: 10/20/24 13:15 10/20/24 13:23 10/20/24 14:14 Temperature 100.0 F H Temperature Source Oral Pulse Rate 78 84 85 Respiratory Rate 24 H 31 H 22 H Respiratory Effort Respiratory Pattern Blood Pressure 117/72 129/70 H Blood Pressure Mean 87 89 Pulse Ox 90 91 99 Oxygen Delivery Method Room Air Room Air Oxygen Flow Rate (L/min) 10/20/24 14:24 10/20/24 14:24 10/20/24 15:00 Temperature Temperature Source Pulse Rate 86 94 Respiratory Rate 20 H 29 H Respiratory Effort Short of Breath Respiratory Pattern Normal Blood Pressure 141/101 H Blood Pressure Mean 114 Pulse Ox 94 Oxygen Delivery Method Nasal Cannula Oxygen Flow Rate (L/min) 2 10/20/24 16:00 10/20/24 16:40 Temperature 98.8 F Temperature Source Pulse Rate 91 94 Respiratory Rate 19 H 24 H Respiratory Effort Respiratory Pattern Blood Pressure 131/74 H 113/82 H Blood Pressure Mean 93 92 Pulse Ox 100 95 Oxygen Delivery Method Nasal Cannula Oxygen Flow Rate (L/min) 2 Weight Weight: 111.3 kg Body Mass Index (BMI) 35.2 Physical Exam Const alert, oriented x3 and no apparent distress Constitutional Narrative: Elderly male, class I obesity, mildly fatigued appearing, sitting at the edge ofthe bed with mild increased work of breathing noted on 2 L nasal cannula, otherwise sitting comfortably and conversing normally. General Appearance: cooperative and comfortable HEENT normocephalic, head/scalp atraumatic, hearing grossly normal bilaterally, nasal mucous membranes and turbinates normal and moist oral mucous membranes Eyes PERRL, EOMs intact bilaterally and conjunctivae normal Neck full ROM Chest inspection of chest normal Resp Resp Narrative: Mild increased work of breathing noted on 2 L nasal cannula. Decreased breath sounds in bilateral lung bases noted with mild crackles noted in mid lung zones bilaterally. No wheezing noted. Cardio regular rate, regular rhythm, no murmurs and peripheral pulses 2+ throughout GI normal to inspection, nondistended, normoactive bowel sounds, soft to palpation,non-tender and non-distended Back/Spine normal ROM Extremity full ROM Extremity Narrative: +2-3 lower extremity pitting edema noted. Skin no rashes or lesions noted Neuro moves all extremities and no focal motor deficits Speech: speech normal Motor Exam: strength 5/5 throughout Psych mental status grossly normal Results Lab / Micro Data 10/20/24 14:20 10/20/24 14:20 Labs: Laboratory Results - last 24 hr 10/20/24 14:20: WBC 17.5 H, RBC 5.12, Hgb 14.7, Hct 44.0, MCV 85.9, MCH 28.7, MCHC 33.4, RDW Std Deviation 42.4, RDW Coeff of Shonna 13.5, Plt Count 230, MPV 11.2, Immature Gran % (Auto) 0.300, Neut % (Auto) 90.0 H, Lymph % (Auto) 4.0 L, Elliott % (Auto) 5.3, Eos % (Auto) 0.1, Baso % (Auto) 0.3, AbsoluteNeuts (auto) 15.7 H, Absolute Lymphs (auto) 0.70 L, Nucleated RBC % 0, Sodium 142, Potassium 4.1, Chloride 108, Carbon Dioxide 21.6, Anion Gap 13, BUN 18, Creatinine 0.78, Estim Creat Clear Calc 101.20, Est GFR (MDRD) Non-Af 94, BUN/Creatinine Ratio 22.8 H, Glucose 136 H, Lactic Acid 1.6, Calcium 9.1, Total Bilirubin 0.42, AST 24, ALT 20, Alkaline Phosphatase 94, Troponin T High Sens 17, Total Protein 6.9,Albumin 4.1, Globulin 2.8, Albumin/Globulin Ratio 1.5 Micro: Microbiology 10/20/24 14:20 Mucosa - Nose SARS-CoV-2, Influenza & RSV (PCR) - Final Imaging Radiology Impression Chest X-Ray 10/20/24 15:40 IMPRESSION: Cardiomegaly and CHF. Reading Location: [id number] Assessment & Plan Assessment/Plan (1) Hypoxia: (2) CAP (community acquired pneumonia): PLAN: Plan Patient is a 74-year-old male who presented [facility] ED on 10/20/2024 with worsening shortness of breath with URI symptoms. 1. Acute hypoxia secondary to suspected community-acquired pneumonia with concern for new onset CHF, history of asthma ? Admit under inpatient status to PCU. Chest x-ray showed cardiomegaly with suspected vascular congestion concerning for CHF. However, WBC count elevated at 17 and low-grade fever more consistent with infection. Procalcitonin mildly elevated at 0.46. COVID/flu/RSV negative. Full respiratory PCR panel sent. Sputum culture ordered. Echo ordered. Given 1 dose of IV Lasix in the ED. Will hold on further diuresis until echocardiogram has been completed. Will treat with IV azithromycin and ceftriaxone for now. Will also treat with scheduled DuoNebs for now. Wean supplemental oxygen as able. 2. Hypertension ? Normotensive to mildly hypertensive in the ED. Continue home amlodipine, benazepril and Toprol. 3. Class I obesity with THEA ? BMI 33 on admit. Complicates hospital course, care and prognosis. Continue home CPAP at night. DVT prophylaxis: Lovenox CODE STATUS: Full code, verified Expected disposition: Home, TBD Total clinical time spent by myself addressing the patient's medical issues, reviewing all the data, and collaborating with patient's care team: 55 minutes. Charges/Coding Visit Charges Inpatient E&M: 44955 Init Hosp L2 10/21/24 0001 Cosigner Signature (if applicable): CC: RAKAN Medina; Dr. Ramón Wheeler, DO~ Signed [facility]03-04-2025 Evaluation note* Diagnosis Onset Date Resolution Status Admit Date CAP (community acquired pneumonia) acute October 20, 2024 5:14pm Hypoxia acute October 20 5:14pm [facility] Work Phone: 1(885) 500-755403-04-2025 Evaluation note* Diagnosis Onset Date Resolution Status Admit Date CAP (community acquired pneumonia) resolved October 20, 2024 5:14pm Hypoxia resolved October 20 5:14pm [facility] Work Phone: [phone]) 905-222003-04-2025 Evaluation note* Diagnosis Onset Date Resolution Status Admit Date CAP (community acquired pneumonia) resolved October 20, 2024 5:14pm Hypoxia resolved October 20 5:14pm Solitary pulmonary nodule acute November 10, 2024 9:34am Asthma chronic November 10 9:34am THEA (obstructive sleep apnea) chroni c November 10, 2024 9:34am Afib acute November 23 10:54am Decreased left ventricular systolic function acute November 23 10:54am UMANA (dyspnea on exertion) acute November 23, 2024 10:54am Essential hypertension chronic Ap 2024 10:54am THEA (obstructive sleep apnea) chroni c November 23, 2024 10:54am [facility] Work Phone: 1(565) 125-626703-04-2025 Evaluation note* Diagnosis Onset Date Resolution Status Admit Date CAP (community acquired pneumonia) resolved October 20, 2024 5:14pm Hypoxia resolved October 20 5:14pm Solitary pulmonary nodule acute November 10, 2024 9:34am Asthma chronic November 10 9:34am THEA (obstructive sleep apnea) chroni c November 10, 2024 9:34am Afib acute November 23 10:54am Decreased left ventricular systolic function acute November 23 10:54am UMANA (dyspnea on exertion) acute November 23, 2024 10:54am Essential hypertension chronic Ap 2024 10:54am THEA (obstructive sleep apnea) chroni c November 23, 2024 10:54am Restrictive airway disease acute December 23, 2024 9:25am Solitary pulmonary nodule acute December 23, 2024 9:25am Asthma chronic December 23, 2024 9:25am THEA (obstructive sleep apnea) chroni c December 23, 2024 9:25am [facility] Work Phone: [phone]) 112-873103-04-2025 Discharge summary Author Cali Alvarado [facility] Note Date/Time October 20, 2024 5:11 pm [facility] Medical Records Department [address] [place] [address] Emergency Department Summary 10/20/24 MR#: [id number] Acct: [id number] Name: PORTIA BAUER Rep #:[id number] : 1950 74 From: Cali Alvarado MD PCP: Michael Medina NP-C Status:REG ER Location: ED HPI History of Present Illness Chief Complaint: Chest Pain Detail of Chief Complaint: Spasming subxiphoid discomfort and shortness of breath Informant: patient and spouse/S.O. Onset/Context/Timing Onset: Today Context: Sudden Onset Timing: Intermittent Quality: Intermittent spasming like pain xiphoid region Current Severity: Moderate Maximum Severity: Moderate Worsened by: Nothing Relieved by: Nothing Associated Symptoms Associated Symptoms: Patient was unaware that he had a fever. He does endorse brown-colored spu Narrative Narrative: Patient is 74-year-old male. He has history of hypertension, COPD and allergieswho presents because of spasming like discomfort fever. Patient's pulse ox was 90% on room air at rest. Patient does endorse rhinorrhea and congestion. He does have history of allergies. This is different. He does endorse brown-colored sputum. He also has dyspnea on exertion. He has chronic swelling of his legs for years. He is scheduled for peripheral arterial studies. He has slept in a chair for some time. He is not on oxygen at home. [facility] Medical History Adult BMI 33.0-33.9 kg/sq m Essential hypertension Chest pressure PVC (premature ventricular contraction) Dyspnea on exertion Asthma Moderate persistent allergic asthma THEA (obstructive sleep apnea) Rheumatoid arthritis Syncope and collapse Dizziness and giddiness UMANA (dyspnea on exertion) Snoring Daytime somnolence Abnormal pulmonary function test Asthma, moderate persistent Home Medications ?Medication ?Instructions ?Recorded ?Last Taken ?Type aspirin 81 mg tablet,delayed 81 mg PO DAILY@0800 12/2810/24/21 History release betamethasone dipropionate 0.05 % 1 applic topical CARLOS LY PRN skin 09/25/22 Unknown History topical cream irritation horse chestnut 300 mg capsule 300 mg PO DAILY 09/25/22 Unknown History [id number] 300 mcg-K 60 1 tab PO DAILY 09/25/22 Unknown History mcg-lycop 600 mcg-lutein 300 mcg tablet (Centrum Silver Ultra Men's) sodium chloride 0.65 % nasal spray 2 spray intranasal Q4H PRN dry 05/09/23 Unknown History aerosol (Winchester Saline) nasal passages metoprolol succinate 50 mg 50 mg PO DAILY #90 tabs 07/12 Unknown Rx tablet,extended release 24 hr albuterol sulfate 90 mcg/actuation 2 puff inhalation Q 4H PRN 11/11/23 Unknown Rx aerosol inhaler (Ventolin HFA) shortness of breath or wheezing #18 grams azelastine 0.05 % eye drops See Rx Instructions ophtha lmic 11/11/23 Unknown History (eye) .COMPLEX fluticasone furoate 200 1 inh inhalation QDAY #30 ea 11/11/23 Unknown Rx mcg/actuation blister powder for inhalation (Arnuity Ellipta) amlodipine 5 mg-benazepril 20 mg 1 cap PO DAILY #90 ca ps 12/17/23 Unknown Rx capsule Allergy/AdvReac Type Severity Reaction Status Date / Time No Known Allergies Allergy Verified 10/20/24 13:28 Family History Mother CAD (coronary artery disease) CVA (cerebral vascular accident) Surgical History History of bilateral cataract extraction H/O skin graft History of left heart catheterization (10/24/21) Social History Smoking Status: Former smoker quit date: 08/19/84 pack-years: 29 second hand exposure: No alcohol intake: never substance use type: does not use caffeine: Yes Type: coffee Number of servings: 2 ROS ROS ED Constitutional Constitutional ED: Reports chills and sweats; Denies fever(s), subjective or weight loss Eyes Eyes: Denies blurry vision, change in vision or diplopia ENT ENT ED: Reports rhinorrhea and sore throat; Denies ear pain Cardiovascular Cardiovascular: Reports chest pain; Denies orthopnea, palpitations, paroxysmal nocturnal dyspnea or racing heartbeat Respiratory/Chest Respiratory/Chest: Reports cough, dyspnea, dyspnea on exertion and sputum; Denies orthopnea or paroxysmal nocturnal dyspnea Gastrointestinal Gastrointestinal: Reports nausea; Denies abdominal pain, constipation, diarrhea,melena or vomiting Genitourinary Genitourinary ED: Denies dysuria, hematuria or urinary frequency Musculoskeletal Musculoskeletal: Denies arthralgias, back pain or myalgias Integumentary Denies abscess, Abrasions or rash Neurologic Neurologic: Reports weakness; Denies headache(s) or paresthesias Endocrine Endocrinology: Denies cold intolerance or heat intolerance Hematologic/Lymphatic Hematologic/Lymphatic: Reports systems reviewed and no addt'l complaints, exceptas documented Allergic/Immunologic Allergic/Immunologic ED: Denies mouth swelling or tongue swelling EXAM Physical Exam Const Vital Signs: 10/20/24 13:15 10/20/24 13:23 10/20/24 14:14 Temperature 100.0 F H Temperature Source Oral Pulse Rate 78 84 85 Respiratory Rate 24 H 31 H 22 H Respiratory Effort Respiratory Pattern Blood Pressure 117/72 129/70 H Blood Pressure Mean 87 89 Pulse Ox 90 91 99 Oxygen Delivery Method Room Air Room Air Oxygen Flow Rate (L/min) 10/20/24 14:24 10/20/24 14:24 10/20/24 15:00 Temperature Temperature Source Pulse Rate 86 94 Respiratory Rate 20 H 29 H Respiratory Effort Short of Breath Respiratory Pattern Normal Blood Pressure 141/101 H Blood Pressure Mean 114 Pulse Ox 94 Oxygen Delivery Method Nasal Cannula Oxygen Flow Rate (L/min) 2 10/20/24 16:00 10/20/24 16:40 Temperature 98.8 F Temperature Source Pulse Rate 91 94 Respiratory Rate 19 H 24 H Respiratory Effort Respiratory Pattern Blood Pressure 131/74 H 113/82 H Blood Pressure Mean 93 92 Pulse Ox 100 95 Oxygen Delivery Method Nasal Cannula Oxygen Flow Rate (L/min) 2 Positive well nourished and well developed Constitutional Narrative: BMI 35.2. Patient was unaware that he had an elevated temperature. He appears in respiratory distress General Appearance ED: well developed and diaphoretic; Negative for cyanotic or pallor HEENT Reports moist mucous membranes HEENT Narrative: Ears normal. Nares patent. Posterior pharynx is normal. Uvula midline. No deviation tongue or protrusion. Eyes PERRL and EOMs intact bilaterally General Eye ED: Negative for pale conjunctiva or scleral icterus Neck no lymphadenopathy, supple and no JVD Chest Wall inspection of chest normal and palpation of chest normal Resp normal respiratory effort and No clear to auscultation bilaterally Auscultation: rales bilateral lower and wheezes expiratory wheezes, scattered wheezes and throughout Cardio regular rate, regular rhythm, S1 normal heart sound, S2 normal heart sound and no murmurs GI normal to inspection, nondistended, normoactive bowel sounds, non-tender, non-distended and no masses; Negative for hepatosplenomegaly Palpation: soft Back/Spine no CVA tenderness Extremity normal to inspection Extremity Narrative: Venous stasis dermatitis, chronic per . General Extremety ED: Yes edema; Negative for tenderness General Extremity: edema Neuro CN's II-XII intact bilaterally Sensorium / Orientation: alert Psych mental status grossly normal Skin no rashes or lesions noted, no wounds and skin turgor normal General Skin Exam: Negative for jaundice or pallor MDM MDM MDM Narrative Medical decision making narrative: Patient had a cardiac echo October 2021 which revealed an ejection fraction of 60%. Normal LV wall motion. Normal left ventricular systolic function. Normalleft ventricular systolic function. He also had a cardiac cath which revealed anormal left main, normal left anterior descending artery, normal circumflex and normal right coronary artery. In my opinion patient's discomfort is noncardiac. Because of his age troponin level was ordered. I am concerned patient has pneumonia clinically and the factthat he is tachypneic febrile and has respiratory symptoms. He was treated withalbuterol. Rapid antigen for COVID, influenza and RSV was ordered. Appropriateblood work to assess for endorgan dysfunction. Lab Data Attestation: I reviewed the patient's lab results. Lab results narrative: White count of 17,000 with shift. There is no evidence of endorgan dysfunction. Blood sugar slightly elevated 136 with normal CO2 anion gap. Lactate is normal. BUN to creatinine ratio elevated 23-1. CO2 and anion gap are normal. Glucose slightly elevated 136. Liver enzymes are normal. Lactate is normal. Labs: Laboratory Results - last 24 hr 10/20/24 14:20 WBC 17.5 H RBC 5.12 Hgb 14.7 Hct 44.0 MCV 85.9 MCH 28.7 MCHC 33.4 RDW Std Deviation 42.4 RDW Coeff of Shonna 13.5 Plt Count 230 MPV 11.2 Immature Gran % (Auto) 0.300 Neut % (Auto) 90.0 H Lymph % (Auto) 4.0 L Elliott % (Auto) 5.3 Eos % (Auto) 0.1 Baso % (Auto) 0.3 Absolute Neuts (auto) 15.7 H Absolute Lymphs (auto) 0.70 L Nucleated RBC % 0 Sodium 142 Potassium 4.1 Chloride 108 Carbon Dioxide 21.6 Anion Gap 13 BUN 18 Creatinine 0.78 Estim Creat Clear Calc 101.20 Est GFR (MDRD) Non-Af 94 BUN/Creatinine Ratio 22.8 H Glucose 136 H Lactic Acid 1.6 Calcium 9.1 Total Bilirubin 0.42 AST 24 ALT 20 Alkaline Phosphatase 94 Troponin T High Sens 17 Total Protein 6.9 Albumin 4.1 Globulin 2.8 Albumin/Globulin Ratio 1.5 Radiography Chest X-Ray - ED: 2 View and Read by ED Physician (Chest x-rays independent reviewed interpreted by me as a retrocardiac infiltrate based on the lateral view. There is some fluffiness may represent interstitial pneumonia. Since he has a fever with wheezing and no increased orthopnea or pedal edema.) Diagnostic Testing: Clinical Impression(s) from Imaging Studies Chest X-Ray 10/20/24 15:40 IMPRESSION: Cardiomegaly and CHF. Reading Location: [facility] The radiology interpretation was reviewed. I believe patient has an infiltrate. Since that he is reading no CHF a BMP was obtained. Patient does not have history of CHF. Will treat for pneumonia since his rapid COVID, RSV and influenza are all negative EKG Initial EKG: Attestation: I personally reviewed and interpreted this EKG as follows: Interpretation: Sinus Rhythm (Interpreted by Dr. Kumar at 1320 as a normalsinus rhythm rate of 78. There is evidence of LVH. There is artifact. MS interval is 176 ms. Cures duration 78 ms. QT duration 388 ms. Oxford is normal.) Follow-up EKG: Attestation: I personally reviewed and interpreted this EKG as follows: Interpretation: Sinus Rhythm (Interpreted by me at 1506 as normal sinus rhythm rate of 96. There is evidence of LVH. The MS interval is 178 ms. QRS duration 84 ms. QT duration 356 ms. Oxford is normal. This was obtained becauseof worsening pain.) Management Discussion w/another healthcare provider: Hospitalist (Spoke with Dr. Wheeler. Because of the radiology read he will get an echo since there is consideration that there may be a cardiac component as well as an infectious component he was a full admit to the PCU.) Discharge Plan Dx/Rx/DC Orders Clinical Impression: Left lower lobe pneumonia, Hypoxia, THEA (obstructive sleep apnea), Leukocytosis, Bronchospasm, acute Disposition Disposition: Acute Care Hospital [facility] What to do if you have Problems For any increased pain, shortness of breath, bleeding, nausea or vomiting, chestpain, or any unexpected problems, contact your Primary Care Provider. Call [facility] ([phone]) or report to the closest Emergency Room. Call 911 if necessary. 10/20/24 1711 <Electronically signed by Cali Alvarado MD> Cosigner Signature (if applicable): CC: RAKAN Medina ~ Signed [facility] Work Phone: 1(626) 254-957103-04-2025 Discharge summary [facility] Medical Records Department [address] [place] [address] Emergency Department Summary 10/20/24 MR#: [id number] Acct: [id number] Name: PORTIA BAUER Rep #:[id number] : 1950 74 From: Cali Alvarado MD PCP: RAKAN Ackerman Status:REG ER Location: ED HPI History of Present Illness Chief Complaint: Chest Pain Detail of Chief Complaint: Spasming subxiphoid discomfort and shortness of breath Informant: patient and spouse/S.O. Onset/Context/Timing Onset: Today Context: Sudden Onset Timing: Intermittent Quality: Intermittent spasming like pain xiphoid region Current Severity: Moderate Maximum Severity: Moderate Worsened by: Nothing Relieved by: Nothing Associated Symptoms Associated Symptoms: Patient was unaware that he had a fever. He does endorse brown-colored spu Narrative Narrative: Patient is 74-year-old male. He has history of hypertension, COPD and allergieswho presents becauseof spasming like discomfort fever. Patient's pulse ox was 90% on room air at rest. Patient does endorse rhinorrhea and congestion. He does have history of allergies. This is different. He does endorse brown- colored sputum. He also has dyspnea on exertion. He has chronic swelling of his legs for years. He is scheduled for peripheral arterial studies. He has slept in a chair for some time. He is not on oxygen at home. [facility] Medical History Adult BMI 33.0-33.9 kg/sq m Essential hypertension Chest pressure PVC (premature ventricular contraction) Dyspnea on exertion Asthma Moderate persistent allergic asthma THEA (obstructive sleep apnea) Rheumatoid arthritis Syncope and collapse Dizziness and giddiness UMANA (dyspnea on exertion) Snoring Daytime somnolence Abnormal pulmonary function test Asthma, moderate persistent Home Medications ?Medication ?Instructions ?Recorded ?Last Taken ?Type aspirin 81 mg tablet,delayed 81 mg PO DAILY@0800 12/2810/24/21 History release betamethasone dipropionate 0.05 % 1 applic topical CARLOS LY PRN skin 09/25/22 Unknown History topical cream irritation horse chestnut 300 mg capsule 300 mg PO DAILY 09/25/22 Unknown History cxaotwis-ni-utaog 300 mcg-K 60 1 tab PO DAILY 09/25/22 Unknown History mcg-lycop 600 mcg-lutein 300 mcg tablet (Centrum Silver Ultra Men's) sodium chloride 0.65 % nasal spray 2 spray intranasal Q4H PRN dry 05/09/23 Unknown History aerosol (Winchester Saline) nasal passages metoprolol succinate 50 mg 50 mg PO DAILY #90 tabs 07/12 Unknown Rx tablet,extended release 24 hr albuterol sulfate 90 mcg/actuation 2 puff inhalation Q 4H PRN 11/11/23 Unknown Rx aerosol inhaler (Ventolin HFA) shortness of breath or wheezing #18 grams azelastine 0.05 % eye drops See Rx Instructions ophtha lmic 11/11/23 Unknown History (eye) .COMPLEX fluticasone furoate 200 1 inh inhalation QDAY #30 ea 11/11/23 Unknown Rx mcg/actuation blister powder for inhalation (Arnuity Ellipta) amlodipine 5 mg-benazepril 20 mg 1 cap PO DAILY #90 ca ps 12/17/23 Unknown Rx capsule Allergy/AdvReac Type Severity Reaction Status Date / Time No Known Allergies Allergy Verified 10/20/24 13:28 Family History Mother CAD (coronary artery disease) CVA (cerebral vascular accident) Surgical History History of bilateral cataract extraction H/O skin graft History of left heart catheterization (10/24/21) Social History Smoking Status: Former smoker quit date: 08/19/84 pack-years: 29 second hand exposure: No alcohol intake: never substance use type: does not use caffeine: Yes Type: coffee Number of servings: 2 ROS ROS ED Constitutional Constitutional ED: Reports chills and sweats; Denies fever(s), subjective or weight loss Eyes Eyes: Denies blurry vision, change in vision or diplopia ENT ENT ED: Reports rhinorrhea and sore throat; Denies ear pain Cardiovascular Cardiovascular: Reports chest pain; Denies orthopnea, palpitations, paroxysmal nocturnal dyspnea orracing heartbeat Respiratory/Chest Respiratory/Chest: Reports cough, dyspnea, dyspnea on exertion and sputum; Denies orthopnea or paroxysmal nocturnal dyspnea Gastrointestinal Gastrointestinal: Reports nausea; Denies abdominal pain, constipation, diarrhea,melena or vomiting Genitourinary Genitourinary ED: Denies dysuria, hematuria or urinary frequency Musculoskeletal Musculoskeletal: Denies arthralgias, back pain or myalgias Integumentary Denies abscess, Abrasions or rash Neurologic Neurologic: Reports weakness; Denies headache(s) or paresthesias Endocrine Endocrinology: Denies cold intolerance or heat intolerance Hematologic/Lymphatic Hematologic/Lymphatic: Reports systems reviewed and no addt'l complaints, exceptas documented Allergic/Immunologic Allergic/Immunologic ED: Denies mouth swelling or tongue swelling EXAM Physical Exam Const Vital Signs: 10/20/24 13:15 10/20/24 13:23 10/20/24 14:14 Temperature 100.0 F H Temperature Source Oral Pulse Rate 78 84 85 Respiratory Rate 24 H 31 H 22 H Respiratory Effort Respiratory Pattern Blood Pressure 117/72 129/70 H Blood Pressure Mean 87 89 Pulse Ox 90 91 99 Oxygen Delivery Method Room Air Room Air Oxygen Flow Rate (L/min) 10/20/24 14:24 10/20/24 14:24 10/20/24 15:00 Temperature Temperature Source Pulse Rate 86 94 Respiratory Rate 20 H 29 H Respiratory Effort Short of Breath Respiratory Pattern Normal Blood Pressure 141/101 H Blood Pressure Mean 114 Pulse Ox 94 Oxygen Delivery Method Nasal Cannula Oxygen Flow Rate (L/min) 2 10/20/24 16:00 10/20/24 16:40 Temperature 98.8 F Temperature Source Pulse Rate 91 94 Respiratory Rate 19 H 24 H Respiratory Effort Respiratory Pattern Blood Pressure 131/74 H 113/82 H Blood Pressure Mean 93 92 Pulse Ox 100 95 Oxygen Delivery Method Nasal Cannula Oxygen Flow Rate (L/min) 2 Positive well nourished and well developed Constitutional Narrative: BMI 35.2. Patient was unaware that he had an elevated temperature. He appears in respiratory distress General Appearance ED: well developed and diaphoretic; Negative for cyanotic or pallor HEENT Reports moist mucous membranes HEENT Narrative: Ears normal. Nares patent. Posterior pharynx is normal. Uvula midline. No deviation tongue or protrusion. Eyes PERRL and EOMs intact bilaterally General Eye ED: Negative for pale conjunctiva or scleral icterus Neck no lymphadenopathy, supple and no JVD Chest Wall inspection of chest normal and palpation of chest normal Resp normal respiratory effort and No clear to auscultation bilaterally Auscultation: rales bilateral lower and wheezes expiratory wheezes, scattered wheezes and throughout Cardio regular rate, regular rhythm, S1 normal heart sound, S2 normal heart sound and no murmurs GI normal to inspection, nondistended, normoactive bowel sounds, non-tender, non- distended and no masses; Negative for hepatosplenomegaly Palpation: soft Back/Spine no CVA tenderness Extremity normal to inspection Extremity Narrative: Venous stasis dermatitis, chronic per . General Extremety ED: Yes edema; Negative for tenderness General Extremity: edema Neuro CN's II-XII intact bilaterally Sensorium / Orientation: alert Psych mental status grossly normal Skin no rashes or lesions noted, no wounds and skin turgor normal General Skin Exam: Negative for jaundice or pallor MDM MDM MDM Narrative Medical decision making narrative: Patient had a cardiac echo October 2021 which revealed an ejection fraction of 60%. Normal LV wall motion. Normal left ventricular systolic function. Normalleft ventricular systolic function. He also had a cardiac cath which revealed anormal left main, normal left anterior descending artery, normal ci rcumflex and normal right coronary artery. In my opinion patient's discomfort is noncardiac. Because of his age troponin level was ordered. I am concerned patient has pneumonia clinically and the factthat he is tachypneic febrile and has respiratory symptoms. He was treated withalbuterol. Rapid antigen for COVID, influenza and RSV was ordered. Appropriateblood work to assess for endorgan dysfunction. Lab Data Attestation: I reviewed the patient's lab results. Lab results narrative: White count of 17,000 with shift. There is no evidence of endorgan dysfunction. Blood sugar slightly elevated 136 with normal CO2 anion gap. Lactate is normal. BUN to creatinine ratio elevated 23-1. CO2 and anion gap are normal. Glucose slightly elevated 136. Liver enzymes are normal. Lactate is normal. Labs: Laboratory Results - last 24 hr 10/20/24 14:20 WBC 17.5 H RBC 5.12 Hgb 14.7 Hct 44.0 MCV 85.9 MCH 28.7 MCHC 33.4 RDW Std Deviation 42.4 RDW Coeff of Shonna 13.5 Plt Count 230 MPV 11.2 Immature Gran % (Auto) 0.300 Neut % (Auto) 90.0 H Lymph % (Auto) 4.0 L Elliott % (Auto) 5.3 Eos % (Auto) 0.1 Baso % (Auto) 0.3 Absolute Neuts (auto) 15.7 H Absolute Lymphs (auto) 0.70 L Nucleated RBC % 0 Sodium 142 Potassium 4.1 Chloride 108 Carbon Dioxide 21.6 Anion Gap 13 BUN 18 Creatinine 0.78 Estim Creat Clear Calc 101.20 Est GFR (MDRD) Non-Af 94 BUN/Creatinine Ratio 22.8 H Glucose 136 H Lactic Acid 1.6 Calcium 9.1 Total Bilirubin 0.42 AST 24 ALT 20 Alkaline Phosphatase 94 Troponin T High Sens 17 Total Protein 6.9 Albumin 4.1 Globulin 2.8 Albumin/Globulin Ratio 1.5 Radiography Chest X-Ray - ED: 2 View and Read by ED Physician (Chest x-rays independent reviewed interpreted byme as a retrocardiac infiltrate based on the lateral view. There is some fluffiness may represent interstitial pneumonia. Since he has a fever with wheezing and no increased orthopnea or pedal edema.) Diagnostic Testing: Clinical Impression(s) from Imaging Studies Chest X-Ray 10/20/24 15:40 IMPRESSION: Cardiomegaly and CHF. Reading Location: [facility] The radiology interpretation was reviewed. I believe patient has an infiltrate. Since that he is reading no CHF a BMP was obtained. Patient does not have history of CHF. Will treat for pneumonia since his rapid COVID, RSV and influenza are all negative EKG Initial EKG: Attestation: I personally reviewed and interpreted this EKG as follows: Interpretation: Sinus Rhythm (Interpreted by Dr. Kumar at 1320 as a normalsinus rhythm rate of 78. There is evidence of LVH. There is artifact. MS interval is 176 ms. Cures duration 78 ms. QT duration 388 ms. Oxford is normal.) Follow-up EKG: Attestation: I personally reviewed and interpreted this EKG as follows: Interpretation: Sinus Rhythm (Interpreted by me at 1506 as normal sinus rhythm rate of 96. There isevidence of LVH. The MS interval is 178 ms. QRS duration 84 ms. QT duration 356 ms. Oxford is normal.This was obtained becauseof worsening pain.) Management Discussion w/another healthcare provider: Hospitalist (Spoke with Dr. Wheeler. Because of the radiology read he will get an echo since there is consideration that there may be a cardiac component as well as an infectious component he was a full admit to the PCU.) Discharge Plan Dx/Rx/DC Orders Clinical Impression: Left lower lobe pneumonia, Hypoxia, THEA (obstructive sleep apnea), Leukocytosis, Bronchospasm, acute Disposition Disposition: Acute Care Hospital [facility] What to do if you have Problems For any increased pain, shortness of breath, bleeding, nausea or vomiting, chestpain, or any unexpected problems, contact your Primary Care Provider. Call [facility] ([phone]) or report tothe closest Emergency Room. Call 911 if necessary. 10/20/24 1711 Cosigner Signature (if applicable): CC: RAKAN Medina ~ Signed [facility]03-04-2025 Radiology Diagnostic study note [facility] Imaging Services [address] [place], [place] [address] Chest PA and Lateral MR#: [id number] Acct: [id number] Name: PORTIA BAUER Rep #: [id number] : 1950 M 74 From: Dayne Piper MD PCP: RAKAN Ackerman Status: REG ER Study:Chest PA and Lateral Date of Exam: 10/20/24 Exam# [id number] Ordering Dr: Shikha Alvarado MD PROCEDURE: CHEST PA AND LATERAL REASON FOR EXAM: Chest pain since this morning. TECHNIQUE: Frontal and lateral views of the chest. COMPARISON: Comparison is made with prior study April 10, 2023. FINDINGS: EKG electrodes are seen. Cardiomegaly. Atherosclerotic calcification of the aortic arch. Mild degree of CHF. Atelectasis at the lung bases. Stable elevation of the right hemidiaphragm. RAD/Chest PA and Lateral IMPRESSION: Cardiomegaly and CHF. Reading Location: [facility] CC: RAKAN Medina; Dr. Cali Alvarado MD ~ [employer] Salesperson: Signed [facility] Center[facility] noteNo assessment information available [facility] Work Phone: Reason for referral (narrative)No reason for referral information availableWLima City Hospital Work Phone: Chief Complaint and Reason for Visit Chief Complaint HEARING LOSS IN R EA R CHEST XRAY Chief Complaint BLE PAIN Chief Complaint Admit Date [facility] October 20, 2024 5:14pm HYPOX[facility] October 21, 2024 9:39am HYPOXIA [facility] October 22, 2024 8:54am HYPOXIA FROM [facility] October 23, 2024 8:16am HYPOXIA FROM [facility] October 24, 2024 7:42am Reason for Visit Admit Date CAP (community acquired pneumonia) October 20, 2024 5:14pm Hypoxia October 20, 2024 5:14 pm Chief Complaint Admit Date HYPOXIA FROM [facility] October 20, 2024 5:14pm HYPOXIA FROM [facility] October 21, 2024 9:39am HYPOXIA FROM [facility] October 22, 2024 8:54am HYPOXIA FROM [facility] October 23, 2024 8:16am Atrial fibrillation October 23, 2024 9:09 am HYPOXIA FROM [facility] October 24, 2024 7:42am BILATERAL LEG SWELLING October 28, 2024 10:53am Chief Complaint Admit Date HYPOX[facility] October 20, 2024 5:14pm HYPOXIA FROM [facility] October 21, 2024 9:39am HYPOXIA FROM [facility] October 22, 2024 8:54am HYPOXIA FROM [facility] October 23, 2024 8:16am Atrial fibrillation October 23, 2024 9:09 am HYPOXIA FROM [facility] October 24, 2024 7:42am BILATERAL LEG SWELLING October 28, 2024 10:53am 1 Y FU November 10, 2024 9:3 4am S/P [facility] 10/24November 23, 2024 10:5 4am INT LAB ORDERS November 23, 2024 11:5 8am Reason for Visit Admit Date CAP (community acquired pneumonia) October 20, 2024 5:14pm Hypoxia October 20, 2024 5:14 pm Solitary pulmonary nodule November 10 9:34am Asthma November 10, 2024 9:3 4am THEA (obstructive sleep apnea) October 9:34am Afib November 23, 2024 10:5 4am Decreased left ventricular systolic func tion November 23, 2024 10:54am UMANA (dyspnea on exertion) November 23 10:54am Essential hypertension November 23, 2024 1 0:54am THEA (obstructive sleep apnea) November 23, 2024 10:54am Chief Complaint Admit Date HYPOXIA FROM [facility] October 20, 2024 5:14pm HYPOXIA FROM [facility] October 21, 2024 9:39am HYPOXIA FROM [facility] October 22, 2024 8:54am HYPOXIA FROM [facility] October 23, 2024 8:16am Atrial fibrillation October 23, 2024 9:09 am HYPOXIA FROM [facility] October 24, 2024 7:42am BILATERAL LEG SWELLING October 28, 2024 10:53am 1 Y FU November 10, 2024 9:3 4am S/P [facility] 10/24November 23, 2024 10:5 4am INT LAB ORDERS November 23, 2024 11:5 8am AFIB November 27, 2024 6:5 5am J45.20 - Mild intermittent asthma, uncom plicated December 08, 2024 9:35am V-TACH December 15, 2024 6:1 6am V-TACH December 16, 2024 8:2 6am Amb Documentation December 18, 2024 4:04pm 6 wk FU December 23, 2024 9:25am Reason for Visit Admit Date CAP (community acquired pneumonia) October 20, 2024 5:14pm Hypoxia October 20, 2024 5:14 pm Solitary pulmonary nodule November 10 9:34am Asthma November 10, 2024 9:3 4am THEA (obstructive sleep apnea) October 9:34am Afib November 23, 2024 10:5 4am Decreased left ventricular systolic func tion November 23, 2024 10:54am UMANA (dyspnea on exertion) November 23 10:54am Essential hypertension November 23, 2024 1 0:54am THEA (obstructive sleep apnea) November 23, 2024 10:54am Restrictive airway disease December 23, 2024 9:25am Solitary pulmonary nodule December 23, 2024 9:25am Asthma December 23, 2024 9:25am THEA (obstructive sleep apnea) December 23, 025 9:25am Chief Complaint Admit Date HYPOXIA FROM [facility] October 20, 2024 5:14pm HYPOXIA FROM [facility] October 21, 2024 9:39am HYPOXIA FROM [facility] October 22, 2024 8:54am HYPOXIA FROM [facility] October 23, 2024 8:16am Atrial fibrillation October 23, 2024 9:09 am HYPOXIA FROM [facility] October 24, 2024 7:42am BILATERAL LEG SWELLING October 28, 2024 10:53am 1 Y FU November 10, 2024 9:3 4am S/P [facility] 10/24November 23, 2024 10:5 4am INT LAB ORDERS November 23, 2024 11:5 8am AFIB November 27, 2024 6:5 5am 30 DAY MONITOR November 27, 2024 9:0 0am J45.20 - Mild intermittent asthma, uncom plicated December 08, 2024 9:35am V-TACH December 15, 2024 6:1 6am V-TACH December 16, 2024 8:2 6am Amb Documentation December 18, 2024 4:04pm 6 wk FU December 23, 2024 9:25am G47.33 - Obstructive sleep apnea (adult) (pediatri January 07, 2025 8:48am Chief Complaint Admit Date HYPOXIA FROM [facility] October 20, 2024 5:14pm HYPOXIA FROM [facility] October 21, 2024 9:39am HYPOXIA FROM [facility] October 22, 2024 8:54am HYPOXIA FROM [facility] October 23, 2024 8:16am Atrial fibrillation October 23, 2024 9:09 am HYPOXIA FROM [facility] October 24, 2024 7:42am BILATERAL LEG SWELLING October 28, 2024 10:53am 1 Y FU November 10, 2024 9:3 4am S/P [facility] 10/24November 23, 2024 10:5 4am INT LAB ORDERS November 23, 2024 11:5 8am AFIB November 27, 2024 6:5 5am 30 DAY MONITOR November 27, 2024 9:0 0am J45.20 - Mild intermittent asthma, uncom plicated December 08, 2024 9:35am V-TACH December 15, 2024 6:1 6am V-TACH December 16, 2024 8:2 6am Amb Documentation December 18, 2024 4:04pm 6 wk FU December 23, 2024 9:25am G47.33 - Obstructive sleep apnea (adult) (pediatri January 07, 2025 8:48am J98.4 - Other disorders of lung January 11:58am J98.4 - Other disorders of lung January 10:09am Chief Complaint Admit Date BILATERAL LEG SWELLING October 28, 2024 10:53am 1 Y FU November 10, 2024 9:3 4am S/P H 10/24November 23, 2024 10:5 4am INT LAB ORDERS November 23, 2024 11:5 8am AFIB November 27, 2024 6:5 5am 30 DAY MONITOR November 27, 2024 9:0 0am J45.20 - Mild intermittent asthma, uncom plicated December 08, 2024 9:35am V-TACH December 15, 2024 6:1 6am V-TACH December 16, 2024 8:2 6am Amb Documentation December 18, 2024 4:04pm 6 wk FU December 23, 2024 9:25am G47.33 - Obstructive sleep apnea (adult) (pediatri January 07, 2025 8:48am J98.4 - Other disorders of lung January 11:58am J98.4 - Other disorders of lung January 10:09am 3 M FU February 22, 2025 11:15 am Reason for Visit Admit Date Solitary pulmonary nodule November 10 9:34am Asthma November 10, 2024 9:3 4am THEA (obstructive sleep apnea) October 9:34am Afib November 23, 2024 10:5 4am Decreased left ventricular systolic func tion November 23, 2024 10:54am UMANA (dyspnea on exertion) November 23 10:54am Essential hypertension November 23, 2024 1 0:54am THEA (obstructive sleep apnea) November 23, 2024 10:54am Restrictive airway disease December 23, 2024 9:25am Solitary pulmonary nodule December 23, 2024 9:25am Asthma December 23, 2024 9:25am THEA (obstructive sleep apnea) December 23, 025 9:25am Afib February 22, 2025 11:15 am Decreased left ventricular systolic func tion February 22, 2025 11:15am UMANA (dyspnea on exertion) February 22, 2025 11:15am Essential hypertension February 22, 2025 11 :15am THEA (obstructive sleep apnea) February 22, 2025 11:15am Family History No Family History Records Found Relationship Condition Age at Onset Recorded Date/T willian mother Coronary artery disease Unknown Cerebrovascular accident (CVA) Unknown Advance Directives No Advanced Directives Records Found Advance Directive Response Recorded Date/ Time Advance Directives Yes October 24 7:54am Living Will Yes October 24, 2021 7:54am Power of Risk Intern Yes October 24 7:54am Advance Directive Response Recorded Date/ Time Advance Directives Yes October 24 6:54am Living Will Yes October 24, 2021 6:54am Power of Risk Intern Yes October 24 6:54am Advance Directive Response Recorded Date/ Time Living Will Yes October 20, 2024 9:55pm Power of Risk Intern Yes October 20 9:55pm Name of Medical Power of Risk Intern Fernando wheeler October 20, 2024 9:55pm Advance Directives Yes October 24 6:54am Advance Directive Response Recorded Date/ Time Living Will Yes October 20, 2024 10:55pm Do you have a Healthcare Power of Risk Intern? Yes October 20, 2024 10:55pm Name of Medical Power of Risk Intern Fernando wheeler October 20, 2024 10:55pm Advance Directives Yes October 24 7:54am Advance Directive Response Recorded Date/ Time Living Will Yes October 24, 2021 7:54am Do you have a Healthcare Power of Risk Intern? Yes October 24, 2021 7:54am Living Will Yes October 20, 2024 10:55pm Do you have a Healthcare Power of Risk Intern? Yes October 20, 2024 10:55pm Name of Medical Power of Risk Intern Fernando wheeler October 20, 2024 10:55pm Advance Directives Yes October 24 7:54am Advance Directive Response Recorded Date/ Time Living Will Yes October 24, 2021 7:54am Do you have a Healthcare Power of Risk Intern? Yes October 24, 2021 7:54am Advance Directives Yes October 24 7:54am Summary Purpose Additional Source Comments Care Teams (unrecognized sec tion and content) Team Status: Active Member Role Status Dates Dr. Luke Obrien MD Family Provider Active RAKAN Ackerman Primary Care Provider Active Team Status: Inactive Member Role Status Dates Dr. Jose Thomas DO Primary Care Prov ider, Attending Provider, Referring Provider Active Team Status: Inactive Member Role Status Dates Michael Medina , FINANCIAL SERVICES OFFICER-C Primary Care Provide r, Attending Provider, Referring Provider Active Team Status: Inactive Member Role Status Dates Michael Medina FINANCIAL SERVICES OFFICER-C Primary Care Provider Active Dr. Papa Schuler , DPM Attending Provider, Referrin g Provider Active Team Status: Active Member Role Status Dates Michael Medina , FINANCIAL SERVICES OFFICER-C Primary Care Provider Active Team Status: Inactive Member Role Status Dates Michael Medina FINANCIAL SERVICES OFFICER-C Primary Care Provider Active Start: October 20, 2024 End: October 24, 2024 Dr. Cali Alvarado MD Emergency Provider Active Sta rt: October 20, 2024 End: October 24, 2024 Dr. Ramón Wheeler DO Admit Provider Active Start: October 20, 2024 End: October 24, 2024 Dr. Ramón Wheeler DO Other Provider Active Start: October 20, 2024 End: October 24, 2024 Dr. Agustin Mcarthur MD Attending Provider Active Start: October 20, 2024 End: October 24, 2024 Team Status: Active Member Role Status Dates Michael Medina FINANCIAL SERVICES OFFICER-C Primary Care Provider Active Start: October 21, 2024 Dr. Cali Alvarado MD Emergency Provider Active Sta rt: October 21, 2024 Dr. Ramón Wheeler DO Admit Provider Active Start: October 21, 2024 Dr. Ramón Wheeler DO Other Provider Active Start: October 21, 2024 Dr. Agustin Mcarthur MD Attending Provider Active Start: October 21, 2024 Dr. Agustin Mcarthur MD Other Provider Active Star t: October 21, 2024 Team Status: Active Member Role Status Dates Michael Medina NP-C Primary Care Provider Active Start: October 21, 2024 Dr. Zachary Rahman MD Attending Provider Active Start: October 21, 2024 Team Status: Active Member Role Status Dates Michael Medina FINANCIAL SERVICES OFFICER-C Primary Care Provider Active Start: October 22, 2024 Dr. Cali Alvarado MD Emergency Provider Active Sta rt: October 22, 2024 Dr. Ramón Wheeler DO Admit Provider Active Start: October 22, 2024 Dr. Ramón Wheeler DO Other Provider Active Start: October 22, 2024 Dr. Agustin Mcarthur MD Attending Provider Active Start: October 22, 2024 Dr. Agustin Mcarthur MD Other Provider Active Star t: October 22, 2024 Team Status: Active Member Role Status Dates Michael Medina FINANCIAL SERVICES OFFICER-C Primary Care Provider Active Start: October 23, 2024 Dr. Cali Alvarado MD Emergency Provider Active Sta rt: October 23, 2024 Dr. Ramón Wheeler DO Admit Provider Active Start: October 23, 2024 Dr. Ramón Wheeler DO Other Provider Active Start: October 23, 2024 Dr. Agustin Mcarthur MD Attending Provider Active Start: October 23, 2024 Dr. Agustin Mcarthur MD Other Provider Active Star t: October 23, 2024 Team Status: Active Member Role Status Dates Michael Medina FINANCIAL SERVICES OFFICER-C Primary Care Provider Active Start: October 24, 2024 Dr. Cali Alvarado MD Emergency Provider Active Sta rt: October 24, 2024 Dr. Ramón Wheeler DO Admit Provider Active Start: October 24, 2024 Dr. Ramón Wheeler DO Other Provider Active Start: October 24, 2024 Dr. Agustin Mcarthur MD Attending Provider Active Start: October 24, 2024 Dr. Agustin Mcarthur MD Other Provider Active Star t: October 24, 2024 Team Status: Active Member Role Status Dates Michael Medina FINANCIAL SERVICES OFFICER-C Primary Care Provider Active Start: October 23, 2024 End: October 23, 2024 Dr. Zachary Rahman MD Attending Provider Active Start: October 23, 2024 End: October 23, 2024 Dr. Zachary Rahman MD Referring Provider Active Start: October 23, 2024 End: October 23, 2024 Team Status: Inactive Member Role Status Dates Michael Medina FINANCIAL SERVICES OFFICER-C Primary Care Provider Active Start: October 28, 2024 End: October 28, 2024 Dr. Papa Schuler DPM Attending Provider Active Start: October 28, 2024 End: October 28, 2024 Dr. Papa Schuler DPM Referring Provider Active Start: October 28, 2024 End: October 28, 2024 Team Status: Active Member Role Status Dates Michael Medina FINANCIAL SERVICES OFFICER-C Primary Care Provider Active Start: October 28, 2024 Dr. John Fermin MD Attending Provider Active S tart: October 28, 2024 Dr. Papa Schuler DPM Referring Provider Active Start: October 28, 2024 Team Status: Inactive Member Role Status Dates Michael Leonides , FINANCIAL SERVICES OFFICER-C Primary Care Provider Active Start: November 10, 2024 End: November 10, 2024 Michael Medina , FINANCIAL SERVICES OFFICER-C Referring Provider Active St art: November 10, 2024 End: November 10, 2024 Reyna Olivares , FINANCIAL SERVICES OFFICER-C Attending Provider Active Start: November 10, 2024 End: November 10, 2024 Team Status: Inactive Member Role Status Dates Michael Medina , FINANCIAL SERVICES OFFICER-C Primary Care Provider Active Start: November 23, 2024 End: November 23, 2024 Michael Medina , FINANCIAL SERVICES OFFICER-C Referring Provider Active St art: November 23, 2024 End: November 23, 2024 Darleen Mitchell FINANCIAL SERVICES OFFICER, FINANCIAL SERVICES OFFICER-C Attending Provider Active Start: November 23, 2024 End: November 23, 2024 Team Status: Inactive Member Role Status Dates Michael Medina , FINANCIAL SERVICES OFFICER-C Primary Care Provider Active Start: November 23, 2024 End: November 23, 2024 Darleen Mitchell FINANCIAL SERVICES OFFICER, FINANCIAL SERVICES OFFICER-C Attending Provider Active Start: November 23, 2024 End: November 23, 2024 Darleen Mitchell FINANCIAL SERVICES OFFICER, FINANCIAL SERVICES OFFICER-C Referring Provider Active Start: November 23, 2024 End: November 23, 2024 Team Status: Active Member Role Status Dates Michael Medina , FINANCIAL SERVICES OFFICER-C Primary Care Provider Active Start: November 27, 2024 Darleen Mitchell FINANCIAL SERVICES OFFICER, FINANCIAL SERVICES OFFICER-C Attending Provider Active Start: November 27, 2024 Darleen Mitchell FINANCIAL SERVICES OFFICER, FINANCIAL SERVICES OFFICER-C Referring Provider Active Start: November 27, 2024 Team Status: Inactive Member Role Status Dates Michael Medina , FINANCIAL SERVICES OFFICER-C Primary Care Provider Active Start: December 08, 2024 End: December 08, 2024 Reyna Olivares , FINANCIAL SERVICES OFFICER-C Attending Provider Active Start: December 08, 2024 End: December 08, 2024 Reyna Olivares , FINANCIAL SERVICES OFFICER-C Referring Provider Active Start: December 08, 2024 End: December 08, 2024 Team Status: Inactive Member Role Status Dates Michael Medina , FINANCIAL SERVICES OFFICER-C Primary Care Provider Active Start: December 15, 2024 End: December 15, 2024 Darleen Mitchell FINANCIAL SERVICES OFFICER, FINANCIAL SERVICES OFFICER-C Attending Provider Active Start: December 15, 2024 End: December 15, 2024 Darleen Mitchell FINANCIAL SERVICES OFFICER, FINANCIAL SERVICES OFFICER-C Referring Provider Active Start: December 15, 2024 End: December 15, 2024 Team Status: Active Member Role Status Dates Michael Medina , FINANCIAL SERVICES OFFICER-C Primary Care Provider Active Start: December 16, 2024 Darleen Mitchell FINANCIAL SERVICES OFFICER, FINANCIAL SERVICES OFFICER-C Referring Provider Active Start: December 16, 2024 Darleen Mitchell FINANCIAL SERVICES OFFICER, FINANCIAL SERVICES OFFICER-C Other Provider Active Sta rt: December 16, 2024 Dr. Ashwin Langley MD Attending Provider Active S tart: December 16, 2024 Team Status: Active Member Role Status Dates Michaeleric Medina , FINANCIAL SERVICES OFFICER-C Primary Care Provider Active Start: December 18, 2024 Darleen Mitchell FINANCIAL SERVICES OFFICER, FINANCIAL SERVICES OFFICER-C Attending Provider Active Start: December 18, 2024 Team Status: Inactive Member Role Status Dates Michael Leonides , FINANCIAL SERVICES OFFICER-C Primary Care Provider Active Start: December 23, 2024 End: December 23, 2024 Michael Leonides , FINANCIAL SERVICES OFFICER-C Referring Provider Active St art: December 23, 2024 End: December 23, 2024 Reyna Olivares , FINANCIAL SERVICES OFFICER-C Attending Provider Active Start: December 23, 2024 End: December 23, 2024 Team Status: Active Member Role Status Dates Michaeleric Medina , FINANCIAL SERVICES OFFICER-C Primary Care Provider Active Start: November 27, 2024 Dr. Ashwin Langley MD Attending Provider Active S tart: November 27, 2024 Darleen Mitchell FINANCIAL SERVICES OFFICER, FINANCIAL SERVICES OFFICER-C Referring Provider Active Start: November 27, 2024 Team Status: Inactive Member Role Status Dates Michael Leonides , FINANCIAL SERVICES OFFICER-C Primary Care Provider Active Start: January 07, 2025 End: January 07, 2025 Reyna Olivares , FINANCIAL SERVICES OFFICER-C Attending Provider Active Start: January 07, 2025 End: January 07, 2025 Reyna Olivares FINANCIAL SERVICES OFFICER-C Referring Provider Active Start: January 07, 2025 End: January 07, 2025 Team Status: Active Member Role/Relationship Status Dates Michael Leonides , FINANCIAL SERVICES OFFICER-C Primary Care Provider Active Team Status: Inactive Member Role/Relationship Status Dates Michael Leonides , FINANCIAL SERVICES OFFICER-C Primary Care Provider Active Start: October 20, 2024 End: October 24, 2024 Dr. Cali Alvarado MD Emergency Provider Active Sta rt: October 20, 2024 End: October 24, 2024 Dr. Ramón Wheeler DO Admit Provider Active Start: October 20, 2024 End: October 24, 2024 Dr. Ramón Wheeler DO Other Provider Active Start: October 20, 2024 End: October 24, 2024 Dr. Agustin Mcarthur MD Attending Provider Active Start: October 20, 2024 End: October 24, 2024 Team Status: Active Member Role/Relationship Status Dates Michael Medina FINANCIAL SERVICES OFFICER-C Primary Care Provider Active Start: October 21, 2024 Dr. Cali Alvarado MD Emergency Provider Active Sta rt: October 21, 2024 Dr. Ramón Wheeler DO Admit Provider Active Start: October 21, 2024 Dr. Ramón Wheeler DO Other Provider Active Start: October 21, 2024 Dr. Agustin Mcarthur MD Attending Provider Active Start: October 21, 2024 Dr. Agustin Mcarthur MD Other Provider Active Star t: October 21, 2024 Team Status: Active Member Role/Relationship Status Dates Michael Medina FINANCIAL SERVICES OFFICER-C Primary Care Provider Active Start: October 21, 2024 Dr. Zachary Rahman MD Attending Provider Active Start: October 21, 2024 Team Status: Active Member Role/Relationship Status Dates Michael Medina , FINANCIAL SERVICES OFFICER-C Primary Care Provider Active Start: October 22, 2024 Dr. Cali Alvarado MD Emergency Provider Active Sta rt: October 22, 2024 Dr. Ramón Wheeler DO Admit Provider Active Start: October 22, 2024 Dr. Ramón Wheeler DO Other Provider Active Start: October 22, 2024 Dr. Agustin Mcarthur MD Attending Provider Active Start: October 22, 2024 Dr. Agustin Mcarthur MD Other Provider Active Star t: October 22, 2024 Team Status: Active Member Role/Relationship Status Dates Michael Medina FINANCIAL SERVICES OFFICER-C Primary Care Provider Active Start: October 23, 2024 Dr. Cali Alvarado MD Emergency Provider Active Sta rt: October 23, 2024 Dr. Ramón Wheeler DO Admit Provider Active Start: October 23, 2024 Dr. Ramón Wheeler DO Other Provider Active Start: October 23, 2024 Dr. Agustin Mcarthur MD Attending Provider Active Start: October 23, 2024 Dr. Agustin Mcarthur MD Other Provider Active Star t: October 23, 2024 Team Status: Active Member Role/Relationship Status Dates Michael Medina , FINANCIAL SERVICES OFFICER-C Primary Care Provider Active Start: October 23, 2024 End: October 23, 2024 Dr. Zachary Rahman MD Attending Provider Active Start: October 23, 2024 End: October 23, 2024 Dr. Zachary Rahman MD Referring Provider Active Start: October 23, 2024 End: October 23, 2024 Team Status: Active Member Role/Relationship Status Dates Michael Medina , FINANCIAL SERVICES OFFICER-C Primary Care Provider Active Start: October 24, 2024 Dr. Cali Alvarado MD Emergency Provider Active Sta rt: October 24, 2024 Dr. Ramón Wheeler DO Admit Provider Active Start: October 24, 2024 Dr. Ramón Wheeler , Other Provider Active Start: October 24, 2024 Dr. Agustin Mcarthur MD Attending Provider Active Start: October 24, 2024 Dr. Agustin Mcarthur MD Other Provider Active Star t: October 24, 2024 Team Status: Inactive Member Role/Relationship Status Dates Michael Medina , FINANCIAL SERVICES OFFICER-C Primary Care Provider Active Start: October 28, 2024 End: October 28, 2024 Dr. Papa Schuler DPM Attending Provider Active Start: October 28, 2024 End: October 28, 2024 Dr. Papa Schuler DPM Referring Provider Active Start: October 28, 2024 End: October 28, 2024 Team Status: Active Member Role/Relationship Status Dates Michael Medina , FINANCIAL SERVICES OFFICER-C Primary Care Provider Active Start: October 28, 2024 Dr. John Fermin MD Attending Provider Active S tart: October 28, 2024 Dr. Papa Schuler DPM Referring Provider Active Start: October 28, 2024 Team Status: Inactive Member Role/Relationship Status Dates Michael Medina , FINANCIAL SERVICES OFFICER-C Primary Care Provider Active Start: November 10, 2024 End: November 10, 2024 Michael Medina , FINANCIAL SERVICES OFFICER-C Referring Provider Active St art: November 10, 2024 End: November 10, 2024 Reyna Olivares FINANCIAL SERVICES OFFICER-C Attending Provider Active Start: November 10, 2024 End: November 10, 2024 Team Status: Inactive Member Role/Relationship Status Dates Michael Medina , FINANCIAL SERVICES OFFICER-C Primary Care Provider Active Start: November 23, 2024 End: November 23, 2024 Michael Medina FINANCIAL SERVICES OFFICER-C Referring Provider Active St art: November 23, 2024 End: November 23, 2024 Darleen Mitchell NP, FINANCIAL SERVICES OFFICER-C Attending Provider Active Start: November 23, 2024 End: November 23, 2024 Team Status: Inactive Member Role/Relationship Status Dates Michael Medina , FINANCIAL SERVICES OFFICER-C Primary Care Provider Active Start: November 23, 2024 End: November 23, 2024 Darleen Mitchell FINANCIAL SERVICES OFFICER, FINANCIAL SERVICES OFFICER-C Attending Provider Active Start: November 23, 2024 End: November 23, 2024 Darleen Mitchell FINANCIAL SERVICES OFFICER, FINANCIAL SERVICES OFFICER-C Referring Provider Active Start: November 23, 2024 End: November 23, 2024 Team Status: Active Member Role/Relationship Status Dates Michael Medina , FINANCIAL SERVICES OFFICER-C Primary Care Provider Active Start: November 27, 2024 Darleen Mitchell FINANCIAL SERVICES OFFICER, FINANCIAL SERVICES OFFICER-C Attending Provider Active Start: November 27, 2024 Darleen Mitchell FINANCIAL SERVICES OFFICER, FINANCIAL SERVICES OFFICER-C Referring Provider Active Start: November 27, 2024 Team Status: Active Member Role/Relationship Status Dates Michaeleric Medina , FINANCIAL SERVICES OFFICER-C Primary Care Provider Active Start: November 27, 2024 Dr. Ashwin Langley MD Attending Provider Active S tart: November 27, 2024 Darleen Mitchell FINANCIAL SERVICES OFFICER, FINANCIAL SERVICES OFFICER-C Referring Provider Active Start: November 27, 2024 Team Status: Inactive Member Role/Relationship Status Dates Michael Loenides , FINANCIAL SERVICES OFFICER-C Primary Care Provider Active Start: December 08, 2024 End: December 08, 2024 Reyna Olivares , FINANCIAL SERVICES OFFICER-C Attending Provider Active Start: December 08, 2024 End: December 08, 2024 Reyna Olivares , FINANCIAL SERVICES OFFICER-C Referring Provider Active Start: December 08, 2024 End: December 08, 2024 Team Status: Inactive Member Role/Relationship Status Dates Michael Leonides , FINANCIAL SERVICES OFFICER-C Primary Care Provider Active Start: December 15, 2024 End: December 15, 2024 Darleen Mitchell FINANCIAL SERVICES OFFICER, FINANCIAL SERVICES OFFICER-C Attending Provider Active Start: December 15, 2024 End: December 15, 2024 Darleen Mitchell FINANCIAL SERVICES OFFICER, FINANCIAL SERVICES OFFICER-C Referring Provider Active Start: December 15, 2024 End: December 15, 2024 Team Status: Active Member Role/Relationship Status Dates Michael Medina , FINANCIAL SERVICES OFFICER-C Primary Care Provider Active Start: December 16, 2024 Darleen Mitchell FINANCIAL SERVICES OFFICER, FINANCIAL SERVICES OFFICER-C Referring Provider Active Start: December 16, 2024 Darleen Mitchell FINANCIAL SERVICES OFFICER, FINANCIAL SERVICES OFFICER-C Other Provider Active Sta rt: December 16, 2024 Dr. Ashwin Langley MD Attending Provider Active S tart: December 16, 2024 Team Status: Active Member Role/Relationship Status Dates Mcihael Medina , FINANCIAL SERVICES OFFICER-C Primary Care Provider Active Start: December 18, 2024 Darleen Mitchell NP, FINANCIAL SERVICES OFFICER-C Attending Provider Active Start: December 18, 2024 Team Status: Inactive Member Role/Relationship Status Dates Michael Medina FINANCIAL SERVICES OFFICER-C Primary Care Provider Active Start: December 23, 2024 End: December 23, 2024 Michael Medina FINANCIAL SERVICES OFFICER-C Referring Provider Active St art: December 23, 2024 End: December 23, 2024 Reyna Olivares FINANCIAL SERVICES OFFICER-C Attending Provider Active Start: December 23, 2024 End: December 23, 2024 Team Status: Inactive Member Role/Relationship Status Dates Michael Medina FINANCIAL SERVICES OFFICER-C Primary Care Provider Active Start: January 07, 2025 End: January 07, 2025 Reyna Olivares FINANCIAL SERVICES OFFICER-C Attending Provider Active Start: January 07, 2025 End: January 07, 2025 Reyna Olivares FINANCIAL SERVICES OFFICER-C Referring Provider Active Start: January 07, 2025 End: January 07, 2025 Team Status: Inactive Member Role/Relationship Status Dates Michael Medina FINANCIAL SERVICES OFFICER-C Primary Care Provider Active Start: February 09, 2025 End: February 09, 2025 Reyna Olivares FINANCIAL SERVICES OFFICER-C Attending Provider Active Start: February 09, 2025 End: February 09, 2025 Reyna Olivares FINANCIAL SERVICES OFFICER-C Referring Provider Active Start: February 09, 2025 End: February 09, 2025 Team Status: Active Member Role/Relationship Status Dates Michael Medina FINANCIAL SERVICES OFFICER-C Primary Care Provider Active Start: February 11, 2025 Reyna Olivares FINANCIAL SERVICES OFFICER-C Referring Provider Active Start: February 11, 2025 Reyna Olivares NP-C Other Provider Active St art: February 11, 2025 Dr. Peyman Wolfe , Attending Provider Active S tart: February 11, 2025 Team Status: Inactive Member Role/Relationship Status Dates Michael Medina FINANCIAL SERVICES OFFICER-C Primary Care Provider Active Start: October 28, 2024 End: October 28, 2024 Dr. Papa Schuler DPM Attending Provider Active Start: October 28, 2024 End: October 28, 2024 Dr. Papa Schuler DPM Referring Provider Active Start: October 28, 2024 End: October 28, 2024 Team Status: Active Member Role/Relationship Status Dates Michael Leonides , FINANCIAL SERVICES OFFICER-C Primary Care Provider Active Start: October 28, 2024 Dr. John Fermin MD Attending Provider Active S tart: October 28, 2024 Dr. Papa Schuler , DPM Referring Provider Active Start: October 28, 2024 Team Status: Inactive Member Role/Relationship Status Dates Michael Leonides , FINANCIAL SERVICES OFFICER-C Primary Care Provider Active Start: November 10, 2024 End: November 10, 2024 Michael Leonides , FINANCIAL SERVICES OFFICER-C Referring Provider Active St art: November 10, 2024 End: November 10, 2024 Reyna Olivares , FINANCIAL SERVICES OFFICER-C Attending Provider Active Start: November 10, 2024 End: November 10, 2024 Team Status: Inactive Member Role/Relationship Status Dates Michael Leonides , FINANCIAL SERVICES OFFICER-C Primary Care Provider Active Start: November 23, 2024 End: November 23, 2024 Michael Leonides , FINANCIAL SERVICES OFFICER-C Referring Provider Active St art: November 23, 2024 End: November 23, 2024 Darleen Mitchell FINANCIAL SERVICES OFFICER, FINANCIAL SERVICES OFFICER-C Attending Provider Active Start: November 23, 2024 End: November 23, 2024 Team Status: Inactive Member Role/Relationship Status Dates Michael Leonides , FINANCIAL SERVICES OFFICER-C Primary Care Provider Active Start: November 23, 2024 End: November 23, 2024 Darleen Mitchell FINANCIAL SERVICES OFFICER, FINANCIAL SERVICES OFFICER-C Attending Provider Active Start: November 23, 2024 End: November 23, 2024 Darleen Mitchell FINANCIAL SERVICES OFFICER, FINANCIAL SERVICES OFFICER-C Referring Provider Active Start: November 23, 2024 End: November 23, 2024 Team Status: Active Member Role/Relationship Status Dates Michael Leonides , FINANCIAL SERVICES OFFICER-C Primary Care Provider Active Start: November 27, 2024 Darleen Mitchell FINANCIAL SERVICES OFFICER, FINANCIAL SERVICES OFFICER-C Attending Provider Active Start: November 27, 2024 Darleen Mitchell FINANCIAL SERVICES OFFICER, FINANCIAL SERVICES OFFICER-C Referring Provider Active Start: November 27, 2024 Team Status: Active Member Role/Relationship Status Dates Michael Leonides , FINANCIAL SERVICES OFFICER-C Primary Care Provider Active Start: November 27, 2024 Dr. Ashwin Langley MD Attending Provider Active S tart: November 27, 2024 Darleen Mitchell FINANCIAL SERVICES OFFICER, FINANCIAL SERVICES OFFICER-C Referring Provider Active Start: November 27, 2024 Team Status: Inactive Member Role/Relationship Status Dates Michael Leonides , FINANCIAL SERVICES OFFICER-C Primary Care Provider Active Start: December 08, 2024 End: December 08, 2024 Reyna Olivares FINANCIAL SERVICES OFFICER-C Attending Provider Active Start: December 08, 2024 End: December 08, 2024 Reyna Olivares FINANCIAL SERVICES OFFICER-C Referring Provider Active Start: December 08, 2024 End: December 08, 2024 Team Status: Inactive Member Role/Relationship Status Dates Michael Medina , FINANCIAL SERVICES OFFICER-C Primary Care Provider Active Start: December 15, 2024 End: December 15, 2024 Darleen Mitchell FINANCIAL SERVICES OFFICER, FINANCIAL SERVICES OFFICER-C Attending Provider Active Start: December 15, 2024 End: December 15, 2024 Darleen Mitchell FINANCIAL SERVICES OFFICER, FINANCIAL SERVICES OFFICER-C Referring Provider Active Start: December 15, 2024 End: December 15, 2024 Team Status: Active Member Role/Relationship Status Dates Michael Medina , FINANCIAL SERVICES OFFICER-C Primary Care Provider Active Start: December 16, 2024 Darleen Mitchell FINANCIAL SERVICES OFFICER, FINANCIAL SERVICES OFFICER-C Referring Provider Active Start: December 16, 2024 Darleen Mitchell FINANCIAL SERVICES OFFICER, FINANCIAL SERVICES OFFICER-C Other Provider Active Sta rt: December 16, 2024 Dr. Ashwin Langley MD Attending Provider Active S tart: December 16, 2024 Team Status: Active Member Role/Relationship Status Dates Michael Medina , FINANCIAL SERVICES OFFICER-C Primary Care Provider Active Start: December 18, 2024 Darleen Mitchell FINANCIAL SERVICES OFFICER, FINANCIAL SERVICES OFFICER-C Attending Provider Active Start: December 18, 2024 Team Status: Inactive Member Role/Relationship Status Dates Michael Medina , FINANCIAL SERVICES OFFICER-C Primary Care Provider Active Start: December 23, 2024 End: December 23, 2024 Michael Medina , FINANCIAL SERVICES OFFICER-C Referring Provider Active St art: December 23, 2024 End: December 23, 2024 Reyna Olivares FINANCIAL SERVICES OFFICER-C Attending Provider Active Start: December 23, 2024 End: December 23, 2024 Team Status: Inactive Member Role/Relationship Status Dates Michael Medina , FINANCIAL SERVICES OFFICER-C Primary Care Provider Active Start: January 07, 2025 End: January 07, 2025 Reyna Olivares FINANCIAL SERVICES OFFICER-C Attending Provider Active Start: January 07, 2025 End: January 07, 2025 Reyna Olivares NP-C Referring Provider Active Start: January 07, 2025 End: January 07, 2025 Team Status: Inactive Member Role/Relationship Status Dates Michael Medina , FINANCIAL SERVICES OFFICER-C Primary Care Provider Active Start: February 09, 2025 End: February 09, 2025 Reyna Olivares NP-C Attending Provider Active Start: February 09, 2025 End: February 09, 2025 RAKAN Barnes Referring Provider Active Start: February 09, 2025 End: February 09, 2025 Team Status: Active Member Role/Relationship Status Dates RAKAN Ackerman Primary Care Provider Active Start: February 11, 2025 RAKAN Barnes Referring Provider Active Start: February 11, 2025 RAKAN Barnes Other Provider Active St art: February 11, 2025 Dr. Peyman Wolfe , Attending Provider Active S tart: February 11, 2025 Team Status: Inactive Member Role/Relationship Status Dates RAKAN Ackerman Primary Care Provider Active Start: February 22, 2025 End: February 22, 2025 RAKAN Ackerman Referring Provider Active St art: February 22, 2025 End: February 22, 2025 Darleen Mitchell NP, FINANCIAL SERVICES OFFICER-C Attending Provider Active Start: February 22, 2025 End: February 22, 2025 Goals (unrecognized section and content) Goals may be documented in a n alternate sectionGoals may be documented in an alternate sectionGoals may be documented in an alternate section (unrecognized sect ion and content) No Status Records Found INFORMATION SOURCE (unrecogn ized section and content) DATE CREATED AUTHOR 03/04/2025 [facility] FOR RECORDS PERTAINING TO PATIENTS WHO ARE [...] BE BASED ON THE PRIMARY CLINICAL RECORDS. [employer] provides no warranty or guarantee of the accuracy or completeness of information in this document.
== END | disposition home or self-care (01) ==
LOC: PSN 10:20
PROVIDERS: PCP Nurse Practitioner Family; Referring Provider Nurse Practitioner Family; Visit Provider Nurse Practitioner Family
DX: J98.4 Other disorders of lung (principal)
CPT/HCPCS: 94060; 94726; 94729

== ENCOUNTER → 2025-05-13 | Outpatient (CLI) | payer MEDICARE, SELFPAY ==
--- NOTE | 2025-05-13 08:12 | CT_ITS ---
PROCEDURE: CHEST WITHOUT CONTRAST 05/13/2025 REASON FOR EXAM: 7MM NONCALCIFIED NODULE IN RIGHT APEX TECHNIQUE: Chest CT without contrast. Coronal and Sagittal reconstruction series were provided. One or more dose reduction techniques were used (e.g., Automated exposure control, adjustment of the mA and/or kV according to patient size, use of iterative reconstruction technique RADIATION DOSE SUMMARY: DLP: 626 mGycm COMPARISON: October 21, 2024 FINDINGS: Hardware: None Lymph nodes: There is no pathologic adenopathy by size criteria. Heart and Vasculature: The ascending aorta is dilated to 4.0 cm in AP diameter, unchanged. Minimal atherosclerotic calcifications are noted. Lungs and Airways: The nodular density in the right lung apex on the prior now measures 0.49 cm, 0.7 cm on the prior. Pleura: There is no pneumothorax or effusion. Upper Abdomen: Unremarkable Bones: There is no acute bony abnormality CT/Chest without Contrast IMPRESSION: The ascending aorta is dilated to 4.0 cm in AP diameter, unchanged. The nodular density in the right lung apex on the prior now measures 0.49 cm, 0 .7 cm on the prior. Reading [facility]
== END | disposition home or self-care (01) ==
PROVIDERS: PCP Nurse Practitioner Family; Referring Provider Nurse Practitioner Family; Visit Provider Nurse Practitioner Family
DX: R91.1 Solitary pulmonary nodule (principal)
CPT/HCPCS: 71250